=== PATIENT | male | born 1945 | race Caucasian/White ===

== ENCOUNTER 2020-12-26 07:36 | Emergency (ER) | payer OTHER, SELFPAY ==
[2020-12-26 07:37] VITALS: BP 158/104; PULSE 114; RESP 16; TEMP 36.8; O2SAT 96; BMI 20.7
--- NOTE | 2020-12-26 08:05 | EDS_ITS ---
HPI HPI - GI History of Present Illness Chief Complaint: Abd Pain Informant: patient Abdominal Pain/Flank Pain Onset: Days (2) Context: Gradual Onset Timing: Waxes and wanes Quality: Aching Location: Diffuse (More lower abdomen nonlateralizing) Current Severity: Moderate Maximum Severity: Moderate Worsened by: Nothing Relieved by: Nothing Nausea/Vomiting/Emesis GI Symptom: Positive for Nausea and Vomiting (Once when he lie down and felt acid coming up) Onset: Yesterday Quality: Positive for Nonbilious Diarrhea/Melena/Hematochezia GI Symptom: Positive for - (Constipated. Feels like needs to have a bowel movement but unable since before pain started); Negative for Diarrhea, Melena and Hematochezia Associated Symptoms Associated Symptoms: Negative for Dysuria, Frequency, Hematuria and Urgency Narrative Narrative: Patient had a bowel movement several days ago but later that night started having abdominal discomfort, usually has bowel movement every morning but not able to since the pain started, although he feels the need to. Now abdomen distended, feeling hard, with on and off pain. No fevers or chills. No bright red blood per rectum. No trouble urinating. No other recent illness. PFSH PFSH no medical history Home Medications NK 12/26/20 [History Last Taken Unknown] Allergy/AdvReac Type Severity Reaction Status Date / Time No Known Allergies Allergy Verified 12/26/20 07:40 Social History Smoking Status: Never smoker ROS ROS ED Constitutional Constitutional ED: Denies chills or fever(s) Eyes Eyes: Denies change in vision or diplopia ENT ENT ED: Denies rhinorrhea or sore throat Cardiovascular Cardiovascular: Denies chest pain or palpitations Respiratory/Chest Respiratory/Chest: Denies cough or dyspnea Gastrointestinal Gastrointestinal: Reports as per HPI, abdominal pain, constipation, nausea and vomiting; Denies diarrhea Genitourinary Genitourinary ED: Denies dysuria or hematuria Musculoskeletal Musculoskeletal: Denies back pain or neck pain Integumentary Denies abscess or rash Neurologic Neurologic: Denies headache(s), paresthesias or weakness Psychiatric Psychiatric: Denies anxiety or suicidal thoughts EXAM Physical Exam Const Vital Signs: 12/26/20 07:37 Temperature 98.2 F Temperature Source Temporal Pulse Rate 114 H Respiratory Rate 16 Blood Pressure 158/104 H Blood Pressure Mean 122 Pulse Ox 96 Oxygen Delivery Method Room Air Positive well nourished and well developed General Appearance ED: well developed and NAD HEENT Reports moist mucous membranes normocephalic and atraumatic Eyes PERRL and EOMs intact bilaterally Neck full ROM and supple Resp normal respiratory effort and clear to auscultation bilaterally Cardio regular rate, regular rhythm and no murmurs GI GI Narrative: Distended. Mildly diffusely tender. Pain is not severe at this time. No guarding or rebound tenderness. Auscultation: normoactive bowel sounds Palpation: soft Back/Spine no CVA tenderness General Back: other FROM Extremity normal to inspection General Extremety ED: Negative for edema, pulses abnormal or tenderness General Extremity: Negative for edema or pulses abnormal Neuro oriented x3, CN's II-XII intact bilaterally and no sensory deficits noted Sensorium / Orientation: awake and alert Motor Exam: strength 5/5 throughout Skin no rashes or lesions noted and no wounds MDM MDM MDM Narrative Medical decision making narrative: Tried to order a soapsuds enema for the patient but the hospital does not have anymore so he was given a fleets enema. This resulted in a decent bowel movement, he felt much better. His abdomen was softer, he agreed it did not feel firm anymore, and he states his abdomen went back to normal. No more pain. I reexamined him. No tenderness anywhere, softer. He states he feels like he can go some more, but not right now. He has magnesium citrate at home to drink, I offered him to CT anyway since he has a mild leukocytosis, he declines and states he will continue treating himself at home and return if worse which I am fine with. Lab Data Attestation: I reviewed the patient's lab results. Labs: Laboratory Results - last 24 hr 12/26/20 12/26/20 07:50 07:50 WBC 13.5 H RBC 4.73 Hgb 9.2 L Hct 33.2 L MCV 70.2 L MCH 19.5 L MCHC 27.7 L RDW Std Deviation 46.9 H RDW Coeff of Eduardo 19.1 H Plt Count 244 MPV 10.3 Immature Gran % (Auto) 0.400 Neut % (Auto) 87.2 H Lymph % (Auto) 4.5 L [place] % (Auto) 7.7 Eos % (Auto) 0.0 Baso % (Auto) 0.2 Absolute Neuts (auto) 11.8 H Absolute Lymphs (auto) 0.60 L Nucleated RBC % 0 Differential Comment SCANNED Platelet Estimate ADEQUATE Hypochromasia 2+ Sodium 138 Potassium 4.0 Chloride 105 Carbon Dioxide 25.0 Anion Gap 8 BUN 27 H Creatinine 1.81 H Estim Creat Clear Calc 32.80 Est GFR (MDRD) Af Amer 47 L Est GFR (MDRD) Non-Af 39 L BUN/Creatinine Ratio 14.9 Glucose 142 H Calcium 8.9 Total Bilirubin 0.70 AST 14 L ALT 18 Alkaline Phosphatase 73 Total Protein 7.6 Albumin 3.1 L Globulin 4.5 H Albumin/Globulin Ratio 0.7 L Lipase 67 L Discharge Plan Triage Chief Complaint: Abd Pain ED Provider: Joe Wilson Dx/Rx/DC Orders Clinical Impression: Abdominal pain, diffuse, Constipation Instructions: ED Constipation (Adult) Prescriptions: No Action NK RF: 0 [facility] Provider[facility] [facility] [Primary Care Provider] - 3-5 Days if not improving (Or may return to ER if worse) Activity Restrictions/Additional Instructions: Drink the rest of your magnesium citrate bottle, make sure you are drinking plenty of fluids after that, and may do another Fleet Enema if you feel like it is needed. Disposition Disposition: Home, Self Care
[2020-12-26] MEDS: Ondansetron 4 MG/2 ML Vial IV (08:12)
[2020-12-26 08:20] LABS: Absolute Neutrophil Count 11.8 X10^3/uL (2.0-7.7); Basophil# 0.03 X10^3/uL; Basophil% 0.2 % (0-1); Hematocrit 33.2 % (40-54); Hemoglobin 9.2 g/dL (13.0-16.5); Lymphocyte % 4.5 % (19-41); Mean Corp Hgb Conc 27.7 g/dL (32-36); Mean Corpuscular Hgb 19.5 pg (27.0-32.0); Mean Corpuscular Volume 70.2 fL (80-94); Mean Platelet Vol. 10.3 fl (6.2-12.0); Monocyte# 1.04 X10^3/uL; Monocyte% 7.7 % (0-10); NRBC Flagged by Analyzer 0 % (0-5); Neutrophil # 11.76 X10^3/uL (2.7-7.7); Neutrophil % 87.2 % (47-70); POSITIVE DIFFERENTIAL YES; POSITIVE MORPHOLOGY YES; Platelet Count 244 K/mm3 (150-450); RBC Distribution Width CV 19.1 % (11.6-14.6); RBC Distribution Width SD 46.9 fl (35.1-43.9); Red Blood Count 4.73 M/mm3 (4.6-6.2); White Blood Count 13.5 K/mm3 (4.4-11.0)
[2020-12-26 08:21] LABS: Differential Indicated SCAN CRITERIA MET
[2020-12-26 08:32] LABS: ALB/GLOB Ratio 0.7 RATIO (0.9-2.4); AST(SGOT) 14 U/L (15-37); Alanine Aminotransfer ALT/SGPT 18 U/L (16-61); Albumin, Serum 3.1 g/dL (3.2-5.0); Alkaline Phosphatase 73 U/L (45-117); Anion Gap 8 (5-15); BUN 27 mg/dL (7-18); BUN/Creat Ratio 14.9 RATIO (10-20); Calcium,Total 8.9 mg/dL (8.5-10.1); Chloride 105 mmol/L (98-107); Creatinine, Serum 1.81 mg/dL (0.70-1.30); EST Glomerular Filtration Rate 39 mL/min (>60); Est Glom Filt Rate - Afr Amer 47 mL/min (>60); Globulin 4.5 g/dL (2.2-4.2); Glucose 142 mg/dL (74-106); Lipase 67 U/L (73-393); Protein, Total 7.6 g/dL (6.4-8.2); Sodium Level 138 mmol/L (136-145)
[2020-12-26] MEDS: Fleet Enema 1 ML RC (08:34)
[2020-12-26 08:49] LABS: Differential Comment SCANNED; Hypochromasia 2+; Platelet Estimate ADEQUATE (ADEQ)
[2020-12-26 09:43] VITALS: RESP 16
== END 2020-12-26 09:43 | disposition home or self-care (01) ==
PROVIDERS: Emergency Provider Emergency Medicine
DX: R10.9 Unspecified abdominal pain (principal); K59.00 Constipation, unspecified
CPT/HCPCS: 74018; 74177; 80053; 83605; 83690; 85025; 85610; 85730; 87040; 87077; 87426; 96361; 96365; 96374; 96375; 96376; 99283; 99285; J7030; Q9967; A4216; J2405

== ENCOUNTER 2020-12-26 15:24 | Emergency (ER) | payer OTHER, SELFPAY ==
[2020-12-26 15:25] VITALS: BP 125/77; PULSE 106; RESP 16; TEMP 37.6; O2SAT 98; BMI 20.7
--- NOTE | 2020-12-26 16:40 | EDS_ITS ---
HPI History of Present Illness Chief Complaint: Abd Pain Informant: patient and spouse/S.O. Narrative Narrative: 75-year-old male states that he is having abdominal pain and constipation. He reports that on morning he had a bowel movement but then developed generalized abdominal pain. He states his abdomen was feeling firm is not passing any gas. He came to the emergency room this morning where he was noted to have a slight leukocytosis at 13. He declined a CT scan and had an enema. He states that he did have a small bowel movement. Since returning home he notes that his abdomen continues to hurt and is back to being firm. He denies any prior abdominal surgeries. No history of diverticulitis or colitis. He denies any fever. He has not been eating solid foods he had a smoothie today as well as a Sprite and lots of water. PFSH PFSH Home Medications NK 12/26/20 [History Last Taken Unknown] Allergy/AdvReac Type Severity Reaction Status Date / Time No Known Allergies Allergy Verified 12/26/20 07:40 no surgical history Social History (Updated 12/26/20 @ 16:[address] Hunter Tomlinson, DO) Smoking Status: Never smoker substance use type: does not use ROS ROS ED Constitutional Constitutional ED: Denies chills or weight loss Eyes Eyes: Denies change in vision or diplopia ENT ENT ED: Denies ear pain, rhinorrhea or sore throat Cardiovascular Cardiovascular: Denies chest pain, orthopnea, palpitations or racing heartbeat Respiratory/Chest Respiratory/Chest: Denies cough, dyspnea or orthopnea Gastrointestinal Gastrointestinal: Reports abdominal pain, constipation and nausea; Denies diarrhea or vomiting Genitourinary Genitourinary ED: Denies dysuria, hematuria or urinary frequency Musculoskeletal Musculoskeletal: Denies arthralgias or myalgias Integumentary Denies abscess or rash Neurologic Neurologic: Denies headache(s) or weakness Psychiatric Psychiatric: Denies anxiety, depression, suicidal ideation or suicidal thoughts Endocrine Endocrinology: Denies polydipsia, polyphagia or polyuria Allergic/Immunologic Allergic/Immunologic ED: Denies mouth swelling, tongue swelling or urticaria EXAM Physical Exam Const Vital Signs: 12/26/20 15:25 12/26/20 18:30 12/26/20 21:01 Temperature 99.6 F H Temperature Source Temporal Pulse Rate 106 H 99 121 H Respiratory Rate 16 18 22 H Blood Pressure 125/77 H 153/95 H 151/79 H Blood Pressure Mean 93 114 103 Pulse Ox 98 95 97 Oxygen Delivery Method Room Air Room Air Nasal Cannula Oxygen Flow Rate (L/min) 3 12/26/20 21:03 12/26/20 21:26 Temperature 100.1 F H 100.1 F H Temperature Source Temporal Pulse Rate 119 H Respiratory Rate 20 H Blood Pressure 151/74 H Blood Pressure Mean 99 Pulse Ox 96 Oxygen Delivery Method Oxygen Flow Rate (L/min) Positive well nourished and well developed General Appearance ED: well developed HEENT Reports normocephalic, head/scalp atraumatic and moist mucous membranes Eyes PERRL and EOMs intact bilaterally Neck no lymphadenopathy, supple and no JVD Resp normal respiratory effort and clear to auscultation bilaterally Cardio regular rate, regular rhythm and no murmurs GI GI Narrative: Mild diffuse tenderness to palpation. Symptomatic Inspection: abdominal distention Auscultation: hypoactive bowel sounds Palpation: Negative for guarding or rebound tenderness present Back/Spine no CVA tenderness and normal ROM Extremity normal to inspection General Extremety ED: Negative for edema General Extremity: Negative for edema Neuro oriented x3 and CN's II-XII intact bilaterally Sensorium / Orientation: alert Motor Exam: strength 5/5 throughout Psych mental status grossly normal Mood & Affect: Negative for depressed or tearful Skin no rashes or lesions noted and no wounds MDM MDM MDM Narrative Medical decision making narrative: CT abdomen pelvis was obtained. Initially no blood work is ordered as he just had blood work done this morning. CT returns with a 4 cm proximal sigmoid mass and large amount of pneumoperitoneum. Blood work was ordered and he received additional morphine Zofran IV fluids NG placement and Zosyn. Initial return of the NG was 400 cc. My interpretation of the x-ray of the abdomen following placement is curling of the NG tube proximally at the GE junction. I reviewed this as the patient was loaded onto the helicopter cot. As we are getting fluid out I am not going to hold his transfer to fix this. It can be adjusted in the few minutes while they are on the ground. White count returns at 15.1 lactic acid 3.1. Creatinine 2.26 with a BUN of 37. I spoke with our on-call surgeon who recommends transfer to tertiary care facility. I spoke with the patient and his . I have called multiple facilities in [place] in [place] and nobody has a bed availability. I spoke with [facility] and they have accepted the patient. Ground transport is greater than 1 hour to arrival here. Therefore I will fly the patient as I believe it is in the best interest for him to receive timely care. Lab Data Attestation: I reviewed the patient's lab results. Labs: Laboratory Results - last 24 hr 12/26/20 12/26/20 12/26/20 20:17 20:17 20:17 WBC 15.1 H RBC 4.55 L Hgb 8.9 L Hct 32.3 L MCV 71.0 L MCH 19.6 L MCHC 27.6 L RDW Std Deviation 48.1 H RDW Coeff of Eduardo 19.1 H Plt Count 250 MPV 10.1 Immature Gran % (Auto) [employer] Neut % (Auto) [employer] Lymph % (Auto) [employer] [place] % (Auto) [employer] Eos % (Auto) [employer] Baso % (Auto) [employer] Absolute Neuts (auto) 13.9 H Absolute Lymphs (auto) 0.15 L Total Counted 100 Neutrophils % (Manual) 57 Band Neutrophils % 35 H Lymphocytes % (Manual) 1 L Monocytes % (Manual) 7 Nucleated RBC % [employer] Differential Comment SCANNED Diff Path Review May foll Platelet Estimate ADEQUATE Hypochromasia 2+ Anisocytosis 3+ Microcytosis 1+ PT 15.5 H INR 1.3 APTT 25.2 Sodium 136 Potassium 4.6 Chloride 102 Carbon Dioxide 28.0 Anion Gap 6 BUN 37 H Creatinine 2.26 H Estim Creat Clear Calc 26.27 Est GFR (MDRD) Af Amer 37 L Est GFR (MDRD) Non-Af 30 L BUN/Creatinine Ratio 16.4 Glucose 138 H Lactic Acid Calcium 9.4 Total Bilirubin 0.40 AST 18 ALT 19 Alkaline Phosphatase 67 Total Protein 7.2 Albumin 2.7 L Globulin 4.5 H Albumin/Globulin Ratio 0.6 L Lipase 35 L 12/26/20 20:17 WBC RBC Hgb Hct MCV MCH MCHC RDW Std Deviation RDW Coeff of Eduardo Plt Count MPV Immature Gran % (Auto) Neut % (Auto) Lymph % (Auto) [place] % (Auto) Eos % (Auto) Baso % (Auto) Absolute Neuts (auto) Absolute Lymphs (auto) Total Counted Neutrophils % (Manual) Band Neutrophils % Lymphocytes % (Manual) Monocytes % (Manual) Nucleated RBC % Differential Comment Diff Path Review Platelet Estimate Hypochromasia Anisocytosis Microcytosis PT INR APTT Sodium Potassium Chloride Carbon Dioxide Anion Gap BUN Creatinine Estim Creat Clear Calc Est GFR (MDRD) Af Amer Est GFR (MDRD) Non-Af BUN/Creatinine Ratio Glucose Lactic Acid 3.1 H* Calcium Total Bilirubin AST ALT Alkaline Phosphatase Total Protein Albumin Globulin Albumin/Globulin Ratio Lipase Radiography Diagnostic Testing: Radiology Impression Abdomen/Pelvis CT 12/26/20 16:40 IMPRESSION: 1. Extensive pneumoperitoneum. Viscus perforation is a presumed cause. Emergency surgical referral advised. 2. 4 cm proximal sigmoid mass, presumed colonic cancer, possible site of perforation. Electronically Signed: Nora Arenas MD at 19:52 EDT Tel , Service support , ADDENDUM: 12/26/202019 IMPRESSION: 1. Extensive pneumoperitoneum. Viscus perforation is a presumed cause. Emergency surgical referral advised. 2. 4 cm proximal sigmoid mass, presumed colonic cancer, possible site of perforation. N.B. : The above Results were Read Back by Noar Arenas MD to Dr. Hunter Tomlinson MD, and understanding confirmed on 12/26/2020 20:14:01 (ET). Electronically Signed: Nora Arenas MD at 19:52 EDT Tel , Service support , KUB X-Ray 12/26/20 20:45 IMPRESSION: 1. Free air under the right hemidiaphragm in the upper abdomen. This was seen on a previous CT scan. 2. Nasogastric tube coiled at the gastroesophageal junction of the distal tip actually in the distal esophagus. This should be retracted and reinserted. at 2133 Reported and signed by: David Richardson MD Electronically Signed: David Richardson MD at 21:32 EDT Tel , Service support , ADDENDUM: 12/26/20 2152 IMPRESSION: 1. Free air under the right hemidiaphragm in the upper abdomen. This was seen on a previous CT scan. 2. Nasogastric tube coiled at the gastroesophageal junction of the distal tip actually in the distal esophagus. This should be retracted and reinserted. at 2133 Reported and signed by: David Richardson MD N.B. : The above Results were Read Back by David Richardson MD to Hunter Sher MD, and understanding confirmed on 12/26/2020 21:45:06 (ET). Electronically Signed: David Richardson MD at 21:32 EDT Tel , Service support , Critical Care Time Critical Care Time: Yes Critical care time (excluding procedures): 30-74 minutes (35 min), Including time spent:, Discussing w/Patient &/or Family/Public Speaking Instructor, Discussing w/Consultants, Arranging Admission or Transfer and Performing Direct Patient Care at Bedside Discharge Plan Triage Chief Complaint: Abd Pain ED Provider: Hunter Tomlinson Dx/Rx/DC Orders Clinical Impression: Pneumoperitoneum, Colonic mass, Sepsis Prescriptions: No Action NK RF: 0 [facility] [facility] [Primary [facility] Provider] - Disposition Disposition: Acute Care Hospital Discharge Location: [facility] Discharge Date/Time: 12/26/20 21:28
--- NOTE | 2020-12-26 16:40 | CT_ITS ---
We are attempting to reach an attending provider to discuss findings. An addendum with communication details will be sent when the communication is complete. STUDY: CT ABDOMEN AND PELVIS WITH CONTRAST REASON FOR EXAM: Male, 75 years old. Abdominal pain bloating nausea constipation RADIATION DOSAGE (If Supplied By Facility): CTDIvol = ( 13.72 ) mGy, DLP = ( 978.49 ) mGycm TECHNIQUE: CT images were obtained from the dome of the diaphragm to the symphysis pubis without oral contrast. Oral and amp; IV Gastrografin and amp; 100mL Isovue-300 was administered. Sagittal and coronal images were reconstructed. Individualized dose optimization techniques were used for this CT. COMPARISON: None. FINDINGS: There is minimal right pleural effusion and bilateral atelectasis. There is extensive pneumoperitoneum. There is gas bubbles around the distal esophagus which is distended with reflux fluid from the stomach. There is no intestinal obstruction. There is a 4 cm focal thickening, probable proximal sigmoid mass. There is extensive mesenteric edema inflammation and small amount of interloop fluid. Solid organs are normal. There is a 1 cm right renal hypodensity and subcentimeter smaller hypodensities, presumed renal cysts. Normal abdominal aorta. Normal inferior vena cava. Normal retroperitoneum. Normal urinary bladder. Normal abdominal wall. Normal osseous structures. CT/Abdomen/Pelvis WITH Contrast IMPRESSION: 1. Extensive pneumoperitoneum. Viscus perforation is a presumed cause. Emergency surgical referral advised. 2. 4 cm proximal sigmoid mass, presumed colonic cancer, possible site of perforation. Electronically Signed: Nora Arenas MD at 19:52 EDT Tel , Service support ,
[2020-12-26] MEDS: Ondansetron 4 MG/2 ML Vial IV ×2 (16:52→20:30)
[2020-12-26] MEDS: 0.9% Normal Saline 1,000 ML 1000 ML IV (16:52)
[2020-12-26] MEDS: Morphine 4 MG/ML Syringe IV ×2 (16:54→20:30)
[2020-12-26 18:30] VITALS: BP 153/95; PULSE 99; RESP 18; O2SAT 95
[2020-12-26] MEDS: Oxymetazoline 0.05% 1 SPRAY SPRAY.BTL 2 SPRAY NASAL (20:31)
[2020-12-26 20:32] LABS: Hematocrit 32.3 % (40-54); Hemoglobin 8.9 g/dL (13.0-16.5); Mean Corp Hgb Conc 27.6 g/dL (32-36); Mean Corpuscular Hgb 19.6 pg (27.0-32.0); Mean Platelet Vol. 10.1 fl (6.2-12.0); POSITIVE MORPHOLOGY YES; Platelet Count 250 K/mm3 (150-450); RBC Distribution Width CV 19.1 % (11.6-14.6); RBC Distribution Width SD 48.1 fl (35.1-43.9); Red Blood Count 4.55 M/mm3 (4.6-6.2); White Blood Count 15.1 K/mm3 (4.4-11.0)
[2020-12-26] MEDS: 0.9% Normal Saline 1,000 ML 150 ML IV (20:32)
[2020-12-26] MEDS: Lidocaine 4% 5 ML Ampul 2 ML INHALATION (20:32)
[2020-12-26 20:41] LABS: International Normalized Ratio 1.3; Prothrombin Time (Protime)PT. 15.5 SECONDS (11.7-14.9)
[2020-12-26 20:42] LABS: Partial Thromboplast Time 25.2 Seconds (24.1-36.2)
--- NOTE | 2020-12-26 20:45 | RAD_ITS ---
We are attempting to reach an attending provider to discuss findings. An addendum with communication details will be sent when the communication is complete. EXAM: XR ABDOMEN, 1 VIEW : 1945 CLINICAL INDICATION: ng -- KUB with both diaphragms for NG/OG Verification TECHNIQUE: Frontal supine view of the abdomen/pelvis. This report was created using [employer] report generation technology. COMPARISON: None. FINDINGS: LOWER THORAX: See below. INTRAPERITONEAL SPACE: There is free air under the right hemidiaphragm. GASTROINTESTINAL TRACT: There are mildly dilated loops of small bowel. ORGANS: Unremarkable as visualized. No organomegaly. No abnormal calcifications. BONES/JOINTS: No acute pathology. SOFT TISSUES: No acute pathology. TUBES, LINES AND DEVICES: Is a gastric tube is coiled at the gastroesophageal junction with the distal tip actually within the distal esophagus. This should be retracted and reinserted. RAD/Abdomen Single View (Portable) IMPRESSION: 1. Free air under the right hemidiaphragm in the upper abdomen. This was seen on a previous CT scan. 2. Nasogastric tube coiled at the gastroesophageal junction of the distal tip actually in the distal esophagus. This should be retracted and reinserted. at 2133 Reported and signed by: David Richardson MD Electronically Signed: David Richardson MD at 21:32 EDT Tel , Service support ,
[2020-12-26 20:49] LABS: ALB/GLOB Ratio 0.6 RATIO (0.9-2.4); AST(SGOT) 18 U/L (15-37); Alanine Aminotransfer ALT/SGPT 19 U/L (16-61); Albumin, Serum 2.7 g/dL (3.2-5.0); Alkaline Phosphatase 67 U/L (45-117); Anion Gap 6 (5-15); BUN 37 mg/dL (7-18); BUN/Creat Ratio 16.4 RATIO (10-20); Calcium,Total 9.4 mg/dL (8.5-10.1); Chloride 102 mmol/L (98-107); Creatinine, Serum 2.26 mg/dL (0.70-1.30); EST Glomerular Filtration Rate 30 mL/min (>60); Est Glom Filt Rate - Afr Amer 37 mL/min (>60); Estimated Creatinine Clearance 26.27 ml/min; Globulin 4.5 g/dL (2.2-4.2); Glucose 138 mg/dL (74-106); Lipase 35 U/L (73-393); Potassium 4.6 mmol/L (3.5-5.1); Protein, Total 7.2 g/dL (6.4-8.2); Sodium Level 136 mmol/L (136-145)
[2020-12-26 21:01] VITALS: BP 151/79; PULSE 121; RESP 22; O2SAT 97
[2020-12-26 21:03] VITALS: TEMP 37.8
[2020-12-26 21:03] LABS: Lactic Acid 3.1 mmol/L (0.4-1.9)
[2020-12-26 21:24] LABS: Differential Indicated MANUAL DIFF
[2020-12-26 21:25] LABS: Lymphocyte 1 % (19-41); Total Cells Counted 100 (MANUAL DIFF)
[2020-12-26 21:26] VITALS: BP 151/74; PULSE 119; RESP 20; TEMP 37.8; O2SAT 96
[2020-12-26 21:26] LABS: Differential Comment SCANNED; Monocyte 7 % (0-10); Neutrophil-Band 35 % (0-5); Neutrophil-Segmented 57 % (47-70); Platelet Estimate ADEQUATE (ADEQ)
[2020-12-26 21:27] LABS: Anisocytosis 3+; Hypochromasia 2+; Microcytosis 1+
[2020-12-26 21:29] LABS: Absolute Lymphocyte Count 0.15 X10^3/uL (0.83-4.51); Absolute Neutrophil Count 13.9 X10^3/uL (2.0-7.7); Lymphocyte # 0.15 X10^3/ul (0.83-4.51); Neutrophil # 13.89 X10^3/uL (2.7-7.7)
[2020-12-27 00:29] LABS: Reflex Lactate? Y
[2020-12-28 12:49] LABS: Pathologist Review Reviewed
== END 2020-12-26 21:28 | disposition short-term general hospital (02) ==
PROVIDERS: Emergency Provider Emergency Medicine
DX: K66.9 Disorder of peritoneum, unspecified (principal); K63.89 Other specified diseases of intestine; A41.9 Sepsis, unspecified organism
CPT/HCPCS: 74018; 74177; 80053; 83605; 83690; 85025; 85610; 85730; 87040; 87426; 96361; 96365; 96375; 96376; 99285; J7030; Q9967; A4216; J2405

== ENCOUNTER → 2021-01-04 05:00 | Outpatient (REF) | payer OTHER, SELFPAY ==
[2021-01-04 07:06] LABS: Anion Gap 6 (5-15); BUN 20 mg/dL (7-18); BUN/Creat Ratio 13.6 RATIO (10-20); Calcium,Total 7.8 mg/dL (8.5-10.1); Chloride 108 mmol/L (98-107); Creatinine, Serum 1.47 mg/dL (0.70-1.30); EST Glomerular Filtration Rate 50 mL/min (>60); Est Glom Filt Rate - Afr Amer 60 mL/min (>60); Glucose 100 mg/dL (74-106); Potassium 4.1 mmol/L (3.5-5.1); Sodium Level 141 mmol/L (136-145)
== END ==
LOC: OLS.WHLTCC 05:00
PROVIDERS: Visit Provider Family Medicine
DX: K63.1 Perforation of intestine (nontraumatic) (principal); I10 Essential (primary) hypertension; K21.9 Gastro-esophageal reflux disease without esophagitis; R52 Pain, unspecified
CPT/HCPCS: 36415; 80048

== ENCOUNTER 2021-01-06 12:02 | Emergency (ER) | payer OTHER, SELFPAY ==
[2021-01-06 12:03] VITALS: BP 143/81; PULSE 108; RESP 16; TEMP 37.1; O2SAT 88; BMI 22.9
--- NOTE | 2021-01-06 12:09 | EX.ED.DYSGE1 ---
HPI History of Present Illness Chief Complaint: Abn Labs Detail of Chief Complaint: Abnormal labs Informant: patient Narrative Narrative: Patient presents to the emergency department from [facility]. Patient had a sigmoidectomy on December 27 at [facility] for a abdominal mass that was resected. Patient states that he had been doing relatively well but had some blood work drawn and was told that he needed to be evaluated in the emergency department today. I have received a phone call from patient's nurse practitioner that is caring for him and was told that he had elevated platelets and fever and low pulse ox as well as an elevated white blood cell count. There was concern the patient might require abdominal imaging to rule out postop abscess. Patient denies any chest pain or shortness of breath. He denies any Covid symptoms and has not had the Covid vaccine. Patient states that he is been tested for Covid at least 3 times in the last several weeks. Patient noted some swelling in his legs over the last couple of days. No history of PE or DVT. Prior similar symptoms: No PFSH PFSH Medical History Colostomy in place Non-smoker Home Medications NK 12/26/20 [History Last Taken Unknown] Allergy/AdvReac Type Severity Reaction Status Date / Time No Known Allergies Allergy Verified 01/06/21 12:05 Surgical History (Updated 01/06/21 @ 12:14 by Heron Campo) Hx of resection of large bowel Social History (Updated 12/26/20 @ 16:[address] Hunter Tomlinson, DO) Smoking Status: Never smoker substance use type: does not use ROS ROS ED Constitutional Constitutional ED: Reports systems reviewed and no addt'l complaints, except as documented and fever(s); Denies body ache(s), change in weight or chills Eyes Eyes: Denies acute decrease in peripheral vision, change in vision, double vision or loss of vision ENT ENT ED: Reports none; Denies ear pain, lip swelling, loss taste/smell, neck pain, otalgia or sore throat Cardiovascular Cardiovascular: Reports none; Denies abdominal pain, chest pain with activity, leg edema, lightheadedness, palpitations, rapid heart rate or syncope Respiratory/Chest Respiratory/Chest: Reports none; Denies change in mental status, dry cough, dyspnea, hemoptysis, shortness of breath at rest or shortness of breath with exertion Gastrointestinal Gastrointestinal: Reports none; Denies abdominal pain, change in stool character, diarrhea, hematemesis, hematochezia, melena, rectal bleeding or vomiting Genitourinary Genitourinary ED: Reports none; Denies abdominal discomfort, anuria, dysuria, genital pain or polyuria Musculoskeletal Musculoskeletal: Reports none; Denies arthralgias, back pain, difficulty walking, extremity pain, muscle weakness or myalgias Integumentary Reports none; Denies abscess or rash Neurologic Neurologic: Reports none; Denies abnormal gait, confusion, focal weakness, frequent falls, headache(s), loss of vision, numbness, paresthesias, radicular pain, vertigo or weakness Psychiatric Psychiatric: Reports systems reviewed and no addt'l complaints, except as documented and none; Denies behavioral changes, confusion, difficulty concentrating, hallucinations, suicidal ideation, tactile hallucinations or visual hallucinations Endocrine Endocrinology: Denies none, cold intolerance, excessive sweating, fatigue or heat intolerance Hematologic/Lymphatic Hematologic/Lymphatic: Reports none; Denies anemia, easy bleeding or easy bruising Allergic/Immunologic Allergic/Immunologic ED: Denies as per HPI, none, lip swelling, mouth swelling, throat swelling, tongue swelling or hives EXAM Physical Exam Const Vital Signs: 01/06/21 12:03 01/06/21 12:11 01/06/21 14:47 Temperature 98.7 F 98.2 F Temperature Source Temporal Axillary Pulse Rate 108 H 109 H 96 Respiratory Rate 16 16 16 Respiratory Effort Normal Respiratory Pattern Normal Blood Pressure 143/81 H 139/104 H 155/79 H Blood Pressure Mean 101 115 104 Pulse Ox 88 92 93 Oxygen Delivery Method Room Air Room Air Nasal Cannula Oxygen Flow Rate (L/min) 4 Positive well nourished and well developed General Appearance ED: well developed and NAD HEENT Reports TM's clear and moist mucous membranes normocephalic and atraumatic; Negative for trauma or tenderness Tympanic Membrane ED: Yes TM's clear Eyes PERRL and EOMs intact bilaterally General Eye ED: Negative for pale conjunctiva or scleral icterus Neck no lymphadenopathy, supple and no JVD General: Negative for tenderness Chest Wall inspection of chest normal and palpation of chest normal Chest: Negative for tenderness Resp normal respiratory effort and clear to auscultation bilaterally Resp Narrative: Diminished breath sounds in the left lower lobe with few faint rales noted. No significant tachypnea. No accessory muscle use or retractions. Effort and Inspection: Negative for respiratory distress or pain with movement Auscultation: diminished lung sounds; Negative for rhonchi or wheezes Cardio regular rate, regular rhythm, S1 normal heart sound, S2 normal heart sound and no murmurs Peripheral Pulses: pulses 2+ throughout GI normal to inspection, nondistended, normoactive bowel sounds, soft to palpation, non-tender, non-distended and no masses Back/Spine no CVA tenderness and no thoracic nor lumbar tenderness Extremity normal to inspection General Extremety ED: Negative for edema General Extremity: Negative for edema Neuro oriented x3, CN's II-XII intact bilaterally, no sensory deficits noted and gait normal Sensorium / Orientation: awake, alert, oriented to person, oriented to place and oriented to time Motor Exam: strength 5/5 throughout and strength abnormal Psych mental status grossly normal Skin no rashes or lesions noted and no wounds MDM MDM MDM Narrative Medical decision making narrative: Patient has findings on CT of abdomen pelvis concerning for abscesses given his elevated white count and fever as well as elevated platelet count. Patient was started on Zosyn empirically. Patient also noted to have a large left pleural effusion it is unclear if this is malignant. Case discussed with [facility] transfer line and awaiting acceptance to their facility for transfer. Lab Data Attestation: I reviewed the patient's lab results. Labs: Laboratory Results - last 24 hr 01/06/21 01/06/21 01/06/21 12:42 12:42 12:42 D-Dimer Quant (PE/DVT) >= 20.00 H* Lactic Acid Troponin I High Sens 21 B-Natriuretic Peptide 118.9 H Urine Color Urine Clarity Urine pH Ur Specific Radisson Urine Protein Urine Glucose (UA) Urine Ketones Urine Occult Blood Urine Nitrite Urine Bilirubin Urine Urobilinogen Ur Leukocyte Esterase Urine RBC Urine WBC Ur Squamous Epith Cells Urine Bacteria Urine Mucus 01/06/21 01/06/21 13:05 14:45 D-Dimer Quant (PE/DVT) Lactic Acid 1.8 Troponin I High Sens B-Natriuretic Peptide Urine Color Yellow Urine Clarity Clear Urine pH 6.5 Ur Specific Radisson 1.010 Urine Protein 30 H Urine Glucose (UA) Normal Urine Ketones Negative Urine Occult Blood 10 H Urine Nitrite Negative Urine Bilirubin Negative Urine Urobilinogen Normal Ur Leukocyte Esterase Negative Urine RBC 0 SEEN Urine WBC 0 SEEN Ur Squamous Epith Cells 0-5 SEEN Urine Bacteria 0 SEEN Urine Mucus 0 SEEN Radiography Diagnostic Testing: Radiology Impression Abdomen/Pelvis CT 01/06/21 12:21 IMPRESSION: 1. 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 2. Bowel wall thickening involving jejunum in the left lower abdomen. May represent enteritis, including infectious and ischemic causes. 3. Focal fluid collection in the left lower quadrant measures 4.8 x 5.3 cm. Postoperative seroma versus abscess. 4. Fluid collection in the right hemipelvis measures 8.7 x 3.1 cm on image 98 of series 3. Postoperative seroma versus abscess. 5. Focal fluid collection adjacent to the spleen measures 2.3 x 4.2 cm. Postoperative seroma versus abscess. 6. High density within the gallbladder could represent vicarious excretion versus gallbladder sludge. Electronically Signed: Radames Talamantes MD (Brooks) at 14:23 EDT , Service support , Chest CTA 01/06/21 13:43 IMPRESSION: 1. Loculated left pleural effusion, moderate volume. 2. Atelectasis of the left more than right lower lobes. 3. No central or segmental pulmonary embolism. Electronically Signed: Radames Talamantes MD (Brooks) at 14:18 EDT , Service support , EKG Initial EKG: Attestation: I personally reviewed and interpreted this EKG as follows: Comments: Sinus rhythm with a ventricular rate of 99 bpm with no acute ST segment changes Discharge Plan Triage Chief Complaint: Abn Labs ED Provider: Rashad Qureshi Dx/Rx/DC Orders Clinical Impression: Pleural effusion on left, Hypoxemia, Post-operative infection, Leukocytosis, Thrombocytosis, Fever postop Prescriptions: No Action NK RF: 0 Primary Care Provider: [facility] Referrals: [facility] [Primary Care Provider] - Disposition Disposition: Transfer to Another Type [facility]
[2021-01-06 12:11] VITALS: BP 139/104; PULSE 109; RESP 16; TEMP 36.8; O2SAT 92
--- NOTE | 2021-01-06 12:21 | EKG12_ITS ---
Test Reason : ABN LABS Blood Pressure : / mmHG Vent. Rate : 099 BPM Atrial Rate : 099 BPM P-R Int : 160 ms QRS Dur : 094 ms QT Int : 344 ms P-R-T Axes : 024 -04 015 degrees QTc Int : 441 ms Normal sinus rhythm Normal ECG Confirmed by RENETTA TINEO, NEHA ([id number]), loan expeditor TRACY MALAGON ([id number]) on 01/11/2021 7:34:52 AM Referred By: RUSSELL Confirmed By:NEHA JACKSON MD
--- NOTE | 2021-01-06 12:21 | CT_ITS ---
EXAM: CT ABDOMEN AND PELVIS WITH INTRAVENOUS CONTRAST CLINICAL INDICATION: fever, post op -- IV PO Contrast TECHNIQUE: Helically acquired images were obtained of the abdomen and pelvis with intravenous contrast. This CT exam was performed using one or more of the following dose reduction techniques: automated exposure control, adjustment of the mA and/or kV according to patient size, and/or use of iterative reconstruction technique. This report was created using [employer] report generation technology. CONTRAST: 100 mL Isovue-370 COMPARISON: 12/26/2020 FINDINGS: LOWER THORAX: Described on chest CT report ABDOMEN: LIVER: Unremarkable. Homogeneous. No focal mass. GALLBLADDER AND BILE DUCTS: High density within the gallbladder could represent vicarious excretion versus gallbladder sludge. Small gallstone. No gallbladder distention or wall edema. No intra- or extrahepatic biliary ductal dilation. PANCREAS: Unremarkable. No focal cystic or solid mass. SPLEEN: Focal fluid collection adjacent to the spleen measures 2.3 x 4.2 cm. ADRENALS: Unremarkable. No nodules. KIDNEYS AND URETERS: Simple right renal cyst, stable. Normal renal size and position. No hydronephrosis. 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 Bowel wall thickening involving jejunum in the left lower abdomen. No stomach or bowel distention. PELVIS: APPENDIX: Not identified. BLADDER: Air within the urinary bladder likely related to prior Gomez catheter. REPRODUCTIVE: Unremarkable as visualized. No mass. ABDOMEN and PELVIS: INTRAPERITONEAL SPACE: Focal fluid collection in the left lower quadrant measures 4.8 x 5.3 cm. Fluid collection in the right hemipelvis measures 8.7 x 3.1 cm on image 98 of series 3. Mild scattered peritoneal fluid adjacent to the liver and in the paracolic gutters. No free air. BONES/JOINTS: Degenerative changes of the lumbar spine. No suspicious lytic or blastic abnormality. SOFT TISSUES: Mild body wall edema posteriorly. Operative changes of the anterior abdominal wall. No discrete abdominal or pelvic wall hernia. VASCULATURE: Atherosclerosis. Abdominal aorta is non-dilated. LYMPH NODES: Unremarkable. No enlarged lymph nodes. CT/Abdomen/Pelvis WITH Contrast IMPRESSION: 1. 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 2. Bowel wall thickening involving jejunum in the left lower abdomen. May represent enteritis, including infectious and ischemic causes. 3. Focal fluid collection in the left lower quadrant measures 4.8 x 5.3 cm. Postoperative seroma versus abscess. 4. Fluid collection in the right hemipelvis measures 8.7 x 3.1 cm on image 98 of series 3. Postoperative seroma versus abscess. 5. Focal fluid collection adjacent to the spleen measures 2.3 x 4.2 cm. Postoperative seroma versus abscess. 6. High density within the gallbladder could represent vicarious excretion versus gallbladder sludge. Electronically Signed: Radames Talamantes MD (Brooks) at 14:23 EDT , Service support ,
[2021-01-06 13:11] LABS: Troponin-I HS 21 pg/mL (3.0-78.0)
[2021-01-06 13:28] LABS: D-Dimer Quantitative (DVT/PE) >= 20.00 FEU/ug/m (0.27-0.49)
--- NOTE | 2021-01-06 13:43 | CT_ITS ---
EXAM: CT ANGIOGRAPHY CHEST WITHOUT AND WITH INTRAVENOUS CONTRAST CLINICAL INDICATION: dyspnea, elevated d-dimer TECHNIQUE: Helically acquired angiography images were obtained of the chest without and with intravenous contrast. This CT exam was performed using one or more of the following dose reduction techniques: automated exposure control, adjustment of the mA and/or kV according to patient size, and/or use of iterative reconstruction technique. This report was created using [employer] report generation technology. MIP reconstructed images were created and reviewed. CONTRAST: Oral and amp; IV Gastrografin and amp; 100mL Isovue-370 COMPARISON: None. FINDINGS: PULMONARY ARTERIES: Unremarkable. Normal in caliber. No evidence of pulmonary embolism. AORTA: Atherosclerosis of the thoracic aorta. Normal in caliber. No evidence of dissection. GREAT VESSELS OF AORTIC ARCH: Unremarkable. Normal in caliber. No evidence of dissection. LUNGS AND PLEURAL SPACES: Loculated left pleural effusion, moderate volume. Atelectasis of the left more than right lower lobes. Small volume right pleural effusion. No mass. No pneumothorax. HEART: Mild cardiomegaly. No pericardial effusion. No signs of right heart strain. MEDIASTINUM: Unremarkable. No mediastinal or hilar adenopathy. Esophagus is unremarkable. No hiatal hernia. THYROID: Subcentimeter hypodense lesion of the right thyroid lobe. ACR White Paper guidelines (Arnold JK, et al. JACR 2015;12(2):143-50) suggest no follow-up is necessary. BONES/JOINTS: Unremarkable. No suspicious lytic or blastic abnormality. CT/CTA Chest W/WO Contrast IMPRESSION: 1. Loculated left pleural effusion, moderate volume. 2. Atelectasis of the left more than right lower lobes. 3. No central or segmental pulmonary embolism. Electronically Signed: Radames Talamantes MD (Brooks) at 14:18 EDT , Service support ,
[2021-01-06 13:54] LABS: Lactic Acid 1.8 mmol/L (0.4-1.9)
[2021-01-06 14:13] LABS: BNP,B-Type NATRIURETIC PEPTIDE 118.9 pg/mL (0-100)
[2021-01-06 14:47] VITALS: BP 155/79; PULSE 96; RESP 16; O2SAT 93
[2021-01-06 14:50] LABS: Bacteria 0 SEEN /hpf (None Seen); Mucous, Urine 0 SEEN /hpf (<or=2+); Red Blood Cells-Urine 0 SEEN /hpf (0-5); White Blood Cells 0 SEEN /hpf (0-5)
[2021-01-06 14:52] LABS: Color, Urine Yellow (Yellow); Glucose, Dipstick Normal (Normal); Ketone-Dipstick Negative (Negative); Leukocyte Esterase-Dipstick Negative /ul (Negative); Nitrite-Dipstick Negative (Negative); Occult Blood-Urine 10 /ul (Negative); Protein-Dipstick 30 mg/dl (Negative); Urine Bilirubin Dipstick Negative (Negative); Urine Clarity Clear (Clear); Urine Urobilinogen Normal (Normal); Urine pH 6.5 (5.0 - 8.0)
[2021-01-06 14:58] LABS: Squamous Epithelial Cells - UA 0-5 SEEN /hpf (0-5)
[2021-01-06 16:33] VITALS: BP 146/87; PULSE 92; RESP 16; O2SAT 94
[2021-01-06 19:49] VITALS: BP 146/78
== END 2021-01-06 21:00 | disposition other institution (70) ==
PROVIDERS: Emergency Medicine; Emergency Provider Emergency Medicine
DX: J90 Pleural effusion, not elsewhere classified (principal); R09.02 Hypoxemia; T81.40XA Infection following a procedure, unspecified, initial encounter; R79.89 Other specified abnormal findings of blood chemistry; D47.3 Essential (hemorrhagic) thrombocythemia; Z93.3 Colostomy status
CPT/HCPCS: 71275; 74177; 81001; 83605; 83880; 84484; 85379; 87040; 87426; 93005; 96365; 99283; J7030; Q9967; A4216

== ENCOUNTER 2021-07-07 13:43 | Outpatient (CLI) | payer OTHER, SELFPAY ==
--- NOTE | 2021-07-07 14:04 | CT_ITS ---
EXAM: CT ABDOMEN AND PELVIS WITH INTRAVENOUS CONTRAST CLINICAL INDICATION: MONITOR COLON CANCER TECHNIQUE: Helically acquired images were obtained of the abdomen and pelvis with intravenous contrast. This CT exam was performed using one or more of the following dose reduction techniques: automated exposure control, adjustment of the mA and/or kV according to patient size, and/or use of iterative reconstruction technique. This report was created using [employer] report generation technology. CONTRAST: Oral and amp; IV Readi-CAT and amp; 100mL 300. Radiation CTDIvol 13.19 Radiation DLP 657.55 COMPARISON: 01/06/2021. FINDINGS: LOWER THORAX: Coronary artery calcifications. Lung bases are clear. No cardiomegaly. No significant pericardial effusion. ABDOMEN: LIVER: Unremarkable. Homogeneous. No focal mass. GALLBLADDER AND BILE DUCTS: Unremarkable. No calcified gallstones. No gallbladder distention or wall edema. No intra- or extrahepatic biliary ductal dilation. PANCREAS: Unremarkable. No focal cystic or solid mass. SPLEEN: Unremarkable. Normal size without focal cystic or solid mass. ADRENALS: Unremarkable. No nodules. KIDNEYS AND URETERS: Small cyst right kidney. No follow-up imaging required. Normal renal size and position. No hydronephrosis. STOMACH AND BOWEL: Status post partial colectomy with left-sided colostomy. No stomach or bowel distention. No mass is identified. PELVIS: APPENDIX: See above. BLADDER: Unremarkable. REPRODUCTIVE: Unremarkable as visualized. No mass. ABDOMEN and PELVIS: INTRAPERITONEAL SPACE: Previously noted left-sided intraperitoneal fluid collections have resolved. No free air. BONES/JOINTS: Unremarkable. No suspicious lytic or blastic abnormality. SOFT TISSUES: Unremarkable. No discrete abdominal or pelvic wall hernia. VASCULATURE: Unremarkable. Abdominal aorta is non-dilated. LYMPH NODES: Unremarkable. No enlarged lymph nodes. OTHER FINDINGS: No evidence of residual or recurrent neoplasm. CT/Abdomen/Pelvis WITH Contrast IMPRESSION: 1. Status post partial colectomy with left-sided colostomy. 2. Previously noted left-sided intraperitoneal fluid collections have resolved. 3. Coronary artery disease. 4. No evidence of residual or recurrent neoplasm. Electronically Signed: Mahamed Cordova MD at 23:20 EDT ,
[2021-07-07 14:27] LABS: Absolute Lymphocyte Count 1.39 X10^3/uL (0.83-4.51); Absolute Neutrophil Count 3.5 X10^3/uL (2.0-7.7); Basophil# 0.01 X10^3/uL; Basophil% 0.2 % (0-1); Eosinophil# 0.05 X10^3/uL; Eosinophils% 0.9 % (0-5); Hematocrit 43.7 % (40-54); Hemoglobin 14.2 g/dL (13.0-16.5); Lymphocyte # 1.39 X10^3/ul (0.83-4.51); Lymphocyte % 24.3 % (19-41); Mean Corp Hgb Conc 32.5 g/dL (32-36); Mean Corpuscular Volume 83.1 fL (80-94); Mean Platelet Vol. 10.2 fl (6.2-12.0); Monocyte# 0.75 X10^3/uL; Monocyte% 13.1 % (0-10); NRBC Flagged by Analyzer 0 % (0-5); Neutrophil # 3.52 X10^3/uL (2.7-7.7); Neutrophil % 61.3 % (47-70); Platelet Count 172 K/mm3 (150-450); RBC Distribution Width CV 16.6 % (11.6-14.6); RBC Distribution Width SD 50.8 fl (35.1-43.9); Red Blood Count 5.26 M/mm3 (4.6-6.2); White Blood Count 5.7 K/mm3 (4.4-11.0)
[2021-07-07 14:31] LABS: CREATININE FINGERSTICK 1.2 mg/dL (0.70-1.30); EGFR FINGERSTICK > 60.0000 mL/min (>60)
[2021-07-07 15:08] LABS: BUN 32 mg/dL (7-18); Creatinine, Serum 1.32 mg/dL (0.70-1.30); EST Glomerular Filtration Rate 56 mL/min (>60); Glucose 93 mg/dL (74-106)
[2021-07-07 15:09] LABS: AST(SGOT) 15 U/L (15-37); Alanine Aminotransfer ALT/SGPT 16 U/L (16-61); Albumin, Serum 4.2 g/dL (3.2-5.0); Alkaline Phosphatase 70 U/L (45-117); Anion Gap 5 (5-15); BUN/Creat Ratio 24.2 RATIO (10-20); Calcium,Total 9.4 mg/dL (8.5-10.1); Chloride 103 mmol/L (98-107); Est Glom Filt Rate - Afr Amer 68 mL/min (>60); Ferritin 22 ng/mL (26-388); Globulin 4.2 g/dL (2.2-4.2); Iron 123 ug/dL (65-175); Iron Binding Capacity,Total 310 ug/dL (250-450); LDH 153 U/L (87-241); PERCENT IRON SATURATION 39.7 % (15.0-55.0); Potassium 4.1 mmol/L (3.5-5.1); Protein, Total 8.4 g/dL (6.4-8.2); Sodium Level 136 mmol/L (136-145)
[2021-07-07 21:53] LABS: Xtra Tube EP Lab EXTRA TUBE
[2021-07-09 09:44] LABS: Carcinoembryonic Antigen 1.6 ng/mL (0.0-4.7)
== END 2021-07-07 23:59 | disposition home or self-care (01) ==
LOC: LAB 13:44
PROVIDERS: Visit Provider Internal Medicine Medical Oncology
DX: C18.7 Malignant neoplasm of sigmoid colon (principal); D50.0 Iron deficiency anemia secondary to blood loss (chronic)
CPT/HCPCS: 36415; 74177; 80053; 82378; 82728; 83540; 83550; 83615; 85025; Q9967

== ENCOUNTER 2024-12-31 18:18 | Inpatient (IN) | payer OTHER, SELFPAY ==
[2024-12-31] VITALS (26 sets, daily range): BP systolic 88–147; BP diastolic 58–80; PULSE 82–108; RESP 16–30; TEMP 36.4–36.8; O2SAT 82–100; BMI 24.0; BMI 21.9
--- NOTE | 2024-12-31 18:57 | CT_ITS ---
PROCEDURE: CT CHEST, ABD, PEL W/CONTRAST 12/31/2024 REASON FOR EXAM: PAIN TECHNIQUE: Procedure Code: CTCHAP Modality: CT Procedure: CT CHEST, ABD, PEL W/CONTRAST Coronal and Sagittal reconstruction series were provided. One or more dose reduction techniques were used (e.g., Automated exposure control, adjustment of the mA and/or kV according to patient size, use of iterative reconstruction technique. CONTRAST: Isovue 370 VOLUME: 100 mL RADIATION DOSE SUMMARY: CTDlvol: 36 mGy DLP: 1076 MGycm FINDINGS: No lumbar or thoracic compression deformity. No sternal disruption. Lower ribs are intact. Lumbar transverse processes normal. Normal sacrum, iliac bones, hips and pelvis. Inspection of the chest demonstrates normal axilla. Normal chest wall. Normal aorta. No mediastinal mass. No pericardial fluid. Upper abdomen demonstrates mildly distended gallbladder with dilatation of the extrahepatic biliary tree. Correlate for laboratory evidence of biliary obstruction. The pancreatic duct is mildly prominent and there is a small area of low-density adjacent to the pancreatic head which may represent a side branch cyst. Also present on the prior study dated 07/07/2021 without change. There is inflammation of the peripancreatic soft tissues with a small amount of fluid compatible with pancreatitis The colon is prominent in caliber and is diffusely fluid filled. This finding can be seen with infection or diarrhea. No positive findings for appendicitis. No free air. No free-fluid. No abscess. CT/CT Chest, Abd, Pel w/Contrast IMPRESSION: Abnormally distended gallbladder with extrahepatic biliary prominence and mild intrahepatic biliary prominence. Correlate with laboratory findings. New compared to prior study. Consider further evaluation with MRCP. Evidence of pancreatitis with fluid near the pancreatic tail. Correlate clinic ally Reading [facility]
--- NOTE | 2024-12-31 18:57 | EKG12_ITS ---
Test Reason : SYNCOPE Blood Pressure : */* mmHG Vent. Rate : 98 BPM Atrial Rate : 98 BPM P-R Int : 158 ms QRS Dur : 90 ms QT Int : 354 ms P-R-T Axes : 45 -50 18 degrees QTcB Int : 451 ms Normal sinus rhythm Left anterior fascicular block Cannot rule out Inferior infarct (masked by fascicular block?) , age undetermined Abnormal ECG Confirmed by Mahamed Locke ([id number]), dictionary editor TRACY MALAGON ([id number]) on 01/02/2025 5:57:29 AM Referred By: Confirmed By: Mahamed Locke
--- NOTE | 2024-12-31 18:58 | EDS_ITS ---
HPI History of Present Illness Chief Complaint: Syncope Narrative Narrative: 79-year-old male presents with his via EMS with nausea, vomiting, and epigastric pain. They relate history that he went out to eat and ate fish with potato crowns. Approximately 1 hour later, he experienced nausea and vomiting without hematemesis. They were sitting on the couch, and his states that he was unresponsive to her. He was actively vomiting. She thinks that he may have had a syncopal episode for a few minutes. He came to, and continues to have vomiting and complaint of epigastric pain. He states it hurts whenever he vomits in his chest as well. They relate history that he had a history of colon cancer, with previous ostomy and then reversal. He states he takes antihypertensive medications only. PFSH PFSH Medical History GERD (gastroesophageal reflux disease) Hypertension Colon cancer Colostomy in place Non-smoker Home Medications ?Medication ?Instructions ?Recorded ?Last Taken ?Type acetaminophen 325 mg capsule 325 mg PO Q6H PRN 1 Unknown History amlodipine 10 mg tablet 10 mg PO DAILY 01/14/21 Unkn own History lansoprazole 30 mg capsule,delayed 30 mg PO DAILY 10/28 Unknown History release apixaban 5 mg tablet (Eliquis) 5 mg PO BID 01/21/21 Un known History pantoprazole 40 mg tablet,delayed 40 mg PO DAILY 01/21 Unknown History release sennosides 8.6 mg capsule (senna) 8.6 mg PO DAILY 01/08 07/29 Unknown History polysaccharide iron complex 150 mg 150 mg PO BID #180 caps 02/11/21 Unknown Rx iron capsule (Ferrex) Allergy/AdvReac Type Severity Reaction Status Date / Time No Known Allergies Allergy Verified 12/31/24 18:19 Surgical History Hx of resection of large bowel Social History adopted: No housing: detention current occupational status: retired Smoking Status: Never smoker alcohol intake: never substance use type: does not use ROS ROS ED ROS Narrative Review of systems positive for nausea and vomiting. Positive syncopal episode for a few minutes. Complains of epigastric pain, and chest pain with vomiting. No other exacerbating or alleviating factors. EXAM Physical Exam Narrative Exam Narrative: Afebrile. Vital signs noted. Cardiovascular examination reveals mild tachycardia. Lungs clear to auscultation bilaterally. Abdomen is soft with tenderness in the epigastrium, negative Hylton sign. No guarding or rebound. Neurological examination shows him to be awake, alert, oriented with flat affect. Const Vital Signs: 12/31/24 18:19 12/31/24 18:23 12/31/24 18:58 Temperature 97.6 F L Temperature Source Oral Pulse Rate 108 H Respiratory Rate 18 23 H Respiratory Effort Normal Respiratory Pattern Normal Blood Pressure 88/67 L Blood Pressure Mean 74 Pulse Ox 95 93 Oxygen Delivery Method Room Air Oxygen Flow Rate (L/min) 12/31/24 19:00 12/31/24 19:10 12/31/24 19:15 Temperature Temperature Source Pulse Rate 86 90 92 Respiratory Rate 30 H 18 20 H Respiratory Effort Respiratory Pattern Blood Pressure 106/58 L 105/70 Blood Pressure Mean 72 82 Pulse Ox 94 96 98 Oxygen Delivery Method Oxygen Flow Rate (L/min) 12/31/24 19:19 12/31/24 19:20 12/31/24 19:30 Temperature Temperature Source Pulse Rate 93 Respiratory Rate 25 H Respiratory Effort Respiratory Pattern Blood Pressure 121/77 H 106/59 L 121/77 H Blood Pressure Mean 91 74 83 Pulse Ox 94 Oxygen Delivery Method Room Air Oxygen Flow Rate (L/min) 12/31/24 19:31 12/31/24 19:40 12/31/24 19:45 Temperature Temperature Source Pulse Rate 94 90 Respiratory Rate 25 H 27 H Respiratory Effort Respiratory Pattern Blood Pressure 119/59 L Blood Pressure Mean 76 Pulse Ox 96 94 82 Oxygen Delivery Method Room Air Oxygen Flow Rate (L/min) 12/31/24 19:45 12/31/24 19:50 12/31/24 19:50 Temperature Temperature Source Pulse Rate 89 82 Respiratory Rate 29 H 17 Respiratory Effort Respiratory Pattern Blood Pressure 128/67 H Blood Pressure Mean 84 Pulse Ox 95 97 100 Oxygen Delivery Method Nasal Cannula Oxygen Flow Rate (L/min) 2 12/31/24 20:00 12/31/24 20:00 12/31/24 20:10 Temperature Temperature Source Pulse Rate 84 Respiratory Rate 25 H Respiratory Effort Respiratory Pattern Blood Pressure 132/76 H 132/68 H 132/76 H Blood Pressure Mean 94 86 89 Pulse Ox 100 Oxygen Delivery Method Nasal Cannula Oxygen Flow Rate (L/min) 2 12/31/24 20:15 12/31/24 20:20 12/31/24 20:20 Temperature Temperature Source Pulse Rate 84 83 Respiratory Rate 19 H 20 H Respiratory Effort Respiratory Pattern Blood Pressure 147/74 H 147/74 H Blood Pressure Mean 96 96 Pulse Ox 100 100 Oxygen Delivery Method Oxygen Flow Rate (L/min) 12/31/24 20:30 12/31/24 20:40 12/31/24 20:40 Temperature Temperature Source Pulse Rate 88 88 Respiratory Rate 21 H 28 H Respiratory Effort Respiratory Pattern Blood Pressure 124/80 H 124/59 H 124/59 H Blood Pressure Mean 95 78 78 Pulse Ox 100 99 Oxygen Delivery Method Oxygen Flow Rate (L/min) 12/31/24 20:45 12/31/24 20:50 12/31/24 21:00 Temperature Temperature Source Pulse Rate 92 88 91 Respiratory Rate 21 H 24 H 27 H Respiratory Effort Respiratory Pattern Blood Pressure 120/67 115/59 L Blood Pressure Mean 81 75 Pulse Ox 99 97 98 Oxygen Delivery Method Oxygen Flow Rate (L/min) 12/31/24 21:10 12/31/24 21:15 12/31/24 21:20 Temperature Temperature Source Pulse Rate 87 91 Respiratory Rate 16 23 H Respiratory Effort Respiratory Pattern Blood Pressure 114/66 123/69 H Blood Pressure Mean 80 85 Pulse Ox 97 97 Oxygen Delivery Method Oxygen Flow Rate (L/min) 12/31/24 22:00 Temperature 98.2 F Temperature Source Pulse Rate 91 Respiratory Rate 22 H Respiratory Effort Respiratory Pattern Blood Pressure 128/65 H Blood Pressure Mean 86 Pulse Ox 97 Oxygen Delivery Method Oxygen Flow Rate (L/min) MDM MDM MDM Narrative Medical decision making narrative: Differential diagnosis includes but not limited to syncopal episode secondary to intravascular volume depletion versus vasovagal syncope versus dehydration. Patient is hypotensive here and tachycardic. He will be bolused normal saline and administered ondansetron. Concern is also for ACS versus aortic dissection versus pancreatitis versus acute cholecystitis versus bowel obstruction. I reviewed his laboratory work and he has normal white count of 6.3 with hemoglobin 12.9, hematocrit 40.6, platelet count 261. CMP obtained and he has normal sodium of 136 with potassium 4.1, chloride 99, BUN of 27 and creatinine slightly elevated at 1.71, glucose 178. AST is elevated to 64 with ALT 224, alk phos 362. Lipase greater than 3000 consistent with pancreatitis. Patient administered fentanyl and ondansetron as well as a liter of normal saline. He was initially hypotensive at 88 systolic but awake, alert and talking. His blood pressure is now normalized. I reviewed the radiology report of the CTA which shows dilation of the gallbladder and common bile duct with both extrahepatic and intrahepatic biliary duct dilatation. CT portion of the chest shows no acute process. There is evidence of fluid near the pancreatic tail consistent with pancreatitis. I obtained a gallbladder ultrasound to look for acute cholecystitis. He had a negative Hylton sign. The radiology report of the gallbladder ultrasound shows no acute cholecystitis. There is trace pericholecystic fluid. He has a gall bladder polyp. Upon repeat examination, he states he is feeling improved. He is no longer vomiting. At this point in time, I did page the surgeon, but radiology is suggesting that he will probably need an MRCP. I discussed patient with Dr. Frost for admission to the general medical floor. Disposition is admitted in stable condition. History & Record Review Discussion w/independent historian: Patient Lab Data Attestation: I reviewed the patient's lab results. Labs: Laboratory Results - last 24 hr 12/31/24 18:23 WBC 6.3 RBC 4.51 L Hgb 12.9 L Hct 40.6 MCV 90.0 MCH 28.6 MCHC 31.8 L RDW Std Deviation 49.5 H RDW Coeff of Eduardo 15.0 H Plt Count 261 MPV 10.5 Immature Gran % (Auto) 0.500 Neut % (Auto) 53.2 Lymph % (Auto) 35.0 Ripley % (Auto) 7.5 Eos % (Auto) 3.5 Baso % (Auto) 0.3 Absolute Neuts (auto) 3.3 Absolute Lymphs (auto) 2.20 Nucleated RBC % 0 Sodium 136 Potassium 4.1 Chloride 99 Carbon Dioxide 24.3 Anion Gap 13 BUN 27 H Creatinine 1.71 H Estim Creat Clear Calc 35.03 L Est GFR (MDRD) Non-Af 40 L BUN/Creatinine Ratio 15.5 Glucose 178 H Calcium 9.5 Total Bilirubin 0.54 AST 264 H ALT 227 H Alkaline Phosphatase 362 H Total Protein 7.8 Albumin 4.1 Globulin 3.7 Albumin/Globulin Ratio 1.1 Lipase > 3000 H Radiography Diagnostic Testing: Clinical Impression(s) from Imaging Studies Chest/Abdomen/Pelvis CT 12/31/24 18:57 IMPRESSION: Abnormally distended gallbladder with extrahepatic biliary prominence and mild intrahepatic biliary prominence. Correlate with laboratory findings. New compared to prior study. Consider further evaluation with MRCP. Evidence of pancreatitis with fluid near the pancreatic tail. Correlate clinically Reading Location: [facility] Gallbladder Ultrasound 12/31/24 20:20 IMPRESSION: Nonspecific CBD dilation, intrahepatic biliary dilation, and pancreatic dilat ion. If there is concern for choledocholithiasis, consider MRCP for further evaluation. No acute cholecystitis. Trace pericholecystic fluid, nonspecific. Gallbladder polyp is noted. No gallstones. Hepatic steatosis. Reading Location: [facility] Management Discussion w/another healthcare provider: Hospitalist and Software [employer] Discharge Plan Dx/Rx/DC Orders Clinical Impression: Pancreatitis, Nausea and vomiting, Common bile duct dilatation, Unresponsive episode Disposition Disposition: Acute Care Hospital [facility] Discharge Date/Time: 12/31/24 22:44
[2024-12-31] MEDS: 0.9% Normal Saline (1000mL) 1,000 ML 999 ML IV (19:13)
--- OUTSIDE RECORDS SUMMARY | 2024-12-31 19:13 | XMS RPT_ITS | CCD ---
Author Organization [facility] Care Team Providers Care [employer] Consultant Name Role Phone PROVIDER, UNKNOWN Attending Unavailable PROVIDER, UNKNOWN Admitting Unavailable SUSHMA NIX Admitting Unavailable CONSULT, SURGERY - GENERAL (EMERGENT) Consulting Unavailable ABRAN BECERRA Attending Unavailable BARBARA WELLS Referring Unavailable HUNTER PERAZA Attending Unavailable HUNTER FRANCE Referring Unavailable CONSULT, SURGERY - GENERAL (EMERGENT) Consulting Unavailable MARTA JAUREGUI Admitting Unavailable Indra Blanca [facility] Ind[facility] Blanca [facility] Ind[facility] Blanca [facility] Referring Unavailable [place], Osmin Attending Unavailable Dar Chew Attending [facility] Un[facility] Referring Unavailable Merna Montanez Attending [facility] Un[facility] Referring Unavailable [facility], Osmin Attending Unavailable Medications Current Medications Medication Drug Class(es) Dates Sig (Normalized) Sig (Original) acetaminophen 325 mg oral capsule (1 source) Start: 01-14-2021 take 325 mg by mouth every six hours Acetaminophen Active 325 MG PO EVERY 6 HOURS January 14, 2021 10:47am amLODIPine 10 mg oral tablet (1 source) Dihydropyridine Calcium Channel Ruthann Start: 01-14-2021 take 10 mg by mouth once daily Amlodipine Active 10 MG PO DAILY January 14, 2021 10:48am apixaban 5 mg oral tablet (1 source) Factor Xa Inhibitor Start: 01-21-2021 take 1 tablet by mouth twice daily Apixaban (Eliquis) 5 mg tablet Active 5 MG PO TWICE A DAY January 21, 2021 9:18am lansoprazole 30 mg delayed release oral capsule (1 source) Proton Pump Inhibitor Start: 01-14-2021 take 30 mg by mouth once daily Lansoprazole Active 30 MG PO DAILY January 14, 2021 10:48am pantoprazole 40 mg delayed release oral tablet (1 source) Proton Pump Inhibitor Start: 01-21-2021 take 40 mg by mouth once daily Pantoprazole Active 40 MG PO DAILY January 21, 2021 9:18am polysaccharide iron complex 150 mg oral capsule (1 source) Start: 02-11-2021 Polysaccharide Iron Complex (Ferrex 150) 150 mg iron capsule Active 150 MG PO TWICE A DAY February 11, 2021 2:17pm sennosides, group home 8.6 mg oral capsule (1 source) Start: 01-21-2021 take 1 capsule by mouth once daily Sennosides (Senna) 8.6 mg capsule Active 8.6 MG PO DAILY January 21, 2021 9:19am Problems Active Problems Problem Classification Problem Date Documented Da te Episodic/Chronic Abdominal pain (1 source) Generalized abdominal pain; Translations: [Generalized abdominal pain] Episodic Cancer of colon (4 sources) Malignant tumor of sigmoid colon; Translations: [Malignant neoplasm of sigmoid colon] Onset: 07-12-2021 Chronic Complications of surgical procedures or medical care (2 sources) Postoperative infection; Translations: [Infection following a procedure, unspecified, initial encounter] Episodic Deficiency and other anemia (1 source) Iron deficiency anemia secondary to blood loss (chronic); Translations: [D50.0 - Iron deficiency anemia secondary to blood loss (chronic)] Onset: 07-12-2021 Chronic Deficiency and other anemia (1 source) Iron deficiency anemia; Translations: [Iron deficiency anemia, unspecified] Episodic Diseases of white blood cells (1 source) Leukocytosis; Translations: [Elevated white blood cell count, unspecified] Chronic Neoplasms of unspecified nature or uncertain behavior (1 source) Thrombocytosis; Translations: [Thrombocythemia] Episodic Other gastrointestinal disorders (1 source) Mass of colon; Translations: [Other specified diseases of intestine] Episodic Other gastrointestinal disorders (1 source) Constipation; Translations: [Constipation, unspecified] Episodic Other gastrointestinal disorders (1 source) Pneumoperitoneum; Translations: [Other specified disorders of peritoneum] Episodic Other lower respiratory disease (1 source) Hypoxemia; Translations: [Hypoxemia] Episodic Pleurisy; pneumothorax; pulmonary collapse (1 source) Pleural effusion; Translations: [Pleural effusion, not elsewhere classified] Episodic Septicemia (except in labor) (1 source) Sepsis; Translations: [Sepsis, unspecified organism] Episodic Past or Other Problems Problem Classification Problem Date Documented Da te Episodic/Chronic Other screening for suspected conditions (not mental disorders or infectious disease) (1 source) Other specified abnormal findings of blood chemistry; Translations: [R79.89 - Other specified abnormal findings of blood chemistry] Onset: 01-11-2021 Episodic Results Test Name Value Interpretation Reference Range Facility Oncology Visit Reporton Oncology Visit Report [facility] [employer] [address] [facility] [place] [address] OFFICE VISIT Date of Service: 07/12/21 0952 MR#: [id number] Acct: [id number] Name: GIOVANNA PADRON Jr. Rep #: [id number] : 1945 From: Osmin Lindo MD Age/Sex: 76/M Location: [facility] Status: Signed HPI Subjective Date of Service 07/12/21 Chief Complaint F/u for colon cancer management. History of Present Illness Records reviewed. 76-year-old man presented with abdominal pain to the [facility] ER on 12/26/2020. CT abdomen and pelvis showed 4 cm sigmoid colon mass with pneumoperitoneum. He was transferred to [facility] with a perforated viscus, underwent exploratory laparotomy, sigmoidectomy and end colostomy on 12/27/2020. 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 Pathologic staging IIB(pT4a pN0 M0). He was discharged home, presented with abdominal pain to [place] ER, CT on 01/06/2021 showed multiple fluid collections and transferred to [facility] and had drainage by IR, received broad spectrum antibiotics. He was discharge home and referred to [facility] for Adjuvant chemotherapy. He declined adjuvant chemotherapy. He is on observation and comes for follow up after CT a/p. Feels better. [facility] Medical History Colon cancer Colostomy in place GERD (gastroesophageal reflux disease) Hypertension Non-smoker Surgical History Hx of resection of large bowel Social History adopted: No housing: long term current occupational status: retired Smoking Status: Never smoker alcohol intake: never substance use type: does not use ROS Constitutional Constitutional: Reports systems reviewed and no addt'l complaints, except as documented Eyes Eyes: Reports systems reviewed and no addt'l complaints, except as documented ENT HEENT: Reports systems reviewed and no addt'l complaints, except as documented Cardiovascular Cardiovascular: Reports systems reviewed and no addt'l complaints, except as documented Respiratory/Chest Respiratory/Chest: Reports systems reviewed and no addt'l complaints, except as documented Gastrointestinal Gastrointestinal: Reports other Details: Colostomy is functioning well. Genitourinary Genitourinary: Reports systems reviewed and no addt'l complaints, except as documented Musculoskeletal Musculoskeletal: Reports systems reviewed and no addt'l complaints, except as documented Integumentary Integumentary: Reports systems reviewed and no addt'l complaints, except as documented Neurologic Neurologic: Reports systems reviewed and no addt'l complaints, except as documented Psychiatric Psychiatric: Reports systems reviewed and no addt'l complaints, except as documented Endocrine Endocrinology: Reports systems reviewed and no addt'l complaints, except as documented Hematologic/Lymphatic Hematologic/Lymphatic: Reports systems reviewed and no addt'l complaints, except as documented Allergic/Immunologic Allergic/Immunologic: Reports systems reviewed and no addt'l complaints, except as documented Intake Vital Signs 07/12/21 09:52 Height 5 ft 9 in Weight: 72.603 kg BMI 23.6 BP 160/93 H Blood Pressure Location Lt femoral Position Sitting Respiration 15 Pulse 74 Pulse Source Monitor Temp 98.7 F Temperature Source Temporal Artery Pulse Oximetry (%) 95 Oxygen Delivery Method room air Intake Manager Facility Required: No Is patient in pain?: No Allergies No Known Allergies Allergy (Verified 07/12/21 09:55) Medications acetaminophen 325 mg capsule 325 mg PO Q6H PRN cap 01/14/21 [History Confirmed 07/12/21] amlodipine 10 mg tablet 10 mg PO DAILY 01/14/21 [History Confirmed 07/12/21] lansoprazole 30 mg capsule,delayed release 30 mg PO DAILY 01/14/21 [History Confirmed 07/12/21] apixaban 5 mg tablet 5 mg PO BID 01/21/21 [History Confirmed 02/11/21] pantoprazole 40 mg tablet,delayed release 40 mg PO DAILY 01/21/21 [History Confirmed 07/12/21] sennosides 8.6 mg capsule 8.6 mg PO DAILY 01/21/21 [History Confirmed 07/12/21] polysaccharide iron complex 150 mg iron capsule 150 mg PO BID #180 cap 02/11/21 [Rx Confirmed 07/12/21] Central Venous Access Central Venous Access: No Laboratory Tests 01/21/21 02/11/21 07/07/21 10:34 13:54 13:52 WBC 7.8 5.7 Hgb 8.1 L 14.2 Hct 27.4 L 43.7 Plt Count 495 H 172 Absolute Lymphs (auto) 1.39 Sodium Potassium Chloride Carbon Dioxide BUN Creatinine Glucose Calcium Iron TIBC Iron Saturation Ferritin Total Bilirubin AST ALT Alkaline Phosphatase Lactate Dehydrogenase Total Protein Albumin Globulin (more content not included)... Normal [facility] Carcinoembryonic Antigenon 0 07-09-2021 CEA 1.6 ng/mL Normal 0.0-4.7 [facility] Comment on above: Result Comment: Nons mokers <3.9 Smokers <5.6 [facility] Electrochemiluminescence Immunoassay (ECLIA) Values obtained with different assay methods or kits cannot be used interchangeably. Results cannot be interpreted as absolute evidence of the presence or absence of malignant disease. Performed at: [address] [id number] Steamship Agent: Chidi Pelayo PhD, Phone: [phone] Performed By: #### M 200.1000 #### [facility] [address] [facility] [place], [address] Abdomen/Pelvis WITH Contrast on 07-07-2021 Abdomen/Pelvis WITH Contrast [facility] [address] [place] [address] Abdomen/Pelvis WITH Contrast MR#: [id number] Acct: [id number] Name: GIOVANNA PADRON Jr. Rep #: [id number] : 1945 M 76 From: Mahamed Harrison PCP: [place] Status: REG CLI Study: Abdomen/Pelvis WITH Contrast Date of Exam: Exam# [id number] Ordering Dr: Osmin Lindo MD EXAM: CT ABDOMEN AND PELVIS WITH INTRAVENOUS CONTRAST CLINICAL INDICATION: MONITOR COLON CANCER TECHNIQUE: Helically acquired images were obtained of the abdomen and pelvis with intravenous contrast. This CT exam was performed using one or more of the following dose reduction techniques: automated exposure control, adjustment of the mA and/or kV according to patient size, and/or use of iterative reconstruction technique. This report was created using [employer] report [employer] technology. CONTRAST: Oral and amp; IV Readi-CAT and amp; 100mL 300. Radiation CTDIvol 13.19 Radiation DLP 657.55 COMPARISON: 01/06/2021. FINDINGS: LOWER THORAX: Coronary artery calcifications. Lung bases are clear. No cardiomegaly. No significant pericardial effusion. ABDOMEN: LIVER: Unremarkable. Homogeneous. No focal mass. GALLBLADDER AND BILE DUCTS: Unremarkable. No calcified gallstones. No gallbladder distention or wall edema. No intra- or extrahepatic biliary ductal dilation. PANCREAS: Unremarkable. No focal cystic or solid mass. SPLEEN: Unremarkable. Normal size without focal cystic or solid mass. ADRENALS: Unremarkable. No nodules. KIDNEYS AND URETERS: Small cyst right kidney. No follow-up imaging required. Normal renal size and position. No hydronephrosis. STOMACH AND BOWEL: Status post partial colectomy with left-sided colostomy. No stomach or bowel distention. No mass is identified. PELVIS: APPENDIX: See above. BLADDER: Unremarkable. REPRODUCTIVE: Unremarkable as visualized. No mass. ABDOMEN and PELVIS: INTRAPERITONEAL SPACE: Previously noted left-sided intraperitoneal fluid collections have resolved. No free air. BONES/JOINTS: Unremarkable. No suspicious lytic or blastic abnormality. SOFT TISSUES: Unremarkable. No discrete abdominal or pelvic wall hernia. VASCULATURE: Unremarkable. Abdominal aorta is non-dilated. LYMPH NODES: Unremarkable. No enlarged lymph nodes. OTHER FINDINGS: No evidence of residual or recurrent neoplasm. CT/Abdomen/Pelvis WITH Contrast IMPRESSION: 1. Status post partial colectomy with left-sided colostomy. 2. Previously noted left-sided intraperitoneal fluid collections have resolved. 3. Coronary artery disease. 4. No evidence of residual or recurrent neoplasm. Electronically Signed: Mahamed Cordova MD at 23:20 EDT , CC: Dr. Osmin Lindo MD; [facility] Latex Caster: Signed Normal [facility] Absolute lymphocyte counton 07-07-2021 Lymphocytes Auto (Unsp spec) [#/Vol] 1.39 10*3/uL 0.83-4.51 [facility] Work Phone: Basophil percentageon 2021 Creatinine [Mass/Vol] 1.2 mg/dL 0.70-1.30 [facility] Work Phone: Basophils/100 WBC (Bld) 0.2 % 0-1 [facility] Work Phone: Bilirubin [Mass/Vol] 0.30 mg/dL 0.20-1.00 [facility] Work Phone: Comment on above: For patients on eltr ombopag therapy, use of Dimension [place] TBIL is not recommended. Chloride [Moles/Vol] 103 mmol/L 98-107 [facility] Work Phone: Eosinophils/100 WBC (Bld) 0.9 % 0-5 [facility] Work Phone: Glucose [Mass/Vol] 93 mg/dL 74-106 [facility] Work Phone: Neutrophils (Bld) [#/Vol] 3.5 10*3/uL 2.0-7.7 [facility] Work Phone: Neutrophils/100 WBC (Bld) 61.3 % 47-70 [facility] Work Phone: Potassium [Moles/Vol] 4.1 mmol/L 3.5-5.1 [facility] Work Phone: Protein [Mass/Vol] 8.4 g/dL 6.4-8.2 [facility] Work Phone: Sodium [Moles/Vol] 136 mmol/L 136-145 [facility] Work Phone: WBC (Bld) [#/Vol] 5.7 10*3/uL 4.4-11.0 [facility] Work Phone: Blood erythrocytes count (nu mber/volume)on 07-07-2021 RBC (Bld) [#/Vol] 5.26 10*6/uL 4.6-6.2 [facility] Work Phone: Blood hemoglobin measurement (mass/volume)on 07-07-2021 Hemoglobin (Bld) [Mass/Vol] 14.2 g/dL 13.0-16.5 [facility] Work Phone: Blood lymphocytes/100 leukoc yteson 07-07-2021 Lymphocytes/100 WBC (Bld) 24.3 % 19-41 [facility] Work Phone: Blood monocytes/100 leukocyt eson 07-07-2021 Monocytes/100 WBC (Bld) 13.1 % 0-10 [facility] Work Phone: Blood platelet mean volumeon 07-07-2021 Platelet mean volume (Bld) [Entitic vol] 10.2 fL 6.2-12.0 [facility] Work Phone: [phone] CBC W/Diff, Automatedon 06-10 Absolute Lymph 1.39 X10 3/uL Normal 0.83-4.51 [facility] Comment on above: Performed By: #### L 500.4050, L503.6030, L504.2610, L503.6550, L3100.2300, L100.0100 #### [facility] [address] [place], [place], [id number] Absolute Neut 3.5 X10 3/uL Normal 2.0-7.7 [facility] Comment on above: Performed By: #### L 500.4050, L503.6030, L504.2610, L503.6550, L3100.2300, L100.0100 #### [facility] [address] [place], [address] Basophils/100 WBC (Bld) 0.2 % Normal 0-1 [facility] Comment on above: Performed By: #### L 500.4050, L503.6030, L504.2610, L503.6550, L3100.2300, L100.0100 #### [facility] [address] [place], [address] Eosinophils/100 WBC (Bld) 0.9 % Normal 0-5 [facility] Comment on above: Performed By: #### L 500.4050, L503.6030, L504.2610, L503.6550, L3100.2300, L100.0100 #### [facility] [address] [place], [address] Erythrocyte distribution width (RBC) [Ratio] 16.6 % High 11.6-14.6 [facility] Comment on above: Performed By: #### L 500.4050, L503.6030, L504.2610, L503.6550, L3100.2300, L100.0100 #### [facility] [address] [place], [address] Hematocrit (Bld) [Volume fraction] 43.7 % Normal 40-54 [facility] Comment on above: Performed By: #### L 500.4050, L503.6030, L504.2610, L503.6550, L3100.2300, L100.0100 #### [facility] [address] [place], [address] Hemoglobin (Bld) [Mass/Vol] 14.2 g/dL Normal 13.0-16.5 [facility] Comment on above: Performed By: #### L 500.4050, L503.6030, L504.2610, L503.6550, L3100.2300, L100.0100 #### [facility] [address] [place], [address] IG% 0.200 Normal 0.0-0.9 [facility] Comment on above: Result Comment: IG% - Immature Granulocytes (promyelocytes, myelocytes and metamyelocytes) > 1% indicates that a LEFT SHIFT is Present. Performed By: #### L 500.4050, L503.6030, L504.2610, L503.6550, L3100.2300, L100.0100 #### [facility] [address] [place], [address] Lymphocytes/100 WBC (Bld) 24.3 % Normal 19-41 [facility] Comment on above: Performed By: #### L 500.4050, L503.6030, L504.2610, L503.6550, L3100.2300, L100.0100 #### [facility] [address] [place], [address] MCH (RBC) [Entitic mass] 27.0 pg Normal 27.0-32.0 [facility] Comment on above: Performed By: #### L 500.4050, L503.6030, L504.2610, L503.6550, L3100.2300, L100.0100 #### [facility] [address] [place], [address] MCHC (RBC) [Mass/Vol] 32.5 g/dL Normal 32-36 [facility] Comment on above: Performed By: #### L 500.4050, L503.6030, L504.2610, L503.6550, L3100.2300, L100.0100 #### [facility] [address] [place], [address] MCV (RBC) [Entitic vol] 83.1 fL Normal 80-94 [facility] Comment on above: Performed By: #### L 500.4050, L503.6030, L504.2610, L503.6550, L3100.2300, L100.0100 #### [facility] [address] [place], [address] Monocytes/100 WBC (Bld) 13.1 % High 0-10 [facility] Comment on above: Performed By: #### L 500.4050, L503.6030, L504.2610, L503.6550, L3100.2300, L100.0100 #### [facility] [address] [place], [address] Neutrophils/100 WBC (Bld) 61.3 % Normal 47-70 [facility] Comment on above: Performed By: #### L 500.4050, L503.6030, L504.2610, L503.6550, L3100.2300, L100.0100 #### [facility] [address] [place], [address] Nucleated RBC (Bld) [#/Vol] 0 10*3/uL Normal 0-5 [facility] Comment on above: Performed By: #### L 500.4050, L503.6030, L504.2610, L503.6550, L3100.2300, L100.0100 #### [facility] [address] [place], [address] Platelet mean volume (Bld) [Entitic vol] 10.2 fL Normal 6.2-12.0 [facility] Comment on above: Performed By: #### L 500.4050, L503.6030, L504.2610, L503.6550, L3100.2300, L100.0100 #### [facility] [address] [place], [address] Platelets (Bld) [#/Vol] 172 10*3/uL Normal 150-450 [facility] Comment on above: Performed By: #### L 500.4050, L503.6030, L504.2610, L503.6550, L3100.2300, L100.0100 #### [facility] [address] [place], [address] RBC (Bld) [#/Vol] 5.26 10*6/uL Normal 4.6-6.2 [facility] Comment on above: Performed By: #### L 500.4050, L503.6030, L504.2610, L503.6550, L3100.2300, L100.0100 #### [facility] [address] [place], [address] RDW SD 50.8 fl High 35.1-43.9 [facility] Comment on above: Performed By: #### L 500.4050, L503.6030, L504.2610, L503.6550, L3100.2300, L100.0100 #### [facility] [address] [place], [address] WBC (Bld) [#/Vol] 5.7 10*3/uL Normal 4.4-11.0 [facility] Comment on above: Performed By: #### L 500.4050, L503.6030, L504.2610, L503.6550, L3100.2300, L100.0100 #### [facility] [address] [place], [address] CREATININE FINGERSTICKon Creatinine [Mass/Vol] 1.2 mg/dL Normal 0.70-1.30 [facility] Comment on above: Performed By: #### L 9100.0200 #### [facility] [address] [place], [address] EGFR WB > 60.0000 Normal >60 [facility] Comment on above: Performed By: #### L 9100.0200 #### [facility] [address] [place], [address] Comprehensive Metabolic Prof ilon 07-07-2021 Albumin [Mass/Vol] 4.2 g/dL Normal 3.2-5.0 [facility] Comment on above: Order Comment: 1 Performed By: #### L 500.4050, L503.6030, L504.2610, L503.6550, L3100.2300, L100.0100 #### [facility] [address] [place], [address] Albumin/Globulin [Mass ratio] 1.0 {ratio} Normal 0.9-2.4 [facility] Comment on above: Order Comment: 1 Performed By: #### L 500.4050, L503.6030, L504.2610, L503.6550, L3100.2300, L100.0100 #### [facility] [address] [place], [address] ALK P 70 U/L Normal 45-117 [facility] Comment on above: Order Comment: 1 Performed By: #### L 500.4050, L503.6030, L504.2610, L503.6550, L3100.2300, L100.0100 #### [facility] [address] [place], [address] ALT [Catalytic activity/Vol] 16 U/L Normal 16-61 [facility] Comment on above: Order Comment: 1 Performed By: #### L 500.4050, L503.6030, L504.2610, L503.6550, L3100.2300, L100.0100 #### [facility] [address] [place], [address] AST [Catalytic activity/Vol] 15 U/L Normal 15-37 [facility] Comment on above: Order Comment: 1 Performed By: #### L 500.4050, L503.6030, L504.2610, L503.6550, L3100.2300, L100.0100 #### [facility] [address] [place], [address] Bilirubin [Mass/Vol] 0.30 mg/dL Normal 0.20-1.00 [facility] Comment on above: Order Comment: 1 Result Comment: For patients on eltrombopag therapy, use of Dimension [place] TBIL is not recommended. Performed By: #### L 500.4050, L503.6030, L504.2610, L503.6550, L3100.2300, L100.0100 #### [facility] [address] [place], [address] BUN/CRE 24.2 RATIO High 10-20 [facility] Comment on above: Order Comment: 1 Performed By: #### L 500.4050, L503.6030, L504.2610, L503.6550, L3100.2300, L100.0100 #### [facility] [address] [place], [address] CA,Total 9.4 mg/dL Normal 8.5-10.1 [facility] Comment on above: Order Comment: 1 Performed By: #### L 500.4050, L503.6030, L504.2610, L503.6550, L3100.2300, L100.0100 #### [facility] [address] [place], [address] Chloride [Moles/Vol] 103 mmol/L Normal 98-107 [facility] Comment on above: Order Comment: 1 Performed By: #### L 500.4050, L503.6030, L504.2610, L503.6550, L3100.2300, L100.0100 #### [facility] [address] [place], [address] CO2 [Moles/Vol] 28.0 mmol/L Normal 21.0-32.0 [facility] Comment on above: Order Comment: 1 Performed By: #### L 500.4050, L503.6030, L504.2610, L503.6550, L3100.2300, L100.0100 #### [facility] [address] [place], [address] EST GFR - AA 68 mL/min Normal >60 [facility] Comment on above: Order Comment: 1 Result Comment: Afri can Togolese GFR Calc Performed By: #### L 500.4050, L503.6030, L504.2610, L503.6550, L3100.2300, L100.0100 #### [facility] [address] [place], [address] GAP 5 Normal 5-15 [facility] Comment on above: Order Comment: 1 Performed By: #### L 500.4050, L503.6030, L504.2610, L503.6550, L3100.2300, L100.0100 #### [facility] [address] [place], [address] Globulin (S) [Mass/Vol] 4.2 g/dL Normal 2.2-4.2 [facility] Comment on above: Order Comment: 1 Performed By: #### L 500.4050, L503.6030, L504.2610, L503.6550, L3100.2300, L100.0100 #### [facility] [address] [place], [address] Potassium [Moles/Vol] 4.1 mmol/L Normal 3.5-5.1 [facility] Comment on above: Order Comment: 1 Performed By: #### L 500.4050, L503.6030, L504.2610, L503.6550, L3100.2300, L100.0100 #### [facility] [address] [place], [address] Sodium [Moles/Vol] 136 mmol/L Normal 136-145 [facility] Comment on above: Order Comment: 1 Performed By: #### L 500.4050, L503.6030, L504.2610, L503.6550, L3100.2300, L100.0100 #### [facility] [address] [place], [address] T PROT 8.4 g/dL High 6.4-8.2 [facility] Comment on above: Order Comment: 1 Performed By: #### L 500.4050, L503.6030, L504.2610, L503.6550, L3100.2300, L100.0100 #### [facility] [address] [place], [address] Creatinine [Mass/Vol] 1.32 mg/dL High 0.70-1.30 [facility] Comment on above: Order Comment: 1 Result Comment: The validity of the calculated GFR GFRAA in patients over 70 years has not been determined. Clinical correlation is essential. Performed By: #### L 500.4050, L503.6030, L504.2610, L503.6550, L3100.2300, L100.0100 #### [facility] [address] [place], [address] GFR/1.73 sq M.predicted among non-blacks MDRD (S/P/Bld) [Vol rate/Area] 56 mL/min/{1.73_m2} Low >60 [facility] Comment on above: Order Comment: 1 Result Comment: Non- GFR Calc Performed By: #### L 500.4050, L503.6030, L504.2610, L503.6550, L3100.2300, L100.0100 #### [facility] [address] [place], [address] Glucose [Mass/Vol] 93 mg/dL Normal 74-106 [facility] Comment on above: Order Comment: 1 Performed By: #### L 500.4050, L503.6030, L504.2610, L503.6550, L3100.2300, L100.0100 #### [facility] [address] [place], [address] Urea nitrogen [Mass/Vol] 32 mg/dL High 7-18 [facility] Comment on above: Order Comment: 1 Performed By: #### L 500.4050, L503.6030, L504.2610, L503.6550, L3100.2300, L100.0100 #### [facility] [address] [place], [address] Determination of erythrocyte mean corpuscular volume (MCV)on 07-07-2021 MCV (RBC) [Entitic vol] 83.1 fL 80-94 [facility] Work Phone: Ferritinon 07-07-2021 Ferritin [Mass/Vol] 22 ng/mL Low 26-388 [facility] Comment on above: Order Comment: 1 Performed By: #### M 200.1000 #### [facility] [address] [place], [address] Hematocrit Auto (Bld) [Volum e fraction]on 07-07-2021 Hematocrit (Bld) [Volume fraction] 43.7 % 40-54 [facility] Work Phone: Iron measurement (mass/mass) on 07-07-2021 Iron (Unsp spec) [Mass/Mass] 123 ug/dL 65-175 [facility] Work Phone: Iron+Iron Binding Capacityon 07-07-2021 Iron [Mass/Vol] 123 ug/dL Normal 65-175 [facility] Comment on above: Order Comment: 1 Performed By: #### L 500.4050, L503.6030, L504.2610, L503.6550, L3100.2300, L100.0100 #### [facility] [address] [place], [address] IRON SATURATION 39.7 Normal 15.0-55.0 [facility] Comment on above: Order Comment: 1 Performed By: #### L 500.4050, L503.6030, L504.2610, L503.6550, L3100.2300, L100.0100 #### [facility] [address] [place], [address] TIBC 310 ug/dL Normal 250-450 [facility] Comment on above: Order Comment: 1 Performed By: #### L 500.4050, L503.6030, L504.2610, L503.6550, L3100.2300, L100.0100 #### [facility] [address] [place], [address] LDHon 07-07-2021 LDH 153 U/L Normal 87-241 [facility] Comment on above: Order Comment: 1 Performed By: #### M 200.1000 #### [facility] [address] [place], [address] Laboratory - Chemistry and C hemistry - challengeon 07-07-2021 ALP [Catalytic activity/Vol] 70 U/L 45-117 [facility] Work Phone: ALT [Catalytic activity/Vol] 16 U/L 16-61 [facility] Work Phone: CO2 [Moles/Vol] 28.0 mmol/L 21.0-32.0 [facility] Work Phone: Globulin (S) [Mass/Vol] 4.2 g/dL 2.2-4.2 [facility] Work Phone: Urea nitrogen/Creatinin e [Mass ratio] 24.2 mg/mg 10-20 [facility] Work Phone: Laboratory - Hematology and Cell countson 07-07-2021 Erythrocyte distribution width (RBC) [Entitic vol] 50.8 fL 35.1-43.9 [facility] Work Phone: [phone] Erythrocyte distribution width (RBC) [Ratio] 16.6 % 11.6-14.6 [facility] Work Phone: Immature granulocytes/100 WBC (Bld) 0.200 % 0.0-0.9 [facility] Work Phone: Comment on above: IG% - Immature Granu locytes (promyelocytes, myelocytes and metamyelocytes) > 1% indicates that a LEFT SHIFT is Present. MCH (RBC) [Entitic mass] 27.0 pg 27.0-32.0 [facility] Work Phone: Nucleated RBC/100 WBC (Bld) [Ratio] 0 % 0-5 [facility] Work Phone: MCHC Auto (RBC) [Mass/Vol]on 07-07-2021 MCHC (RBC) [Mass/Vol] 32.5 g/dL 32-36 [facility] Work Phone: No Panel Informationon 07-07 Bedside Estimated GFR (eGFR) > 60.0000 mL/min >60 [facility] Work Phone: Estimated GFR (MDRD) Amer 68 mL/min >60 [facility] Work Phone: Comment on above: GFR Calc Estimated GFR (MDRD) Non-Af Amer 56 mL/min >60 [facility] Work Phone: Comment on above: Non- GFR Calc Total Iron Binding Capacity 310 ug/dL 250-450 [facility] Work Phone: Platelets bldon 07-07-2021 Platelets (Bld) [#/Vol] 172 10*3/uL 150-450 [facility] Work Phone: Serum or plasma albumin arcadio urement (mass/volume)on 07-07-2021 Albumin [Mass/Vol] 4.2 g/dL 3.2-5.0 [facility] Work Phone: Serum or plasma albumin/glob ulin mass ratioon 07-07-2021 Albumin/Globulin [Mass ratio] 1.0 {ratio} 0.9-2.4 [facility] Work Phone: Serum or plasma calcium arcadio urement (mass/volume)on 07-07-2021 Calcium [Mass/Vol] 9.4 mg/dL 8.5-10.1 [facility] Work Phone: Serum or plasma carcinoembry onic antigen measurement (mass/volume)on 07-07-2021 Carcinoembryonic Ag [Mass/Vol] 1.6 ng/mL [facility] Work Phone: Comment on above: Nonsmokers <3.9 Smok ers <5.6[facility] Electrochemiluminescence Immunoassay(ECLIA)Values obtained with different assay methods or kitscannot be used interchangeably. Results cannot beinterpreted as absolute evidence of the presence orabsence of malignant disease.Performed at: [employer] [address] [id number] Director: Chidi Pelayo PhD, Phone: [phone] Serum or plasma creatinine m easurement (mass/volume)on 07-07-2021 Creatinine [Mass/Vol] 1.32 mg/dL 0.70-1.30 [facility] Work Phone: Comment on above: The validity of the calculated GFR & GFRAA in patients over 70 years has not been determined. Clinical correlation is essential. Serum or plasma ferritin bessie surement (mass/volume)on 07-07-2021 Ferritin [Mass/Vol] 22 ng/mL 26-388 [facility] Work Phone: Serum or plasma iron saturat ion measurement (mass fraction)on 07-07-2021 Iron saturation [Mass fraction] 39.7 % 15.0-55.0 [facility] Work Phone: Serum or plasma urea nitroge n measurement (mass/volume)on 07-07-2021 Urea nitrogen [Mass/Vol] 32 mg/dL 7-18 [facility] Work Phone: Thin prep Papanicolaou smear with manual screeningon 07-07-2021 Thin prep Papanicolaou smear with manual screening 15 U/L 15-37 [facility] Work Phone: Thin prep Papanicolaou smear with manual screening 5 5-15 [facility] Work Phone: Thin prep Papanicolaou smear with manual screening 153 U/L 87-241 [facility] Work Phone: Carcinoembryonic Antigenon 1 04-15-2020 CEA 1.9 ng/mL Normal 0.0-4.7 [facility] Comment on above: Result Comment: Nons mokers <3.9 Smokers <5.6 [facility] Electrochemiluminescence Immunoassay (ECLIA) Values obtained with different assay methods or kits cannot be used interchangeably. Results cannot be interpreted as absolute evidence of the presence or absence of malignant disease. Performed at: [facility] [address] [id number] Steamship Agent: Chidi Pelayo PhD, Phone: [phone] Performed By: #### L 501.0704 #### [facility] [address] [place], [address] CBC W/Diff, Automatedon 11-0 OVALOCYTE 1+ Normal [facility] Comment on above: Performed By: #### M 200.1000 #### [facility] [address] [place], [address] Anisocytosis Ql (Bld) 2+ Normal [facility] Comment on above: Performed By: #### M 200.1000 #### [facility] [address] [place], [address] Comprehensive Metabolic Prof ilon 02-11-2021 Albumin [Mass/Vol] 2.2 g/dL Low 3.2-5.0 [facility] Comment on above: Performed By: #### M 200.1000 #### [facility] [address] [place], [address] Albumin/Globulin [Mass ratio] 0.3 {ratio} Low 0.9-2.4 [facility] Comment on above: Performed By: #### M 200.1000 #### [facility] [address] [place], [address] ALK P 74 U/L Normal 45-117 [facility] Comment on above: Performed By: #### M 200.1000 #### [facility] [address] [place], [address] ALT [Catalytic activity/Vol] 12 U/L Low 16-61 [facility] Comment on above: Performed By: #### M 200.1000 #### [facility] [address] [place], [address] AST [Catalytic activity/Vol] 10 U/L Low 15-37 [facility] Comment on above: Performed By: #### M 200.1000 #### [facility] [address] [place], [address] Bilirubin [Mass/Vol] 0.30 mg/dL Normal 0.20-1.00 [facility] Comment on above: Result Comment: For patients on eltrombopag therapy, use of Dimension [place] TBIL is not recommended. Performed By: #### M 200.1000 #### [facility] [address] [place], [address] BUN/CRE 14.3 RATIO Normal 10-20 [facility] Comment on above: Performed By: #### M 200.1000 #### [facility] [address] [place], [address] CA,Total 8.8 mg/dL Normal 8.5-10.1 [facility] Comment on above: Performed By: #### M 200.1000 #### [facility] [address] [place], [address] Chloride [Moles/Vol] 102 mmol/L Normal 98-107 [facility] Comment on above: Performed By: #### M 200.1000 #### [facility] [address] [place], [address] CO2 [Moles/Vol] 28.0 mmol/L Normal 21.0-32.0 [facility] Comment on above: Performed By: #### M 200.1000 #### [facility] [address] [place], [address] Creatinine [Mass/Vol] 1.54 mg/dL High 0.70-1.30 [facility] Comment on above: Result Comment: The validity of the calculated GFR GFRAA in patients over 70 years has not been determined. Clinical correlation is essential. Performed By: #### M 200.1000 #### [facility] [address] [place], [address] EST GFR - AA 57 mL/min Low >60 [facility] Comment on above: Result Comment: Afri can Togolese GFR Calc Performed By: #### M 200.1000 #### [facility] [address] [place], [address] GAP 5 Normal 5-15 [facility] Comment on above: Performed By: #### M 200.1000 #### [facility] [address] [place], [address] GFR/1.73 sq M.predicted among non-blacks MDRD (S/P/Bld) [Vol rate/Area] 47 mL/min/{1.73_m2} Low >60 [facility] Comment on above: Result Comment: Non- GFR Calc Performed By: #### M 200.1000 #### [facility] [address] [place], [address] Globulin (S) [Mass/Vol] 6.8 g/dL High 2.2-4.2 [facility] Comment on above: Performed By: #### M 200.1000 #### [facility] [address] [place], [address] Glucose [Mass/Vol] 129 mg/dL High 74-106 [facility] Comment on above: Result Comment: Fast ing Glucose result greater than or equal to 126 mg/dL suggests DIABETES MELLITUS per A.D.A. criteria. Please note revised GLUCOSE reference range effective 2017. Performed By: #### M 200.1000 #### [facility] [address] [place], [address] Potassium [Moles/Vol] 4.5 mmol/L Normal 3.5-5.1 [facility] Comment on above: Performed By: #### M 200.1000 #### [facility] [address] [place], [address] Sodium [Moles/Vol] 135 mmol/L Low 136-145 [facility] Comment on above: Performed By: #### M 200.1000 #### [facility] [address] [place], [address] T PROT 9.0 g/dL High 6.4-8.2 [facility] Comment on above: Performed By: #### M 200.1000 #### [facility] [address] [place], [address] Urea nitrogen [Mass/Vol] 22 mg/dL High 7-18 [facility] Comment on above: Performed By: #### M 200.1000 #### [facility] [address] [place], [address] LDHon 02-11-2021 LDH 120 U/L Normal 87-241 [facility] Comment on above: Order Comment: 1 Performed By: #### L 501.4020 #### [facility] [address] [place], [address] Oncology Visit Reporton Oncology Visit Report [facility] [address] [place] [address] OFFICE VISIT Date of Service: 02/11/21 1358 MR#: [id number] Acct: [id number] Name: GIOVANNA PADRON Rep #: [id number] : 1945 From: Osmin Lindo MD Age/Sex: 75/M Location: [facility] [place] Status: Signed HPI Subjective Date of Service 02/11/21 Chief Complaint Referred for colon cancer management. History of Present Illness Records reviewed. 75-year-old man presented with abdominal pain to the [facility] ER on 12/26/2020. CT abdomen and pelvis showed 4 cm sigmoid colon mass with pneumoperitoneum. He was transferred to [facility] with a perforated viscus, underwent exploratory laparotomy, sigmoidectomy and end colostomy on 12/27/2020. 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 Pathologic staging IIB(pT4a pN0 M0). He was discharged home, presented with abdominal pain to [place] ER, CT on 01/06/2021 showed multiple fluid collections and transferred to [facility] and had drainage by IR, received broad spectrum antibiotics. He was discharge home and referred to [facility] [place] [facility] for Adjuvant chemotherapy. He declined adjuvant chemotherapy. He comes for follow up after blood work. Feels better. [facility] Medical History Colon cancer Colostomy in place GERD (gastroesophageal reflux disease) Hypertension Non-smoker Surgical History Hx of resection of large bowel Social History adopted: No housing: long term current occupational status: retired Smoking Status: Never smoker alcohol intake: never substance use type: does not use ROS Constitutional Constitutional: Reports systems reviewed and no addt'l complaints, except as documented Eyes Eyes: Reports systems reviewed and no addt'l complaints, except as documented ENT HEENT: Reports systems reviewed and no addt'l complaints, except as documented Cardiovascular Cardiovascular: Reports systems reviewed and no addt'l complaints, except as documented Respiratory/Chest Respiratory/Chest: Reports systems reviewed and no addt'l complaints, except as documented Gastrointestinal Gastrointestinal: Reports systems reviewed and no addt'l complaints, except as documented and other Details: Colostomy functioning well, surgical wound healing. Genitourinary Genitourinary: Reports systems reviewed and no addt'l complaints, except as documented Musculoskeletal Musculoskeletal: Reports systems reviewed and no addt'l complaints, except as documented Integumentary Integumentary: Reports systems reviewed and no addt'l complaints, except as documented Neurologic Neurologic: Reports systems reviewed and no addt'l complaints, except as documented Psychiatric Psychiatric: Reports systems reviewed and no addt'l complaints, except as documented Endocrine Endocrinology: Reports systems reviewed and no addt'l complaints, except as documented Hematologic/Lymphatic Hematologic/Lymphatic: Reports systems reviewed and no addt'l complaints, except as documented Allergic/Immunologic Allergic/Immunologic: Reports systems reviewed and no addt'l complaints, except as documented Intake Vital Signs 02/11/21 13:58 Height 5 ft 9 in Weight: 66.253 kg BMI 21.5 BP 151/80 H Blood Pressure Location Lt femoral Position Sitting Respiration 17 Pulse 107 H Pulse Source Monitor Temp 98.3 F Temperature Source Temporal Artery Pulse Oximetry (%) 94 Oxygen Delivery Method simple mask Intake Manager Facility Required: No Accompanied by: Is patient in pain?: No Allergies No Known Allergies Allergy (Verified 02/11/21 14:03) Medications acetaminophen 325 mg capsule 325 mg PO Q6H PRN cap 01/14/21 [History Confirmed 02/11/21] amlodipine 10 mg tablet 10 mg PO DAILY 01/14/21 [History Confirmed 02/11/21] lansoprazole 30 mg capsule,delayed release 30 mg PO DAILY 01/14/21 [History Confirmed 02/11/21] apixaban 5 mg tablet 5 mg PO BID 01/21/21 [History Confirmed 02/11/21] pantoprazole 40 mg tablet,delayed release 40 mg PO DAILY 01/21/21 [History Confirmed 02/11/21] sennosides 8.6 mg capsule 8.6 mg PO DAILY 01/21/21 [History Confirmed 02/11/21] polysaccharide iron complex 150 mg iron capsule 150 mg PO BID #180 cap 02/11/21 [Rx Confirmed 02/11/21] Central Venous Access Central Venous Access: No Laboratory Tests 01/21/21 02/11/21 10:34 13:54 WBC 7.8 Hgb 8.1 L Hct 27.4 L Plt Count 495 H Carcinoembryonic Ag 2.3 Exam Physical Exam Const alert, oriented x3, no apparent distress and average body habitus GI GI Narrative: +Colostomy LLQ, dressing on midline scar. Coding Level of Care Code Off vis,est, (more content not included)... Normal [facility] 02-04-2021 Normal [facility] Comment on above: Result Comment: [id number] ON RC TRANSFUSED 02/05/21 1010 Performed By: #### B , L100.0100, BTS #### [facility] [address] [place], [address] CBC W/Diff, Automatedon 01-09 Anisocytosis Ql (Bld) 2+ Normal [facility] Comment on above: Performed By: #### B , L100.0100, BTS #### [facility] [address] [place], [address] HYPOCHROMASIA 1+ Normal [facility] Comment on above: Performed By: #### B , L100.0100, BTS #### [facility] [address] [place], [address] MACROCYTOSIS 1+ Normal [facility] Comment on above: Performed By: #### B , L100.0100, BTS #### [facility] [address] [place], [address] MICROCYTIC 1+ Normal [facility] Comment on above: Performed By: #### B , L100.0100, BTS #### [facility] [address] [place], [address] Ferritinon 02-04-2021 Ferritin [Mass/Vol] 148 ng/mL Normal 26-388 [facility] Comment on above: Order Comment: PLEAS E ADD TO BLOOD IN LAB. THANK YOU!!!UNKNOWNN Performed By: #### L 501.4020 #### [facility] [address] [place], [address] Folates, (Folic Acid)on 01-09 FOLATES 8.60 ng/mL Normal 3.1-55.4 [facility] Comment on above: Order Comment: PLEAS E ADD TO BLOOD IN LAB. THANK YOU!!!UNKNOWNN Performed By: #### L 501.4020 #### [facility] [address] [place], [address] Iron+Iron Binding Capacityon 02-04-2021 Iron [Mass/Vol] 19 ug/dL Low 65-175 [facility] Comment on above: Order Comment: PLEAS E ADD TO BLOOD IN LAB. THANK YOU!!!UNKNOWNN Performed By: #### L 501.4020 #### [facility] [address] [place], [address] IRON SATURATION 9.7 Low 15.0-55.0 [facility] Comment on above: Order Comment: PLEAS E ADD TO BLOOD IN LAB. THANK YOU!!!UNKNOWNN Performed By: #### L 501.4020 #### [facility] [address] [place], [address] TIBC 195 ug/dL Low 250-450 [facility] Comment on above: Order Comment: PLEAS E ADD TO BLOOD IN LAB. THANK YOU!!!UNKNOWNN Performed By: #### L 501.4020 #### [facility] [address] [place], [address] Type AND Screenon 02-04-2021 Ab SCREEN GEL Negative Normal [facility] Comment on above: Order Comment: A Performed By: #### B LATOSHA, L100.0100, BTS #### [facility] [address] [place], [address] ABO and Rh group Nom (Bld) Blood group A Rh(D) negative Normal [facility] Comment on above: Order Comment: A Performed By: #### B LATOSHA, L100.0100, BTS #### [facility] [address] [place], [address] Vitamin B12on 02-04-2021 Cobalamin (Vitamin B12) [Mass/Vol] 728 pg/mL Normal 211-911 [facility] Comment on above: Order Comment: PLEAS E ADD TO BLOOD IN LAB. THANK YOU!!! Performed By: #### L 501.4020 #### [facility] [address] [place], [place], [address] Carcinoembryonic Antigenon 1 CEA 2.3 ng/mL Normal 0.0-4.7 [facility] Comment on above: Result Comment: Nons mokers <3.9 Smokers <5.6 [facility] Electrochemiluminescence Immunoassay (ECLIA) Values obtained with different assay methods or kits cannot be used interchangeably. Results cannot be interpreted as absolute evidence of the presence or absence of malignant disease. Performed at: [facility] [address] [id number] [employer] Agent: Chidi Pelayo PhD, Phone: [phone] Performed By: #### M 200.1000 #### [facility] [address] [place], [place], [address] NATERAon 01-21-2021 NATURA MAILED SPECIMEN Normal [facility] Comment on above: Performed By: #### M 200.1000 #### [facility] [address] [place], [place], [address] Oncology Visit Reporton 01-08 Oncology Visit Report [facility] [address] [place] [address] OFFICE VISIT Date of Service: 01/21/21 0916 MR#: [id number] Acct: [id number] Name: GIOVANNA PADRON Jr. Rep #: [id number] : 1945 From: Osmin Lindo MD Age/Sex: 75/M Location: [facility] Status: Signed HPI Subjective Date of Service 01/21/21 Chief Complaint Referred for colon cancer management. History of Present Illness Records reviewed. 75-year-old man presented with abdominal pain to the [facility] ER on 12/26/2020. CT abdomen and pelvis showed 4 cm sigmoid colon mass with pneumoperitoneum. He was transferred to [facility] with a perforated viscus, underwent exploratory laparotomy, sigmoidectomy and end colostomy on 12/27/2020. 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 Pathologic staging IIB(pT4a pN0 M0). He was discharged home, presented with abdominal pain to [place] ER, CT on 01/06/2021 showed multiple fluid collections and transferred to [facility] and had drainage by IR, received broad spectrum antibiotics. He was discharge home and referred to [facility] for Adjuvant chemotherapy. [facility] Medical History Colon cancer Colostomy in place GERD (gastroesophageal reflux disease) Hypertension Non-smoker Surgical History (Updated 01/14/21 @ 10:47 by Lila Olivia) Hx of resection of large bowel Social History (Updated 01/21/21 @ 09:21 by Lorenza Andino RN) adopted: No housing: long term current occupational status: retired Smoking Status: Never smoker alcohol intake: never substance use type: does not use ROS Constitutional Constitutional: Reports systems reviewed and no addt'l complaints, except as documented Eyes Eyes: Reports systems reviewed and no addt'l complaints, except as documented ENT HEENT: Reports systems reviewed and no addt'l complaints, except as documented Cardiovascular Cardiovascular: Reports systems reviewed and no addt'l complaints, except as documented Respiratory/Chest Respiratory/Chest: Reports systems reviewed and no addt'l complaints, except as documented Gastrointestinal Gastrointestinal: Reports systems reviewed and no addt'l complaints, except as documented and other Details: Colostomy is functioning well, abdominal wounds are healing. Genitourinary Genitourinary: Reports systems reviewed and no addt'l complaints, except as documented Musculoskeletal Musculoskeletal: Reports systems reviewed and no addt'l complaints, except as documented Integumentary Integumentary: Reports systems reviewed and no addt'l complaints, except as documented Neurologic Neurologic: Reports systems reviewed and no addt'l complaints, except as documented Psychiatric Psychiatric: Reports systems reviewed and no addt'l complaints, except as documented Endocrine Endocrinology: Reports systems reviewed and no addt'l complaints, except as documented Hematologic/Lymphatic Hematologic/Lymphatic: Reports systems reviewed and no addt'l complaints, except as documented Allergic/Immunologic Allergic/Immunologic: Reports systems reviewed and no addt'l complaints, except as documented Intake Vital Signs 01/21/21 09:16 Height 5 ft 9 in Weight: 70.023 kg BMI 22.8 Blood Pressure Location Lt brachial Position Sitting Respiration 14 Pulse 111 H Pulse Source Monitor Temp 97.6 F L Temperature Source Tympanic Pulse Oximetry (%) 95 Oxygen Delivery Method room air Intake Manager Facility Required: No Accompanied by: Is patient in pain?: No Allergies No Known Allergies Allergy (Verified 01/06/21 12:05) Medications acetaminophen 325 mg capsule 325 mg PO Q6H PRN cap 01/14/21 [History Confirmed 01/14/21] amlodipine 10 mg tablet 10 mg PO DAILY 01/14/21 [History Confirmed 01/14/21] lansoprazole 30 mg capsule,delayed release 30 mg PO DAILY 01/14/21 [History Confirmed 01/14/21] apixaban 5 mg tablet 5 mg PO BID 01/21/21 [History Confirmed 01/21/21] pantoprazole 40 mg tablet,delayed release 40 mg PO DAILY 01/21/21 [History Confirmed 01/21/21] sennosides 8.6 mg capsule 8.6 mg PO DAILY 01/21/21 [History Confirmed 01/21/21] Central Venous Access Central Venous Access: No Exam Physical Exam Const alert, oriented x3 and no apparent distress General Appearance: cooperative HEENT normocephalic, external ears normal and external nose normal Eyes PERRL and no scleral icterus Neck supple Lymph Lymphatic: no lymphadenopathy noted Chest inspection of chest normal Resp normal respiratory effort and clear to auscultation bilaterally Cardio regular rate, regular rhythm, S1 normal heart sound, S2 normal heart sound and no murmurs GI GI Narrative: + Colostomy L LLQ, + midline surgical scar. no CVA te (more content not included)... Normal [facility] THORACENTESISon 01-18-2021 Thoracentesis EXAM: IR THORACENTES IS, 01/11/2021 13:27 PM CLINICAL INDICATIONS: diagnostic and therapeutic COMPARISON: No prior studies available for comparison. OPERATORS: Mariluz Grimaldo APRN, CNP LOCAL ANESTHETIC: 7 mL of 2% Lidocaine. PROCEDURE/TECHNIQUE: Consent: Written, informed consent was obtained after explaining the procedure to the patient, including benefits and risks, and answering the patient's questions. Position: The patient was placed in the upright seated position. Real-time ultrasound guidance was used to localize the left pleural effusion and the skin rachell was placed. Preparation: Time out was performed. The patient was then prepped and draped in sterile fashion. Local anesthesia was provided using 2% Lidocaine. Procedure: Using real-time ultrasound guidance, the left pleural effusion was accessed in the posterior left chest using the 5F x 7in Yueh needle. Approximately 1200 mL blood tinged, clear pleural fluid was evacuated. At the end of the procedure, the needles were removed, and sterile dressing was placed. Post-procedure: Post procedure imaging demonstrated pleural fluid was removed. There were no immediate complications. The patient tolerated the procedure well. IMPRESSION: Successful ultrasound guided thoracentesis of 1200 mL. Mahamed Duval MD was in the room and participated during all dudley portions of this procedure. I personally viewed and interpreted these images and I have reviewed and approved this report. Meds Meds Event Details User 11:57 AM 01/11/21 Timeout: Sign-in Signed by Edison Jefferson RN at 01/11/2021 11:57 AM GG 11:58 AM 01/11/21 Timeout: TimeOut Signed by Edison Jefferson RN at 01/11/2021 11:58 AM GG 12:15 PM 01/11/21 Timeout: Sign-out Signed by Edison Jefferson RN at 01/11/2021 1:27 PM DANAE Physician Physician Event Details User 11:57 AM 01/11/21 Timeout: Sign-in Signed by Edison Jefferson RN at 01/11/2021 11:57 AM GG 11:58 AM 01/11/21 Timeout: TimeOut Signed by Edison Jefferson RN at 01/11/2021 11:58 AM GG 12:15 PM 01/11/21 Timeout: Sign-out Signed by Edison Jefferson RN at 01/11/2021 1:27 PM GG Normal [facility] CBC,PLATELETSon 01-15-2021 Hematocrit (Bld) [Volume fraction] 26.5 % Low 39.6-48.8 [facility] Comment on above: Performed By: #### U RIN #### [facility] (DEFAULT) [address] [place] [address] 32877 Hemoglobin (Bld) [Mass/Vol] 7.5 g/dL Low 13.4-16.8 [facility] Comment on above: Performed By: #### U RIN #### [facility] (DEFAULT) [address] [place] [address] 63885 MCV (RBC) [Entitic vol] 74.4 fL Low 79.0-94.5 [facility] Comment on above: Performed By: #### U RIN #### [facility] (DEFAULT) [address] [place] [address] 02312 Mean Cell Hgb 21.1 pg Low 26.1-33.3 [facility] Comment on above: Performed By: #### U RIN #### [facility] (DEFAULT) [address] [place] [address] 30915 Mean Cell Hgb Conc 28.3 g/dL Low 31.9-36.5 [facility] Comment on above: Performed By: #### U RIN #### [facility] (DEFAULT) [address] [place] [address] 30032 Platelet mean volume (Bld) [Entitic vol] 10.0 fL Normal 8.7-12.3 [facility] Comment on above: Performed By: #### U RIN #### [facility] (DEFAULT) [address] [place] [address] 39606 Platelets (Bld) [#/Vol] 589 10*3/uL High 146-337 [facility] Comment on above: Performed By: #### U RIN #### [facility] (DEFAULT) [address] [place] [address] 04891 RBC (Bld) [#/Vol] 3.56 10*6/uL Low 4.38-5.83 [facility] Comment on above: Performed By: #### U RIN #### [facility] (DEFAULT) [address] [place] [address] 81990 RBC Distribution 23.4 % High 10.9-14.3 [facility] Comment on above: Performed By: #### U RIN #### [facility] (DEFAULT) [address] [place] [address] 28539 WBC (Bld) [#/Vol] 8.19 10*3/uL Normal 3.73-10.10 [facility] Comment on above: Performed By: #### U RIN #### [facility] (DEFAULT) [address] [place] [address] 63106 CHEM 7 (LYTES,BUN,CREA,GLUC) on 01-15-2021 Anion gap [Moles/Vol] 13 mmol/L Normal 7-17 [facility] Comment on above: Performed By: #### B FLD #### [facility] (DEFAULT) [address] [place] [address] 87069 Chloride [Moles/Vol] 104 mmol/L Normal 98-108 [facility] Comment on above: Performed By: #### B FLD #### [facility] (DEFAULT) [address] [address] CO2 [Moles/Vol] 25 mmol/L Normal 22-30 [facility] Comment on above: Performed By: #### B FLD #### [facility] (DEFAULT) [address] [place] [address] 01033 Creatinine [Mass/Vol] 1.11 mg/dL Normal 0.70-1.30 [facility] Comment on above: Performed By: #### B FLD #### [facility] (DEFAULT) [address] [place] [address] 50320 EST GFR, >=60 Normal >=60 [facility] Comment on above: Performed By: #### B FLD #### [facility] (DEFAULT) [address] [place] [address] 49715 EST GFR,Non >=60 Normal >=60 [facility] Comment on above: Performed By: #### B FLD #### [facility] (DEFAULT) [address] [place] [address] 72134 Glucose [Mass/Vol] 120 mg/dL High 70-99 [facility] Comment on above: Performed By: #### B FLD #### [facility] (DEFAULT) [address] [place] [address] 98019 Osmolality [Osmolality] 292 mosm/kg Normal 278-305 [facility] Comment on above: Performed By: #### B FLD #### [facility] (DEFAULT) [address] [place] [address] 14776 Potassium [Moles/Vol] 4.5 mmol/L Normal 3.5-5.0 [facility] Comment on above: Performed By: #### B FLD #### [facility] (DEFAULT) [address] [place] [address] 47518 Sodium [Moles/Vol] 137 mmol/L Normal 133-143 [facility] Comment on above: Performed By: #### Mercedes FLD #### [facility] (DEFAULT) [address] [place] [address] 57190 Urea nitrogen [Mass/Vol] 20 mg/dL Normal 7-22 [facility] Comment on above: Performed By: #### Mercedes FLD #### [facility] (DEFAULT) [address] [place] [address] 77780 Urea nitrogen/Creatinin e [Mass ratio] 18 mg/mg Normal [facility] Comment on above: Performed By: #### B FLD #### [facility] (DEFAULT) [address] [place] [address] 02272 MAGNESIUMon 01-15-2021 Magnesium [Mass/Vol] 1.9 mg/dL Normal 1.6-2.6 [facility] Comment on above: Performed By: #### B FLD #### [facility] (DEFAULT) [address] [place] [address] 90120 PHOSPHATE, INORGANICon 01-15 Phosphorous 3.0 mg/dL Normal 2.2-4.6 [facility] Comment on above: Performed By: #### B FLD #### [facility] (DEFAULT) [address] [place] [address] 42990 ANTI XA LMWH (ENOXAPARIN),*E XACT TIME REQUIRED* 4 HR Luz 01-14-2021 Anti Xa LMWH (Enoxaparin) 4 Hr Post 0.70 Anti-Xa IU/mL Normal 0.60-1.00 [facility] Comment on above: Order Comment: Draw 4 hours after enoxaparin dose Result Comment: Ther apeutic range applies to 4 hour post dose collections. Performed By: #### C HM7, IPB, MGO #### [facility] (DEFAULT) [address] [place] [address] 20386 CBC,PLATELETSon 01-14-2021 Hematocrit (Bld) [Volume fraction] 24.4 % Low 39.6-48.8 [facility] Comment on above: Performed By: #### P TT #### [facility] (DEFAULT) [address] [place] [address] 24275 Hemoglobin (Bld) [Mass/Vol] 7.1 g/dL Low 13.4-16.8 [facility] Comment on above: Performed By: #### P TT #### [facility] (DEFAULT) [address] [address] MCV (RBC) [Entitic vol] 72.6 fL Low 79.0-94.5 [facility] Comment on above: Performed By: #### P TT #### [facility] (DEFAULT) [address] [place] [address] 70500 Mean Cell Hgb 21.1 pg Low 26.1-33.3 [facility] Comment on above: Performed By: #### P TT #### [facility] (DEFAULT) [address] [place] [address] 20969 Mean Cell Hgb Conc 29.1 g/dL Low 31.9-36.5 [facility] Comment on above: Performed By: #### P TT #### [facility] (DEFAULT) [address] [place] [address] 44069 Platelet mean volume (Bld) [Entitic vol] 9.4 fL Normal 8.7-12.3 [facility] Comment on above: Performed By: #### P TT #### [facility] (DEFAULT) [address] [place] [address] 06689 Platelets (Bld) [#/Vol] 597 10*3/uL High 146-337 [facility] Comment on above: Performed By: #### P TT #### [facility] (DEFAULT) [address] [place] [address] 44763 RBC (Bld) [#/Vol] 3.36 10*6/uL Low 4.38-5.83 [facility] Comment on above: Performed By: #### P TT #### [facility] (DEFAULT) [address] [place] [address] 24700 RBC Distribution 23.6 % High 10.9-14.3 [facility] Comment on above: Performed By: #### P TT #### [facility] (DEFAULT) [address] [place] [address] 26131 WBC (Bld) [#/Vol] 7.41 10*3/uL Normal 3.73-10.10 [facility] Comment on above: Performed By: #### P TT #### [facility] (DEFAULT) [address] [place] [address] 69090 CHEM 7 (LYTES,BUN,CREA,GLUC) on 01-14-2021 Anion gap [Moles/Vol] 12 mmol/L Normal 7-17 [facility] Comment on above: Performed By: #### U RIN #### [facility] (DEFAULT) [address] [place] [address] 04066 Chloride [Moles/Vol] 105 mmol/L Normal 98-108 [facility] Comment on above: Performed By: #### U RIN #### [facility] (DEFAULT) [address] [place] [address] 54072 CO2 [Moles/Vol] 25 mmol/L Normal 22-30 [facility] Comment on above: Performed By: #### U RIN #### [facility] (DEFAULT) [address] [place] [address] 43475 Creatinine [Mass/Vol] 1.15 mg/dL Normal 0.70-1.30 [facility] Comment on above: Performed By: #### U RIN #### [facility] (DEFAULT) [address] [place] [address] 63603 EST GFR, >=60 Normal >=60 [facility] Comment on above: Performed By: #### U RIN #### [facility] (DEFAULT) [address] [place] [address] 00213 EST GFR,Non >=60 Normal >=60 [facility] Comment on above: Performed By: #### U RIN #### [facility] (DEFAULT) [address] [place] [address] 09737 Glucose [Mass/Vol] 125 mg/dL High 70-99 [facility] Comment on above: Performed By: #### U RIN #### [facility] (DEFAULT) [address] [place] [address] 09892 Osmolality [Osmolality] 293 mosm/kg Normal 278-305 [facility] Comment on above: Performed By: #### U RIN #### [facility] (DEFAULT) [address] [place] [address] 48919 Potassium [Moles/Vol] 4.6 mmol/L Normal 3.5-5.0 [facility] Comment on above: Performed By: #### U RIN #### [facility] (DEFAULT) [address] [place] [address] 94991 Sodium [Moles/Vol] 137 mmol/L Normal 133-143 [facility] Comment on above: Performed By: #### U RIN #### [facility] (DEFAULT) [address] [place] [address] 64647 Urea nitrogen [Mass/Vol] 21 mg/dL Normal 7-22 [facility] Comment on above: Performed By: #### U RIN #### [facility] (DEFAULT) [address] [address] Urea nitrogen/Creatinin e [Mass ratio] 18 mg/mg Normal [facility] Comment on above: Performed By: #### U RIN #### [facility] (DEFAULT) [address] [address] MAGNESIUMon 01-14-2021 Magnesium [Mass/Vol] 1.8 mg/dL Normal 1.6-2.6 [facility] Comment on above: Performed By: #### U RIN #### [facility] (DEFAULT) [address] [place] [address] 17791 PHOSPHATE, INORGANICon 01-14 Phosphorous 2.9 mg/dL Normal 2.2-4.6 [facility] Comment on above: Performed By: #### U RIN #### [facility] (DEFAULT) [address] [address] VANCOMYCIN LEVEL, TROUGH (IN E DRUG LEVEL)on 01-14-2021 Vancomycin, Trough 9.8 mcg/mL Low Therapeut ic Range: 10.0-20.0 mcg/mL [facility] Comment on above: Order Comment: Pleas e draw level at specified interval PRIOR to next dose. Performed By: #### X M #### [facility] (DEFAULT) [address] [address] ANTI XA LMWH (ENOXAPARIN),*E XACT TIME REQUIRED* 4 HR Luz 01-13-2021 Anti Xa LMWH (Enoxaparin) 4 Hr Post 0.41 Anti-Xa IU/mL Low 0.60-1.00 [facility] Comment on above: Order Comment: Draw 4 hours after enoxaparin dose Result Comment: Ther apeutic range applies to 4 hour post dose collections. Performed By: #### H EMOGC #### [facility] (DEFAULT) [address] [address] CBC,PLATELETSon 01-13-2021 Hematocrit (Bld) [Volume fraction] 25.9 % Low 39.6-48.8 [facility] Comment on above: Performed By: #### U RIN #### [facility] (DEFAULT) [address] [place] [address] 48340 Hemoglobin (Bld) [Mass/Vol] 7.6 g/dL Low 13.4-16.8 [facility] Comment on above: Performed By: #### U RIN #### [facility] (DEFAULT) [address] [place] [address] 21353 MCV (RBC) [Entitic vol] 72.8 fL Low 79.0-94.5 [facility] Comment on above: Performed By: #### U RIN #### [facility] (DEFAULT) [address] [place] [address] 57463 Mean Cell Hgb 21.3 pg Low 26.1-33.3 [facility] Comment on above: Performed By: #### U RIN #### [facility] (DEFAULT) [address] [place] [address] 68674 Mean Cell Hgb Conc 29.3 g/dL Low 31.9-36.5 [facility] Comment on above: Performed By: #### U RIN #### [facility] (DEFAULT) [address] [place] [address] 45457 Platelet mean volume (Bld) [Entitic vol] 9.6 fL Normal 8.7-12.3 [facility] Comment on above: Performed By: #### U RIN #### [facility] (DEFAULT) [address] [place] [address] 06895 Platelets (Bld) [#/Vol] 643 10*3/uL High 146-337 [facility] Comment on above: Performed By: #### U RIN #### [facility] (DEFAULT) [address] [place] [address] 99358 RBC (Bld) [#/Vol] 3.56 10*6/uL Low 4.38-5.83 [facility] Comment on above: Performed By: #### U RIN #### [facility] (DEFAULT) [address] [place] [address] 79598 RBC Distribution 23.5 % High 10.9-14.3 [facility] Comment on above: Performed By: #### U RIN #### [facility] (DEFAULT) [address] [place] [address] 56826 WBC (Bld) [#/Vol] 9.07 10*3/uL Normal 3.73-10.10 [facility] Comment on above: Performed By: #### U RIN #### [facility] (DEFAULT) [address] [place] [address] 82685 CHEM 7 (LYTES,BUN,CREA,GLUC) on 01-13-2021 Anion gap [Moles/Vol] 11 mmol/L Normal 7-17 [facility] Comment on above: Performed By: #### C HM7, IPB, MGO #### [facility] (DEFAULT) [address] [place] [address] 74699 Chloride [Moles/Vol] 106 mmol/L Normal 98-108 [facility] Comment on above: Performed By: #### C HM7, IPB, MGO #### [facility] (DEFAULT) [address] [place] [address] 03987 CO2 [Moles/Vol] 26 mmol/L Normal 22-30 [facility] Comment on above: Performed By: #### C HM7, IPB, MGO #### [facility] (DEFAULT) [address] [place] [address] 85908 Creatinine [Mass/Vol] 1.18 mg/dL Normal 0.70-1.30 [facility] Comment on above: Performed By: #### C HM7, IPB, MGO #### [facility] (DEFAULT) [address] [place] [address] 72986 EST GFR, >=60 Normal >=60 [facility] Comment on above: Performed By: #### C HM7, IPB, MGO #### [facility] (DEFAULT) [address] [place] [address] 03765 EST GFR,Non >=60 Normal >=60 [facility] Comment on above: Performed By: #### C HM7, IPB, MGO #### [facility] (DEFAULT) [address] [place] [address] 66312 Glucose [Mass/Vol] 131 mg/dL High 70-99 [facility] Comment on above: Performed By: #### C HM7, IPB, MGO #### [facility] (DEFAULT) [address] [place] [address] 79807 Osmolality [Osmolality] 295 mosm/kg Normal 278-305 [facility] Comment on above: Performed By: #### C HM7, IPB, MGO #### [facility] (DEFAULT) [address] [place] [address] 08218 Potassium [Moles/Vol] 4.7 mmol/L Normal 3.5-5.0 [facility] Comment on above: Performed By: #### C HM7, IPB, MGO #### [facility] (DEFAULT) [address] [place] [address] 29616 Sodium [Moles/Vol] 138 mmol/L Normal 133-143 [facility] Comment on above: Performed By: #### C HM7, IPB, MGO #### [facility] (DEFAULT) [address] [place] [address] 15284 Urea nitrogen [Mass/Vol] 21 mg/dL Normal 7-22 [facility] Comment on above: Performed By: #### C HM7, IPB, MGO #### [facility] (DEFAULT) [address] [place] [address] 99428 Urea nitrogen/Creatinin e [Mass ratio] 18 mg/mg Normal [facility] Comment on above: Performed By: #### C HM7, IPB, MGO #### [facility] (DEFAULT) [address] [place] [address] 52987 MAGNESIUMon 01-13-2021 Magnesium [Mass/Vol] 1.9 mg/dL Normal 1.6-2.6 [facility] Comment on above: Performed By: #### T YPEC #### [facility] (DEFAULT) [address] [place] [address] 69812 NOVEL CORONAVIRUS PCRon SARS-CoV-2 (COVID-19) RNA MONAE+probe Ql (Unsp spec) Not detected Normal NOT DETECTED [facility] Comment on above: Order Comment: Viral transport media or BAL specimen - Collection must be done while wearing N-95 mask, eye protection, gown and gloves. Please label ALL specimens as 2019-nCoV rule out and deliver by hand.This test was performed using real time PCR for the qualitative detection of SARS-CoV-2 nucleic acid. The test has been reviewed by the FDA and given emergency use authorization. This test was developed and its performance characteristics determined by [facility] at [facility]. This test is used for clinical purposes. It should not be regarded as investigational or for research. Result Comment: [facility] Negative results do not preclude SARS-CoV-2 infection and should not be used as the sole basis for treatment or other patient management decisions. Optimum specimen types and timing for peak viral levels during infections caused by SARS-CoV-2 has not been determined. The possibility of a false negative result should especially be considered if the patient's recent exposures or clinical presentation suggest that SARS-CoV-2 infection is probable, and diagnostic tests for other causes of illness (e.g., other respiratory illness) are negative. Collection of a new specimen and re-testing may be necessary if the patient is critically ill or clinically deteriorating. Performed By: #### T YPEC #### [facility] (DEFAULT) [address] [place] [address] 00442 PHOSPHATE, INORGANICon 01-13 Phosphorous 3.1 mg/dL Normal 2.2-4.6 [facility] Comment on above: Performed By: #### T YPEC #### [facility] (DEFAULT) [address] [place] [address] 34262 PLATELET COUNTon 01-13-2021 Platelet mean volume (Bld) [Entitic vol] 9.6 fL Normal 8.7-12.3 [facility] Comment on above: Performed By: #### B FLD #### [facility] (DEFAULT) [address] [place] [address] 27179 Platelets (Bld) [#/Vol] 658 10*3/uL High 146-337 [facility] Comment on above: Performed By: #### B FLD #### [facility] (DEFAULT) [address] [place] [address] 13275 CBC,PLATELETSon 01-12-2021 Hematocrit (Bld) [Volume fraction] 25.0 % Low 39.6-48.8 [facility] Comment on above: Performed By: #### P TT #### [facility] (DEFAULT) [address] [place] [address] 02305 Hemoglobin (Bld) [Mass/Vol] 7.4 g/dL Low 13.4-16.8 [facility] Comment on above: Performed By: #### P TT #### [facility] (DEFAULT) [address] [place] [address] 35029 MCV (RBC) [Entitic vol] 72.3 fL Low 79.0-94.5 [facility] Comment on above: Performed By: #### P TT #### [facility] (DEFAULT) [address] [place] [address] 23153 Mean Cell Hgb 21.4 pg Low 26.1-33.3 [facility] Comment on above: Performed By: #### P TT #### [facility] (DEFAULT) [address] [place] [address] 28688 Mean Cell Hgb Conc 29.6 g/dL Low 31.9-36.5 [facility] Comment on above: Performed By: #### P TT #### [facility] (DEFAULT) [address] [place] [address] 02724 Platelet mean volume (Bld) [Entitic vol] 9.7 fL Normal 8.7-12.3 [facility] Comment on above: Performed By: #### P TT #### [facility] (DEFAULT) [address] [place] [address] 41673 Platelets (Bld) [#/Vol] 663 10*3/uL High 146-337 [facility] Comment on above: Performed By: #### P TT #### [facility] (DEFAULT) [address] [place] [address] 42736 RBC (Bld) [#/Vol] 3.46 10*6/uL Low 4.38-5.83 [facility] Comment on above: Performed By: #### P TT #### [facility] (DEFAULT) [address] [place] [address] 42053 RBC Distribution 23.3 % High 10.9-14.3 [facility] Comment on above: Performed By: #### P TT #### [facility] (DEFAULT) [address] [place] [address] 99352 WBC (Bld) [#/Vol] 8.98 10*3/uL Normal 3.73-10.10 [facility] Comment on above: Performed By: #### P TT #### [facility] (DEFAULT) [address] [place] [address] 18133 CHEM 7 (LYTES,BUN,CREA,GLUC) on 01-12-2021 Anion gap [Moles/Vol] 10 mmol/L Normal 7-17 [facility] Comment on above: Performed By: #### T YPEC #### [facility] (DEFAULT) [address] [place] [address] 34742 Chloride [Moles/Vol] 107 mmol/L Normal 98-108 [facility] Comment on above: Performed By: #### T YPEC #### [facility] (DEFAULT) [address] [place] [address] 65505 CO2 [Moles/Vol] 25 mmol/L Normal 22-30 [facility] Comment on above: Performed By: #### T YPEC #### [facility] (DEFAULT) [address] [place] [address] 90267 Creatinine [Mass/Vol] 1.23 mg/dL Normal 0.70-1.30 [facility] Comment on above: Performed By: #### T YPEC #### [facility] (DEFAULT) [address] [place] [address] 83780 EST GFR, >=60 Normal >=60 [facility] Comment on above: Performed By: #### T YPEC #### [facility] (DEFAULT) [address] [place] [address] 38307 EST GFR,Non 57 mL/min/1.73sqM Low >=60 [facility] Comment on above: Performed By: #### T YPEC #### [facility] (DEFAULT) [address] [address] Glucose [Mass/Vol] 117 mg/dL High 70-99 [facility] Comment on above: Performed By: #### T YPEC #### [facility] (DEFAULT) [address] [address] Osmolality [Osmolality] 293 mosm/kg Normal 278-305 [facility] Comment on above: Performed By: #### T YPEC #### [facility] (DEFAULT) [address] [address] Potassium [Moles/Vol] 4.9 mmol/L Normal 3.5-5.0 [facility] Comment on above: Performed By: #### T YPEC #### [facility] (DEFAULT) [address] [address] Sodium [Moles/Vol] 137 mmol/L Normal 133-143 [facility] Comment on above: Performed By: #### T YPEC #### [facility] (DEFAULT) [address] [place] [address] Urea nitrogen [Mass/Vol] 20 mg/dL Normal 7-22 [facility] Comment on above: Performed By: #### T YPEC #### [facility] (DEFAULT) [address] [place] [address] Urea nitrogen/Creatinin e [Mass ratio] 16 mg/mg Normal [facility] Comment on above: Performed By: #### T YPEC #### [facility] (DEFAULT) [address] [place] [address] DRAINAGE SOFT TISSUE PERCUTA NEOUS W/ IMAGE GUIDANCEon 01-12-2021 DRAINAGE SOFT TISSUE PERCUTANEOUS W/ IMAGE GUIDANCE EXAM: IR DRAINAGE SOFT TISSUE PERCUTANEOUS W/ IMAGE GUIDANCE , 01/08/2021 11:17 AM CLINICAL INDICATIONS: lower abdominal fluid collection Operators: Dr. Rony Hernandez, Consent: Following discussion of the risks, benefits and alternatives of the procedure, written informed consent was obtained. Moderate Sedation: I performed Moderate Sedation which included the presence of a nurse that assisted in monitoring the patients level of consciousness and physiological status. After administration of sedative medication(s), I spent 20 minutes of continuous [id number] time with the patient. COMPARISON: Compared to prior study dated January 06, 2021. TIME OUT: Prior to the procedure a time out was performed in the presence of the patient and all personnel involved in this case. The patient identity, procedure type, procedure side/site, and allergies were verified. ............................ ............................ ...... TECHNIQUE: Prep: The patient was positioned supine on the procedural table. The patient was prepped and draped utilizing maximum sterile barrier technique. This consisted of cap, mask, hand hygiene, sterile gown and gloves, 2% Chlorhexidine solution for cutaneous antisepsis and occlusive sterile draping of the field. Procedure: Preprocedure CT demonstrated the appropriate location to access the previously described collection. Lidocaine was used for local anesthetic. A Yueh needle was advanced into the collection under direct ultrasound . A sample was obtained for culture. A 0.035 inch wire was advanced through the dilator and the dilator was exchanged for a loop all purpose drainage catheter. Catheter position confirmed by imaging. The catheter was fixed in place and attached to a gravity drainage bag.. A sterile, occlusive dressing was applied. FINDINGS: An ultrasound image demonstrates the targeted collection for drainage. Final drain positioning within the fluid collection is documented. IMPRESSION: Successful placement of an abscess drain via ultrasound guidance. I was in the room and participated during all dudley portions of this procedure. I personally viewed and interpreted these images and I have reviewed and approved this report. [employer] Event Details User 10:44 AM 01/08/21 Timeout: Sign-in Signed by Clif Bynum RN at 01/08/2021 10:44 AM JR 10:45 AM 01/08/21 fentaNYL (SUBLIMAZE) injection 0-300 mcg 50 mcg Given Rate: 0 Route: Intravenous JR 10:45 AM 01/08/21 midazolam (VERSED) injection 0-10 mg 1 mg Given Rate: 0 Route: Intravenous JR 10:54 AM 01/08/21 Timeout: TimeOut Signed by Clif Bynum RN at 01/08/2021 10:54 AM JR 10:59 AM 01/08/21 fentaNYL (SUBLIMAZE) injection 0-300 mcg 25 mcg Given Rate: 0 Route: Intravenous JR 10:59 AM 01/08/21 midazolam (VERSED) injection 0-10 mg 0.5 mg Given Rate: 0 Route: Intravenous JR 11:06 AM 01/08/21 lidocaine 2 % injection 0-400 mg 5 mL Given Rate: 0 Route: Infiltration MK 11:12 AM 01/08/21 Timeout: Sign-out Signed by Clif Bynum RN at 01/08/2021 11:12 AM Physician Physician Event Details User 10:44 AM 01/08/21 Timeout: Sign-in Signed by Clif Bynum RN at 01/08/2021 10:44 AM JR 10:54 AM 01/08/21 Timeout: TimeOut Signed by Clif Bynum RN at 01/08/2021 10:54 AM JR 11:12 AM 01/08/21 Timeout: Sign-out Signed by Clif Bynum RN at 01/08/2021 11:12 AM JR Normal [facility] MAGNESIUMon 01-12-2021 Magnesium [Mass/Vol] 1.8 mg/dL Normal 1.6-2.6 [facility] Comment on above: Performed By: #### T YPEC #### [facility] (DEFAULT) [address] [address] PHOSPHATE, INORGANICon 01-12 Phosphorous 3.0 mg/dL Normal 2.2-4.6 [facility] Comment on above: Performed By: #### T YPEC #### [facility] (DEFAULT) [address] [address] BLOOD CULTUREon 01-11-2021 Bacteria identified Cx Nom (Unsp spec) NO GROWTH DAY 5 OF 5 Normal [facility] Comment on above: Order Comment: 2 Bot tles (1 Set - consists of 1 Aerobic (blue) bottle and 1 Anaerobic (purple) bottle) -1st Peripheral DrawFor syringe method draw:If able to obtain adequate sample (20 ml) inoculate anaerobic bottle firstIf inadequate sample obtained (less than 20 ml) inoculate aerobic bottle firstFor vacutainer method draw: Fill aerobic bottle first, then anaerobic Performed By: #### T YPEC #### [facility] (DEFAULT) [address] [place] [address] 79303 BODY FLUID CULTURE AND DIREC T SMEARon 01-11-2021 Bacteria identified Cx Nom (Unsp spec) NO GROWTH DAY 2 OF 2 Normal [facility] Comment on above: Order Comment: For b edside thoracentesis Performed By: #### B FLD #### [facility] (DEFAULT) [address] [address] Microscopic observation Gram stain Nom (Unsp spec) Normal [facility] Comment on above: Order Comment: For b edside thoracentesis Result Comment: Cyto centrifuge preparation Neutrophils, Moderate Mononuclear cells present Red Blood Cells Present No organisms seen Final report, verified by Microbiology. Performed By: #### B FLD #### [facility] (DEFAULT) [address] [place] [address] 73274 CBC,PLATELETSon 01-11-2021 Hematocrit (Bld) [Volume fraction] 24.4 % Low 39.6-48.8 [facility] Comment on above: Performed By: #### X M #### [facility] (DEFAULT) [address] [place] [address] 76460 Hemoglobin (Bld) [Mass/Vol] 7.1 g/dL Low 13.4-16.8 [facility] Comment on above: Performed By: #### X M #### [facility] (DEFAULT) [address] [address] MCV (RBC) [Entitic vol] 72.8 fL Low 79.0-94.5 [facility] Comment on above: Performed By: #### X M #### [facility] (DEFAULT) [address] [address] Mean Cell Hgb 21.2 pg Low 26.1-33.3 [facility] Comment on above: Performed By: #### X M #### [facility] (DEFAULT) [address] [place] [address] 30531 Mean Cell Hgb Conc 29.1 g/dL Low 31.9-36.5 [facility] Comment on above: Performed By: #### X M #### [facility] (DEFAULT) [address] [address] Platelet mean volume (Bld) [Entitic vol] 9.6 fL Normal 8.7-12.3 [facility] Comment on above: Performed By: #### X M #### [facility] (DEFAULT) [address] [place] [address] 88211 Platelets (Bld) [#/Vol] 728 10*3/uL High 146-337 [facility] Comment on above: Performed By: #### X M #### [facility] (DEFAULT) [address] [place] [address] 18797 RBC (Bld) [#/Vol] 3.35 10*6/uL Low 4.38-5.83 [facility] Comment on above: Performed By: #### X M #### [facility] (DEFAULT) [address] [place] [address] 14793 RBC Distribution 23.0 % High 10.9-14.3 [facility] Comment on above: Performed By: #### X M #### [facility] (DEFAULT) [address] [place] [address] 17818 WBC (Bld) [#/Vol] 10.95 10*3/uL High 3.73-10.10 [facility] Comment on above: Performed By: #### X M #### [facility] (DEFAULT) [address] [place] [address] 49267 CHEM 7 (LYTES,BUN,CREA,GLUC) on 01-11-2021 Anion gap [Moles/Vol] 13 mmol/L Normal 7-17 [facility] Comment on above: Performed By: #### [facility] #### [facility] (DEFAULT) [address] [place] [address] 97272 Chloride [Moles/Vol] 106 mmol/L Normal 98-108 [facility] Comment on above: Performed By: #### H EMOGC #### [facility] (DEFAULT) [address] [place] [address] 97603 CO2 [Moles/Vol] 25 mmol/L Normal 22-30 [facility] Comment on above: Performed By: #### H EMOGC #### [facility] (DEFAULT) [address] [place] [address] 74033 Creatinine [Mass/Vol] 1.37 mg/dL High 0.70-1.30 [facility] Comment on above: Performed By: #### H EMOGC #### [facility] (DEFAULT) [address] [place] [address] 84418 EST GFR, >=60 Normal >=60 [facility] Comment on above: Performed By: #### H EMOGC #### [facility] (DEFAULT) [address] [place] [address] 99260 EST GFR,Non 51 mL/min/1.73sqM Low >=60 [facility] Comment on above: Performed By: #### H EMOGC #### [facility] (DEFAULT) [address] [place] [address] 46330 Glucose [Mass/Vol] 110 mg/dL High 70-99 [facility] Comment on above: Performed By: #### H EMOGC #### [facility] (DEFAULT) [address] [place] [address] 92014 Osmolality [Osmolality] 295 mosm/kg Normal 278-305 [facility] Comment on above: Performed By: #### H EMOGC #### [facility] (DEFAULT) [address] [place] [address] 91832 Potassium [Moles/Vol] 4.5 mmol/L Normal 3.5-5.0 [facility] Comment on above: Performed By: #### H EMOGC #### [facility] (DEFAULT) [address] [place] [address] 03265 Sodium [Moles/Vol] 139 mmol/L Normal 133-143 [facility] Comment on above: Performed By: #### H EMOGC #### [facility] (DEFAULT) [address] [place] [address] 93706 Urea nitrogen [Mass/Vol] 19 mg/dL Normal 7-22 [facility] Comment on above: Performed By: #### H EMOGC #### [facility] (DEFAULT) [address] [place] [address] 83265 Urea nitrogen/Creatinin e [Mass ratio] 14 mg/mg Normal [facility] Comment on above: Performed By: #### H EMOGC #### [facility] (DEFAULT) [address] [place] [address] 62926 Culture, Blood (WB)on 2020 CUB No growth in 5 days. Normal [facility] Comment on above: Performed By: #### M 200.1000 #### [facility] [address] [place], [place], [address] CUB No growth in 5 days. Normal [facility] Comment on above: Performed By: #### M 200.1000 #### [facility] [address] [place], [place], [id number] HEMOGLOBIN & HEMATOCRITon Hematocrit (Bld) [Volume fraction] 25.5 % Low 39.6-48.8 [facility] Comment on above: Performed By: #### C FEDERICA LI MGO #### [facility] (DEFAULT) [address] [place] [address] 53261 Hemoglobin (Bld) [Mass/Vol] 7.5 g/dL Low 13.4-16.8 [facility] Comment on above: Performed By: #### FEDERICA GARCIA, MGO #### [facility] (DEFAULT) [address] [place] [address] 38069 MAGNESIUMon 01-11-2021 Magnesium [Mass/Vol] 1.8 mg/dL Normal 1.6-2.6 [facility] Comment on above: Performed By: #### H EMOGC #### [facility] (DEFAULT) [address] [place] [address] 07294 PHOSPHATE, INORGANICon 01-11 Phosphorous 2.9 mg/dL Normal 2.2-4.6 [facility] Comment on above: Performed By: #### H EMOGC #### [facility] (DEFAULT) [address] [place] [address] 72941 PLATELET COUNTon 01-11-2021 Platelet mean volume (Bld) [Entitic vol] 9.9 fL Normal 8.7-12.3 [facility] Comment on above: Performed By: #### C GUILLERMO, FEDERICA, MGO #### [facility] (DEFAULT) [address] [place] [address] 10283 Platelets (Bld) [#/Vol] 771 10*3/uL High 146-337 [facility] Comment on above: Performed By: #### C HM7, FEDERICA, MGO #### [facility] (DEFAULT) [address] [place] [address] 17865 VANCOMYCIN LEVEL, TROUGH (IN E DRUG LEVEL)on 01-11-2021 Vancomycin, Trough 8.0 mcg/mL Low Therapeut ic Range: 10.0-20.0 mcg/mL [facility] Comment on above: Order Comment: Pleas e draw level at specified interval PRIOR to next dose. Performed By: #### U RIN #### [facility] (DEFAULT) [address] [place] [address] 62024 XR CHEST PORTABLEon 01-12-20 XR CHEST PORTABLE EXAM: XR CHEST ELISA BLE, 01/11/2021 15:37 PM COMPARISON: Compared to earlier exam on the same day. CLINICAL INDICATIONS: s/p left thoracentesis RELEVANT CLINICAL HISTORY: FINDINGS: (Adequate technique) Tubes, Lines, and life support hardware: None. Lungs: Interval decrease in the left pleural effusion, which is now moderate sized. Associated compressive atelectatic foci. The right lung is clear. There is no pneumothorax. Cardiac, mediastinum, and hilum: The cardiomediastinal silhouette is within normal limits. ... Pulmonary Vessels: Normal, without PVH Impression: 1. Moderate-sized left pleural effusion with associated compressive atelectatic foci. Normal [facility] XR CHEST PORTABLE EXAM: XR CHEST ELISA BLE, 01/11/2021 06:33 AM COMPARISON: January 06, 2021. CLINICAL INDICATIONS: Eval progression of Pleural effusion RELEVANT CLINICAL HISTORY: Please attain 01/11 at 5AM; FINDINGS: (Adequate technique) Tubes, Lines, and life support hardware: None. Lungs: Relatively large sized left pleural effusion, slightly increased when compared to the prior examination. Associated compressive atelectasis in the left lung, with sparing of the left lung apex. The right lung is clear. There is no pneumothorax. Cardiac, mediastinum, and hilum: Obscuration of the left heart border. Slight rightward deviation of the trachea. Pulmonary Vessels: Normal, without PVH Impression: 1. Slight interval increase in the large left pleural effusion. 2. Associated compressive atelectatic foci in the left lung. Associated mass effect on the cardiac mediastinal structures. 3. The right lung is clear. Normal [facility] CBC,PLATELETSon 01-10-2021 Hematocrit (Bld) [Volume fraction] 23.9 % Low 39.6-48.8 [facility] Comment on above: Performed By: #### [facility] [place] ####[facility] (DEFAULT)[address] [place] [address] 65243 Hemoglobin (Bld) [Mass/Vol] 6.9 g/dL Critically low 13.4-16.8 [facility] Comment on above: Result Comment: This result has been called to YOLI WATKINS by Sarahy Mckenna on 01 10 2021 at 0325, and has been read back. Performed By: #### [facility] ####[facility] (DEFAULT)[address] [place] [address] 82825 MCV (RBC) [Entitic vol] 70.9 fL Low 79.0-94.5 [facility] Comment on above: Performed By: #### H EMO ####[facility] (DEFAULT)[address] [place] [address] Mean Cell Hgb 20.5 pg Low 26.1-33.3 [facility] Comment on above: Performed By: #### H EMO ####[facility] (DEFAULT)[address] [place] [address] Mean Cell Hgb Conc 28.9 g/dL Low 31.9-36.5 [facility] Comment on above: Performed By: #### H EMOGC ####[facility] (DEFAULT)[address] [place] [address] Platelet mean volume (Bld) [Entitic vol] 9.6 fL Normal 8.7-12.3 [facility] Comment on above: Performed By: #### H EMOGC ####[facility] (DEFAULT)[address] [place] [address] 81856 Platelets (Bld) [#/Vol] 810 10*3/uL High 146-337 [facility] Comment on above: Performed By: #### H EMOGC ####[facility] (DEFAULT)[address] [place] [address] RBC (Bld) [#/Vol] 3.37 10*6/uL Low 4.38-5.83 [facility] Comment on above: Performed By: #### H EMOGC ####[facility] (DEFAULT)[address] [place] [address] 89180 RBC Distribution 22.0 % High 10.9-14.3 [facility] Comment on above: Performed By: #### H EMOGC ####[facility] (DEFAULT)[address] [place] [address] 95501 WBC (Bld) [#/Vol] 11.32 10*3/uL High 3.73-10.10 [facility] Comment on above: Performed By: #### H EMOGC ####[facility] (DEFAULT)[address] [place] [address] 67265 CHEM 7 (LYTES,BUN,CREA,GLUC) on 01-10-2021 Anion gap [Moles/Vol] 14 mmol/L Normal 7-17 [facility] Comment on above: Performed By: #### T YPEC #### [facility] (DEFAULT) [address] [place] [address] 24046 Chloride [Moles/Vol] 107 mmol/L Normal 98-108 [facility] Comment on above: Performed By: #### T YPEC #### [facility] (DEFAULT) [address] [address] CO2 [Moles/Vol] 22 mmol/L Normal 22-30 [facility] Comment on above: Performed By: #### T YPEC #### [facility] (DEFAULT) [address] [address] Creatinine [Mass/Vol] 1.38 mg/dL High 0.70-1.30 [facility] Comment on above: Performed By: #### T YPEC #### [facility] (DEFAULT) [address] [address] EST GFR, >=60 Normal >=60 [facility] Comment on above: Performed By: #### T YPEC #### [facility] (DEFAULT) [address] [address] EST GFR,Non 50 mL/min/1.73sqM Low >=60 [facility] Comment on above: Performed By: #### T YPEC #### [facility] (DEFAULT) [address] [address] Glucose [Mass/Vol] 111 mg/dL High 70-99 [facility] Comment on above: Performed By: #### T YPEC #### [facility] (DEFAULT) [address] [address] Osmolality [Osmolality] 293 mosm/kg Normal 278-305 [facility] Comment on above: Performed By: #### T YPEC #### [facility] (DEFAULT) [address] [address] Potassium [Moles/Vol] 4.6 mmol/L Normal 3.5-5.0 [facility] Comment on above: Performed By: #### T YPEC #### [facility] (DEFAULT) [address] [place] [address] 11122 Sodium [Moles/Vol] 138 mmol/L Normal 133-143 [facility] Comment on above: Performed By: #### T YPEC #### [facility] (DEFAULT) [address] [place] [address] 59556 Urea nitrogen [Mass/Vol] 20 mg/dL Normal 7-22 [facility] Comment on above: Performed By: #### T YPEC #### [facility] (DEFAULT) [address] [place] [address] 16118 Urea nitrogen/Creatinin e [Mass ratio] 14 mg/mg Normal [facility] Comment on above: Performed By: #### T YPEC #### [facility] (DEFAULT) [address] [place] [address] 9[address] MAGNESIUMon 01-10-2021 Magnesium [Mass/Vol] 1.8 mg/dL Normal 1.6-2.6 [facility] Comment on above: Performed By: #### T YPEC #### [facility] (DEFAULT) [address] [place] [address]254 PHOSPHATE, INORGANICon 01-10 Phosphorous 3.2 mg/dL Normal 2.2-4.6 [facility] Comment on above: Performed By: #### T YPEC #### [facility] (DEFAULT) [address] [place] [address] 49553 PTTon 01-10-2021 aPTT Coag (Bld) [Time] 77.0 s High 24.0-34.3 [facility] Comment on above: Order Comment: After initiation a PTT should be checked every 6 hours from time of last dose change or, if dose has not changed, 6 hours after last PTT result posted.? The frequent monitoring should occur until PTT in goal range for two consecutive lab draws without dose changes at which time PTTs may be checked no less frequently than every 12 hours.? If dose requires a change, PTT should be monitored at least every 6 hours until titration is no longer indicated, then as directed above.? If PTT above goal range refer to medication administration instructions. Performed By: #### T YPEC #### [facility] (DEFAULT) [address] [address] aPTT Coag (Bld) [Time] 46.1 s High 24.0-34.3 [facility] Comment on above: Order Comment: After initiation a PTT should be checked every 6 hours from time of last dose change or, if dose has not changed, 6 hours after last PTT result posted.? The frequent monitoring should occur until PTT in goal range for two consecutive lab draws without dose changes at which time PTTs may be checked no less frequently than every 12 hours.? If dose requires a change, PTT should be monitored at least every 6 hours until titration is no longer indicated, then as directed above.? If PTT above goal range refer to medication administration instructions. Performed By: #### U RIN #### [facility] (DEFAULT) [address] [place] [address] TYPE AND SCREENon 01-10-2021 ABO/RH(D) TYPE Negative Normal [facility] Comment on above: Performed By: #### X M #### [facility] (DEFAULT) [address] [address] CBC,PLATELETSon 01-09-2021 Hematocrit (Bld) [Volume fraction] 24.5 % Low 39.6-48.8 [facility] Comment on above: Performed By: #### H EMOGC #### [facility] (DEFAULT) [address] [place] [address] Hemoglobin (Bld) [Mass/Vol] 7.0 g/dL Low 13.4-16.8 [facility] Comment on above: Performed By: #### H EMOGC #### [facility] (DEFAULT) [address] [address] MCV (RBC) [Entitic vol] 72.1 fL Low 79.0-94.5 [facility] Comment on above: Performed By: #### H EMOGC #### [facility] (DEFAULT) [address] [place] [address] 43767 Mean Cell Hgb 20.6 pg Low 26.1-33.3 [facility] Comment on above: Performed By: #### H EMOGC #### [facility] (DEFAULT) [address] [address] Mean Cell Hgb Conc 28.6 g/dL Low 31.9-36.5 [facility] Comment on above: Performed By: #### H EMOGC #### [facility] (DEFAULT) [address] [address] Platelet mean volume (Bld) [Entitic vol] 9.9 fL Normal 8.7-12.3 [facility] Comment on above: Performed By: #### H EMOGC #### [facility] (DEFAULT) [address] [address] Platelets (Bld) [#/Vol] 814 10*3/uL High 146-337 [facility] Comment on above: Performed By: #### H EMOGC #### [facility] (DEFAULT) [address] [address] RBC (Bld) [#/Vol] 3.40 10*6/uL Low 4.38-5.83 [facility] Comment on above: Performed By: #### H EMOGC #### [facility] (DEFAULT) [address] [address] RBC Distribution 22.1 % High 10.9-14.3 [facility] Comment on above: Performed By: #### H EMOGC #### [facility] (DEFAULT) [address] [address] WBC (Bld) [#/Vol] 11.61 10*3/uL High 3.73-10.10 [facility] Comment on above: Performed By: #### H EMOGC #### [facility] (DEFAULT) [address] [address] CHEM 7 (LYTES,BUN,CREA,GLUC) on 01-09-2021 Anion gap [Moles/Vol] 13 mmol/L Normal 7-17 [facility] Comment on above: Performed By: #### U RIN #### [facility] (DEFAULT) [address] [address] Chloride [Moles/Vol] 107 mmol/L Normal 98-108 [facility] Comment on above: Performed By: #### U RIN #### [facility] (DEFAULT) [address] [place] [address] CO2 [Moles/Vol] 22 mmol/L Normal 22-30 [facility] Comment on above: Performed By: #### U RIN #### [facility] (DEFAULT) [address] [address] Creatinine [Mass/Vol] 1.27 mg/dL Normal 0.70-1.30 [facility] Comment on above: Performed By: #### U RIN #### [facility] (DEFAULT) [address] [place] [address] EST GFR, >=60 Normal >=60 [facility] Comment on above: Performed By: #### U RIN #### [facility] (DEFAULT) [address] [address] EST GFR,Non 55 mL/min/1.73sqM Low >=60 [facility] Comment on above: Performed By: #### U RIN #### [facility] (DEFAULT) [address] [place] [address] Glucose [Mass/Vol] 138 mg/dL High 70-99 [facility] Comment on above: Performed By: #### U RIN #### [facility] (DEFAULT) [address] [address] Osmolality [Osmolality] 294 mosm/kg Normal 278-305 [facility] Comment on above: Performed By: #### U RIN #### [facility] (DEFAULT) [address] [place] [address] Potassium [Moles/Vol] 4.8 mmol/L Normal 3.5-5.0 [facility] Comment on above: Performed By: #### U RIN #### [facility] (DEFAULT) [address] [place] [address]179 Sodium [Moles/Vol] 137 mmol/L Normal 133-143 [facility] Comment on above: Performed By: #### U RIN #### [facility] (DEFAULT) [address] [place] [address]22 Urea nitrogen [Mass/Vol] 20 mg/dL Normal 7-22 [facility] Comment on above: Performed By: #### U RIN #### [facility] (DEFAULT) [address] [place] [address] 34319 Urea nitrogen/Creatinin e [Mass ratio] 16 mg/mg Normal [facility] Comment on above: Performed By: #### U RIN #### [facility] (DEFAULT) [address] [place] [address] MAGNESIUMon 01-09-2021 Magnesium [Mass/Vol] 1.7 mg/dL Normal 1.6-2.6 [facility] Comment on above: Performed By: #### M FEDERICA FAJARDO, CHM7 ####[facility] (DEFAULT)[address] [place] [address] PHOSPHATE, INORGANICon 01-09 Phosphorous 2.8 mg/dL Normal 2.2-4.6 [facility] Comment on above: Performed By: #### M FEDERICA FAJARDO, CHM7 ####[facility] (DEFAULT)[address] [place] [address] PLATELET COUNTon 01-09-2021 Platelet mean volume (Bld) [Entitic vol] 9.7 fL Normal 8.7-12.3 [facility] Comment on above: Performed By: #### X M #### [facility] (DEFAULT) [address] [place] [address] Platelets (Bld) [#/Vol] 882 10*3/uL High 146-337 [facility] Comment on above: Performed By: #### X M #### [facility] (DEFAULT) [address] [address] PTTon 01-09-2021 aPTT Coag (Bld) [Time] 63.7 s High 24.0-34.3 [facility] Comment on above: Order Comment: After initiation a PTT should be checked every 6 hours from time of last dose change or, if dose has not changed, 6 hours after last PTT result posted.? The frequent monitoring should occur until PTT in goal range for two consecutive lab draws without dose changes at which time PTTs may be checked no less frequently than every 12 hours.? If dose requires a change, PTT should be monitored at least every 6 hours until titration is no longer indicated, then as directed above.? If PTT above goal range refer to medication administration instructions. Performed By: #### H EMO #### [facility] (DEFAULT) [address] [address] aPTT Coag (Bld) [Time] 43.6 s High 24.0-34.3 [facility] Comment on above: Order Comment: After initiation a PTT should be checked every 6 hours from time of last dose change or, if dose has not changed, 6 hours after last PTT result posted.? The frequent monitoring should occur until PTT in goal range for two consecutive lab draws without dose changes at which time PTTs may be checked no less frequently than every 12 hours.? If dose requires a change, PTT should be monitored at least every 6 hours until titration is no longer indicated, then as directed above.? If PTT above goal range refer to medication administration instructions. Performed By: #### C HM7, IPB, MGO #### [facility] (DEFAULT) [address] [address] aPTT Coag (Bld) [Time] 33.7 s Normal 24.0-34.3 [facility] Comment on above: Order Comment: After initiation a PTT should be checked every 6 hours from time of last dose change or, if dose has not changed, 6 hours after last PTT result posted.? The frequent monitoring should occur until PTT in goal range for two consecutive lab draws without dose changes at which time PTTs may be checked no less frequently than every 12 hours.? If dose requires a change, PTT should be monitored at least every 6 hours until titration is no longer indicated, then as directed above.? If PTT above goal range refer to medication administration instructions. Performed By: #### P TT ####[facility] (DEFAULT)[address] [place] [address] BACTERIAL CULTURE AND DIRECT SMEAR, LESION, TISSUE, DEVICEon 01-08-2021 Bacteria identified Cx Nom (Unsp spec) NO GROWTH DAY 2 OF 2 Normal [facility] Comment on above: Performed By: #### T YPEC #### [facility] (DEFAULT) [address] [place] [address] Microscopic observation Gram stain Nom (Unsp spec) Normal [facility] Comment on above: Result Comment: Neut rophils, Heavy Red Blood Cells Present No organisms seen Performed By: #### T YPEC #### [facility] (DEFAULT) [address] [place] [address] CBC,PLATELETSon 01-08-2021 Hematocrit (Bld) [Volume fraction] 24.9 % Low 39.6-48.8 [facility] Comment on above: Performed By: #### X M #### [facility] (DEFAULT) [address] [place] [address] Hemoglobin (Bld) [Mass/Vol] 7.2 g/dL Low 13.4-16.8 [facility] Comment on above: Performed By: #### X M #### [facility] (DEFAULT) [address] [place] [address] MCV (RBC) [Entitic vol] 71.8 fL Low 79.0-94.5 [facility] Comment on above: Performed By: #### X M #### [facility] (DEFAULT) [address] [place] [address] Mean Cell Hgb 20.7 pg Low 26.1-33.3 [facility] Comment on above: Performed By: #### X M #### [facility] (DEFAULT) [address] [address] Mean Cell Hgb Conc 28.9 g/dL Low 31.9-36.5 [facility] Comment on above: Performed By: #### X M #### [facility] (DEFAULT) [address] [address] Platelet mean volume (Bld) [Entitic vol] 10.9 fL Normal 8.7-12.3 [facility] Comment on above: Performed By: #### X M #### [facility] (DEFAULT) [address] [address] Platelets (Bld) [#/Vol] 861 10*3/uL High 146-337 [facility] Comment on above: Performed By: #### X M #### [facility] (DEFAULT) [address] [address] RBC (Bld) [#/Vol] 3.47 10*6/uL Low 4.38-5.83 [facility] Comment on above: Performed By: #### X M #### [facility] (DEFAULT) [address] [address] RBC Distribution 22.7 % High 10.9-14.3 [facility] Comment on above: Performed By: #### X M #### [facility] (DEFAULT) [address] [address] WBC (Bld) [#/Vol] 13.51 10*3/uL High 3.73-10.10 [facility] Comment on above: Performed By: #### X M #### [facility] (DEFAULT) [address] [address] CHEM 7 (LYTES,BUN,CREA,GLUC) on 01-08-2021 Anion gap [Moles/Vol] 12 mmol/L Normal 7-17 [facility] Comment on above: Performed By: #### I PB, CHM7, MGO ####[facility] (DEFAULT)[address] [place] [address] Chloride [Moles/Vol] 108 mmol/L Normal 98-108 [facility] Comment on above: Performed By: #### I PB, CHM7, MGO ####[facility] (DEFAULT)[address] [place] [address] CO2 [Moles/Vol] 24 mmol/L Normal 22-30 [facility] Comment on above: Performed By: #### I PB, CHM7, MGO ####[facility] (DEFAULT)[address] [place] [address] Creatinine [Mass/Vol] 1.41 mg/dL High 0.70-1.30 [facility] Comment on above: Performed By: #### I PB, CHM7, MGO ####[facility] (DEFAULT)[address] [place] [address] EST GFR, 59 mL/min/1.73sqM Low >=60 [facility] Comment on above: Performed By: #### I PB, CHM7, MGO ####[facility] (DEFAULT)[address] [place] [address] EST GFR,Non 49 mL/min/1.73sqM Low >=60 [facility] Comment on above: Performed By: #### I PB, CHM7, MGO ####[facility] (DEFAULT)[address] [place] [address] Glucose [Mass/Vol] 118 mg/dL High 70-99 [facility] Comment on above: Performed By: #### I PB, CHM7, MGO ####[facility] (DEFAULT)[address] [place] [address] Osmolality [Osmolality] 295 mosm/kg Normal 278-305 [facility] Comment on above: Performed By: #### I PB, CHM7, MGO ####[facility] (DEFAULT)[address] [place] [address], [place] [address] Potassium [Moles/Vol] 4.6 mmol/L Normal 3.5-5.0 [facility] Comment on above: Performed By: #### I PB, CHM7, MGO ####[facility] (DEFAULT)[address] [place] [address], [place] [address] Sodium [Moles/Vol] 139 mmol/L Normal 133-143 [facility] Comment on above: Performed By: #### I PB, CHM7, MGO ####[facility] (DEFAULT)[address] [place] [address] Urea nitrogen [Mass/Vol] 19 mg/dL Normal 7-22 [facility] Comment on above: Performed By: #### I PB, CHM7, MGO ####[facility] (DEFAULT)[address] [place] [address] Urea nitrogen/Creatinin e [Mass ratio] 13 mg/mg Normal [facility] Comment on above: Performed By: #### I PB, CHM7, MGO ####[facility] (DEFAULT)[address] [place] [address] MAGNESIUMon 01-08-2021 Magnesium [Mass/Vol] 1.8 mg/dL Normal 1.6-2.6 [facility] Comment on above: Performed By: #### P TT #### [facility] (DEFAULT) [address] [place] [address] PHOSPHATE, INORGANICon 01-08 Phosphorous 3.0 mg/dL Normal 2.2-4.6 [facility] Comment on above: Performed By: #### P TT #### [facility] (DEFAULT) [address] [place] [address] PROTIME-INRon 01-08-2021 INR Coag (PPP) [Relative time] 1.2 {INR} High 0.9-1.1 [facility] Comment on above: Performed By: #### [facility] #### [facility] (DEFAULT) [address] [address] PT Coag (PPP) [Time] 15.4 s High 11.9-14.2 [facility] Comment on above: Performed By: #### H [facility] #### [facility] (DEFAULT) [address] [place] [address] PTTon 01-08-2021 aPTT Coag (Bld) [Time] 37.6 s High 24.0-34.3 [facility] Comment on above: Order Comment: After initiation a PTT should be checked every 6 hours from time of last dose change or, if dose has not changed, 6 hours after last PTT result posted.? The frequent monitoring should occur until PTT in goal range for two consecutive lab draws without dose changes at which time PTTs may be checked no less frequently than every 12 hours.? If dose requires a change, PTT should be monitored at least every 6 hours until titration is no longer indicated, then as directed above.? If PTT above goal range refer to medication administration instructions. Performed By: #### H [facility] #### [facility] (DEFAULT) [address] [address] B-TYPE NATRIURETIC PEPTIDE ( BRAIN)on 01-07-2021 Natriuretic peptide B (Bld) [Mass/Vol] 120 pg/mL High 0-100 [facility] Comment on above: Performed By: #### X M #### [facility] (DEFAULT) [address] [place] [address] BKR GRAM POSITIVE VERIGENESo n 01-07-2021 Gram Positive Verigenes Detected Abnormal Invalid [facility] Comment on above: Order Comment: 2 Bot tles (1 Set - consists of 1 Aerobic (blue) bottle and 1 Anaerobic (purple) bottle) -1st Peripheral DrawFor syringe method draw:If able to obtain adequate sample (20 ml) inoculate anaerobic bottle firstIf inadequate sample obtained (less than 20 ml) inoculate aerobic bottle firstFor vacutainer method draw: Fill aerobic bottle first, then anaerobicThis test was performed using a multiplex gram- positive blood culture nucleic acid method for the following bacterial targets: Staphylococcus aureus, S. epidermidis,S. lugdunensis, other Staphylococcus species, Enterococcus faecalis, Enterococcus faecium, Streptococcus agalactiae, Streptococcus anginosus group, S. pneumoniae,S. pyogenes, other Streptococcus species, mecA (methicillin resistance), Jerri/B (vancomycin resistance). Negative results do not preclude an infection caused by low concentration of these organisms below the limit of detection, or other bacteria or yeast not screened by this test. For mixed cultures containing gram-positive bacteria and other organisms, the test may not identify all the detectable organisms in the specimen depending upon the concentration of each target present. Results should be used in conjunction with other clinical and laboratory findings. Performed By: #### T YPEC #### [facility] (DEFAULT) [address] [place] [address] mecA Detected Abnormal Not Detected [facility] Comment on above: Order Comment: 2 Bot tles (1 Set - consists of 1 Aerobic (blue) bottle and 1 Anaerobic (purple) bottle) -1st Peripheral DrawFor syringe method draw:If able to obtain adequate sample (20 ml) inoculate anaerobic bottle firstIf inadequate sample obtained (less than 20 ml) inoculate aerobic bottle firstFor vacutainer method draw: Fill aerobic bottle first, then anaerobicThis test was performed using a multiplex gram- positive blood culture nucleic acid method for the following bacterial targets: Staphylococcus aureus, S. epidermidis,S. lugdunensis, other Staphylococcus species, Enterococcus faecalis, Enterococcus faecium, Streptococcus agalactiae, Streptococcus anginosus group, S. pneumoniae,S. pyogenes, other Streptococcus species, mecA (methicillin resistance), Jerri/B (vancomycin resistance). Negative results do not preclude an infection caused by low concentration of these organisms below the limit of detection, or other bacteria or yeast not screened by this test. For mixed cultures containing gram-positive bacteria and other organisms, the test may not identify all the detectable organisms in the specimen depending upon the concentration of each target present. Results should be used in conjunction with other clinical and laboratory findings. Performed By: #### T YPEC #### [facility] (DEFAULT) [address] [address] BLOOD CULTUREon 01-07-2021 Bacteria identified Cx Nom (Unsp spec) Normal [facility] Comment on above: Order Comment: 2 Bot tles (1 Set - consists of 1 Aerobic (blue) bottle and 1 Anaerobic (purple) bottle) -1st Peripheral DrawFor syringe method draw:If able to obtain adequate sample (20 ml) inoculate anaerobic bottle firstIf inadequate sample obtained (less than 20 ml) inoculate aerobic bottle firstFor vacutainer method draw: Fill aerobic bottle first, then anaerobic Result Comment: Grow th 4650METHICILLIN RESISTANT STAPHYLOCOCCUS EPIDERMIDISMETHICILLIN RESISTANT STAPHYLOCOCCUS EPIDERMIDIS Methicillin Resistant Staphylococcus epidermidis The recovery of this organism(s) from a single blood culture most likely represents contamination during collection. Susceptibility testing will not be performed. Please evaluate carefully prior to initiation or continuation of microbial therapy. If further workup is needed, please contact the blood culture area at [phone] within 2 days. Performed By: #### T YPEC #### [facility] (DEFAULT) [address] [address] CALCIUMon 01-07-2021 Calcium [Mass/Vol] 7.7 mg/dL Low 8.6-10.5 [facility] Comment on above: Performed By: #### B FLD #### [facility] (DEFAULT) [address] [address] CBC AND ELECTRONIC DIFFon Abs Baso Auto Normal [facility] Comment on above: Performed By: #### X M #### [facility] (DEFAULT) [address] [address] Abs Eos Auto Normal [facility] Comment on above: Performed By: #### X M #### [facility] (DEFAULT) [address] [address] Abs Lymph Auto Normal [facility] Comment on above: Performed By: #### X M #### [facility] (DEFAULT) [address] [address] Abs [place] Auto Normal [facility] Comment on above: Performed By: #### X M #### [facility] (DEFAULT) [address] [place] [address] Basophil % Auto Normal [facility] Comment on above: Performed By: #### X M #### [facility] (DEFAULT) [address] [place] [address] Eosinophil % Auto Normal [facility] Comment on above: Performed By: #### X M #### [facility] (DEFAULT) [address] [place] [address] Hematocrit (Bld) [Volume fraction] 26.8 % Low 39.6-48.8 [facility] Comment on above: Performed By: #### X M #### [facility] (DEFAULT) [address] [place] [address] Hemoglobin (Bld) [Mass/Vol] 7.8 g/dL Low 13.4-16.8 [facility] Comment on above: Performed By: #### X M #### [facility] (DEFAULT) [address] [place] [address] Immature Grans % Normal [facility] Comment on above: Performed By: #### X M #### [facility] (DEFAULT) [address] [place] [address] Immature Grans Absolute Normal [facility] Comment on above: Performed By: #### X M #### [facility] (DEFAULT) [address] [place] [address]47 Lymphocyte % Auto Normal [facility] Comment on above: Performed By: #### X M #### [facility] (DEFAULT) [address] [place] [address] MCV (RBC) [Entitic vol] 71.7 fL Low 79.0-94.5 [facility] Comment on above: Performed By: #### X M #### [facility] (DEFAULT) [address] [place] [address] 01876 Mean Cell Hgb 20.9 pg Low 26.1-33.3 [facility] Comment on above: Performed By: #### X M #### [facility] (DEFAULT) [address] [place] [address]55 Mean Cell Hgb Conc 29.1 g/dL Low 31.9-36.5 [facility] Comment on above: Performed By: #### X M #### [facility] (DEFAULT) [address] [place] [address] 6[address] Monocyte % Auto Normal [facility] Comment on above: Performed By: #### X M #### [facility] (DEFAULT) [address] [place] [address] 8[address]48 Platelet mean volume (Bld) [Entitic vol] 10.0 fL Normal 8.7-12.3 [facility] Comment on above: Performed By: #### X M #### [facility] (DEFAULT) [address] [place] [address] Platelets (Bld) [#/Vol] 807 10*3/uL High 146-337 [facility] Comment on above: Performed By: #### X M #### [facility] (DEFAULT) [address] [place] [address] RBC (Bld) [#/Vol] 3.74 10*6/uL Low 4.38-5.83 [facility] Comment on above: Performed By: #### X M #### [facility] (DEFAULT) [address] [place] [address] 0[address]99 RBC Distribution 22.5 % High 10.9-14.3 [facility] Comment on above: Performed By: #### X M #### [facility] (DEFAULT) [address] [place] [address] Segs + Bands Auto Normal [facility] Comment on above: Performed By: #### X M #### [facility] (DEFAULT) [address] [place] [address] Segs + Bands,Absolute Auto Normal [facility] Comment on above: Performed By: #### X M #### [facility] (DEFAULT) [address] [place] [address] WBC (Bld) [#/Vol] 16.74 10*3/uL High 3.73-10.10 [facility] Comment on above: Performed By: #### X M #### [facility] (DEFAULT) [address] [place] [address] CHM 7 - EDon 01-07-2021 Anion gap [Moles/Vol] 11 mmol/L Normal 7-17 [facility] Comment on above: Performed By: #### X M #### [facility] [facility] (DEFAULT[facility] [address] [place] [address] 91142 Chloride [Moles/Vol] 107 mmol/L Normal 98-108 [facility] Comment on above: Performed By: #### X M #### [facility] (DEFAULT) [address] [place] [address] 94753 CO2 [Moles/Vol] 23 mmol/L Normal 22-30 [facility] Comment on above: Performed By: #### X M #### [facility] (DEFAULT) [address] [place] [address] 36949 Creatinine [Mass/Vol] 1.43 mg/dL High 0.70-1.30 [facility] Comment on above: Performed By: #### X M #### [facility] (DEFAULT) [address] [place] [address] 83009 EST GFR, 58 mL/min/1.73sqM Low >=60 [facility] Comment on above: Performed By: #### X M #### [facility] (DEFAULT) [address] [place] [address] 83472 EST GFR,Non 48 mL/min/1.73sqM Low >=60 [facility] Comment on above: Performed By: #### X M #### [facility] (DEFAULT) [address] [place] [address] 02887 Glucose [Mass/Vol] 96 mg/dL Normal 70-99 [facility] Comment on above: Performed By: #### X M #### [facility] (DEFAULT) [address] [place] [address] Osmolality [Osmolality] 290 mosm/kg Normal 278-305 [facility] Comment on above: Performed By: #### X M #### [facility] (DEFAULT) [address] [place] [address] Potassium [Moles/Vol] 4.3 mmol/L Normal 3.5-5.0 [facility] Comment on above: Performed By: #### X M #### [facility] (DEFAULT) [address] [place] [address] 61280 Sodium [Moles/Vol] 137 mmol/L Normal 133-143 [facility] Comment on above: Performed By: #### X M #### [facility] (DEFAULT) [address] [place] [address] 67573 Urea nitrogen [Mass/Vol] 19 mg/dL Normal 7-22 [facility] Comment on above: Performed By: #### X M #### [facility] (DEFAULT) [address] [place] [address] 35517 Urea nitrogen/Creatinin e [Mass ratio] 13 mg/mg Normal [facility] Comment on above: Performed By: #### X M #### [facility] (DEFAULT) [address] [place] [address] 89666 ECHOCARDIOGRAMon 01-07-2021 Echocardiography ? Overall image qual ity is fair. ? The left ventricle is normal in size and systolic function; EF 60%. Diastolic function could not be determined. ? The right ventricle is normal in size and systolic function. ? Mild aortic stenosis. ? No prior echo image are available for comparison. Facility [facility] Patient Information Patient Name Giovanna Padron Legal Sex Male Indication for Exam Priority: STAT Dx: New onset of congestive heart failure [I50.9 (ICD-10-CM)] Order Question Reason for Exam new onset heart failure Interpretation Summary ? Overall image quality is fair. ? The left ventricle is normal in size and systolic function; EF 60%. Diastolic function could not be determined. ? The right ventricle is normal in size and systolic function. ? Mild aortic stenosis. ? No prior echo image are available for comparison. Findings Left Ventricle Chamber size is normal. Mild concentric hypertrophy. Normal global wall motion. Regional wall motion is normal. Ejection fraction is normal (60 - 65%). Diastolic function could not be determined. Right Ventricle Chamber size is normal. Systolic function is normal. Left Atrium Chamber size is normal. Right Atrium Chamber size is normal. Septum The atrial septum is normal. Mitral Valve Normal appearing leaflets. Leaflet mobility is normal. Mild posterior annular calcification. No regurgitation. No valve stenosis. Aortic Valve Trileaflet valve. Leaflet calcification. No regurgitation. Mild stenosis. Mean gradient: 12 mmHg. Dimensionless Index by VTI: 0.51. Tricuspid Valve Normal leaflets. Leaflet mobility is normal. No regurgitation. No stenosis. Pulmonic Valve Normal structure. No regurgitation. No stenosis. Aorta No dilation to extent seen. Pericardium Appears normal. No pericardial effusion. IVC/SVC The inferior vena cava structure has a diameter <21 mm and decreases >50% during inspiration. Reading Providers Reading Role Read Date Grace Vuong MD Echo [place] 01/07/2021 Left Heart Measurements LV - Systole LVIDD 4.79 cm IVS 1.17 cm LVIDS 3.48 cm PW 1.05 cm LV RWT 0.44 LV Mass Index 105.2 g/m2 LV EDV BP 116 mL LV ESV BP 35 mL BP EF 70 % LV stroke volume BP (ml) 81 mL LV stroke volume index BP 43.55 mL/m2 LV - Diastole MV pk E baljit 0.71 m/s MV pk A baljit 0.89 m/s E/A ratio 0.8 e' septal pk baljit 0.07 m/s e' lateral pk baljit 0.1 m/s Avg e' pk baljit 0.09 m/s E/e' septal ratio 10.2 E/e' lateral ratio 6.96 Avg E/e' ratio 8.58 LV - HCM AV LVOT peak gradient 5 mmHg Left Atrium LA ESV SP 4CH (MOD) 51 mL LA ESV SP 2CH (MOD) 68 mL LA ESV BP (MOD) index 33 mL/m2 Right Heart Measurements RV - 2D RV basal diam 3.44 cm RV mid diam 2.56 cm RV long diam 8.17 cm RV - Doppler TAPSE 2.19 RV S' 16.9 cm/s Right Atrium RA vol index 4CH (MOD) 23.12 mL/m2 Great Vessels Aortic Root - End Diastolic Sinus 3.58 cm STJ 3.13 cm Ascending aorta 3.6 cm Aortic arch 2.8 cm Inferior Vena Cava IVC ostium 1.98 cm Doppler Measurements - Aortic Valve Stenosis LVOT diameter 2.2 cm LVOT area 3.8 cm2 LVOT peak baljit 1.1 m/s LVOT peak VTI 19.3 cm Stroke Volume 73 cm/mL Stroke volume index 39 Ao peak baljit 2.37 m/s Ao VTI 38.1 cm AV peak gradient 22 mmHG AV mean gradient 12 mmHg DI (VTI) 0.51 m/2 DI (Vmax) 0.46 LAURA (continuity Vmax) 1.76 cm2 LAURA index (continuity Vmax) 0.95 m/s LAURA (continuity VTI) 1.92 cm2 LAURA index (continuity VTI) 1.03 cm2/m2 LVOT stroke volume 73 cm3 LVOT stroke volume index 39.42 ml/m2 Doppler Measurements - Mitral Valve Stenosis MV pk E baljit 0.71 m/s MV pk A baljit 0.89 m/s E/A ratio 0.8 MV stenosis pressure 1/2 time 81 ms MV valve area p 1/2 method 2.72 cm2 PISA-MS MV pk E baljit 0.71 m/s Doppler Measurements - Tricuspid Valve Stenosis IVC ostium 1.98 cm Doppler Measurements - Pulmonic Valve Stenosis PV PK BALJIT 1.13 m/s PV peak gradient 5 mmHg RVOT peak baljit 0.75 m/s RVOT peak gradient 2 mmHg Performing Staff Hugo Swenson RDCS Study Details Study(s) performed: complete. Study limitations include patient body habitus and patient's inability to turn. Imaging system used: Startapp. Exam Details Performed Procedure Technologist Supporting Staff Performing Physician IN ECHOCARDIOGRAM W/O 3D Hugo Swenson RDCS Appointment Date/Status Modality Department 01/07/2021 Arrived ECHO TESTING, [facility] ECHOCARDIOGRAPHY ROSS Begin Exam End Exam 01/07/2021 7:43 AM 01/07/2021 9:04 AM Vitals Height Weight BSA (Calculated - sq m) BP Pulse 1.753 m (5' 9) 70.8 kg (156 lb 1.4 oz) 1.86 m2 144/76 91 Signed at 0925 EDT External Results Report There is an external r (more content not included)... Normal [facility] HEPATIC FUNCTION PANELon Albumin [Mass/Vol] 2.6 g/dL Low 3.5-5.0 [facility] Comment on above: Performed By: #### B FLD #### [facility] (DEFAULT) [address] [place] [address] 43005 ALP [Catalytic activity/Vol] 74 U/L Normal 32-126 [facility] Comment on above: Performed By: #### B FLD #### [facility] (DEFAULT) [address] [place] [address] 34720 ALT [Catalytic activity/Vol] 22 U/L Normal 10-52 [facility] Comment on above: Performed By: #### B FLD #### [facility] (DEFAULT) [address] [place] [address] 95209 AST [Catalytic activity/Vol] 23 U/L Normal 14-40 [facility] Comment on above: Performed By: #### B FLD #### [facility] (DEFAULT) [address] [place] [address] 34500 Bilirubin [Mass/Vol] 0.4 mg/dL Normal <1.5 [facility] Comment on above: Performed By: #### B FLD #### [facility] (DEFAULT) [address] [place] [address] 54306 Bilirubin.indirect [Mass/Vol] 0.1 mg/dL Normal <0.3 [facility] Comment on above: Performed By: #### B FLD #### [facility] (DEFAULT) [address] [place] [address] Protein [Mass/Vol] 6.6 g/dL Normal 6.4-8.3 [facility] Comment on above: Performed By: #### B FLD #### [facility] (DEFAULT) [address] [place] [address] 42854 HIGH SENSITIVITY TROPONIN I - SINGLE ORDERon 01-07-2021 hs-Troponin I 15 ng/L Normal <53 [facility] Comment on above: Order Comment: For b edside thoracentesis Performed By: #### B FLD #### [facility] (DEFAULT) [address] [place] [address] 36307 LIPASEon 01-07-2021 Lipase [Catalytic activity/Vol] 107 U/L High 11-82 [facility] Comment on above: Performed By: #### B FLD #### [facility] (DEFAULT) [address] [place] [address] 89186 MAGNESIUMon 01-07-2021 Magnesium [Mass/Vol] 1.8 mg/dL Normal 1.6-2.6 [facility] Comment on above: Performed By: #### B FLD #### [facility] (DEFAULT) [address] [place] [address] 98430 NOVEL CORONAVIRUS PCRon 12-11 SARS-CoV-2 (COVID-19) RNA MONAE+probe Ql (Unsp spec) Not detected Normal NOT DETECTED [facility] Comment on above: Order Comment: Viral transport media or BAL specimen - Collection must be done while wearing N-95 mask, eye protection, gown and gloves. Please label ALL specimens as 2019-nCoV rule out and deliver by hand.This test was performed using performed using real time PCR for the qualitative detection of SARS-CoV-2 nucleic acid and has been approved as Emergency Use Authorization (EUA) for the qualitative detection of SARS-CoV-2 nucleic acid. Result Comment: [facility] Negative results do not preclude SARS-CoV-2 infection and should not be used as the sole basis for treatment or other patient management decisions. Optimum specimen types and timing for peak viral levels during infections caused by SARS-CoV-2 has not been determined. The possibility of a false negative result should especially be considered if the patient's recent exposures or clinical presentation suggest that SARS-CoV-2 infection is probable, and diagnostic tests for other causes of illness (e.g., other respiratory illness) are negative. Collection of a new specimen and re-testing may be necessary if the patient is critically ill or clinically deteriorating. Performed By: #### T YPEC #### [facility] (DEFAULT) [address] [address] PHOSPHATE, INORGANICon 01-07 Phosphorous 3.5 mg/dL Normal 2.2-4.6 [facility] Comment on above: Performed By: #### B FLD #### [facility] (DEFAULT) [address] [address] PLATELET COUNTon 01-07-2021 Platelet mean volume (Bld) [Entitic vol] 9.8 fL Normal 8.7-12.3 [facility] Comment on above: Performed By: #### H EMOGC #### [facility] (DEFAULT) [address] [address] Platelets (Bld) [#/Vol] 868 10*3/uL High 146-337 [facility] Comment on above: Performed By: #### H EMOGC #### [facility] (DEFAULT) [address] [address] PTTon 01-07-2021 aPTT Coag (Bld) [Time] 44.4 s High 24.0-34.3 [facility] Comment on above: Result Comment: Spec imen integrity checked. Results inconsistent with previous results Performed By: #### X M #### [facility] (DEFAULT) [address] [address] aPTT Coag (Bld) [Time] 28.8 s Normal 24.0-34.3 [facility] Comment on above: Order Comment: Draw prior to initiation of intravenous Heparin. Performed By: #### P TT #### [facility] (DEFAULT) [address] [address] URINALYSIS REFLEX TO CULTURE PERFORMABLEon 01-07-2021 Appearance (U) Clear Normal Clear [facility] Comment on above: Order Comment: For i ndwelling catheters, specimen collection is acceptable on catheter day 1 and 2 only. ? Performed By: #### T YPEC #### [facility] (DEFAULT) [address] [place] [address] 03172 Bacteria TRACE Abnormal ABSENT [facility] Comment on above: Order Comment: For i ndwelling catheters, specimen collection is acceptable on catheter day 1 and 2 only. ? Performed By: #### T YPEC #### [facility] (DEFAULT) [address] [place] [address] 59034 Blood Urine Trace Abnormal Negative [facility] Comment on above: Order Comment: For i ndwelling catheters, specimen collection is acceptable on catheter day 1 and 2 only. ? Performed By: #### T YPEC #### [facility] (DEFAULT) [address] [place] [address] 39546 Color (U) Yellow Normal Yellow [facility] Comment on above: Order Comment: For i ndwelling catheters, specimen collection is acceptable on catheter day 1 and 2 only. ? Performed By: #### T YPEC #### [facility] (DEFAULT) [address] [place] [address] 17480 Glucose Ql (U) Negative Normal Negative [facility] Comment on above: Order Comment: For i ndwelling catheters, specimen collection is acceptable on catheter day 1 and 2 only. ? Performed By: #### T YPEC #### [facility] (DEFAULT) [address] [place] [address] 66861 Ketones Ql (U) Negative Normal Negative [facility] Comment on above: Order Comment: For i ndwelling catheters, specimen collection is acceptable on catheter day 1 and 2 only. ? Performed By: #### T YPEC #### [facility] (DEFAULT) [address] [place] [address] 30159 Leukocyte esterase Test strip Ql (U) Negative Normal Negative [facility] Comment on above: Order Comment: For i ndwelling catheters, specimen collection is acceptable on catheter day 1 and 2 only. ? Performed By: #### T YPEC #### [facility] (DEFAULT) [address] [address] Nitrites Urine Negative Normal Negative [facility] Comment on above: Order Comment: For i ndwelling catheters, specimen collection is acceptable on catheter day 1 and 2 only. ? Performed By: #### T YPEC #### [facility] (DEFAULT) [address] [address] pH (U) 6.0 [pH] Normal 5.0-7.0 [facility] Comment on above: Order Comment: For i ndwelling catheters, specimen collection is acceptable on catheter day 1 and 2 only. ? Performed By: #### T YPEC #### [facility] (DEFAULT) [address] [address] Protein Urine 30 mg/dL Abnormal Negative [facility] Comment on above: Order Comment: For i ndwelling catheters, specimen collection is acceptable on catheter day 1 and 2 only. ? Performed By: #### T YPEC #### [facility] (DEFAULT) [address] [address] RBC Urine 0-2 Normal 0-2 [facility] Comment on above: Order Comment: For i ndwelling catheters, specimen collection is acceptable on catheter day 1 and 2 only. ? Performed By: #### T YPEC #### [facility] (DEFAULT) [address] [address] Specific [place] Urine 1.015 Normal >1.001-<1.03 5 [facility] Comment on above: Order Comment: For i ndwelling catheters, specimen collection is acceptable on catheter day 1 and 2 only. ? Performed By: #### T YPEC #### [facility] (DEFAULT) [address] [address] Squamous/Epithelia l Cells 0/hpf = 0+ Normal 1/hpf = 1+, 2-5/hpf = 2+, 0/hpf = 0+, ABSENT [facility] Comment on above: Order Comment: For i ndwelling catheters, specimen collection is acceptable on catheter day 1 and 2 only. ? Performed By: #### T YPEC #### [facility] (DEFAULT) [address] [place] [address] 37893 Urobilinogen Urine 0.2 E.U./dL Normal 0.2-1.0 [facility] Comment on above: Order Comment: For i ndwelling catheters, specimen collection is acceptable on catheter day 1 and 2 only. ? Performed By: #### T YPEC #### [facility] (DEFAULT) [address] [place] [address] 17432 WBC Urine 0-5 Normal 0-5 [facility] Comment on above: Order Comment: For i ndwelling catheters, specimen collection is acceptable on catheter day 1 and 2 only. ? Performed By: #### T YPEC #### [facility] (DEFAULT) [address] [place] [address] 21437 XR CHEST AP PORTABLE EDon XR CHEST AP PORTABLE ED EXAM: XR CHEST AP PORTABLE ED, 01/06/2021 23:50 PM COMPARISON: No prior studies available for comparison. CLINICAL INDICATIONS: hypoxia FINDINGS: (Adequate technique) Implanted Devices: None Thorax: Moderate-sized left pleural effusion with associated atelectasis versus airspace disease. Additionally, there is enlargement of the aortic knob The right lung is clear. IMPRESSION: 1. Moderate-sized left pleural effusion with associated atelectasis. An element of airspace disease cannot be excluded. 2. Enlargement of the aortic knob concerning for aneurysm. Recommend nonemergent chest CTA for further evaluation. I personally viewed and interpreted these images and I have reviewed and approved this report. Normal [facility] 12 Lead EKGon 01-06-2021 12 Lead EKG [facility] Cardiovascular Services [address] [place] [address] 12 Lead EKG 01/06/21 1244 MR#: [id number] Acct: [id number] Name: GIOVANNA PADRON Jr. Rep #: [id number] : 1945 75 From: Simon De La Cruz MD Attending Dr: Status: DEP ER Ordering Dr: Barbara Wells DO Date: 01/06/21 Location: ED Sex: M C Admitted: Test Reason : ABN LABS Blood Pressure : / mmHG Vent. Rate : 099 BPM Atrial Rate : 099 BPM P-R Int : 160 ms QRS Dur : 094 ms QT Int : 344 ms P-R-T Axes : 024 -04 015 degrees QTc Int : 441 ms Normal sinus rhythm Normal ECG Confirmed by SIMON DE LA CRUZ MD ([id number]), business editor TRACY MALAGON ([id number]) on 01/11/2021 7:34:52 AM Referred By: RUSSELL Confirmed By:SIMON DE LA CRUZ MD 01/11/21 0734 Date Simon De La Cruz MD CC: Dr. Dar Chew DO; Dr. Barbara Wells DO; [facility] Signed Normal [facility] Abdomen/Pelvis WITH Contrast on 01-06-2021 Abdomen/Pelvis WITH Contrast [facility] Imaging Services [address] [place] [address] Abdomen/Pelvis WITH Contrast MR#: [id number] Acct: [id number] Name: GIOVANNA PADRON Jr. Rep #: [id number] : 1945 M 75 From: Radames Talamantes MD PCP: [place] Status: REG ER Study: Abdomen/Pelvis WITH Contrast Date of Exam: Exam# [id number] Ordering Dr: Barbara Wells DO EXAM: CT ABDOMEN AND PELVIS WITH INTRAVENOUS CONTRAST CLINICAL INDICATION: fever, post op -- IV PO Contrast TECHNIQUE: Helically acquired images were obtained of the abdomen and pelvis with intravenous contrast. This CT exam was performed using one or more of the following dose reduction techniques: automated exposure control, adjustment of the mA and/or kV according to patient size, and/or use of iterative reconstruction technique. This report was created using [employer] report Learndot technology. CONTRAST: 100 mL Isovue-370 COMPARISON: 12/26/2020 FINDINGS: LOWER THORAX: Described on chest CT report ABDOMEN: LIVER: Unremarkable. Homogeneous. No focal mass. GALLBLADDER AND BILE DUCTS: High density within the gallbladder could represent vicarious excretion versus gallbladder sludge. Small gallstone. No gallbladder distention or wall edema. No intra- or extrahepatic biliary ductal dilation. PANCREAS: Unremarkable. No focal cystic or solid mass. SPLEEN: Focal fluid collection adjacent to the spleen measures 2.3 x 4.2 cm. ADRENALS: Unremarkable. No nodules. KIDNEYS AND URETERS: Simple right renal cyst, stable. Normal renal size and position. No hydronephrosis. 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 Bowel wall thickening involving jejunum in the left lower abdomen. No stomach or bowel distention. PELVIS: APPENDIX: Not identified. BLADDER: Air within the urinary bladder likely related to prior Gomez catheter. REPRODUCTIVE: Unremarkable as visualized. No mass. ABDOMEN and PELVIS: INTRAPERITONEAL SPACE: Focal fluid collection in the left lower quadrant measures 4.8 x 5.3 cm. Fluid collection in the right hemipelvis measures 8.7 x 3.1 cm on image 98 of series 3. Mild scattered peritoneal fluid adjacent to the liver and in the paracolic gutters. No free air. BONES/JOINTS: Degenerative changes of the lumbar spine. No suspicious lytic or blastic abnormality. SOFT TISSUES: Mild body wall edema posteriorly. Operative changes of the anterior abdominal wall. No discrete abdominal or pelvic wall hernia. VASCULATURE: Atherosclerosis. Abdominal aorta is non-dilated. LYMPH NODES: Unremarkable. No enlarged lymph nodes. CT/Abdomen/Pelvis WITH Contrast IMPRESSION: 1. 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 2. Bowel wall thickening involving jejunum in the left lower abdomen. May represent enteritis, including infectious and ischemic causes. 3. Focal fluid collection in the left lower quadrant measures 4.8 x 5.3 cm. Postoperative seroma versus abscess. 4. Fluid collection in the right hemipelvis measures 8.7 x 3.1 cm on image 98 of series 3. Postoperative seroma versus abscess. 5. Focal fluid collection adjacent to the spleen measures 2.3 x 4.2 cm. Postoperative seroma versus abscess. 6. High density within the gallbladder could represent vicarious excretion versus gallbladder sludge. Electronically Signed: Radames Talamantes MD ([place]) at 14:23 EDT , Service support , CC: Dr. Barbara Wells, DO; [facility] Latex Caster: Signed Normal [facility] BNP,B-Type NATRIURETIC PEPTI Yusef 01-06-2021 Natriuretic peptide B (Bld) [Mass/Vol] 118.9 pg/mL High 0-100 [facility] Comment on above: Performed By: #### M 200.1000 #### [facility] [address] [place], [address] COVID 19 AG RAPID (RN COLLEC T)on 01-06-2021 SARS-CoV-2 (COVID-19) RNA MONAE+probe Ql (Unsp spec) Comments: Order Always:Unless pt has Inhouse Cov19 Criteria+ *Negative results from patients with symptom onset beyond five days should be treated as presumptive and confirmed by a molecular assay if clinically necessary. Negative results should not be used as the sole basis for treatment or for patient management. COVID 19 AG RAPID (RN COLLECT) *Positive results do not differentiate between SARS-CoV and SARS-CoV-2. If differentation of the specific SARS virus is desired an additional sample and an additional order is required. COVID 19 AG RAPID (RN COLLECT) * This test has not been FDA cleared or approved; the test has been authorized by FDA under an Emergency Use Authorization (EAU) for use by laboratories certified under CLIA that meet the requirements to perform moderate, high, or waived complexity tests. COVID 19 AG RAPID (RN COLLECT) Normal Reference Range: Negative SARS-CoV-2 (COVID 19) Negative RAPID METHOD BinaxNow COVID19 Ag Card, lateral flow Normal [facility] Comment on above: Performed By: #### L [id number] #### [facility] [address] [facility] [place], [address] CTA Chest W/WO Contraston CTA Chest W/WO Contrast [facility] Imaging Services [address] [place] [address] CTA Chest W/WO Contrast MR#: [id number] Acct: [id number] Name: GIOVANNA PADRON Jr. Rep #: [id number] : 1945 M 75 From: Radames Talamantes MD PCP: [place] Status: REG Study: CTA Chest W/WO Contrast Date of Exam: 01/06/21 Exam# [id number] Ordering Dr: Barbara Wells DO EXAM: CT ANGIOGRAPHY CHEST WITHOUT AND WITH INTRAVENOUS CONTRAST CLINICAL INDICATION: dyspnea, elevated d-dimer TECHNIQUE: Helically acquired angiography images were obtained of the chest without and with intravenous contrast. This CT exam was performed using one or more of the following dose reduction techniques: automated exposure control, adjustment of the mA and/or kV according to patient size, and/or use of iterative reconstruction technique. This report was created using [employer] report generation technology. MIP reconstructed images were created and reviewed. CONTRAST: Oral and amp; IV Gastrografin and amp; 100mL Isovue-370 COMPARISON: None. FINDINGS: PULMONARY ARTERIES: Unremarkable. Normal in caliber. No evidence of pulmonary embolism. AORTA: Atherosclerosis of the thoracic aorta. Normal in caliber. No evidence of dissection. GREAT VESSELS OF AORTIC ARCH: Unremarkable. Normal in caliber. No evidence of dissection. LUNGS AND PLEURAL SPACES: Loculated left pleural effusion, moderate volume. Atelectasis of the left more than right lower lobes. Small volume right pleural effusion. No mass. No pneumothorax. HEART: Mild cardiomegaly. No pericardial effusion. No signs of right heart strain. MEDIASTINUM: Unremarkable. No mediastinal or hilar adenopathy. Esophagus is unremarkable. No hiatal hernia. THYROID: Subcentimeter hypodense lesion of the right thyroid lobe. ACR White Paper guidelines (Arnold JK, et al. JACR 2015;12(2):143-50) suggest no follow-up is necessary. BONES/JOINTS: Unremarkable. No suspicious lytic or blastic abnormality. CT/CTA Chest W/WO Contrast IMPRESSION: 1. Loculated left pleural effusion, moderate volume. 2. Atelectasis of the left more than right lower lobes. 3. No central or segmental pulmonary embolism. Electronically Signed: Radames Talamantes MD (Brooks) at 14:18 EDT , Service support , CC: Dr. Barbara Wells DO; [facility] Latex Caster: Signed Normal [facility] D-Dimer Quantitative (DVT/PE )on 01-06-2021 D-DIMER QUANT >= 20.00 Invalid Interpretation Code 0.27-0.49 [facility] Comment on above: Order Comment: CRITI FELI VALUE VERIFIED. CALLED TO NIGHAT URBINA01/06/21 1328 Emma Flores.RESULTS READ BACK BY SAME . Result Comment: D-Di vicky ELEVATED (>0.49): Additional studies and clinical assessments are indicated to conclude diagnosis of: Deep Vein Thrombosis (DVT) or Pulmonary Embolism (PE) Performed By: #### M 200.1000 #### [facility] [address] [place], [address] Emergency Department Summary on 01-06-2021 Emergency Department Summary [facility] Medical Records Department [address] [place] [address] Emergency Department Summary 01/06/21 MR#: [id number] Acct: [id number] Name: GIOVANNA PADRON JrClementina Rep #: [id number] : 1945 75 From: Barbara Wells DO PCP: [place] Status:REG ER Location: ED ADDENDUM by Dr. Dar Chew DO on 01/06/21 at 1949 Care of the patient was turned over to [facility] pending transfer. [facility] did call back and will accept the patient to be transferred there. Patient has currently waiting transfer to [facility]. 01/06/211948 Cosigner Signature (if applicable): cc: [facility] * Signed HPI History of Present Illness Chief Complaint: Abn Labs Detail of Chief Complaint: Abnormal labs Informant: patient Narrative Narrative: Patient presents to the emergency department from [facility]. Patient had a sigmoidectomy on December 27 at [facility] for a abdominal mass that was resected. Patient states that he had been doing relatively well but had some blood work drawn and was told that he needed to be evaluated in the emergency department today. I have received a phone call from patient's nurse practitioner that is caring for him and was told that he had elevated platelets and fever and low pulse ox as well as an elevated white blood cell count. There was concern the patient might require abdominal imaging to rule out postop abscess. Patient denies any chest pain or shortness of breath. He denies any Covid symptoms and has not had the Covid vaccine. Patient states that he is been tested for Covid at least 3 times in the last several weeks. Patient noted some swelling in his legs over the last couple of days. No history of PE or DVT. Prior similar symptoms: No PFSH PFSH Medical History Colostomy in place Non-smoker Home Medications NK 12/26/20 [History Last Taken Unknown] Allergy/AdvReac Type Severity Reaction Status Date / Time No Known Allergies Allergy Verified 01/06/21 12:05 Surgical History (Updated 01/06/21 @ 12:14 by Sushma Campo) Hx of resection of large bowel Social History (Updated 12/26/20 @ 16:[address] Hunter France, DO) Smoking Status: Never smoker substance use type: does not use ROS ROS ED Constitutional Constitutional ED: Reports systems reviewed and no addt'l complaints, except as documented and fever(s); Denies body ache(s), change in weight or chills Eyes Eyes: Denies acute decrease in peripheral vision, change in vision, double vision or loss of vision ENT ENT ED: Reports none; Denies ear pain, lip swelling, loss taste/smell, neck pain, otalgia or sore throat Cardiovascular Cardiovascular: Reports none; Denies abdominal pain, chest pain with activity, leg edema, lightheadedness, palpitations, rapid heart rate or syncope Respiratory/Chest Respiratory/Chest: Reports none; Denies change in mental status, dry cough, dyspnea, hemoptysis, shortness of breath at rest or shortness of breath with exertion Gastrointestinal Gastrointestinal: Reports none; Denies abdominal pain, change in stool character, diarrhea, hematemesis, hematochezia, melena, rectal bleeding or vomiting Genitourinary Genitourinary ED: Reports none; Denies abdominal discomfort, anuria, dysuria, genital pain or polyuria Musculoskeletal Musculoskeletal: Reports none; Denies arthralgias, back pain, difficulty walking, extremity pain, muscle weakness or myalgias Integumentary Reports none; Denies abscess or rash Neurologic Neurologic: Reports none; Denies abnormal gait, confusion, focal weakness, frequent falls, headache(s), loss of vision, numbness, paresthesias, radicular pain, vertigo or weakness Psychiatric Psychiatric: Reports systems reviewed and no addt'l complaints, except as documented and none; Denies behavioral changes, confusion, difficulty concentrating, hallucinations, suicidal ideation, tactile hallucinations or visual hallucinations Endocrine Endocrinology: Denies none, cold intolerance, excessive sweating, fatigue or heat intolerance Hematologic/Lymphatic Hematologic/Lymphatic: Reports none; Denies anemia, easy bleeding or easy bruising Allergic/Immunologic Allergic/Immunologic ED: Denies as per HPI, none, lip swelling, mouth swelling, throat swelling, tongue swelling or hives EXAM Physical Exam Const Vital Signs: 01/06/21 12:03 01/06/21 12:11 01/06/21 14:47 Temperature 98.7 F 98.2 F Temperature Source Temporal Axillary Pulse Rate 108 H 109 H 96 Respiratory Rate 16 16 16 Respiratory Effort Normal Respiratory Pattern Normal Blood Pressure 143/81 H 139/104 H 155/79 H Blood Pressure Mean 101 115 104 Pulse Ox 88 92 93 Oxygen Delivery Method Room Air Room Air Nasal Cannula Oxygen Flow Rate (L/min) 4 (more content not included)... Normal [facility] L501.4020on 01-06-2021 TROPONIN-I HS 21 pg/mL Normal 3.0-78.0 [facility] Comment on above: Result Comment: Plefaby rubin Note: New Test Units and Gender Specific Reference Ranges. For more information see Policy Stat Procedure [place] High Sensitivity Troponin (TNIH) and attachments. Performed By: #### L 501.4020 #### [facility] [address] [place], [address] Lactic Acidon 01-06-2021 Lactate [Moles/Vol] 1.8 mmol/L Normal 0.4-1.9 [facility] Comment on above: Order Comment: Y Performed By: #### M 200.1000 #### [facility] [address] [place], [address] Urinalysis, Completeon 01-06 EPI,SQUAMOUS 0-5 SEEN Normal 0-5 [facility] Comment on above: Order Comment: CLEAN CATCH Performed By: #### L 501.4020 #### [facility] [address] [place], [address] BACTERIA 0 SEEN Normal None Seen [facility] Comment on above: Order Comment: CLEAN CATCH Performed By: #### L 501.4020 #### [facility] [address] [place], [address] Mucus Ql (Urine sed) 0 SEEN Normal [facility] Comment on above: Order Comment: CLEAN CATCH Performed By: #### L 501.4020 #### [facility] [address] [place], [address] RBC 0 SEEN Normal 0-5 [facility] Comment on above: Order Comment: CLEAN CATCH Performed By: #### L 501.4020 #### [facility] [address] [place], [address] WBC 0 SEEN Normal 0-5 [facility] Comment on above: Order Comment: CLEAN CATCH Performed By: #### L 501.4020 #### [facility] [address] [place], [address] CBC,PLATELETSon 01-01-2021 Hematocrit (Bld) [Volume fraction] 27.2 % Low 39.6-48.8 [facility] Comment on above: Performed By: #### U RIN #### [facility] (DEFAULT) [address] [address] Hemoglobin (Bld) [Mass/Vol] 8.0 g/dL Low 13.4-16.8 [facility] Comment on above: Performed By: #### U RIN #### [facility] (DEFAULT) [address] [address] MCV (RBC) [Entitic vol] 69.9 fL Low 79.0-94.5 [facility] Comment on above: Performed By: #### U RIN #### [facility] (DEFAULT) [address] [place] [address] Mean Cell Hgb 20.6 pg Low 26.1-33.3 [facility] Comment on above: Performed By: #### U RIN #### [facility] (DEFAULT) [address] [place] [address]10 Mean Cell Hgb Conc 29.4 g/dL Low 31.9-36.5 [facility] Comment on above: Performed By: #### U RIN #### [facility] (DEFAULT) [address] [place] [address] 11099 Platelet mean volume (Bld) [Entitic vol] 10.4 fL Normal 8.7-12.3 [facility] Comment on above: Performed By: #### U RIN #### [facility] (DEFAULT) [address] [place] [address]49 Platelets (Bld) [#/Vol] 289 10*3/uL Normal 146-337 [facility] Comment on above: Performed By: #### U RIN #### [facility] (DEFAULT) [address] [place] [address]45 RBC (Bld) [#/Vol] 3.89 10*6/uL Low 4.38-5.83 [facility] Comment on above: Performed By: #### U RIN #### [facility] (DEFAULT) [address] [place] [address] RBC Distribution 20.9 % High 10.9-14.3 [facility] Comment on above: Performed By: #### U RIN #### [facility] (DEFAULT) [address] [place] [address]84 WBC (Bld) [#/Vol] 7.47 10*3/uL Normal 3.73-10.10 [facility] Comment on above: Performed By: #### U RIN #### [facility] (DEFAULT) [address] [place] [address] CHEM 7 (LYTES,BUN,CREA,GLUC) on 01-01-2021 Anion gap [Moles/Vol] 14 mmol/L Normal 7-17 [facility] Comment on above: Performed By: #### C HM7, IPB, MGO #### [facility] (DEFAULT) [address] [place] [address] 16590 Chloride [Moles/Vol] 110 mmol/L High 98-108 [facility] Comment on above: Performed By: #### C HM7, IPB, MGO #### [facility] (DEFAULT) [address] [place] [address] 49674 CO2 [Moles/Vol] 22 mmol/L Normal 22-30 [facility] Comment on above: Performed By: #### C HM7, IPB, MGO #### [facility] (DEFAULT) [address] [place] [address]276 Creatinine [Mass/Vol] 3.22 mg/dL High 0.70-1.30 [facility] Comment on above: Performed By: #### C HM7, IPB, MGO #### [facility] (DEFAULT) [address] [place] [address] EST GFR, 23 mL/min/1.73sqM Low >=60 [facility] Comment on above: Performed By: #### C HM7, IPB, MGO #### [facility] (DEFAULT) [address] [place] [address] 74496 EST GFR,Non 19 mL/min/1.73sqM Low >=60 [facility] Comment on above: Performed By: #### C HM7, IPB, MGO #### [facility] (DEFAULT) [address] [place] [address] 76286 Glucose [Mass/Vol] 165 mg/dL High 70-99 [facility] Comment on above: Performed By: #### C HM7, IPB, MGO #### [facility] (DEFAULT) [address] [place] [address]28 Osmolality [Osmolality] 315 mosm/kg High 278-305 [facility] Comment on above: Performed By: #### FEDERICA GARCIA, MGO #### [facility] (DEFAULT) [address] [place] [address] 64757 Potassium [Moles/Vol] 4.0 mmol/L Normal 3.5-5.0 [facility] Comment on above: Performed By: #### FEDERICA GARCIA, MGO #### [facility] (DEFAULT) [address] [place] [address] 73159 Sodium [Moles/Vol] 142 mmol/L Normal 133-143 [facility] Comment on above: Performed By: #### FEDERICA GARCIA, MGO #### [facility] (DEFAULT) [address] [place] [address] 18690 Urea nitrogen [Mass/Vol] 52 mg/dL High 7-22 [facility] Comment on above: Performed By: #### FEDERICA GARCIA, MGO #### [facility] (DEFAULT) [address] [place] [address] 13213 Urea nitrogen/Creatinin e [Mass ratio] 16 mg/mg Normal [facility] Comment on above: Performed By: #### FEDERICA GARCIA, MGO #### [facility] (DEFAULT) [address] [place] [address]36 MAGNESIUMon 01-01-2021 Magnesium [Mass/Vol] 2.5 mg/dL Normal 1.6-2.6 [facility] Comment on above: Performed By: #### FEDERICA GARCIA, MGO #### [facility] (DEFAULT) [address] [place] [address] NOVEL CORONAVIRUS PCRon 12-10 SARS-CoV-2 (COVID-19) RNA MONAE+probe Ql (Unsp spec) Not detected Normal NOT DETECTED [facility] Comment on above: Order Comment: Viral transport media or BAL specimen - Collection must be done while wearing N-95 mask, eye protection, gown and gloves. Please label ALL specimens as 2019-nCoV rule out and deliver by hand.This test was performed using real time PCR and has been approved for the qualitative detection of SARS-CoV-2 nucleic acid. The test has been authorized by the FDA under an emergency use authorization for use by authorized laboratories. Result Comment: [facility] Negative results do not preclude SARS-CoV-2 infection and should not be used as the sole basis for treatment or other patient management decisions. Optimum specimen types and timing for peak viral levels during infections caused by SARS-CoV-2 has not been determined. The possibility of a false negative result should especially be considered if the patient's recent exposures or clinical presentation suggest that SARS-CoV-2 infection is probable, and diagnostic tests for other causes of illness (e.g., other respiratory illness) are negative. Collection of a new specimen and re-testing may be necessary if the patient is critically ill or clinically deteriorating. Performed By: #### T YPEC #### [facility] (DEFAULT) [address] [address] PHOSPHATE, INORGANICon 01-01 Phosphorous 3.1 mg/dL Normal 2.2-4.6 [facility] Comment on above: Performed By: #### T YPEC #### [facility] (DEFAULT) [address] [address] CBC,PLATELETSon 12-31-2020 Hematocrit (Bld) [Volume fraction] 23.4 % Low 39.6-48.8 [facility] Comment on above: Performed By: #### X M #### [facility] (DEFAULT) [address] [address] Hemoglobin (Bld) [Mass/Vol] 6.9 g/dL Critically low 13.4-16.8 [facility] Comment on above: Result Comment: This result has been called to ALFRED MAST RN by Kam Bejarano on 12 31 2020 at 0635, and has been read back. Performed By: #### X M #### [facility] (DEFAULT) [address] [address] MCV (RBC) [Entitic vol] 68.0 fL Low 79.0-94.5 [facility] Comment on above: Performed By: #### X M #### [facility] (DEFAULT) [address] [address] Mean Cell Hgb 20.1 pg Low 26.1-33.3 [facility] Comment on above: Performed By: #### X M #### [facility] (DEFAULT) [address] [address] Mean Cell Hgb Conc 29.5 g/dL Low 31.9-36.5 [facility] Comment on above: Performed By: #### X M #### [facility] (DEFAULT) [address] [address] RBC (Bld) [#/Vol] 3.44 10*6/uL Low 4.38-5.83 [facility] Comment on above: Performed By: #### X M #### [facility] (DEFAULT) [address] [address] RBC Distribution 19.2 % High 10.9-14.3 [facility] Comment on above: Performed By: #### X M #### [facility] (DEFAULT) [address] [address] WBC (Bld) [#/Vol] 7.52 10*3/uL Normal 3.73-10.10 [facility] Comment on above: Performed By: #### X M #### [facility] (DEFAULT) [address] [address] CHEM 7 (LYTES,BUN,CREA,GLUC) on 12-31-2020 Anion gap [Moles/Vol] 13 mmol/L Normal 7-17 [facility] Comment on above: Performed By: #### C HM7, IPB, MGO #### [facility] (DEFAULT) [address] [address] Chloride [Moles/Vol] 110 mmol/L High 98-108 [facility] Comment on above: Performed By: #### C HM7, IPB, MGO #### [facility] (DEFAULT) [address] [place] [address] CO2 [Moles/Vol] 24 mmol/L Normal 22-30 [facility] Comment on above: Performed By: #### C HM7, IPB, MGO #### [facility] (DEFAULT) [address] [place] [address] Creatinine [Mass/Vol] 4.13 mg/dL High 0.70-1.30 [facility] Comment on above: Performed By: #### C HM7, IPB, MGO #### [facility] (DEFAULT) [address] [place] [address] EST GFR, 17 mL/min/1.73sqM Low >=60 [facility] Comment on above: Performed By: #### C HM7, IPB, MGO #### [facility] (DEFAULT) [address] [place] [address]856 EST GFR,Non 14 mL/min/1.73sqM Low >=60 [facility] Comment on above: Performed By: #### C HM7, IPB, MGO #### [facility] (DEFAULT) [address] [place] [address]15 Glucose [Mass/Vol] 168 mg/dL High 70-99 [facility] Comment on above: Performed By: #### C HM7, IPB, MGO #### [facility] (DEFAULT) [address] [place] [address] Osmolality [Osmolality] 321 mosm/kg High 278-305 [facility] Comment on above: Performed By: #### C HM7, IPB, MGO #### [facility] (DEFAULT) [address] [place] [address]68 Potassium [Moles/Vol] 4.2 mmol/L Normal 3.5-5.0 [facility] Comment on above: Performed By: #### C HM7, IPB, MGO #### [facility] (DEFAULT) [address] [place] [address] 05770 Sodium [Moles/Vol] 143 mmol/L Normal 133-143 [facility] Comment on above: Performed By: #### C HM7, IPB, MGO #### [facility] (DEFAULT) [address] [place] [address] 37037 Urea nitrogen [Mass/Vol] 63 mg/dL High 7-22 [facility] Comment on above: Performed By: #### C HM7, IPB, MGO #### [facility] (DEFAULT) [address] [place] [address] 55971 Urea nitrogen/Creatinin e [Mass ratio] 15 mg/mg Normal [facility] Comment on above: Performed By: #### C HM7, IPB, MGO #### [facility] (DEFAULT) [address] [place] [address] HEMOGLOBIN & HEMATOCRITon Hematocrit (Bld) [Volume fraction] 30.6 % Low 39.6-48.8 [facility] Comment on above: Order Comment: Pleas e obtain one hour post transfusion Performed By: #### T YPEC #### [facility] (DEFAULT) [address] [place] [address] Hemoglobin (Bld) [Mass/Vol] 8.9 g/dL Low 13.4-16.8 [facility] Comment on above: Order Comment: Pleas e obtain one hour post transfusion Performed By: #### T YPEC #### [facility] (DEFAULT) [address] [place] [address] MAGNESIUMon 12-31-2020 Magnesium [Mass/Vol] 2.7 mg/dL High 1.6-2.6 [facility] Comment on above: Performed By: #### C HM7, IPB, MGO #### [facility] (DEFAULT) [address] [place] [address]54 PHOSPHATE, INORGANICon 12-31 Phosphorous 3.9 mg/dL Normal 2.2-4.6 [facility] Comment on above: Performed By: #### C HM7, IPB, MGO #### [facility] (DEFAULT) [address] [place] [address] PLATELET COUNTon 12-31-2020 Platelet mean volume (Bld) [Entitic vol] 10.2 fL Normal 8.7-12.3 [facility] Comment on above: Performed By: #### X M #### [facility] (DEFAULT) [address] [place] [address] Platelets (Bld) [#/Vol] 244 10*3/uL Normal 146-337 [facility] Comment on above: Performed By: #### X M #### [facility] (DEFAULT) [address] [place] [address] 56488 TYPE AND SCREENon 12-31-2020 ABO/RH(D) TYPE Negative Normal [facility] Comment on above: Performed By: #### X M #### [facility] (DEFAULT) [address] [place] [address] CALCIUMon 12-30-2020 Calcium [Mass/Vol] 7.7 mg/dL Low 8.6-10.5 [facility] Comment on above: Performed By: #### P TT #### [facility] (DEFAULT) [address] [place] [address] CBC,PLATELETSon 12-30-2020 Hematocrit (Bld) [Volume fraction] 25.1 % Low 39.6-48.8 [facility] Comment on above: Performed By: #### H [facility] #### [facility] (DEFAULT) [address] [place] [address]28 Hemoglobin (Bld) [Mass/Vol] 7.2 g/dL Low 13.4-16.8 [facility] Comment on above: Performed By: #### H EMO #### [facility] (DEFAULT) [address] [address] MCV (RBC) [Entitic vol] 67.1 fL Low 79.0-94.5 [facility] Comment on above: Performed By: #### H EMOGC #### [facility] (DEFAULT) [address] [place] [address] 43089 Mean Cell Hgb 19.3 pg Low 26.1-33.3 [facility] Comment on above: Performed By: #### H EMOGC #### [facility] (DEFAULT) [address] [place] [address] 64829 Mean Cell Hgb Conc 28.7 g/dL Low 31.9-36.5 [facility] Comment on above: Performed By: #### H EMOGC #### [facility] (DEFAULT) [address] [address] Platelet mean volume (Bld) [Entitic vol] 10.1 fL Normal 8.7-12.3 [facility] Comment on above: Performed By: #### H EMOGC #### [facility] (DEFAULT) [address] [address] Platelets (Bld) [#/Vol] 228 10*3/uL Normal 146-337 [facility] Comment on above: Performed By: #### H EMOGC #### [facility] (DEFAULT) [address] [place] [address]72 RBC (Bld) [#/Vol] 3.74 10*6/uL Low 4.38-5.83 [facility] Comment on above: Performed By: #### H EMOGC #### [facility] (DEFAULT) [address] [address] RBC Distribution 18.8 % High 10.9-14.3 [facility] Comment on above: Performed By: #### H EMOGC #### [facility] (DEFAULT) [address] [place] [address] WBC (Bld) [#/Vol] 10.43 10*3/uL High 3.73-10.10 [facility] Comment on above: Performed By: #### H EMO #### [facility] (DEFAULT) [address] [place] [address]30 CHEM 7 (LYTES,BUN,CREA,GLUC) on 12-30-2020 Anion gap [Moles/Vol] 17 mmol/L Normal 7-17 [facility] Comment on above: Performed By: #### P TT #### [facility] (DEFAULT) [address] [place] [address] 55621 Chloride [Moles/Vol] 107 mmol/L Normal 98-108 [facility] Comment on above: Performed By: #### P TT #### [facility] (DEFAULT) [address] [place] [address] 69283 CO2 [Moles/Vol] 22 mmol/L Normal 22-30 [facility] Comment on above: Performed By: #### P TT #### [facility] (DEFAULT) [address] [place] [address]7667 Creatinine [Mass/Vol] 5.74 mg/dL High 0.70-1.30 [facility] Comment on above: Performed By: #### P TT #### [facility] (DEFAULT) [address] [place] [address] 73877 EST GFR, 12 mL/min/1.73sqM Low >=60 [facility] Comment on above: Performed By: #### P TT #### [facility] (DEFAULT) [address] [place] [address] 38325 EST GFR,Non 10 mL/min/1.73sqM Low >=60 [facility] Comment on above: Performed By: #### P TT #### [facility] (DEFAULT) [address] [place] [address]73 Glucose [Mass/Vol] 81 mg/dL Normal 70-99 [facility] Comment on above: Performed By: #### P TT #### [facility] (DEFAULT) [address] [place] [address] Osmolality [Osmolality] 318 mosm/kg High 278-305 [facility] Comment on above: Performed By: #### P TT #### [facility] (DEFAULT) [address] [place] [address] Potassium [Moles/Vol] 4.9 mmol/L Normal 3.5-5.0 [facility] Comment on above: Performed By: #### P TT #### [facility] (DEFAULT) [address] [place] [address] 58014 Sodium [Moles/Vol] 141 mmol/L Normal 133-143 [facility] Comment on above: Performed By: #### P TT #### [facility] (DEFAULT) [address] [place] [address] 23374 Urea nitrogen [Mass/Vol] 78 mg/dL High 7-22 [facility] Comment on above: Performed By: #### P TT #### [facility] (DEFAULT) [address] [place] [address] 08198 Urea nitrogen/Creatinin e [Mass ratio] 14 mg/mg Normal [facility] Comment on above: Performed By: #### P TT #### [facility] (DEFAULT) [address] [place] [address] 93355 MAGNESIUMon 12-30-2020 Magnesium [Mass/Vol] 3.2 mg/dL High 1.6-2.6 [facility] Comment on above: Performed By: #### P TT #### [facility] (DEFAULT) [address] [place] [address] 69846 PHOSPHATE, INORGANICon 12-30 Phosphorous 6.4 mg/dL High 2.2-4.6 [facility] Comment on above: Performed By: #### P TT #### [facility] (DEFAULT) [address] [place] [address] 56311 CALCIUMon 12-29-2020 Calcium [Mass/Vol] 7.9 mg/dL Low 8.6-10.5 [facility] Comment on above: Performed By: #### X M #### [facility] (DEFAULT) [address] [place] [address] 01313 CBC,PLATELETSon 12-29-2020 Hematocrit (Bld) [Volume fraction] 25.0 % Low 39.6-48.8 [facility] Comment on above: Performed By: #### Dm HM7, IPB, MGO #### [facility] (DEFAULT) [address] [place] [address] 05832 Hemoglobin (Bld) [Mass/Vol] 7.3 g/dL Low 13.4-16.8 [facility] Comment on above: Performed By: #### Dm HM7, IPB, MGO #### [facility] (DEFAULT) [address] [place] [address] 57971 MCV (RBC) [Entitic vol] 67.9 fL Low 79.0-94.5 [facility] Comment on above: Performed By: #### Dm HM7, IPB, MGO #### [facility] (DEFAULT) [address] [place] [address] 05012 Mean Cell Hgb 19.8 pg Low 26.1-33.3 [facility] Comment on above: Performed By: #### Dm HM7, IPB, MGO #### [facility] (DEFAULT) [address] [place] [address] 48331 Mean Cell Hgb Conc 29.2 g/dL Low 31.9-36.5 [facility] Comment on above: Performed By: #### Dm HM7, IPB, MGO #### [facility] (DEFAULT) [address] [place] [address] 49601 Platelet mean volume (Bld) [Entitic vol] 10.5 fL Normal 8.7-12.3 [facility] Comment on above: Performed By: #### Dm HM7, IPB, MGO #### [facility] (DEFAULT) [address] [place] [address] 60176 Platelets (Bld) [#/Vol] 228 10*3/uL Normal 146-337 [facility] Comment on above: Performed By: #### C HM7, IPB, MGO #### [facility] (DEFAULT) [address] [place] [address] 96913 RBC (Bld) [#/Vol] 3.68 10*6/uL Low 4.38-5.83 [facility] Comment on above: Performed By: #### C HM7, IPB, MGO #### [facility] (DEFAULT) [address] [place] [address] 95693 RBC Distribution 18.7 % High 10.9-14.3 [facility] Comment on above: Performed By: #### Dm HM7, IPB, MGO #### [facility] (DEFAULT) [address] [place] [address] 05387 WBC (Bld) [#/Vol] 11.35 10*3/uL High 3.73-10.10 [facility] Comment on above: Performed By: #### C HM7, IPB, MGO #### [facility] (DEFAULT) [address] [place] [address] 53112 CHEM 7 (LYTES,BUN,CREA,GLUC) on 12-29-2020 Anion gap [Moles/Vol] 17 mmol/L Normal 7-17 [facility] Comment on above: Performed By: #### X M #### [facility] (DEFAULT) [address] [place] [address] 03022 Chloride [Moles/Vol] 103 mmol/L Normal 98-108 [facility] Comment on above: Performed By: #### X M #### [facility] (DEFAULT) [address] [place] [address] 78642 CO2 [Moles/Vol] 23 mmol/L Normal 22-30 [facility] Comment on above: Performed By: #### X M #### [facility] (DEFAULT) [address] [place] [address] 21393 Creatinine [Mass/Vol] 6.14 mg/dL High 0.70-1.30 [facility] Comment on above: Performed By: #### X M #### [facility] (DEFAULT) [address] [place] [address] 92212 EST GFR, 11 mL/min/1.73sqM Low >=60 [facility] Comment on above: Performed By: #### X M #### [facility] (DEFAULT) [address] [place] [address] 34476 EST GFR,Non 9 mL/min/1.73sqM Low >=60 [facility] Comment on above: Performed By: #### X M #### [facility] (DEFAULT) [address] [place] [address] 43432 Glucose [Mass/Vol] 78 mg/dL Normal 70-99 [facility] Comment on above: Performed By: #### X M #### [facility] (DEFAULT) [address] [place] [address] 79628 Osmolality [Osmolality] 311 mosm/kg High 278-305 [facility] Comment on above: Performed By: #### X M #### [facility] (DEFAULT) [address] [place] [address] 21087 Potassium [Moles/Vol] 5.5 mmol/L High 3.5-5.0 [facility] Comment on above: Performed By: #### X M #### [facility] (DEFAULT) [address] [place] [address] 86470 Sodium [Moles/Vol] 137 mmol/L Normal 133-143 [facility] Comment on above: Performed By: #### X M #### [facility] (DEFAULT) [address] [place] [address] 22972 Urea nitrogen [Mass/Vol] 75 mg/dL High 7-22 [facility] Comment on above: Performed By: #### X M #### [facility] (DEFAULT) [address] [place] [address] 49346 Urea nitrogen/Creatinin e [Mass ratio] 12 mg/mg Normal [facility] Comment on above: Performed By: #### X M #### [facility] (DEFAULT) [address] [place] [address] 06914 MAGNESIUMon 12-29-2020 Magnesium [Mass/Vol] 3.0 mg/dL High 1.6-2.6 [facility] Comment on above: Performed By: #### X M #### [facility] (DEFAULT) [address] [place] [address] 39594 PHOSPHATE, INORGANICon 12-29 Phosphorous 6.1 mg/dL High 2.2-4.6 [facility] Comment on above: Performed By: #### X M #### [facility] (DEFAULT) [address] [place] [address] 34826 CALCIUMon 12-28-2020 Calcium [Mass/Vol] 7.9 mg/dL Low 8.6-10.5 [facility] Comment on above: Performed By: #### T YPEC #### [facility] (DEFAULT) [address] [place] [address] 64247 CBC,PLATELETSon 12-28-2020 Hematocrit (Bld) [Volume fraction] 24.2 % Low 39.6-48.8 [facility] Comment on above: Performed By: #### U RIN #### [facility] (DEFAULT) [address] [place] [address] 42645 Hemoglobin (Bld) [Mass/Vol] 7.1 g/dL Low 13.4-16.8 [facility] Comment on above: Performed By: #### U RIN #### [facility] (DEFAULT) [address] [place] [address] 92274 MCV (RBC) [Entitic vol] 68.0 fL Low 79.0-94.5 [facility] Comment on above: Performed By: #### U RIN #### [facility] (DEFAULT) [address] [place] [address] 49608 Mean Cell Hgb 19.9 pg Low 26.1-33.3 [facility] Comment on above: Performed By: #### U RIN #### [facility] (DEFAULT) [address] [place] [address] 31538 Mean Cell Hgb Conc 29.3 g/dL Low 31.9-36.5 [facility] Comment on above: Performed By: #### U RIN #### [facility] (DEFAULT) [address] [place] [address] 86643 Platelet mean volume (Bld) [Entitic vol] 10.7 fL Normal 8.7-12.3 [facility] Comment on above: Performed By: #### U RIN #### [facility] (DEFAULT) [address] [place] [address] 64794 Platelets (Bld) [#/Vol] 228 10*3/uL Normal 146-337 [facility] Comment on above: Performed By: #### U RIN #### [facility] (DEFAULT) [address] [place] [address] 14658 RBC (Bld) [#/Vol] 3.56 10*6/uL Low 4.38-5.83 [facility] Comment on above: Performed By: #### U RIN #### [facility] (DEFAULT) [address] [address] RBC Distribution 18.9 % High 10.9-14.3 [facility] Comment on above: Performed By: #### U RIN #### [facility] (DEFAULT) [address] [address] WBC (Bld) [#/Vol] 11.27 10*3/uL High 3.73-10.10 [facility] Comment on above: Performed By: #### U RIN #### [facility] (DEFAULT) [address] [place] [address] 38419 CHEM 7 (LYTES,BUN,CREA,GLUC) on 12-28-2020 Anion gap [Moles/Vol] 13 mmol/L Normal 7-17 [facility] Comment on above: Performed By: #### H EMOGC #### [facility] (DEFAULT) [address] [place] [address] 52545 Chloride [Moles/Vol] 104 mmol/L Normal 98-108 [facility] Comment on above: Performed By: #### H EMOGC #### [facility] (DEFAULT) [address] [place] [address] 52987 CO2 [Moles/Vol] 25 mmol/L Normal 22-30 [facility] Comment on above: Performed By: #### H EMOGC #### [facility] (DEFAULT) [address] [place] [address] 75872 Creatinine [Mass/Vol] 5.81 mg/dL High 0.70-1.30 [facility] Comment on above: Performed By: #### H EMOGC #### [facility] (DEFAULT) [address] [place] [address] 83999 EST GFR, 12 mL/min/1.73sqM Low >=60 [facility] Comment on above: Performed By: #### H EMOGC #### [facility] (DEFAULT) [address] [place] [address] 44904 EST GFR,Non 10 mL/min/1.73sqM Low >=60 [facility] Comment on above: Performed By: #### H EMOGC #### [facility] (DEFAULT) [address] [place] [address] 41708 Glucose [Mass/Vol] 80 mg/dL Normal 70-99 [facility] Comment on above: Performed By: #### H EMOGC #### [facility] (DEFAULT) [address] [place] [address] 44984 Osmolality [Osmolality] 308 mosm/kg High 278-305 [facility] Comment on above: Performed By: #### H EMOGC #### [facility] (DEFAULT) [address] [place] [address] Potassium [Moles/Vol] 5.6 mmol/L High 3.5-5.0 [facility] Comment on above: Performed By: #### H EMOGC #### [facility] (DEFAULT) [address] [place] [address] Sodium [Moles/Vol] 136 mmol/L Normal 133-143 [facility] Comment on above: Performed By: #### H EMOGC #### [facility] (DEFAULT) [address] [place] [address] 75511 Urea nitrogen [Mass/Vol] 71 mg/dL High 7-22 [facility] Comment on above: Performed By: #### H EMOGC #### [facility] (DEFAULT) [address] [place] [address] 06361 Urea nitrogen/Creatinin e [Mass ratio] 12 mg/mg Normal [facility] Comment on above: Performed By: #### H EMOGC #### [facility] (DEFAULT) [address] [place] [address] 93747 Anion gap [Moles/Vol] 15 mmol/L Normal 7-17 [facility] Comment on above: Performed By: #### T YPEC #### [facility] (DEFAULT) [address] [place] [address] 20309 Chloride [Moles/Vol] 103 mmol/L Normal 98-108 [facility] Comment on above: Performed By: #### T YPEC #### [facility] (DEFAULT) [address] [place] [address] 75806 CO2 [Moles/Vol] 24 mmol/L Normal 22-30 [facility] Comment on above: Performed By: #### T YPEC #### [facility] (DEFAULT) [address] [place] [address] 90391 Creatinine [Mass/Vol] 5.57 mg/dL High 0.70-1.30 [facility] Comment on above: Performed By: #### T YPEC #### [facility] (DEFAULT) [address] [place] [address] 73685 EST GFR, 12 mL/min/1.73sqM Low >=60 [facility] Comment on above: Performed By: #### T YPEC #### [facility] (DEFAULT) [address] [place] [address] 53059 EST GFR,Non 10 mL/min/1.73sqM Low >=60 [facility] Comment on above: Performed By: #### T YPEC #### [facility] (DEFAULT) [address] [address] Glucose [Mass/Vol] 98 mg/dL Normal 70-99 [facility] Comment on above: Performed By: #### T YPEC #### [facility] (DEFAULT) [address] [address]21 Osmolality [Osmolality] 308 mosm/kg High 278-305 [facility] Comment on above: Performed By: #### T YPEC #### [facility] (DEFAULT) [address] 0[address]76 Potassium [Moles/Vol] 5.8 mmol/L High 3.5-5.0 [facility] Comment on above: Performed By: #### T YPEC #### [facility] (DEFAULT) [address] [address] Sodium [Moles/Vol] 136 mmol/L Normal 133-143 [facility] Comment on above: Performed By: #### T YPEC #### [facility] (DEFAULT) [address] 98396 Urea nitrogen [Mass/Vol] 66 mg/dL High 7-22 [facility] Comment on above: Performed By: #### T YPEC #### [facility] (DEFAULT) [address] [place] [address] 14102 Urea nitrogen/Creatinin e [Mass ratio] 12 mg/mg Normal [facility] Comment on above: Performed By: #### T YPEC #### [facility] (DEFAULT) [address] [address] CREATININE,RANDOM URINEon Creatinine (U) [Mass/Vol] 80.35 mg/dL Normal [facility] Comment on above: Order Comment: The r eference range has not been established for random urine specimens. The test result should be integrated into the clinical context for interpretation. Performed By: #### T YPEC #### [facility] (DEFAULT) [address] [address] LYTES (NA, K, CL) - URINE - RANDOMon 12-28-2020 Sodium (U) [Moles/Vol] 19 mmol/L Normal [facility] Comment on above: Order Comment: The r eference range has not been established for random urine specimens. The test result should be integrated into the clinical context for interpretation. Performed By: #### T YPEC #### [facility] (DEFAULT) [address] [place] [address] 67609 Urine Chloride 24 mmol/L Normal [facility] Comment on above: Order Comment: The r eference range has not been established for random urine specimens. The test result should be integrated into the clinical context for interpretation. Performed By: #### T YPEC #### [facility] (DEFAULT) [address] 19609 Urine Potassium 58.8 mmol/L Normal [facility] Comment on above: Order Comment: The r eference range has not been established for random urine specimens. The test result should be integrated into the clinical context for interpretation. Performed By: #### T YPEC #### [facility] (DEFAULT) [address] [place] [address] 81834 MAGNESIUMon 12-28-2020 Magnesium [Mass/Vol] 2.7 mg/dL High 1.6-2.6 [facility] Comment on above: Performed By: #### T YPEC #### [facility] (DEFAULT[facility] [address] [place] [address] 50758 PHOSPHATE, INORGANICon 12-28 Phosphorous 5.8 mg/dL High 2.2-4.6 [facility] Comment on above: Performed By: #### T YPEC #### [facility] (DEFAULT) [address] [place] [address] 79376 ABORH TYPE RECONFIRMATIONon 12-27-2020 ABO/RH(D) TYPE Negative Normal [facility] Comment on above: Performed By: #### T YPEC #### [facility] (DEFAULT) [address] [address] ANAEROBE CULTUREon Bacteria identified Cx Nom (Unsp spec) Normal [facility] Comment on above: Order Comment: Colle ct fluids or tissues in a sterile container. If collecting swabs, must be collected in a Port-A-Cul tube.If antibiotic therapy is warranted, include coverage for penicillinase producing multiresistant anaerobic organisms Result Comment: Grow th 527BACTEROIDES FRAGILISBACTEROIDES FRAGILIS Heavy Growth Bacteroides fragilis Penicillinase positive 4509BACTEROIDES OVATUS GROUPBACTEROIDES OVATUS GROUP Heavy Growth Bacteroides ovatus group Penicillinase positive 2645PEPTOSTREPTOCOCCUS STOMATISPEPTOSTREPTOCOCCUS STOMATIS Moderate Growth Peptostreptococcus stomatis Identification was performed on the MALDI-TOF mass spectrometer Biot[employer]per using the FDA, lab-developed, or RUO libraries. The performance characteristics of the lab-developed and RUO libraries were determined by [facility] at [facility]. They have not been cleared or approved by the FDA. The laboratory is regulated under CLIA as qualified to perform high-complexity testing. This test is used for clinical purposes. It should not be regarded as investigational or for research. 4510BACTEROIDES THETAIOTAOMICRON GROUPBACTEROIDES THETAIOTAOMICRON GROUP Moderate Growth Bacteroides thetaiotaomicron group Penicillinase positive Performed By: #### T YPEC #### [facility] (DEFAULT) [address] [address] BACTERIAL CULTURE AND DIRECT SMEAR, LESION, TISSUE, DEVICEon 12-27-2020 Ampicillin [Susceptibility] <=2 Invalid Interpretation Code [facility] Comment on above: Performed By: #### T YPEC #### [facility] (DEFAULT) [address] [place] [address] 50265 Penicillin [Susceptibility] 4 ug/mL Invalid Interpretation Code [facility] Comment on above: Performed By: #### T YPEC #### [facility] (DEFAULT) [address] [place] [address] 65110 Vancomycin [Susceptibility] 2 ug/mL Invalid Interpretation Code [facility] Comment on above: Performed By: #### T YPEC #### [facility] (DEFAULT) [address] [place] [address] 90699 CALCIUMon 12-27-2020 Calcium [Mass/Vol] 8.7 mg/dL Normal 8.6-10.5 [facility] Comment on above: Performed By: #### P TT #### [facility] (DEFAULT) [address] [place] [address] 54003 CBC AND ELECTRONIC DIFFon Abs Baso Auto Normal [facility] Comment on above: Performed By: #### X M #### [facility] (DEFAULT) [address] [place] [address] 44743 Abs Eos Auto Normal [facility] Comment on above: Performed By: #### X M #### [facility] (DEFAULT) [address] [place] [address] 17872 Abs Lymph Auto Normal [facility] Comment on above: Performed By: #### X M #### [facility] (DEFAULT) [address] [place] [address] 28762 Abs [place] Auto Normal [facility] Comment on above: Performed By: #### X M #### [facility] (DEFAULT) [address] [place] [address] 65397 Basophil % Auto Normal [facility] Comment on above: Performed By: #### X M #### [facility] (DEFAULT) [address] [place] [address] 67545 Eosinophil % Auto Normal [facility] Comment on above: Performed By: #### X M #### [facility] (DEFAULT) [address] [place] [address] 44847 Hematocrit (Bld) [Volume fraction] 29.2 % Low 39.6-48.8 [facility] Comment on above: Performed By: #### X M #### [facility] (DEFAULT) [address] [place] [address] 54515 Hemoglobin (Bld) [Mass/Vol] 8.4 g/dL Low 13.4-16.8 [facility] Comment on above: Performed By: #### X M #### [facility] (DEFAULT) [address] [place] [address] 31778 Immature Grans % Normal [facility] Comment on above: Performed By: #### X M #### [facility] (DEFAULT) [address] [place] [address] 29189 Immature Grans Absolute Normal [facility] Comment on above: Performed By: #### X M #### [facility] (DEFAULT) [address] [place] [address] 45981 Lymphocyte % Auto Normal [facility] Comment on above: Performed By: #### X M #### [facility] (DEFAULT) [address] [place] [address] 18958 MCV (RBC) [Entitic vol] 68.4 fL Low 79.0-94.5 [facility] Comment on above: Performed By: #### X M #### [facility] (DEFAULT) [address] [address] Mean Cell Hgb 19.7 pg Low 26.1-33.3 [facility] Comment on above: Performed By: #### X M #### [facility] (DEFAULT) [address] [place] [address] 38497 Mean Cell Hgb Conc 28.8 g/dL Low 31.9-36.5 [facility] Comment on above: Performed By: #### X M #### [facility] (DEFAULT) [address] [address] Monocyte % Auto Normal [facility] Comment on above: Performed By: #### X M #### [facility] (DEFAULT) [address] [address] Platelet mean volume (Bld) [Entitic vol] 10.6 fL Normal 8.7-12.3 [facility] Comment on above: Result Comment: This is an appended report. These results have been appended to a previously preliminary verified report. Performed By: #### X M #### [facility] (DEFAULT) [address] [address] Platelets (Bld) [#/Vol] 235 10*3/uL Normal 146-337 [facility] Comment on above: Result Comment: This is an appended report. These results have been appended to a previously preliminary verified report. Performed By: #### X M #### [facility] (DEFAULT) [address] [address] RBC (Bld) [#/Vol] 4.27 10*6/uL Low 4.38-5.83 [facility] Comment on above: Performed By: #### X M #### [facility] (DEFAULT) [address] [address] RBC Distribution 18.9 % High 10.9-14.3 [facility] Comment on above: Performed By: #### X M #### [facility] (DEFAULT) [address] [address] Segs + Bands Auto Normal [facility] Comment on above: Performed By: #### X M #### [facility] (DEFAULT) [address] [address] Segs + Bands,Absolute Auto Normal [facility] Comment on above: Performed By: #### X M #### [facility] (DEFAULT) [address] [place] [address] 37473 WBC (Bld) [#/Vol] 12.02 10*3/uL High 3.73-10.10 [facility] Comment on above: Result Comment: This is an appended report. These results have been appended to a previously preliminary verified report. Performed By: #### X M #### [facility] (DEFAULT) [address] [place] [address] 42763 CHM 7 - EDon 12-27-2020 Anion gap [Moles/Vol] 13 mmol/L Normal 7-17 [facility] Comment on above: Performed By: #### P TT #### [facility] (DEFAULT) [address] [place] [address] 77692 Chloride [Moles/Vol] 103 mmol/L Normal 98-108 [facility] Comment on above: Performed By: #### P TT #### [facility] (DEFAULT) [address] [place] [address] 61736 CO2 [Moles/Vol] 25 mmol/L Normal 22-30 [facility] Comment on above: Performed By: #### P TT #### [facility] (DEFAULT) [address] [place] [address] 87224 Creatinine [Mass/Vol] 2.40 mg/dL High 0.70-1.30 [facility] Comment on above: Performed By: #### P TT #### [facility] (DEFAULT) [address] [place] [address] 09398 EST GFR, 32 mL/min/1.73sqM Low >=60 [facility] Comment on above: Performed By: #### P TT #### [facility] (DEFAULT) [address] [place] [address] 79602 EST GFR,Non 27 mL/min/1.73sqM Low >=60 [facility] Comment on above: Performed By: #### P TT #### [facility] (DEFAULT) [address] [place] [address] 14396 Glucose [Mass/Vol] 144 mg/dL High 70-99 [facility] Comment on above: Performed By: #### P TT #### [facility] (DEFAULT) [address] [place] [address] 95333 Osmolality [Osmolality] 299 mosm/kg Normal 278-305 [facility] Comment on above: Performed By: #### P TT #### [facility] [facility] (DEFAULT) [address] [place] [address]92 Potassium [Moles/Vol] 4.7 mmol/L Normal 3.5-5.0 [facility] Comment on above: Performed By: #### P TT #### [facility] (DEFAULT) [address] [place] [address] 01270 Sodium [Moles/Vol] 136 mmol/L Normal 133-143 [facility] Comment on above: Performed By: #### P TT #### [facility] (DEFAULT) [address] [place] [address] 12139 Urea nitrogen [Mass/Vol] 39 mg/dL High 7-22 [facility] Comment on above: Performed By: #### P TT #### [facility] (DEFAULT) [address] [place] [address] 70697 Urea nitrogen/Creatinin e [Mass ratio] 16 mg/mg Normal [facility] Comment on above: Performed By: #### P TT #### U [facility] (DEFAULT) [address] [place] [address] 82840 HEPATIC FUNCTION PANELon Albumin [Mass/Vol] 3.3 g/dL Low 3.5-5.0 [facility] Comment on above: Performed By: #### X M #### U [facility] (DEFAULT) [address] [place] [address] 71730 ALP [Catalytic activity/Vol] 54 U/L Normal 32-126 [facility] Comment on above: Performed By: #### X M #### [facility] (DEFAULT) [address] [place] [address] 08029 ALT [Catalytic activity/Vol] 10 U/L Normal 10-52 [facility] Comment on above: Performed By: #### X M #### [facility] (DEFAULT) [address] [place] [address] 71641 AST [Catalytic activity/Vol] 16 U/L Normal 14-40 [facility] Comment on above: Performed By: #### X M #### [facility] (DEFAULT) [address] [place] [address] 74656 Bilirubin [Mass/Vol] 0.5 mg/dL Normal <1.5 [facility] Comment on above: Performed By: #### X M #### [facility] (DEFAULT) [address] [place] [address] 55446 Bilirubin.indirect [Mass/Vol] 0.1 mg/dL Normal <0.3 [facility] Comment on above: Performed By: #### X M #### [facility] (DEFAULT) [address] [place] [address] 87003 Protein [Mass/Vol] 6.6 g/dL Normal 6.4-8.3 [facility] Comment on above: Performed By: #### X M #### [facility] (DEFAULT) [address] [place] [address] 84369 LACTATE, BLOODon 12-27-2020 Lactate, Blood 1.9 mmol/L High 0.5-1.6 [facility] Comment on above: Performed By: #### X M #### [facility] (DEFAULT) [address] [place] [address] 21815 LIPASEon 12-27-2020 Lipase [Catalytic activity/Vol] U/L Low 11-82 [facility] Comment on above: Performed By: #### X M #### [facility] (DEFAULT) [address] [place] [address] 73537 MAGNESIUMon 12-27-2020 Magnesium [Mass/Vol] 2.5 mg/dL Normal 1.6-2.6 [facility] Comment on above: Performed By: #### X M #### [facility] (DEFAULT) [address] [address] NOVEL CORONAVIRUS PCRon 12-09 SARS-CoV-2 (COVID-19) RNA MONAE+probe Ql (Unsp spec) Not detected Normal NOT DETECTED [facility] Comment on above: Order Comment: Viral transport media or BAL specimen - Collection must be done while wearing N-95 mask, eye protection, gown and gloves. Please label ALL specimens as 2019-nCoV rule out and deliver by hand.This test was performed using real time PCR and has been approved for the qualitative detection of SARS-CoV-2 nucleic acid. The test has been authorized by the FDA under an emergency use authorization for use by authorized laboratories. Result Comment: [facility] Negative results do not preclude SARS-CoV-2 infection and should not be used as the sole basis for treatment or other patient management decisions. Optimum specimen types and timing for peak viral levels during infections caused by SARS-CoV-2 has not been determined. The possibility of a false negative result should especially be considered if the patient's recent exposures or clinical presentation suggest that SARS-CoV-2 infection is probable, and diagnostic tests for other causes of illness (e.g., other respiratory illness) are negative. Collection of a new specimen and re-testing may be necessary if the patient is critically ill or clinically deteriorating. Performed By: #### T YPEC #### [facility] (DEFAULT) [address] [address] PHOSPHATE, INORGANICon 12-27 Phosphorous 3.7 mg/dL Normal 2.2-4.6 [facility] Comment on above: Performed By: #### X M #### [facility] (DEFAULT) [address] [address] PROTIME-INRon 12-27-2020 INR Coag (PPP) [Relative time] 1.2 {INR} High 0.9-1.1 [facility] Comment on above: Performed By: #### T YPEC #### [facility] (DEFAULT) [address] [place] [address] 77525 PT Coag (PPP) [Time] 15.0 s High 11.9-14.2 [facility] Comment on above: Performed By: #### T YPEC #### [facility] (DEFAULT) [address] [place] [address] 40471 TYPE AND SCREENon 12-27-2020 ABO/RH(D) TYPE Negative Normal [facility] Comment on above: Performed By: #### X M #### [facility] (DEFAULT) [address] [place] [address] 25957 URINALYSISon 12-27-2020 Appearance (U) Clear Normal Clear [facility] Comment on above: Performed By: #### U RIN #### [facility] (DEFAULT) [address] [place] [address] 60411 Bacteria PRESENT Abnormal ABSENT [facility] Comment on above: Performed By: #### U RIN #### [facility] (DEFAULT) [address] [place] [address] 77132 Blood Urine Trace Abnormal Negative [facility] Comment on above: Performed By: #### U RIN #### [facility] (DEFAULT) [address] [place] [address] 59044 Color (U) Yellow Normal Yellow [facility] Comment on above: Performed By: #### U RIN #### [facility] (DEFAULT) [address] [place] [address] 67083 Glucose Ql (U) Negative Normal Negative [facility] Comment on above: Performed By: #### U RIN #### [facility] (DEFAULT) [address] [place] [address] 97780 Ketones Ql (U) Negative Normal Negative [facility] Comment on above: Performed By: #### U RIN #### [facility] (DEFAULT) [address] [place] [address] 11968 Leukocyte esterase Test strip Ql (U) Negative Normal Negative [facility] Comment on above: Performed By: #### U RIN #### [facility] (DEFAULT) [address] [place] [address] 99626 Nitrites Urine Negative Normal Negative [facility] Comment on above: Performed By: #### U RIN #### U [facility] (DEFAULT) [address] [place] [address] 23762 pH (U) 5.5 [pH] Normal 5.0-7.0 [facility] Comment on above: Performed By: #### U RIN #### [facility] (DEFAULT) [address] [place] [address] 99068 Protein Urine 30 mg/dL Abnormal Negative [facility] Comment on above: Performed By: #### U RIN #### [facility] (DEFAULT) [address] [place] [address] 68028 RBC Urine 0-2 Normal 0-2 [facility] Comment on above: Performed By: #### U RIN #### [facility] (DEFAULT) [address] [place] [address] 64700 Specific [place] Urine 1.010 Normal >1.001-<1.03 5 [facility] Comment on above: Performed By: #### U RIN #### [facility] (DEFAULT) [address] [place] [address] 14822 Squamous/Epithelia l Cells 1/hpf = 1+ Normal 1/hpf = 1+, 2-5/hpf = 2+, 0/hpf = 0+, ABSENT [facility] Comment on above: Performed By: #### U RIN #### [facility] (DEFAULT) [address] [place] [address] 26141 Urobilinogen Urine 0.2 E.U./dL Normal 0.2-1.0 [facility] Comment on above: Performed By: #### U RIN #### [facility] (DEFAULT) [address] [place] [address] 66723 WBC Urine 0-5 Normal 0-5 [facility] Comment on above: Performed By: #### U RIN #### [facility] (DEFAULT) [address] [place] [address] Encounters Encounter Date Encounter Type Care Provider Facility Start: 07-12-2021 End: 07-12-2021 ambulatory [facility] Facility:[facility] Start: 07-07-2021 End: 07-08-2021 ambulatory [facility] Facility:[facility] Start: 07-07-2021 End: 07-07-2021 Patient encounter procedure [facility] Start: 02-11-2021 End: 02-11-2021 ambulatory [facility] Facility:[facility] Start: 01-28-2021 ambulatory [facility] Facility: [facility] Start: 01-27-2021 ambulatory [facility] Facility: [facility] Start: 01-21-2021 End: 01-21-2021 ambulatory [facility] Facility:[facility] Start: 01-20-2021 ambulatory [facility] Facility:[facility] Start: 01-07-2021 End: 01-15-2021 Evaluation and management of inpatient SUSHMA NIX Facility:[facility] Start: 01-06-2021 End: 01-06-2021 Emergency department patient visit Darluis a Chew Facility:[facility] Start: 01-06-2021 End: 01-06-2021 ambulatory Mernakailyn Aguilargalina Facility:[facility] Start: 12-28-2020 End: 12-28-2020 ambulatory [facility] Facility:[facility] Start: 12-27-2020 End: 01-01-2021 Evaluation and management of inpatient HUNTER PERAZA Facility:[facility] Procedures Date Procedure Procedure Detail Performing Clinician Start: 07-07-2021 Computed tomography of abdomen and pelvis with contrast Start: 01-10-2021 Antibody screen SUSHMA NIX Comment on above: Performed By: #### X M #### [facility] (DEFAULT) [address] [place] [address] Start: 12-31-2020 Antibody screen SUSHMA NIX Comment on above: Performed By: #### X M #### [facility] (DEFAULT) [address] [address] Start: 12-27-2020 Antibody screen SUSHMA NIX Comment on above: Performed By: #### X M #### [facility] ([facility]) [address] [place] [address] Payers Date Payer Category Payer Self-pay [id number] 2010 Medicare [id number] 2009 Unknown [id number] 1945 Unknown [id number] .732 1945 Unknown [id number] 2..[id number] .594 1945 Unknown [id number] [id number] .594 [place]IR ED SEE NOTE [id number] [place] Health [place] REQUIRED SEE NOTE [id number] Unknown [id number] [id number] .462 Unknown [id number] [id number] .462 Unknown [id number] 2.16840.1.289550.3.579.2 .462 Unknown [id number] 2.16840.1.756703.3.579.2 .462 Unknown [id number] 2.16840.1.613045.3.579.2 .462 Unknown [id number] 2.16.840.1.506231.3.579.2 .462 Unknown [id number] 2.16840.1.705385.3.579.2 .462 Unknown [id number] 2.16840.1.460615.3.579.2 .462 Unknown [id number] 2.16840.1.905791.3.579.2 .462 Unknown [id number] 2..840.1.144936.3.579.2 .462 Unknown [id number] 2..840.1.650523.3.579.2 .462 Social History Date Type Detail Facility Start: 01-21-2021 Tobacco smoking stat [facility] Unknown if ever smoked [facility] Work Phone: Start: 1945 Sex Assigned At Male [facility] Work Phone: Evaluation note Note Date & Type Note Facility Evaluation note No assessment information availa ble [facility] Work Phone: Summary Purpose Family History No Family History Records FoundNo Family History Records FoundNo Family History Records Found Advance Directives No Advanced Directives Records Found Advance Directive Response Recorded Date/ Time Living Will Yes January 06, 2021 12:11pm Power of Officer Captain Yes December 12:11pm Chief Complaint and Reason for Visit Chief Complaint COLON CANCER Additional Source Comments (unrecognized sect ion and content) No Status Records FoundNo Status Records FoundNo Status Records Found INFORMATION SOURCE (unrecogn ized section and content) DATE CREATED AUTHOR 01/02/2021 [facility] DATE CREATED AUTHOR AUTHOR'S ORGANIZ ATION 01/28/2021 [facility] DATE CREATED AUTHOR AUTHOR'S ORGANIZ ATION 01/05/2022 [facility] Goals (unrecognized section and content) Goals may be documented in a n alternate section FOR RECORDS PERTAINING TO PATIENTS WHO ARE OR HAVE BEEN ENROLLED IN A CHEMICAL DEPENDENCY/SUBSTANCEABUSE PROGRAM, SOME INFORMATION MAY BE OMITTED. This clinical summary was aggregated from multiple sources. Caution should be exercised in using it in the provision of clinical care. This summary normalizes information from multiple sources, and as a consequence, information in this document may materially change the coding, format and clinical context of patient data. In addition, data may be omitted in some cases. CLINICAL DECISIONS SHOULD BE BASED ON THE PRIMARY CLINICAL RECORDS. [employer] [facility]. provides no warranty or guarantee of the accuracy or completeness of information in this document.
[2024-12-31 19:23] LABS: Hematocrit 40.6 % (40-54); Hemoglobin 12.9 g/dL (13.0-16.5); Immature Granulocytes Count 0.030 X10^3/uL (0.0-0.0); Mean Corp Hgb Conc 31.8 g/dL (32-36); Mean Corpuscular Volume 90.0 fL (80-94); Mean Platelet Vol. 10.5 fl (6.2-12.0); NRBC Flagged by Analyzer 0 % (0-5); Platelet Count 261 K/mm3 (150-450); RBC Distribution Width CV 15.0 % (11.6-14.6); RBC Distribution Width SD 49.5 fl (35.1-43.9); Red Blood Count 4.51 M/mm3 (4.6-6.2); White Blood Count 6.3 K/mm3 (4.4-11.0)
[2024-12-31] MEDS: fentaNYL 100 MCG/2 ML Ampul 50 MCG IV (19:37)
[2024-12-31 19:39] LABS: AST(SGOT) 264 U/L (<=37); Alanine Aminotransfer ALT/SGPT 227 U/L (<=46); Albumin, Serum 4.1 g/dL (3.4-4.8); Alkaline Phosphatase 362 U/L (40-129); Anion Gap 13 (5-15); BUN 27 mg/dL (4-19); BUN/Creat Ratio 15.5 RATIO (10-20); Calcium,Total 9.5 mg/dL (7.6-11.0); Carbon Dioxide 24.3 mmol/L (21.0-32.0); Chloride 99 mmol/L (98-108); Estimated Creatinine Clearance 35.03 ml/min (50-250); Globulin 3.7 g/dL (2.2-4.2); Glucose 178 mg/dL (70-99); Potassium 4.1 mmol/L (3.3-5.1)
[2024-12-31 19:59] LABS: Lipase > 3000 U/L (13-75)
--- NOTE | 2024-12-31 20:20 | US_ITS ---
PROCEDURE: GALLBLADDER 12/31/2024 REASON FOR EXAM: PAIN TECHNIQUE: Procedure Code: USGB Modality: US Procedure: GALLBLADDER COMPARISON: None FINDINGS: GALLBLADDER: No gallstones. no gallbladder wall thickening. Negative Hylton sign. Gallbladder polyp is noted. Trace pericholecystic fluid is noted. COMMON BILE DUCT: Measures 9 mm, dilated. There is intrahepatic dilatation. LIVER: Normal size. Increased echotexture. No definite hepatic mass. RIGHT KIDNEY: Normal in size and echogenicity. No mass. No urinary stones. No hydronephrosis. Cyst measuring 1.5 x 1.6 x 1.5 cm. Pancreas: Nonspecific dilatation of the pancreatic duct to 5 mm. US/Gallbladder IMPRESSION: Nonspecific CBD dilation, intrahepatic biliary dilation, and pancreatic dilatio n. If there is concern for choledocholithiasis, consider MRCP for further evaluation. No acute cholecystitis. Trace pericholecystic fluid, nonspecific. Gallbladder polyp is noted. No gallstones. Hepatic steatosis. Reading Location: [id number]
--- NOTE | 2024-12-31 21:51 | PCM.HP.STD ---
[facility] - General General Date of Admission: 12/31/24 Date of Service: 12/31/24 Chief Complaint: Nausea, Vomiting, Abdominal Pain and Syncope. HPI Narrative GIOVANNA MICHAELS, is a 79 M with a past medical history of essential hypertension; on amlodipine, history of colon cancer with invasive adenocarcinoma; s/p emergent sigmoid colectomy for perforation with subsequent postoperative abscess (2020) and eventual reversal of colostomy followed by Dr. Lindo of oncology, CKD; stage IIIa, PETER; on polysaccharide iron complex, constipation; on sennosides daily, GERD; on pantoprazole and OA who presents to [facility] ER complaining of nausea, vomiting, abdominal pain and syncope. Mr. Michaels reports his symptoms began a few hours prior to arrival after he went out to eat fish with potato crowns with the subsequent abrupt-onset of abdominal pain with nausea and bilious emesis about one hour later. His also informed the ER physician that he then had a syncopal episode while sitting on the cough when he suddenly became unresponsive for a few minutes after vomiting. He states his abdominal pain was made worse after vomiting with radiation of pain into his chest. In the ER he was noted to have a highly elevated lipase of >3K U/L with additional laboratory evidence of Transaminitis; AST 264 U/L, ALT 22 U/L and Alkaline Phosphatase 362 U/L with a corresponding CT scan of the chest/abdomen/pelvis that revealed abnormally distended gallbladder with extrahepatic biliary prominence and mild intrahepatic biliary prominence with evidence of Pancreatitis with fluid near the pancreatic tail with recommendation to obtain MRCP followed by gallbladder ultrasound that showed nonspecific CBD dilatation, intrahepatic biliary dilatation and pancreatic dilatation with gallbladder polyp and hepatic steatosis noted but no acute cholecystitis or gallstones with additional recommendation for MRCP if choledocholithiasis is a consideration complicated by clinical evidence of Intractable Nausea and Vomiting with Syncopal event. The general surgeon on-call recommended MRCP and admission to the hospitalist service with formal consultation pending in the AM. He was then admitted to the general medical floor for ongoing care for a stay that is expected to extend beyond 2 midnights. PFSH Medical History GERD (gastroesophageal reflux disease) Hypertension Colon cancer Colostomy in place Non-smoker Home Medications ?Medication ?Instructions ?Recorded ?Last Taken ?Type acetaminophen 325 mg capsule 325 mg PO Q6H PRN 01/14/21 Unknown History amlodipine 10 mg tablet 10 mg PO DAILY 01/14/21 Unknown History lansoprazole 30 mg capsule,delayed 30 mg PO DAILY 01/14/21 Unknown History release apixaban 5 mg tablet (Eliquis) 5 mg PO BID 01/21/21 Unknown History pantoprazole 40 mg tablet,delayed 40 mg PO DAILY 01/21/21 Unknown History release sennosides 8.6 mg capsule (senna) 8.6 mg PO DAILY 01/21/21 Unknown History polysaccharide iron complex 150 mg 150 mg PO BID #180 caps 02/11/21 Unknown Rx iron capsule (Ferrex) Allergy/AdvReac Type Severity Reaction Status Date / Time No Known Allergies Allergy Verified 12/31/24 18:19 Surgical History Hx of resection of large bowel Social History adopted: No housing: [facility] current occupational status: retired Smoking Status: Never smoker alcohol intake: never substance use type: does not use ROS ROS Narrative Review of Systems: Constitutional: Patient denies fever or chills. Eyes: Patient denies changes in vision or discharge from eyes. ENT: Patient denies runny nose, sore throat or ear pain. Resp: Patient denies SOB or cough. CV: Patient admits to syncope after vomiting with chest pain that radiated from his abdomen and was made worse with vomiting as per HPI. GI: Patient admits to abdominal pain with intractable nausea and vomiting with bilious emesis as per HPI. : Patient denies dysuria or hematuria. MSK: Patient denies arthralgias or myalgias. Skin: Patient denies rash, abscess, wounds or jaundice. Psych: Patient denies symptoms of uncontrolled depression or anxiety. Neuro: Patient denies headache, paresthesias or focal neurologic weakness. Allergy: Patient denies lip swelling, tongue swelling or urticaria. Hematology: Patient denies easy bleeding or easy bruisability. Endocrinology: Patient denies polyuria, polydipsia, polyphagia or heat/cold intolerance. 14 point ROS otherwise negative except for positives noted above in HPI. Vital Signs Vital Signs Vital Signs: 12/31/24 18:19 12/31/24 18:23 12/31/24 18:58 Temperature 97.6 F L Temperature Source Oral Pulse Rate 108 H Respiratory Rate 18 23 H Respiratory Effort Normal Respiratory Pattern Normal Blood Pressure 88/67 L Blood Pressure Mean 74 Pulse Ox 95 93 Oxygen Delivery Method Room Air Oxygen Flow Rate (L/min) 12/31/24 19:00 12/31/24 19:10 12/31/24 19:15 Temperature Temperature Source Pulse Rate 86 90 92 Respiratory Rate 30 H 18 20 H Respiratory Effort Respiratory Pattern Blood Pressure 106/58 L 105/70 Blood Pressure Mean 72 82 Pulse Ox 94 96 98 Oxygen Delivery Method Oxygen Flow Rate (L/min) 12/31/24 19:19 12/31/24 19:20 12/31/24 19:30 Temperature Temperature Source Pulse Rate 93 Respiratory Rate 25 H Respiratory Effort Respiratory Pattern Blood Pressure 121/77 H 106/59 L 121/77 H Blood Pressure Mean 91 74 83 Pulse Ox 94 Oxygen Delivery Method Room Air Oxygen Flow Rate (L/min) 12/31/24 19:31 12/31/24 19:40 12/31/24 19:45 Temperature Temperature Source Pulse Rate 94 90 Respiratory Rate 25 H 27 H Respiratory Effort Respiratory Pattern Blood Pressure 119/59 L Blood Pressure Mean 76 Pulse Ox 96 94 82 Oxygen Delivery Method Room Air Oxygen Flow Rate (L/min) 12/31/24 19:45 12/31/24 19:50 12/31/24 19:50 Temperature Temperature Source Pulse Rate 89 82 Respiratory Rate 29 H 17 Respiratory Effort Respiratory Pattern Blood Pressure 128/67 H Blood Pressure Mean 84 Pulse Ox 95 97 100 Oxygen Delivery Method Nasal Cannula Oxygen Flow Rate (L/min) 2 12/31/24 20:00 12/31/24 20:00 12/31/24 20:10 Temperature Temperature Source Pulse Rate 84 Respiratory Rate 25 H Respiratory Effort Respiratory Pattern Blood Pressure 132/76 H 132/68 H 132/76 H Blood Pressure Mean 94 86 89 Pulse Ox 100 Oxygen Delivery Method Nasal Cannula Oxygen Flow Rate (L/min) 2 12/31/24 20:15 12/31/24 20:20 12/31/24 20:20 Temperature Temperature Source Pulse Rate 84 83 Respiratory Rate 19 H 20 H Respiratory Effort Respiratory Pattern Blood Pressure 147/74 H 147/74 H Blood Pressure Mean 96 96 Pulse Ox 100 100 Oxygen Delivery Method Oxygen Flow Rate (L/min) 12/31/24 20:30 12/31/24 20:40 12/31/24 20:40 Temperature Temperature Source Pulse Rate 88 88 Respiratory Rate 21 H 28 H Respiratory Effort Respiratory Pattern Blood Pressure 124/80 H 124/59 H 124/59 H Blood Pressure Mean 95 78 78 Pulse Ox 100 99 Oxygen Delivery Method Oxygen Flow Rate (L/min) 12/31/24 20:45 12/31/24 20:50 12/31/24 21:00 Temperature Temperature Source Pulse Rate 92 88 91 Respiratory Rate 21 H 24 H 27 H Respiratory Effort Respiratory Pattern Blood Pressure 120/67 115/59 L Blood Pressure Mean 81 75 Pulse Ox 99 97 98 Oxygen Delivery Method Oxygen Flow Rate (L/min) 12/31/24 21:10 12/31/24 21:15 12/31/24 21:20 Temperature Temperature Source Pulse Rate 87 91 Respiratory Rate 16 23 H Respiratory Effort Respiratory Pattern Blood Pressure 114/66 123/69 H Blood Pressure Mean 80 85 Pulse Ox 97 97 Oxygen Delivery Method Oxygen Flow Rate (L/min) Weight Weight: 162 lb 7.691 oz Body Mass Index (BMI) 24.0 Physical Exam Const alert, oriented x3, no apparent distress and average body habitus General Appearance: cooperative HEENT normocephalic, head/scalp atraumatic and hearing grossly normal bilaterally HEENT Narrative: Mucous membranes dry. Eyes PERRL, EOMs intact bilaterally and conjunctivae normal Neck no lymphadenopathy, supple and no JVD Resp normal respiratory effort, no retractions, no use of accessory muscles and clear to auscultation bilaterally Cardio regular rate and regular rhythm GI GI Narrative: Positive TTP over the epigastrium with negative Hylton's sign, rebound or guarding. Extremity normal to inspection, full ROM and no clubbing, cyanosis or edema Skin Skin Narrative: Patient has no evidence of rash, abscess, wounds or jaundice. Neuro oriented x3, CN's II-XII intact bilaterally, moves all extremities and no focal motor deficits Sensorium / Orientation: awake, alert, oriented to person, oriented to place and oriented to time Speech: speech normal Psych affect normal Results Medical Records Data Attestation: I reviewed the patient's medical records Lab / Micro Data Attestation: I reviewed the patient's lab results. 12/31/24 18:23 12/31/24 18:23 Labs: Laboratory Results - last 24 hr 12/31/24 18:23: WBC 6.3, RBC 4.51 L, Hgb 12.9 L, Hct 40.6, MCV 90.0, MCH 28.6, MCHC 31.8 L, RDW Std Deviation 49.5 H, RDW Coeff of Eduardo 15.0 H, Plt Count 261, MPV 10.5, Immature Gran % (Auto) 0.500, Neut % (Auto) 53.2, Lymph % (Auto) 35.0, Butts % (Auto) 7.5, Eos % (Auto) 3.5, Baso % (Auto) 0.3, Absolute Neuts (auto) 3.3, Absolute Lymphs (auto) 2.20, Nucleated RBC % 0, Sodium 136, Potassium 4.1, Chloride 99, Carbon Dioxide 24.3, Anion Gap 13, BUN 27 H, Creatinine 1.71 H, Estim Creat Clear Calc 35.03 L, Est GFR (MDRD) Non-Af 40 L, BUN/Creatinine Ratio 15.5, Glucose 178 H, Calcium 9.5, Total Bilirubin 0.54, AST 264 H, ALT 227 H, Alkaline Phosphatase 362 H, Total Protein 7.8, Albumin 4.1, Globulin 3.7, Albumin/Globulin Ratio 1.1, Lipase > 3000 H Imaging Radiology Impression Chest/Abdomen/Pelvis CT 12/31/24 18:57 IMPRESSION: Abnormally distended gallbladder with extrahepatic biliary prominence and mild intrahepatic biliary prominence. Correlate with laboratory findings. New compared to prior study. Consider further evaluation with MRCP. Evidence of pancreatitis with fluid near the pancreatic tail. Correlate clinically Reading Location: [facility] Gallbladder Ultrasound 12/31/24 20:20 IMPRESSION: Nonspecific CBD dilation, intrahepatic biliary dilation, and pancreatic dilation. If there is concern for choledocholithiasis, consider MRCP for further evaluation. No acute cholecystitis. Trace pericholecystic fluid, nonspecific. Gallbladder polyp is noted. No gallstones. Hepatic steatosis. Reading Location: [facility] Assessment & Plan Assessment/Plan (1) Acute pancreatitis: QUALIFIERS: Acute pancreatitis complication: no infection or necrosis Pancreatitis type: biliary Qualified Code(s): K85.10 - Biliary acute pancreatitis without necrosis or infection (2) Transaminitis: (3) Intractable nausea and vomiting: (4) Syncope: QUALIFIERS: Syncope type: vasovagal syncope Qualified Code(s): R55 - Syncope and collapse (5) Cancer of sigmoid colon: PLAN: Plan 1. Highly elevated lipase of >3K U/L with additional laboratory evidence of Transaminitis; AST 264 U/L, ALT 22 U/L and Alkaline Phosphatase 362 U/L with a corresponding CT scan of the chest/abdomen/pelvis that revealed abnormally distended gallbladder with extrahepatic biliary prominence and mild intrahepatic biliary prominence with evidence of Pancreatitis with fluid near the pancreatic tail with recommendation to obtain MRCP followed by gallbladder ultrasound that showed nonspecific CBD dilatation, intrahepatic biliary dilatation and pancreatic dilatation with gallbladder polyp and hepatic steatosis noted but no acute cholecystitis or gallstones with additional recommendation for MRCP if choledocholithiasis is a consideration - Admit to general medical floor. Keep strict NPO. Give vigorous volume resuscitation. Start pantoprazole 40 mg IV daily plus ondansetron IV prn for nausea and vomiting. Give prochlorperazine IV prn for breakthrough nausea. Give low-dose ketorolac IV prn for [id number] (level 1-5/10) pain or fever. Give morphine IV prn for severe (level 6-10/10) pain. Check MRCP to evaluate for evidence of choledocholithiasis. [facility] and [facility] are necessary. Finally, we will consult Dr. Garcia of general surgery to see this patient on-rounds in the AM for further recommendations with help appreciated in advance. 2. Intractable Nausea and Vomiting due to #1 - We will follow antiemetic regimen outlined in #1. 3. Syncopal event attributable to #2; likely vasovagal in origin - Check echocardiogram to evaluate LVEF. Otherwise, treat supportively and monitor for improvement. 4. History of colon cancer with invasive adenocarcinoma; s/p emergent sigmoid colectomy for perforation with subsequent postoperative abscess (2020) and eventual reversal of colostomy followed by Dr. Lindo of oncology adding to the medical complexity of #1 - #3 - Noted. Check CEA level to evaluate for possible recurrence. 5. Essential hypertension; on amlodipine - Hold scheduled oral antihypertensives while NPO for #1. Give hydralazine IV prn for systolic blood pressure > 160 mmHg. 6. CKD; stage IIIa - Stable with serum creatinine of 1.71 mg/dL and eGFR of 40 mL/min. 7. PETER; on polysaccharide iron complex - Hold oral iron for now. Check iron studies and Hemoccult stools with hemoglobin of 12.9 g/dL and MCV of 90 fL present on admission. 8. Constipation; on sennosides daily - Hold sennosides until further notice. 9. GERD; on pantoprazole - Patient started on IV pantoprazole as outlined in #1. 10. OA - Stable. 11. DVT/GI prophylaxis - Hold blood thinning agents in case ERCP is needed. Place SCD's. Pantoprazole 40 mg IV daily. Total time: Approximately (but not less than) 75 minutes. Charges/Coding Visit Charges Inpatient E&M: 88125 Init Hosp L3
--- OUTSIDE RECORDS SUMMARY | 2024-12-31 22:34 | XMS RPT_ITS | CCD ---
Author Organization [facility] Inform ion Partnership [facility] Care Team Providers Care Radio Reporter Name Role Phone PROVIDER, UNKNOWN Attending Unavailable PROVIDER, UNKNOWN Admitting Unavailable SUSHMA NIX Admitting Unavailable CONSULT, SURGERY - GENERAL (EMERGENT) Consulting Unavailable ABRAN BECERRA Attending Unavailable BARBARA WELLS Referring Unavailable HARSHAD PERAZA Attending Unavailable HARSHAD FRANCE Referring Unavailable CONSULT, SURGERY - GENERAL (EMERGENT) Consulting Unavailable MARTA JAUREGUI Admitting Unavailable Indra Blanca [facility] Ind[facility] Blanca [facility] Indra Blanca [facility] Unavailable Osmin Lindo Referring Unavailable [place], Osmin Attending Unavailable Dar Chew [facility] Un[facility]o [facility] Referring [facility]available Merna Montanez Attending [facility] Unavailable swelling, mouth swelling, throat swelling, tongue swelling [...] (L/min) 4 (more content not included)... Normal [facility] [id number] 01-06-2021 TROPONIN-I HS 21 pg/mL Normal 3.0-78.0 [facility] Comment on above: Result Comment: Javier rubin Note: New Test Units and Gender Specific Reference Ranges. For more information see Policy Stat Procedure [place] High Sensitivity Troponin (TNIH) and attachments. Performed By: #### L 501.4020 #### [facility] [address] [place], [address] Lactic Acidon 01-06-2021 Lactate [Moles/Vol] 1.8 mmol/L Normal 0.4-1.9 [facility] Comment on above: Order Comment: Y Performed By: #### M 200.1000 #### [facility] [address] [place], [address] Urinalysis, Completeon 01-06 EPI,SQUAMOUS 0-5 SEEN Normal 0-5 [facility] Comment on above: Order Comment: CLEAN CATCH Performed By: #### L [id number] #### [facility] [address] [place], [address] BACTERIA 0 SEEN Normal None Seen [facility] Comment on above: Order Comment: CLEAN CATCH Performed By: #### L [id number] #### [facility] [address] [place], [address] Mucus Ql (Urine sed) 0 SEEN Normal [facility] Comment on above: Order Comment: CLEAN CATCH Performed By: #### L [id number] #### [facility] [address] [place], [address] RBC 0 SEEN Normal 0-5 [facility] Comment on above: Order Comment: CLEAN CATCH Performed By: #### L [id number] #### [facility] [address] [place], [address] WBC 0 SEEN Normal 0-5 [facility] Comment on above: Order Comment: CLEAN CATCH Performed By: #### L [id number] #### [facility] [address] [place], [address] CBC,PLATELETSon 01-01-2021 Hematocrit (Bld) [Volume fraction] 27.2 % Low 39.6-48.8 [facility] Comment on above: Performed By: #### U RIN #### [facility] (DEFAULT) [address] [address] Hemoglobin (Bld) [Mass/Vol] 8.0 g/dL Low 13.4-16.8 [facility] Comment on above: Performed By: #### U RIN #### [facility] (DEFAULT) [address] [address] MCV (RBC) [Entitic vol] 69.9 fL Low 79.0-94.5 [facility] Comment on above: Performed By: #### U RIN #### [facility] (DEFAULT) [address] [address] Mean Cell Hgb 20.6 pg Low 26.1-33.3 [facility] Comment on above: Performed By: #### U RIN #### [facility] (DEFAULT) [address] [address] Mean Cell Hgb Conc 29.4 g/dL Low 31.9-36.5 [facility] Comment on above: Performed By: #### U RIN #### [facility] (DEFAULT) [address] [address] Platelet mean volume (Bld) [Entitic vol] 10.4 fL Normal 8.7-12.3 [facility] Comment on above: Performed By: #### U RIN #### [facility] (DEFAULT) [address] [address] Platelets (Bld) [#/Vol] 289 10*3/uL Normal 146-337 [facility] Comment on above: Performed By: #### U RIN #### [facility] (DEFAULT) [address] [place] [address] RBC (Bld) [#/Vol] 3.89 10*6/uL Low 4.38-5.83 [facility] Comment on above: Performed By: #### U RIN #### [facility] (DEFAULT) [address] [place] [address] RBC Distribution 20.9 % High 10.9-14.3 [facility] Comment on above: Performed By: #### U RIN #### [facility] (DEFAULT) [address] [place] [address] WBC (Bld) [#/Vol] 7.47 10*3/uL Normal 3.73-10.10 [facility] Comment on above: Performed By: #### U RIN #### [facility] (DEFAULT) [address] [place] [address] CHEM 7 (LYTES,BUN,CREA,GLUC) on 01-01-2021 Anion gap [Moles/Vol] 14 mmol/L Normal 7-17 [facility] Comment on above: Performed By: #### C HM7, IPB, MGO #### [facility] (DEFAULT) [address] [place] [address] Chloride [Moles/Vol] 110 mmol/L High 98-108 [facility] Comment on above: Performed By: #### C HM7, IPB, MGO #### [facility] (DEFAULT) [address] [place] [address] CO2 [Moles/Vol] 22 mmol/L Normal 22-30 [facility] Comment on above: Performed By: #### C HM7, IPB, MGO #### [facility] (DEFAULT) [address] [place] [address] Creatinine [Mass/Vol] 3.22 mg/dL High 0.70-1.30 [facility] Comment on above: Performed By: #### C HM7, IPB, MGO #### [facility] (DEFAULT) [address] [place] [address] EST GFR, 23 mL/min/1.73sqM Low >=60 [facility] Comment on above: Performed By: #### Dm HM7, IPB, MGO #### [facility] (DEFAULT) [address] [place] [address] 66092 EST GFR,Non 19 mL/min/1.73sqM Low >=60 [facility] Comment on above: Performed By: #### C HM7, IPB, MGO #### [facility] (DEFAULT) [address] [place] [address] Glucose [Mass/Vol] 165 mg/dL High 70-99 [facility] Comment on above: Performed By: #### Dm HM7, IPB, MGO #### [facility] (DEFAULT) [address] [place] [address] Osmolality [Osmolality] 315 mosm/kg High 278-305 [facility] Comment on above: Performed By: #### Dm HMJustine, IPB, MGO #### [facility] (DEFAULT) [address] [place] [address] Potassium [Moles/Vol] 4.0 mmol/L Normal 3.5-5.0 [facility] Comment on above: Performed By: #### Dm HM7, IPB, MGO #### [facility] (DEFAULT) [address] [place] [address] Sodium [Moles/Vol] 142 mmol/L Normal 133-143 [facility] Comment on above: Performed By: #### Dm HM7, IPB, MGO #### [facility] (DEFAULT) [address] [place] [address] Urea nitrogen [Mass/Vol] 52 mg/dL High 7-22 [facility] Comment on above: Performed By: #### Dm HM7, IPB, MGO #### [facility] (DEFAULT) [address] [place] [address] Urea nitrogen/Creatinin e [Mass ratio] 16 mg/mg Normal [facility] Comment on above: Performed By: #### C HM7, IPB, MGO #### [facility] (DEFAULT) [address] [place] [address] MAGNESIUMon 01-01-2021 Magnesium [Mass/Vol] 2.5 mg/dL Normal 1.6-2.6 [facility] Comment on above: Performed By: #### C HM7, IPB, MGO #### [facility] (DEFAULT) [address] [place] [address] NOVEL CORONAVIRUS PCRon 12-10 SARS-CoV-2 (COVID-19) RNA MONAE+probe Ql (Unsp spec) Not detected Normal NOT DETECTED [facility] Comment on above: Order Comment: Viral transport [...] for use by authorized laboratories. Result Comment: [facility] Negative results do not [...] deteriorating. Performed By: #### T YPEC #### [facility] (DEFAULT) [address] [place] [address] PHOSPHATE, INORGANICon 01-01 Phosphorous 3.1 mg/dL Normal 2.2-4.6 [facility] Comment on above: Performed By: #### T YPEC #### [facility] (DEFAULT) [address] [address] CBC,PLATELETSon 12-31-2020 Hematocrit (Bld) [Volume fraction] 23.4 % Low 39.6-48.8 [facility] Comment on above: Performed By: #### X M #### [facility] (DEFAULT) [address] [address] Hemoglobin (Bld) [Mass/Vol] 6.9 g/dL Critically low 13.4-16.8 [facility] Comment on above: Result Comment: This result has been called to ALFRED MAST RN by Kam Bejarano on 12 31 2020 at 0635, and has been read back. Performed By: #### X M #### [facility] (DEFAULT) [address] [address] MCV (RBC) [Entitic vol] 68.0 fL Low 79.0-94.5 [facility] Comment on above: Performed By: #### X M #### [facility] (DEFAULT) [address] [address] Mean Cell Hgb 20.1 pg Low 26.1-33.3 [facility] Comment on above: Performed By: #### X M #### [facility] (DEFAULT) [address] [address] Mean Cell Hgb Conc 29.5 g/dL Low 31.9-36.5 [facility] Comment on above: Performed By: #### X M #### [facility] (DEFAULT) [address] [address] RBC (Bld) [#/Vol] 3.44 10*6/uL Low 4.38-5.83 [facility] Comment on above: Performed By: #### X M #### [facility] (DEFAULT) [address] [address] RBC Distribution 19.2 % High 10.9-14.3 [facility] Comment on above: Performed By: #### X M #### [facility] (DEFAULT) [address] [place] [address] WBC (Bld) [#/Vol] 7.52 10*3/uL Normal 3.73-10.10 [facility] Comment on above: Performed By: #### X M #### [facility] (DEFAULT) [address] [place] [address] CHEM 7 (LYTES,BUN,CREA,GLUC) on 12-31-2020 Anion gap [Moles/Vol] 13 mmol/L Normal 7-17 [facility] Comment on above: Performed By: #### C HM7, IPB, MGO #### [facility] (DEFAULT) [address] [place] [address] Chloride [Moles/Vol] 110 mmol/L High 98-108 [facility] Comment on above: Performed By: #### Dm HM7, IPB, MGO #### [facility] (DEFAULT) [address] [place] [address] CO2 [Moles/Vol] 24 mmol/L Normal 22-30 [facility] Comment on above: Performed By: #### Dm HM7, IPB, MGO #### [facility] (DEFAULT) [address] [place] [address] Creatinine [Mass/Vol] 4.13 mg/dL High 0.70-1.30 [facility] Comment on above: Performed By: #### C HM7, IPB, MGO #### [facility] (DEFAULT) [address] [place] [address] EST GFR, 17 mL/min/1.73sqM Low >=60 [facility] Comment on above: Performed By: #### C HM7, IPB, MGO #### [facility] (DEFAULT) [address] [place] [address] EST GFR,Non 14 mL/min/1.73sqM Low >=60 [facility] Comment on above: Performed By: #### C HM7, IPB, MGO #### [facility] (DEFAULT) [address] [place] [address] Glucose [Mass/Vol] 168 mg/dL High 70-99 [facility] Comment on above: Performed By: #### C HM7, IPB, MGO #### [facility] (DEFAULT) [address] [place] [address] Osmolality [Osmolality] 321 mosm/kg High 278-305 [facility] Comment on above: Performed By: #### C HM7, IPB, MGO #### [facility] (DEFAULT) [address] [place] [address] Potassium [Moles/Vol] 4.2 mmol/L Normal 3.5-5.0 [facility] Comment on above: Performed By: #### C HM7, IPB, MGO #### [facility] (DEFAULT) [address] [place] [address] Sodium [Moles/Vol] 143 mmol/L Normal 133-143 [facility] Comment on above: Performed By: #### C HM7, IPB, MGO #### [facility] (DEFAULT) [address] [place] [address] Urea nitrogen [Mass/Vol] 63 mg/dL High 7-22 [facility] Comment on above: Performed By: #### C HM7, IPB, MGO #### [facility] (DEFAULT) [address] [place] [address] Urea nitrogen/Creatinin e [Mass ratio] 15 mg/mg Normal [facility] Comment on above: Performed By: #### C HM7, IPB, MGO #### [facility] (DEFAULT) [address] [place] [address] HEMOGLOBIN & HEMATOCRITon Hematocrit (Bld) [Volume fraction] 30.6 % Low 39.6-48.8 [facility] Comment on above: Order Comment: Pleas e obtain one hour post transfusion Performed By: #### T YPEC #### [facility] (DEFAULT) [address] [place] [address] Hemoglobin (Bld) [Mass/Vol] 8.9 g/dL Low 13.4-16.8 [facility] Comment on above: Order Comment: Pleas e obtain one hour post transfusion Performed By: #### T YPEC #### [facility] (DEFAULT) [address] [place] [address] MAGNESIUMon 12-31-2020 Magnesium [Mass/Vol] 2.7 mg/dL High 1.6-2.6 [facility] Comment on above: Performed By: #### C HM7, IPB, MGO #### [facility] (DEFAULT) [address] [place] [address] PHOSPHATE, INORGANICon 12-31 Phosphorous 3.9 mg/dL Normal 2.2-4.6 [facility] Comment on above: Performed By: #### C HM7, IPB, MGO #### [facility] (DEFAULT) [address] [place] [address] PLATELET COUNTon 12-31-2020 Platelet mean volume (Bld) [Entitic vol] 10.2 fL Normal 8.7-12.3 [facility] Comment on above: Performed By: #### X M #### [facility] (DEFAULT) [address] [place] [address] Platelets (Bld) [#/Vol] 244 10*3/uL Normal 146-337 [facility] Comment on above: Performed By: #### X M #### [facility] (DEFAULT) [address] [place] [address] TYPE AND SCREENon 12-31-2020 ABO/RH(D) TYPE Negative Normal [facility] Comment on above: Performed By: #### X M #### [facility] (DEFAULT) [address] [place] [address] CALCIUMon 12-30-2020 Calcium [Mass/Vol] 7.7 mg/dL Low 8.6-10.5 [facility] Comment on above: Performed By: #### P TT #### [facility] (DEFAULT) [address] [address] CBC,PLATELETSon 12-30-2020 Hematocrit (Bld) [Volume fraction] 25.1 % Low 39.6-48.8 [facility] Comment on above: Performed By: #### H EMOGC #### [facility] (DEFAULT) [address] [place] [address] Hemoglobin (Bld) [Mass/Vol] 7.2 g/dL Low 13.4-16.8 [facility] Comment on above: Performed By: #### H EMOGC #### [facility] (DEFAULT) [address] [address] MCV (RBC) [Entitic vol] 67.1 fL Low 79.0-94.5 [facility] Comment on above: Performed By: #### H EMOGC #### [facility] (DEFAULT) [address] [address] Mean Cell Hgb 19.3 pg Low 26.1-33.3 [facility] Comment on above: Performed By: #### H EMOGC #### [facility] (DEFAULT) [address] [place] [address] Mean Cell Hgb Conc 28.7 g/dL Low 31.9-36.5 [facility] Comment on above: Performed By: #### H EMOGC #### [facility] (DEFAULT) [address] [address] Platelet mean volume (Bld) [Entitic vol] 10.1 fL Normal 8.7-12.3 [facility] Comment on above: Performed By: #### H EMOGC #### [facility] (DEFAULT) [address] [place] [address] Platelets (Bld) [#/Vol] 228 10*3/uL Normal 146-337 [facility] Comment on above: Performed By: #### H EMO #### [facility] (DEFAULT) [address] [place] [address] RBC (Bld) [#/Vol] 3.74 10*6/uL Low 4.38-5.83 [facility] Comment on above: Performed By: #### H EMO #### [facility] (DEFAULT) [address] [place] [address] RBC Distribution 18.8 % High 10.9-14.3 [facility] Comment on above: Performed By: #### H EMO #### [facility] (DEFAULT) [address] [place] [address] WBC (Bld) [#/Vol] 10.43 10*3/uL High 3.73-10.10 [facility] Comment on above: Performed By: #### H EMO #### [facility] (DEFAULT) [address] [place] [address] CHEM 7 (LYTES,BUN,CREA,GLUC) on 12-30-2020 Anion gap [Moles/Vol] 17 mmol/L Normal 7-17 [facility] Comment on above: Performed By: #### P TT #### [facility] (DEFAULT) [address] [place] [address] Chloride [Moles/Vol] 107 mmol/L Normal 98-108 [facility] Comment on above: Performed By: #### P TT #### [facility] (DEFAULT) [address] [place] [address]398 CO2 [Moles/Vol] 22 mmol/L Normal 22-30 [facility] Comment on above: Performed By: #### P TT #### [facility] (DEFAULT) [address] [place] [address] Creatinine [Mass/Vol] 5.74 mg/dL High 0.70-1.30 [facility] Comment on above: Performed By: #### P TT #### [facility] (DEFAULT) [address] [place] [address] EST GFR, 12 mL/min/1.73sqM Low >=60 [facility] Comment on above: Performed By: #### P TT #### [facility] (DEFAULT) [address] [place] [address]896 EST GFR,Non 10 mL/min/1.73sqM Low >=60 [facility] Comment on above: Performed By: #### P TT #### [facility] (DEFAULT) [address] [place] [address] Glucose [Mass/Vol] 81 mg/dL Normal 70-99 [facility] Comment on above: Performed By: #### P TT #### [facility] (DEFAULT) [address] [place] [address] Osmolality [Osmolality] 318 mosm/kg High 278-305 [facility] Comment on above: Performed By: #### P TT #### [facility] (DEFAULT) [address] [place] [address] Potassium [Moles/Vol] 4.9 mmol/L Normal 3.5-5.0 [facility] Comment on above: Performed By: #### P TT #### [facility] (DEFAULT) [address] [place] [address] Sodium [Moles/Vol] 141 mmol/L Normal 133-143 [facility] Comment on above: Performed By: #### P TT #### [facility] (DEFAULT) [address] [place] [address] 01192 Urea nitrogen [Mass/Vol] 78 mg/dL High 7-22 [facility] Comment on above: Performed By: #### P TT #### [facility] (DEFAULT) [address] [place] [address] Urea nitrogen/Creatinin e [Mass ratio] 14 mg/mg Normal [facility] Comment on above: Performed By: #### P TT #### [facility] (DEFAULT) [address] [place] [address] MAGNESIUMon 12-30-2020 Magnesium [Mass/Vol] 3.2 mg/dL High 1.6-2.6 [facility] Comment on above: Performed By: #### P TT #### [facility] (DEFAULT) [address] [place] [address] PHOSPHATE, INORGANICon 12-30 Phosphorous 6.4 mg/dL High 2.2-4.6 [facility] Comment on above: Performed By: #### P TT #### [facility] (DEFAULT) [address] [place] [address] CALCIUMon 12-29-2020 Calcium [Mass/Vol] 7.9 mg/dL Low 8.6-10.5 [facility] Comment on above: Performed By: #### X M #### [facility] (DEFAULT) [address] [place] [address] CBC,PLATELETSon 12-29-2020 Hematocrit (Bld) [Volume fraction] 25.0 % Low 39.6-48.8 [facility] Comment on above: Performed By: #### C HM7, IPB, MGO #### [facility] (DEFAULT) [address] [place] [address] Hemoglobin (Bld) [Mass/Vol] 7.3 g/dL Low 13.4-16.8 [facility] Comment on above: Performed By: #### C HM7, IPB, MGO #### [facility] (DEFAULT) [address] [place] [address] MCV (RBC) [Entitic vol] 67.9 fL Low 79.0-94.5 [facility] Comment on above: Performed By: #### C HM7, IPB, MGO #### [facility] (DEFAULT) [address] [place] [address] Mean Cell Hgb 19.8 pg Low 26.1-33.3 [facility] Comment on above: Performed By: #### Dm HM7, IPB, MGO #### [facility] (DEFAULT) [address] [place] [address] 11945 Mean Cell Hgb Conc 29.2 g/dL Low 31.9-36.5 [facility] Comment on above: Performed By: #### Dm HM7, IPB, MGO #### [facility] (DEFAULT) [address] [place] [address]673 Platelet mean volume (Bld) [Entitic vol] 10.5 fL Normal 8.7-12.3 [facility] Comment on above: Performed By: #### Dm HM7, IPB, MGO #### [facility] (DEFAULT) [address] [place] [address] Platelets (Bld) [#/Vol] 228 10*3/uL Normal 146-337 [facility] Comment on above: Performed By: #### Dm HM7, IPB, MGO #### [facility] (DEFAULT) [address] [place] [address]674 RBC (Bld) [#/Vol] 3.68 10*6/uL Low 4.38-5.83 [facility] Comment on above: Performed By: #### Dm HM7, IPB, MGO #### [facility] (DEFAULT) [address] [place] [address]34 RBC Distribution 18.7 % High 10.9-14.3 [facility] Comment on above: Performed By: #### Dm HM7, IPB, MGO #### [facility] (DEFAULT) [address] [place] [address] 09984 WBC (Bld) [#/Vol] 11.35 10*3/uL High 3.73-10.10 [facility] Comment on above: Performed By: #### Dm HM7, IPB, MGO #### [facility] (DEFAULT) [address] [place] [address] CHEM 7 (LYTES,BUN,CREA,GLUC) on 12-29-2020 Anion gap [Moles/Vol] 17 mmol/L Normal 7-17 [facility] Comment on above: Performed By: #### X M #### [facility] (DEFAULT) [address] [place] [address] 80258 Chloride [Moles/Vol] 103 mmol/L Normal 98-108 [facility] Comment on above: Performed By: #### X M #### [facility] (DEFAULT) [address] [place] [address] 6[address]18 CO2 [Moles/Vol] 23 mmol/L Normal 22-30 [facility] Comment on above: Performed By: #### X M #### [facility] (DEFAULT) [address] [place] [address] 25291 Creatinine [Mass/Vol] 6.14 mg/dL High 0.70-1.30 [facility] Comment on above: Performed By: #### X M #### [facility] (DEFAULT) [address] [place] [address] 99632 EST GFR, 11 mL/min/1.73sqM Low >=60 [facility] Comment on above: Performed By: #### X M #### [facility] (DEFAULT) [address] [place] [address] 18679 EST GFR,Non 9 mL/min/1.73sqM Low >=60 [facility] Comment on above: Performed By: #### X M #### [facility] (DEFAULT) [address] [place] [address] 17579 Glucose [Mass/Vol] 78 mg/dL Normal 70-99 [facility] Comment on above: Performed By: #### X M #### [facility] (DEFAULT) [address] [place] [address] 79077 Osmolality [Osmolality] 311 mosm/kg High 278-305 [facility] Comment on above: Performed By: #### X M #### [facility] (DEFAULT) [address] [place] [address] 67225 Potassium [Moles/Vol] 5.5 mmol/L High 3.5-5.0 [facility] Comment on above: Performed By: #### X M #### [facility] (DEFAULT) [address] [place] [address] 30606 Sodium [Moles/Vol] 137 mmol/L Normal 133-143 [facility] Comment on above: Performed By: #### X M #### [facility] (DEFAULT) [address] [place] [address] 07964 Urea nitrogen [Mass/Vol] 75 mg/dL High 7-22 [facility] Comment on above: Performed By: #### X M #### [facility] (DEFAULT) [address] [place] [address] 93838 Urea nitrogen/Creatinin e [Mass ratio] 12 mg/mg Normal [facility] Comment on above: Performed By: #### X M #### [facility] (DEFAULT) [address] [place] [address] 48974 MAGNESIUMon 12-29-2020 Magnesium [Mass/Vol] 3.0 mg/dL High 1.6-2.6 [facility] Comment on above: Performed By: #### X M #### [facility] (DEFAULT) [address] [place] [address] 78561 PHOSPHATE, INORGANICon 12-29 Phosphorous 6.1 mg/dL High 2.2-4.6 [facility] Comment on above: Performed By: #### X M #### [facility] (DEFAULT) [address] [place] [address] 73117 CALCIUMon 12-28-2020 Calcium [Mass/Vol] 7.9 mg/dL Low 8.6-10.5 [facility] Comment on above: Performed By: #### T YPEC #### [facility] (DEFAULT) [address] [place] [address] 62772 CBC,PLATELETSon 12-28-2020 Hematocrit (Bld) [Volume fraction] 24.2 % Low 39.6-48.8 [facility] Comment on above: Performed By: #### U RIN #### [facility] (DEFAULT) [address] [place] [address] 07064 Hemoglobin (Bld) [Mass/Vol] 7.1 g/dL Low 13.4-16.8 [facility] Comment on above: Performed By: #### U RIN #### [facility] (DEFAULT) [address] [place] [address] 46531 MCV (RBC) [Entitic vol] 68.0 fL Low 79.0-94.5 [facility] Comment on above: Performed By: #### U RIN #### [facility] (DEFAULT) [address] [place] [address] 36809 Mean Cell Hgb 19.9 pg Low 26.1-33.3 [facility] Comment on above: Performed By: #### U RIN #### [facility] (DEFAULT) [address] [place] [address] 50166 Mean Cell Hgb Conc 29.3 g/dL Low 31.9-36.5 [facility] Comment on above: Performed By: #### U RIN #### [facility] (DEFAULT) [address] [place] [address] 88157 Platelet mean volume (Bld) [Entitic vol] 10.7 fL Normal 8.7-12.3 [facility] Comment on above: Performed By: #### U RIN #### [facility] (DEFAULT) [address] [address] Platelets (Bld) [#/Vol] 228 10*3/uL Normal 146-337 [facility] Comment on above: Performed By: #### U RIN #### [facility] (DEFAULT) [address] [place] [address] 70051 RBC (Bld) [#/Vol] 3.56 10*6/uL Low 4.38-5.83 [facility] Comment on above: Performed By: #### U RIN #### [facility] (DEFAULT) [address] [place] [address] 18673 RBC Distribution 18.9 % High 10.9-14.3 [facility] Comment on above: Performed By: #### U RIN #### [facility] (DEFAULT) [address] [place] [address] 23973 WBC (Bld) [#/Vol] 11.27 10*3/uL High 3.73-10.10 [facility] Comment on above: Performed By: #### U RIN #### [facility] (DEFAULT) [address] [place] [address] 39621 CHEM 7 (LYTES,BUN,CREA,GLUC) on 12-28-2020 Anion gap [Moles/Vol] 13 mmol/L Normal 7-17 [facility] Comment on above: Performed By: #### H EMOGC #### [facility] (DEFAULT) [address] [place] [address] 86649 Chloride [Moles/Vol] 104 mmol/L Normal 98-108 [facility] Comment on above: Performed By: #### H EMOGC #### [facility] (DEFAULT) [address] [place] [address] 85609 CO2 [Moles/Vol] 25 mmol/L Normal 22-30 [facility] Comment on above: Performed By: #### H EMOGC #### [facility] (DEFAULT) [address] [place] [address] 51187 Creatinine [Mass/Vol] 5.81 mg/dL High 0.70-1.30 [facility] Comment on above: Performed By: #### H EMOGC #### [facility] (DEFAULT) [address] [place] [address] 68534 EST GFR, 12 mL/min/1.73sqM Low >=60 [facility] Comment on above: Performed By: #### H EMOGC #### [facility] (DEFAULT) [address] [place] [address] 51559 EST GFR,Non 10 mL/min/1.73sqM Low >=60 [facility] Comment on above: Performed By: #### H EMOGC #### [facility] (DEFAULT) [address] [place] [address] 37918 Glucose [Mass/Vol] 80 mg/dL Normal 70-99 [facility] Comment on above: Performed By: #### H EMOGC #### [facility] (DEFAULT) [address] [place] [address] 70708 Osmolality [Osmolality] 308 mosm/kg High 278-305 [facility] Comment on above: Performed By: #### H EMOGC #### [facility] (DEFAULT) [address] [place] [address] 04129 Potassium [Moles/Vol] 5.6 mmol/L High 3.5-5.0 [facility] Comment on above: Performed By: #### H EMOGC #### [facility] (DEFAULT) [address] [place] [address] 64259 Sodium [Moles/Vol] 136 mmol/L Normal 133-143 [facility] Comment on above: Performed By: #### H EMOGC #### [facility] (DEFAULT) [address] [place] [address] 13719 Urea nitrogen [Mass/Vol] 71 mg/dL High 7-22 [facility] Comment on above: Performed By: #### H EMOGC #### [facility] (DEFAULT) [address] [place] [address] 06550 Urea nitrogen/Creatinin e [Mass ratio] 12 mg/mg Normal [facility] Comment on above: Performed By: #### H EMOGC #### [facility] (DEFAULT) [address] [place] [address] 12583 Anion gap [Moles/Vol] 15 mmol/L Normal 7-17 [facility] Comment on above: Performed By: #### T YPEC #### [facility] (DEFAULT) [address] [address] Chloride [Moles/Vol] 103 mmol/L Normal 98-108 [facility] Comment on above: Performed By: #### T YPEC #### [facility] (DEFAULT) [address] [address] CO2 [Moles/Vol] 24 mmol/L Normal 22-30 [facility] Comment on above: Performed By: #### T YPEC #### [facility] (DEFAULT) [address] [address]54 Creatinine [Mass/Vol] 5.57 mg/dL High 0.70-1.30 [facility] Comment on above: Performed By: #### T YPEC #### [facility] (DEFAULT) [address] [address] EST GFR, 12 mL/min/1.73sqM Low >=60 [facility] Comment on above: Performed By: #### T YPEC #### [facility] (DEFAULT) [address] 91928 EST GFR,Non 10 mL/min/1.73sqM Low >=60 [facility] Comment on above: Performed By: #### T YPEC #### [facility] (DEFAULT) [address] [place] [address] 61696 Glucose [Mass/Vol] 98 mg/dL Normal 70-99 [facility] Comment on above: Performed By: #### T YPEC #### [facility] (DEFAULT) [address] [address] Osmolality [Osmolality] 308 mosm/kg High 278-305 [facility] Comment on above: Performed By: #### T YPEC #### [facility] (DEFAULT) [address] [place] [address] 83092 Potassium [Moles/Vol] 5.8 mmol/L High 3.5-5.0 [facility] Comment on above: Performed By: #### T YPEC #### [facility] (DEFAULT) [address] 8[address]72 Sodium [Moles/Vol] 136 mmol/L Normal 133-143 [facility] Comment on above: Performed By: #### T YPEC #### [facility] (DEFAULT) [address] 61408 Urea nitrogen [Mass/Vol] 66 mg/dL High 7-22 [facility] Comment on above: Performed By: #### T YPEC #### [facility] (DEFAULT) [address] [address] Urea nitrogen/Creatinin e [Mass ratio] 12 mg/mg Normal [facility] Comment on above: Performed By: #### T YPEC #### [facility] (DEFAULT) [address] [address] CREATININE,RANDOM URINEon Creatinine (U) [Mass/Vol] 80.35 mg/dL Normal [facility] Comment on above: Order Comment: The r eference range has not been established for random urine specimens. The test result should be integrated into the clinical context for interpretation. Performed By: #### T YPEC #### [facility] (DEFAULT) [address] [address] LYTES (NA, K, CL) - URINE - RANDOMon 12-28-2020 Sodium (U) [Moles/Vol] 19 mmol/L Normal [facility] Comment on above: Order Comment: The r eference range has not been established for random urine specimens. The test result should be integrated into the clinical context for interpretation. Performed By: #### T YPEC #### [facility] (DEFAULT) [address] [address] Urine Chloride 24 mmol/L Normal [facility] Comment on above: Order Comment: The r eference range has not been established for random urine specimens. The test result should be integrated into the clinical context for interpretation. Performed By: #### T YPEC #### [facility] (DEFAULT) [address] [address] Urine Potassium 58.8 mmol/L Normal [facility] Comment on above: Order Comment: The r eference range has not been established for random urine specimens. The test result should be integrated into the clinical context for interpretation. Performed By: #### T YPEC #### [facility] (DEFAULT) [address] [address] MAGNESIUMon 12-28-2020 Magnesium [Mass/Vol] 2.7 mg/dL High 1.6-2.6 [facility] Comment on above: Performed By: #### T YPEC #### [facility] (DEFAULT) [address] [address] PHOSPHATE, INORGANICon 12-28 Phosphorous 5.8 mg/dL High 2.2-4.6 [facility] Comment on above: Performed By: #### T YPEC #### [facility] (DEFAULT) [address] [address] ABORH TYPE RECONFIRMATIONon 12-27-2020 ABO/RH(D) TYPE Negative Normal [facility] Comment on above: Performed By: #### T YPEC #### [facility] (DEFAULT) [address] [address] ANAEROBE CULTUREon 1 Bacteria identified Cx Nom (Unsp spec) Normal [facility] Comment on above: Order Comment: Colle ct [...] was performed on the MALDI-TOF mass spectrometer [employer] using the FDA, lab-developed, or RUO libraries. The performance characteristics of the lab-developed and RUO libraries were determined by [facility]. They have not been cleared or approved by the FDA. The laboratory is regulated under CLIA as qualified to perform high-complexity testing. This test is used for clinical purposes. It should not be regarded as investigational or for research. [id number] THETAIOTAOMICRON GROUPBACTEROIDES THETAIOTAOMICRON GROUP Moderate Growth Bacteroides thetaiotaomicron group Penicillinase positive Performed By: #### T YPEC #### [facility] (DEFAULT) [address] [address] BACTERIAL CULTURE AND DIRECT SMEAR, LESION, TISSUE, DEVICEon 12-27-2020 Ampicillin [Susceptibility] <=2 Invalid Interpretation Code [facility] Comment on above: Performed By: #### T YPEC #### [facility] (DEFAULT) [address] [address] Penicillin [Susceptibility] 4 ug/mL Invalid Interpretation Code [facility] Comment on above: Performed By: #### T YPEC #### [facility] (DEFAULT) [address] [address] Vancomycin [Susceptibility] 2 ug/mL Invalid Interpretation Code [facility] Comment on above: Performed By: #### T YPEC #### [facility] (DEFAULT) [address] [address] CALCIUMon 12-27-2020 Calcium [Mass/Vol] 8.7 mg/dL Normal 8.6-10.5 [facility] Comment on above: Performed By: #### P TT #### [facility] (DEFAULT) [address] [address] CBC AND ELECTRONIC DIFFon Abs Baso Auto Normal [facility] Comment on above: Performed By: #### X M #### [facility] (DEFAULT) [address] [place] [address] 95940 Abs Eos Auto Normal [facility] Comment on above: Performed By: #### X M #### [facility] (DEFAULT) [address] [place] [address] 43793 Abs Lymph Auto Normal [facility] Comment on above: Performed By: #### X M #### [facility] (DEFAULT) [address] [place] [address] 04117 Abs [place] Auto Normal [facility] Comment on above: Performed By: #### X M #### [facility] (DEFAULT) [address] [place] [address] 93756 Basophil % Auto Normal [facility] Comment on above: Performed By: #### X M #### [facility] (DEFAULT) [address] [place] [address] 71189 Eosinophil % Auto Normal [facility] Comment on above: Performed By: #### X M #### [facility] (DEFAULT) [address] [place] [address] 12162 Hematocrit (Bld) [Volume fraction] 29.2 % Low 39.6-48.8 [facility] Comment on above: Performed By: #### X M #### [facility] (DEFAULT) [address] [place] [address] 38319 Hemoglobin (Bld) [Mass/Vol] 8.4 g/dL Low 13.4-16.8 [facility] Comment on above: Performed By: #### X M #### [facility] (DEFAULT) [address] [place] [address] 65150 Immature Grans % Normal [facility] Comment on above: Performed By: #### X M #### [facility] (DEFAULT) [address] [place] [address] 19428 Immature Grans Absolute Normal [facility] Comment on above: Performed By: #### X M #### [facility] (DEFAULT) [address] [place] [address] 88768 Lymphocyte % Auto Normal [facility] Comment on above: Performed By: #### X M #### [facility] (DEFAULT) [address] [place] [address] 76209 MCV (RBC) [Entitic vol] 68.4 fL Low 79.0-94.5 [facility] Comment on above: Performed By: #### X M #### [facility] (DEFAULT) [address] [place] [address] 65745 Mean Cell Hgb 19.7 pg Low 26.1-33.3 [facility] Comment on above: Performed By: #### X M #### [facility] (DEFAULT) [address] [address] Mean Cell Hgb Conc 28.8 g/dL Low 31.9-36.5 [facility] Comment on above: Performed By: #### X M #### [facility] (DEFAULT) [address] [place] [address] 17075 Monocyte % Auto Normal [facility] Comment on above: Performed By: #### X M #### [facility] (DEFAULT) [address] [address] Platelet mean volume (Bld) [Entitic vol] 10.6 fL Normal 8.7-12.3 [facility] Comment on above: Result Comment: This is an appended report. These results have been appended to a previously preliminary verified report. Performed By: #### X M #### [facility] (DEFAULT) [address] [address] Platelets (Bld) [#/Vol] 235 10*3/uL Normal 146-337 [facility] Comment on above: Result Comment: This is an appended report. These results have been appended to a previously preliminary verified report. Performed By: #### X M #### [facility] (DEFAULT) [address] [address] RBC (Bld) [#/Vol] 4.27 10*6/uL Low 4.38-5.83 [facility] Comment on above: Performed By: #### X M #### [facility] (DEFAULT) [address] [place] [address] 46646 RBC Distribution 18.9 % High 10.9-14.3 [facility] Comment on above: Performed By: #### X M #### [facility] (DEFAULT) [address] [place] [address] 42399 Segs + Bands Auto Normal [facility] Comment on above: Performed By: #### X M #### [facility] (DEFAULT) [address] [place] [address] 72841 Segs + Bands,Absolute Auto Normal [facility] Comment on above: Performed By: #### X M #### [facility] (DEFAULT) [address] [place] [address] 09117 WBC (Bld) [#/Vol] 12.02 10*3/uL High 3.73-10.10 [facility] Comment on above: Result Comment: This is an appended report. These results have been appended to a previously preliminary verified report. Performed By: #### X M #### [facility] (DEFAULT) [address] [place] [address] 35194 CH 7 - EDon 12-27-2020 Anion gap [Moles/Vol] 13 mmol/L Normal 7-17 [facility] Comment on above: Performed By: #### P TT #### [facility] (DEFAULT) [address] [place] [address] 16840 Chloride [Moles/Vol] 103 mmol/L Normal 98-108 [facility] Comment on above: Performed By: #### P TT #### [facility] (DEFAULT) [address] [place] [address] 00664 CO2 [Moles/Vol] 25 mmol/L Normal 22-30 [facility] Comment on above: Performed By: #### P TT #### [facility] (DEFAULT) [address] [place] [address] 34584 Creatinine [Mass/Vol] 2.40 mg/dL High 0.70-1.30 [facility] Comment on above: Performed By: #### P TT #### [facility] (DEFAULT) [address] [place] [address] 89293 EST GFR, 32 mL/min/1.73sqM Low >=60 [facility] Comment on above: Performed By: #### P TT #### [facility] (DEFAULT) [address] [place] [address] 72605 EST GFR,Non 27 mL/min/1.73sqM Low >=60 [facility] Comment on above: Performed By: #### P TT #### [facility] (DEFAULT) [address] [place] [address] 47267 Glucose [Mass/Vol] 144 mg/dL High 70-99 [facility] Comment on above: Performed By: #### P TT #### [facility] (DEFAULT) [address] [place] [address] 80160 Osmolality [Osmolality] 299 mosm/kg Normal 278-305 [facility] Comment on above: Performed By: #### P TT #### [facility] (DEFAULT) [address] [place] [address] 86624 Potassium [Moles/Vol] 4.7 mmol/L Normal 3.5-5.0 [facility] Comment on above: Performed By: #### P TT #### [facility] (DEFAULT) [address] [place] [address] 03980 Sodium [Moles/Vol] 136 mmol/L Normal 133-143 [facility] Comment on above: Performed By: #### P TT #### [facility] (DEFAULT) [address] [place] [address] 37596 Urea nitrogen [Mass/Vol] 39 mg/dL High 7-22 [facility] Comment on above: Performed By: #### P TT #### [facility] (DEFAULT) [address] [place] [address] 41256 Urea nitrogen/Creatinin e [Mass ratio] 16 mg/mg Normal [facility] Comment on above: Performed By: #### P TT #### [facility] (DEFAULT) [address] [place] [address] 29296 HEPATIC FUNCTION PANELon Albumin [Mass/Vol] 3.3 g/dL Low 3.5-5.0 [facility] Comment on above: Performed By: #### X M #### [facility] (DEFAULT) [address] [place] [address] 74509 ALP [Catalytic activity/Vol] 54 U/L Normal 32-126 [facility] Comment on above: Performed By: #### X M #### [facility] (DEFAULT) [address] [place] [address] 20071 ALT [Catalytic activity/Vol] 10 U/L Normal 10-52 [facility] Comment on above: Performed By: #### X M #### [facility] (DEFAULT) [address] [place] [address] 99786 AST [Catalytic activity/Vol] 16 U/L Normal 14-40 [facility] Comment on above: Performed By: #### X M #### [facility] (DEFAULT) [address] [place] [address] 05228 Bilirubin [Mass/Vol] 0.5 mg/dL Normal <1.5 [facility] Comment on above: Performed By: #### X M #### [facility] (DEFAULT) [address] [place] [address] 34374 Bilirubin.indirect [Mass/Vol] 0.1 mg/dL Normal <0.3 [facility] Comment on above: Performed By: #### X M #### [facility] (DEFAULT) [address] [place] [address] 76059 Protein [Mass/Vol] 6.6 g/dL Normal 6.4-8.3 [facility] Comment on above: Performed By: #### X M #### [facility] (DEFAULT) [address] [place] [address] 48559 LACTATE, BLOODon 12-27-2020 Lactate, Blood 1.9 mmol/L High 0.5-1.6 [facility] Comment on above: Performed By: #### X M #### [facility] (DEFAULT) [address] [place] [address] 90685 LIPASEon 12-27-2020 Lipase [Catalytic activity/Vol] U/L Low 11-82 [facility] Comment on above: Performed By: #### X M #### [facility] (DEFAULT) [address] [place] [address] 23637 MAGNESIUMon 12-27-2020 Magnesium [Mass/Vol] 2.5 mg/dL Normal 1.6-2.6 [facility] Comment on above: Performed By: #### X M #### [facility] (DEFAULT) [address] [place] [address] 16388 NOVEL CORONAVIRUS PCRon 12-09 SARS-CoV-2 (COVID-19) RNA MONAE+probe Ql (Unsp spec) Not detected Normal NOT DETECTED [facility] [facility] Comment on above: Order Comment: Viral transport [...] for use by authorized laboratories. Result Comment: [facility] Negative results do not [...] deteriorating. Performed By: #### T YPEC #### [facility] (DEFAULT) [address] [address] PHOSPHATE, INORGANICon 12-27 Phosphorous 3.7 mg/dL Normal 2.2-4.6 [facility] Comment on above: Performed By: #### X M #### [facility] (DEFAULT) [address] [address] PROTIME-INRon 12-27-2020 INR Coag (PPP) [Relative time] 1.2 {INR} High 0.9-1.1 [facility] Comment on above: Performed By: #### T YPEC #### [facility] (DEFAULT) [address] [address] PT Coag (PPP) [Time] 15.0 s High 11.9-14.2 [facility] Comment on above: Performed By: #### T YPEC #### [facility] (DEFAULT) [address] [address] TYPE AND SCREENon 12-27-2020 ABO/RH(D) TYPE Negative Normal [facility] Comment on above: Performed By: #### X M #### [facility] (DEFAULT) [address] [address] URINALYSISon 12-27-2020 Appearance (U) Clear Normal Clear [facility] Comment on above: Performed By: #### U RIN #### [facility] (DEFAULT) [address] [address] Bacteria PRESENT Abnormal ABSENT [facility] Comment on above: Performed By: #### U RIN #### [facility] (DEFAULT) [address] [address] Blood Urine Trace Abnormal Negative [facility] Comment on above: Performed By: #### U RIN #### [facility] (DEFAULT) [address] [place] [address] Color (U) Yellow Normal Yellow [facility] Comment on above: Performed By: #### U RIN #### [facility] (DEFAULT) [address] [place] [address] Glucose Ql (U) Negative Normal Negative [facility] Comment on above: Performed By: #### U RIN #### [facility] (DEFAULT) [address] [place] [address] Ketones Ql (U) Negative Normal Negative [facility] Comment on above: Performed By: #### U RIN #### [facility] (DEFAULT) [address] [place] [address] Leukocyte esterase Test strip Ql (U) Negative Normal Negative [facility] Comment on above: Performed By: #### U RIN #### [facility] (DEFAULT) [address] [place] [address] Nitrites Urine Negative Normal Negative [facility] Comment on above: Performed By: #### U RIN #### [facility] (DEFAULT) [address] [place] [address] pH (U) 5.5 [pH] Normal 5.0-7.0 [facility] Comment on above: Performed By: #### U RIN #### [facility] (DEFAULT) [address] [place] [address] Protein Urine 30 mg/dL Abnormal Negative [facility] Comment on above: Performed By: #### U RIN #### [facility] (DEFAULT) [address] [place] [address] RBC Urine 0-2 Normal 0-2 [facility] Comment on above: Performed By: #### U RIN #### [facility] (DEFAULT) [address] [place] [address] [address] Urine 1.010 Normal >1.001-<1.03 5 [facility] Comment on above: Performed By: #### U RIN #### [facility] (DEFAULT) [address] [address] Squamous/Epithelia l Cells 1/hpf = 1+ Normal 1/hpf = 1+, 2-5/hpf = 2+, 0/hpf = 0+, ABSENT [facility] Comment on above: Performed By: #### U RIN #### [facility] (DEFAULT) [address] [address] Urobilinogen Urine 0.2 E.U./dL Normal 0.2-1.0 [facility] Comment on above: Performed By: #### U RIN #### [facility] (DEFAULT) [address] [address] WBC Urine 0-5 Normal 0-5 [facility] Comment on above: Performed By: #### U RIN #### [facility] (DEFAULT) [address] [address] Encounters Encounter Date Encounter Type Care Provider Facility Start: 07-12-2021 End: 07-12-2021 ambulatory [facility] Facility:[facility] Start: 07-07-2021 End: 07-08-2021 [facility] Facility:[facility] Start: 07-07-2021 End: 07-07-2021 Patient encounter procedure [facility] Start: 02-11-2021 End: 02-11-2021 ambulatory [facility] Facility:[facility] Start: 01-28-2021 ambulatory Indra Jacobsen [place] Facility: [facility] Start: 01-27-2021 ambulatory Indra Jacobsen [place] Facility: [facility] Start: 01-21-2021 End: 01-21-2021 ambulatory [facility] Facility:[facility] Start: 01-20-2021 [facility]ulatory [facility] Start: 01-07-2021 End: 01-15-2021 Evaluation and management of inpatient SUSHMA Yesenia NIX Facility:[facility] Start: 01-06-2021 End: 01-06-2021 Emergency department patient visit Dar Chew Facility:[facility] Start: 01-06-2021 End: 01-06-2021 ambulatory Merna Montanze Facility:[facility] Start: 12-28-2020 End: 12-28-2020 ambulatory UNKNOWN PROVIDER Facility:[facility] Start: 12-27-2020 End: 01-01-2021 Evaluation and management of inpatient HARSHAD PERAZA Facility:[facility] Procedures Date Procedure Procedure Detail Performing Clinician Start: 07-07-2021 Computed tomography of abdomen and pelvis with contrast Start: 01-10-2021 Antibody screen SUSHMA NIX Comment on above: Performed By: #### X M #### [facility] (DEFAULT) [address] [place] [address] Start: 12-31-2020 Antibody screen SUSHMA NIX Comment on above: Performed By: #### X M #### [facility] (DEFAULT) [address] [place] [address] Start: 12-27-2020 Antibody screen SUSHMA NIX Comment on above: Performed By: #### X M #### [facility] (DEFAULT) [address] [place] [address] Payers Date Payer Category Payer Self-pay [id number] 2010 Medicare [id number] 2009 Unknown [id number] 1945 Unknown [id number] [id number] .732 1945 Unknown [id number] 2.840.1.905784.3.579.2 .594 1945 Unknown [id number] 2.840.1.366428.3.579.2 .594 Medicare [place] AUTH REQUIR ED SEE NOTE [id number] Private Health Insurance [place] AU TH REQUIRED SEE NOTE [id number] Unknown [id number] 2.16.840.1.724072.3.579.2 .462 Unknown [id number] 2.16.840.1.543726.3.579.2 .462 Unknown [id number] 2.16.840.1.939233.3.579.2 .462 Unknown [id number] 2.16.840.1.953227.3.579.2 .462 Unknown [id number] 2.16.840.1.058106.3.579.2 .462 Unknown [id number] 2.16.840.1.636774.3.579.2 .462 Unknown [id number] 2.16.840.1.988948.3.579.2 .462 Unknown [id number] 2.16.840.1.860366.3.579.2 .462 Unknown [id number] 2.16.840.1.185265.3.579.2 .462 Unknown [id number] 2.16.840.1.513854.3.579.2 .462 Unknown [id number] 2.16.840.1.872673.3.579.2 .462 Social History Date Type Detail Facility Start: 01-21-2021 Tobacco smoking stat [facility] Unknown if ever smoked [facility] Work Phone: Start: 1945 Sex Assigned At Male [facility] Work Phone: Evaluation note Note Date & Type Note Facility Evaluation note No assessment information availa ble [facility] Work Phone: Summary Purpose Family History No Family History Records FoundNo Family History Records FoundNo Family History Records Found Advance Directives No Advanced Directives Records Found Advance Directive Response Recorded Date/ Time Living Will Yes January 06, 2021 12:11pm Power of [employer] Yes December 12:11pm Chief Complaint and Reason for Visit Chief Complaint COLON CANCER Additional Source Comments (unrecognized sect ion and content) No Status Records FoundNo Status Records FoundNo Status Records Found INFORMATION SOURCE (unrecogn ized section and content) DATE CREATED AUTHOR 01/02/2021 [facility] DATE CREATED AUTHOR AUTHOR'S JAYCEE ATION 01/28/2021 [facility] DATE CREATED AUTHOR AUTHOR'S ORGANGREGOR ATION 01/05/2022 [facility] Goals (unrecognized section and content) Goals may [...] BE BASED ON THE PRIMARY CLINICAL RECORDS. [employer] [facility]. provides no warranty or guarantee of the accuracy or completeness of information in this document.
--- OUTSIDE RECORDS SUMMARY | 2024-12-31 22:51 | XMS RPT_ITS | CCD ---
Author Organization [facility] Inform ion Partnership [facility] Care Team Providers Care Paver Name Role Phone PROVIDER, UNKNOWN Attending Unavailable [...] [facility] Referring Unavailable [place], Osmin Attending Unavailable Dar Chew [facility]ending [facility] Un[facility] Referring Unavailable Merna Montanez Attending [facility] Un[facility] Referring Unavailable [facility], Osmin Attending Unavailable Medications Current [...] A DAY February 11, 2021 2:17pm sennosides, nursing home 8.6 mg oral capsule (1 source) [...] Facility Oncology Visit Reporton Oncology Visit Report [facility] [address] [facility] [address] OFFICE VISIT Date of Service: 07/12/21 0952 MR#: [id number] Acct: [id number] Name: GIOVANNA PADRON Jr. Rep #: [id number] : 1945 From: Osmin Lindo MD Age/Sex: 76/M Location: [facility] Status: Signed HPI Subjective Date of Service 07/12/21 Chief Complaint F/u for colon cancer management. History of Present Illness Records reviewed. 76-year-old man presented with abdominal pain to the [facility] ER on 12/26/2020. CT abdomen and [...] discharged home, presented with abdominal pain to [place] [facility], CT on 01/06/2021 showed multiple fluid collections and transferred to [facility] and had drainage by IR, received broad spectrum antibiotics. He was discharge home and referred to [facility] for Adjuvant chemotherapy. He declined adjuvant chemotherapy. He is on observation and comes for follow up after CT a/p. Feels better. [facility] Medical History Colon cancer Colostomy in place GERD (gastroesophageal reflux disease) Hypertension Non-smoker Surgical History Hx of resection of large bowel Social History adopted: No housing: shelter current occupational status: retired Smoking Status: Never [...] 95 Oxygen Delivery Method room air Intake Skate Maker Required: No Is patient in pain?: No [...] Albumin Globulin (more content not included)... Normal [facility] Carcinoembryonic Antigenon 0 07-09-2021 CEA 1.6 ng/mL Normal 0.0-4.7 [facility] Comment on above: Result Comment: Nons mokers <3.9 Smokers <5.6 [facility] Electrochemiluminescence Immunoassay (ECLIA) Values obtained with different assay methods or kits cannot be used interchangeably. Results cannot be interpreted as absolute evidence of the presence or absence of malignant disease. Performed at: [address] [id number] Primary Operator: Chidi Pelayo PhD, Phone: [phone] Performed By: #### M 200.1000 #### [facility] [address] [facility] [place], [address] Abdomen/Pelvis WITH Contrast on 07-07-2021 Abdomen/Pelvis WITH Contrast [facility] Services [address] [place] [address] Abdomen/Pelvis WITH Contrast MR#: [id number] Acct: [id number] Name: GIOVANNA PADRON Jr. Rep #: [id number] : 1945 M 76 From: Mahamed Harrison PCP: [place] [place] Status: REG CLI Study: Abdomen/Pelvis WITH Contrast Date of Exam: Exam# [id number] Ordering Dr: Osmin Lindo MD EXAM: CT [...] reconstruction technique. This report was created using Reframe It report IDEA SPHERE technology. CONTRAST: Oral and amp; IV Readi-CAT [...] EDT , CC: Dr. Osmin Lindo MD; [facility] Field Merchandiser: Signed Normal [facility] Absolute lymphocyte counton 07-07-2021 Lymphocytes Auto (Unsp spec) [#/Vol] 1.39 10*3/uL 0.83-4.51 [facility] Work Phone: Basophil percentageon 2021 Creatinine [Mass/Vol] 1.2 mg/dL 0.70-1.30 [facility] Work Phone: Basophils/100 WBC (Bld) 0.2 % 0-1 [facility] Work Phone: Bilirubin [Mass/Vol] 0.30 mg/dL 0.20-1.00 [facility] Work Phone: Comment on above: For patients on eltr ombopag therapy, use of Dimension [place] TBIL is not recommended. Chloride [Moles/Vol] 103 mmol/L 98-107 [facility] Work Phone: Eosinophils/100 WBC (Bld) 0.9 % 0-5 [facility] Work Phone: Glucose [Mass/Vol] 93 mg/dL 74-106 [facility] Work Phone: Neutrophils (Bld) [#/Vol] 3.5 10*3/uL 2.0-7.7 [facility] Work Phone: Neutrophils/100 WBC (Bld) 61.3 % 47-70 [facility] Work Phone: Potassium [Moles/Vol] 4.1 mmol/L 3.5-5.1 [facility] Work Phone: Protein [Mass/Vol] 8.4 g/dL 6.4-8.2 [facility] Work Phone: Sodium [Moles/Vol] 136 mmol/L 136-145 [facility] Work Phone: WBC (Bld) [#/Vol] 5.7 10*3/uL 4.4-11.0 [facility] Work Phone: Blood erythrocytes count (nu mber/volume)on 07-07-2021 RBC (Bld) [#/Vol] 5.26 10*6/uL 4.6-6.2 [facility] Work Phone: Blood hemoglobin measurement (mass/volume)on 07-07-2021 Hemoglobin (Bld) [Mass/Vol] 14.2 g/dL 13.0-16.5 [facility] Work Phone: Blood lymphocytes/100 leukoc yteson 07-07-2021 Lymphocytes/100 WBC (Bld) 24.3 % 19-41 [facility] Work Phone: Blood monocytes/100 leukocyt eson 07-07-2021 Monocytes/100 WBC (Bld) 13.1 % 0-10 [facility] Work Phone: Blood platelet mean volumeon 07-07-2021 Platelet mean volume (Bld) [Entitic vol] 10.2 fL 6.2-12.0 [facility] Work Phone: [phone] CBC W/Diff, Automatedon 06-10 Absolute Lymph 1.39 X10 3/uL Normal 0.83-4.51 [facility] Comment on above: Performed By: #### L 500.4050, L503.6030, L504.2610, L503.6550, L3100.2300, L100.0100 #### [facility] [address] [place], [place], [id number] Absolute Neut 3.5 X10 3/uL Normal 2.0-7.7 [facility] Comment on above: Performed By: #### L 500.4050, L503.6030, L504.2610, L503.6550, L3100.2300, L100.0100 #### [facility] [address] [place], [address] Basophils/100 WBC (Bld) 0.2 % Normal 0-1 [facility] Comment on above: Performed By: #### L 500.4050, L503.6030, L504.2610, L503.6550, L3100.2300, L100.0100 #### [facility] [address] [place], [address] Eosinophils/100 WBC (Bld) 0.9 % Normal 0-5 [facility] Comment on above: Performed By: #### L 500.4050, L503.6030, L504.2610, L503.6550, L3100.2300, L100.0100 #### [facility] [address] [place], [address] Erythrocyte distribution width (RBC) [Ratio] 16.6 % High 11.6-14.6 [facility] Comment on above: Performed By: #### L 500.4050, L503.6030, L504.2610, L503.6550, L3100.2300, L100.0100 #### [facility] [address] [place], [address] Hematocrit (Bld) [Volume fraction] 43.7 % Normal 40-54 [facility] Comment on above: Performed By: #### L 500.4050, L503.6030, L504.2610, L503.6550, L3100.2300, L100.0100 #### [facility] [address] [place], [address] Hemoglobin (Bld) [Mass/Vol] 14.2 g/dL Normal 13.0-16.5 [facility] Comment on above: Performed By: #### L 500.4050, L503.6030, L504.2610, L503.6550, L3100.2300, L100.0100 #### [facility] [address] [place], [address] IG% 0.200 Normal 0.0-0.9 [facility] Comment on above: Result Comment: IG% - Immature Granulocytes (promyelocytes, myelocytes and metamyelocytes) > 1% indicates that a LEFT SHIFT is Present. Performed By: #### L 500.4050, L503.6030, L504.2610, L503.6550, L3100.2300, L100.0100 #### [facility] [address] [place], [address] Lymphocytes/100 WBC (Bld) 24.3 % Normal 19-41 [facility] Comment on above: Performed By: #### L 500.4050, L503.6030, L504.2610, L503.6550, L3100.2300, L100.0100 #### [facility] [address] [place], [address] MCH (RBC) [Entitic mass] 27.0 pg Normal 27.0-32.0 [facility] Comment on above: Performed By: #### L 500.4050, L503.6030, L504.2610, L503.6550, L3100.2300, L100.0100 #### [facility] [address] [place], [address] MCHC (RBC) [Mass/Vol] 32.5 g/dL Normal 32-36 [facility] Comment on above: Performed By: #### L 500.4050, L503.6030, L504.2610, L503.6550, L3100.2300, L100.0100 #### [facility] [address] [place], [address] MCV (RBC) [Entitic vol] 83.1 fL Normal 80-94 [facility] Comment on above: Performed By: #### L 500.4050, L503.6030, L504.2610, L503.6550, L3100.2300, L100.0100 #### [facility] [address] [place], [address] Monocytes/100 WBC (Bld) 13.1 % High 0-10 [facility] Comment on above: Performed By: #### L 500.4050, L503.6030, L504.2610, L503.6550, L3100.2300, L100.0100 #### [facility] [address] [place], [address] Neutrophils/100 WBC (Bld) 61.3 % Normal 47-70 [facility] Comment on above: Performed By: #### L 500.4050, L503.6030, L504.2610, L503.6550, L3100.2300, L100.0100 #### [facility] [address] [place], [address] Nucleated RBC (Bld) [#/Vol] 0 10*3/uL Normal 0-5 [facility] Comment on above: Performed By: #### L 500.4050, L503.6030, L504.2610, L503.6550, L3100.2300, L100.0100 #### [facility] [address] [place], [address] Platelet mean volume (Bld) [Entitic vol] 10.2 fL Normal 6.2-12.0 [facility] Comment on above: Performed By: #### L 500.4050, L503.6030, L504.2610, L503.6550, L3100.2300, L100.0100 #### [facility] [address] [place], [address] Platelets (Bld) [#/Vol] 172 10*3/uL Normal 150-450 [facility] Comment on above: Performed By: #### L 500.4050, L503.6030, L504.2610, L503.6550, L3100.2300, L100.0100 #### [facility] [address] [place], [address] RBC (Bld) [#/Vol] 5.26 10*6/uL Normal 4.6-6.2 [facility] Comment on above: Performed By: #### L 500.4050, L503.6030, L504.2610, L503.6550, L3100.2300, L100.0100 #### [facility] [address] [place], [address] RDW SD 50.8 fl High 35.1-43.9 [facility] Comment on above: Performed By: #### L 500.4050, L503.6030, L504.2610, L503.6550, L3100.2300, L100.0100 #### [facility] [address] [place], [address] WBC (Bld) [#/Vol] 5.7 10*3/uL Normal 4.4-11.0 [facility] Comment on above: Performed By: #### L 500.4050, L503.6030, L504.2610, L503.6550, L3100.2300, L100.0100 #### [facility] [address] [place], [address] CREATININE FINGERSTICKon Creatinine [Mass/Vol] 1.2 mg/dL Normal 0.70-1.30 [facility] Comment on above: Performed By: #### L 9100.0200 #### [facility] [address] [place], [address] EGFR WB > 60.0000 Normal >60 [facility] Comment on above: Performed By: #### L 9100.0200 #### [facility] [address] [place], [address] Comprehensive Metabolic Prof ilon 07-07-2021 Albumin [Mass/Vol] 4.2 g/dL Normal 3.2-5.0 [facility] Comment on above: Order Comment: 1 Performed By: #### L 500.4050, L503.6030, L504.2610, L503.6550, L3100.2300, L100.0100 #### [facility] [address] [place], [address] Albumin/Globulin [Mass ratio] 1.0 {ratio} Normal 0.9-2.4 [facility] Comment on above: Order Comment: 1 Performed By: #### L 500.4050, L503.6030, L504.2610, L503.6550, L3100.2300, L100.0100 #### [facility] [address] [place], [address] ALK P 70 U/L Normal 45-117 [facility] Comment on above: Order Comment: 1 Performed By: #### L 500.4050, L503.6030, L504.2610, L503.6550, L3100.2300, L100.0100 #### [facility] [address] [place], [address] ALT [Catalytic activity/Vol] 16 U/L Normal 16-61 [facility] Comment on above: Order Comment: 1 Performed By: #### L 500.4050, L503.6030, L504.2610, L503.6550, L3100.2300, L100.0100 #### [facility] [address] [place], [address] AST [Catalytic activity/Vol] 15 U/L Normal 15-37 [facility] Comment on above: Order Comment: 1 Performed By: #### L 500.4050, L503.6030, L504.2610, L503.6550, L3100.2300, L100.0100 #### [facility] [address] [place], [address] Bilirubin [Mass/Vol] 0.30 mg/dL Normal 0.20-1.00 [facility] Comment on above: Order Comment: 1 Result Comment: For patients on eltrombopag therapy, use of Dimension [place] TBIL is not recommended. Performed By: #### L 500.4050, L503.6030, L504.2610, L503.6550, L3100.2300, L100.0100 #### [facility] [address] [place], [address] BUN/CRE 24.2 RATIO High 10-20 [facility] Comment on above: Order Comment: 1 Performed By: #### L 500.4050, L503.6030, L504.2610, L503.6550, L3100.2300, L100.0100 #### [facility] [address] [place], [address] CA,Total 9.4 mg/dL Normal 8.5-10.1 [facility] Comment on above: Order Comment: 1 Performed By: #### L 500.4050, L503.6030, L504.2610, L503.6550, L3100.2300, L100.0100 #### [facility] [address] [place], [address] Chloride [Moles/Vol] 103 mmol/L Normal 98-107 [facility] Comment on above: Order Comment: 1 Performed By: #### L 500.4050, L503.6030, L504.2610, L503.6550, L3100.2300, L100.0100 #### [facility] [address] [place], [address] CO2 [Moles/Vol] 28.0 mmol/L Normal 21.0-32.0 [facility] Comment on above: Order Comment: 1 Performed By: #### L 500.4050, L503.6030, L504.2610, L503.6550, L3100.2300, L100.0100 #### [facility] [address] [place], [address] EST GFR - AA 68 mL/min Normal >60 [facility] Comment on above: Order Comment: 1 Result Comment: Afri can [place] GFR Calc Performed By: #### L 500.4050, L503.6030, L504.2610, L503.6550, L3100.2300, L100.0100 #### [facility] [address] [place], [address] GAP 5 Normal 5-15 [facility] Comment on above: Order Comment: 1 Performed By: #### L 500.4050, L503.6030, L504.2610, L503.6550, L3100.2300, L100.0100 #### [facility] [address] [place], [address] Globulin (S) [Mass/Vol] 4.2 g/dL Normal 2.2-4.2 [facility] Comment on above: Order Comment: 1 Performed By: #### L 500.4050, L503.6030, L504.2610, L503.6550, L3100.2300, L100.0100 #### [facility] [address] [place], [address] Potassium [Moles/Vol] 4.1 mmol/L Normal 3.5-5.1 [facility] Comment on above: Order Comment: 1 Performed By: #### L 500.4050, L503.6030, L504.2610, L503.6550, L3100.2300, L100.0100 #### [facility] [address] [place], [address] Sodium [Moles/Vol] 136 mmol/L Normal 136-145 [facility] Comment on above: Order Comment: 1 Performed By: #### L 500.4050, L503.6030, L504.2610, L503.6550, L3100.2300, L100.0100 #### [facility] [address] [place], [address] T PROT 8.4 g/dL High 6.4-8.2 [facility] Comment on above: Order Comment: 1 Performed By: #### L 500.4050, L503.6030, L504.2610, L503.6550, L3100.2300, L100.0100 #### [facility] [address] [place], [address] Creatinine [Mass/Vol] 1.32 mg/dL High 0.70-1.30 [facility] Comment on above: Order Comment: 1 Result Comment: The validity of the calculated GFR GFRAA in patients over 70 years has not been determined. Clinical correlation is essential. Performed By: #### L 500.4050, L503.6030, L504.2610, L503.6550, L3100.2300, L100.0100 #### [facility] [address] [place], [address] GFR/1.73 sq M.predicted among non-blacks MDRD (S/P/Bld) [Vol rate/Area] 56 mL/min/{1.73_m2} Low >60 [facility] Comment on above: Order Comment: 1 Result Comment: Non- GFR Calc Performed By: #### L 500.4050, L503.6030, L504.2610, L503.6550, L3100.2300, L100.0100 #### [facility] [address] [place], [address] Glucose [Mass/Vol] 93 mg/dL Normal 74-106 [facility] Comment on above: Order Comment: 1 Performed By: #### L 500.4050, L503.6030, L504.2610, L503.6550, L3100.2300, L100.0100 #### [facility] [address] [place], [address] Urea nitrogen [Mass/Vol] 32 mg/dL High 7-18 [facility] Comment on above: Order Comment: 1 Performed By: #### L 500.4050, L503.6030, L504.2610, L503.6550, L3100.2300, L100.0100 #### [facility] [address] [place], [address] Determination of erythrocyte mean corpuscular volume (MCV)on 07-07-2021 MCV (RBC) [Entitic vol] 83.1 fL 80-94 [facility] Work Phone: Ferritinon 07-07-2021 Ferritin [Mass/Vol] 22 ng/mL Low 26-388 [facility] Comment on above: Order Comment: 1 Performed By: #### M 200.1000 #### [facility] [address] [place], [address] Hematocrit Auto (Bld) [Volum e fraction]on 07-07-2021 Hematocrit (Bld) [Volume fraction] 43.7 % 40-54 [facility] Work Phone: Iron measurement (mass/mass) on 07-07-2021 Iron (Unsp spec) [Mass/Mass] 123 ug/dL 65-175 [facility] Work Phone: Iron+Iron Binding Capacityon 07-07-2021 Iron [Mass/Vol] 123 ug/dL Normal 65-175 [facility] Comment on above: Order Comment: 1 Performed By: #### L 500.4050, L503.6030, L504.2610, L503.6550, L3100.2300, L100.0100 #### [facility] [address] [place], [address] IRON SATURATION 39.7 Normal 15.0-55.0 [facility] Comment on above: Order Comment: 1 Performed By: #### L 500.4050, L503.6030, L504.2610, L503.6550, L3100.2300, L100.0100 #### [facility] [address] [place], [address] TIBC 310 ug/dL Normal 250-450 [facility] Comment on above: Order Comment: 1 Performed By: #### L 500.4050, L503.6030, L504.2610, L503.6550, L3100.2300, L100.0100 #### [facility] [address] [place], [address] LDHon 07-07-2021 LDH 153 U/L Normal 87-241 [facility] Comment on above: Order Comment: 1 Performed By: #### M 200.1000 #### [facility] [address] [place], [address] Laboratory - Chemistry and C hemistry - challengeon 07-07-2021 ALP [Catalytic activity/Vol] 70 U/L 45-117 [facility] Work Phone: ALT [Catalytic activity/Vol] 16 U/L 16-61 [facility] Work Phone: CO2 [Moles/Vol] 28.0 mmol/L 21.0-32.0 [facility] Work Phone: [phone] Globulin (S) [Mass/Vol] 4.2 g/dL 2.2-4.2 [facility] Work Phone: Urea nitrogen/Creatinin e [Mass ratio] 24.2 mg/mg 10-20 [facility] Work Phone: Laboratory - Hematology and Cell countson 07-07-2021 Erythrocyte distribution width (RBC) [Entitic vol] 50.8 fL 35.1-43.9 [facility] Work Phone: Erythrocyte distribution width (RBC) [Ratio] 16.6 % 11.6-14.6 [facility] Work Phone: Immature granulocytes/100 WBC (Bld) 0.200 % 0.0-0.9 [facility] Work Phone: Comment on above: IG% - Immature Granu locytes (promyelocytes, myelocytes and metamyelocytes) > 1% indicates that a LEFT SHIFT is Present. MCH (RBC) [Entitic mass] 27.0 pg 27.0-32.0 [facility] Work Phone: Nucleated RBC/100 WBC (Bld) [Ratio] 0 % 0-5 [facility] Work Phone: MCHC Auto (RBC) [Mass/Vol]on 07-07-2021 MCHC (RBC) [Mass/Vol] 32.5 g/dL 32-36 [facility] Work Phone: No Panel Informationon 07-07 Bedside Estimated GFR (eGFR) > 60.0000 mL/min >60 [facility] Work Phone: Estimated GFR (MDRD) Amer 68 mL/min >60 [facility] Work Phone: Comment on above: GFR Calc Estimated GFR (MDRD) Non-Af Amer 56 mL/min >60 [facility] Work Phone: Comment on above: Non- GFR Calc Total Iron Binding Capacity 310 ug/dL 250-450 [facility] Work Phone: Platelets bldon 07-07-2021 Platelets (Bld) [#/Vol] 172 10*3/uL 150-450 [facility] Work Phone: Serum or plasma albumin arcadio urement (mass/volume)on 07-07-2021 Albumin [Mass/Vol] 4.2 g/dL 3.2-5.0 [facility] Work Phone: Serum or plasma albumin/glob ulin mass ratioon 07-07-2021 Albumin/Globulin [Mass ratio] 1.0 {ratio} 0.9-2.4 [facility] Work Phone: Serum or plasma calcium arcadio urement (mass/volume)on 07-07-2021 Calcium [Mass/Vol] 9.4 mg/dL 8.5-10.1 [facility] Work Phone: Serum or plasma carcinoembry onic antigen measurement (mass/volume)on 07-07-2021 Carcinoembryonic Ag [Mass/Vol] 1.6 ng/mL [facility] Work Phone: Comment on above: Nonsmokers <3.9 Smok ers <5.6[facility] Electrochemiluminescence Immunoassay(ECLIA)Values obtained with different assay methods or kitscannot be used interchangeably. Results cannot beinterpreted as absolute evidence of the presence orabsence of malignant disease.Performed at: [facility] [employer] [address] [id number] Director: Chidi Pelayo PhD, Phone: [phone] Serum or plasma creatinine m easurement (mass/volume)on 07-07-2021 Creatinine [Mass/Vol] 1.32 mg/dL 0.70-1.30 [facility] Work Phone: Comment on above: The validity of the calculated GFR & GFRAA in patients over 70 years has not been determined. Clinical correlation is essential. Serum or plasma ferritin bessie surement (mass/volume)on 07-07-2021 Ferritin [Mass/Vol] 22 ng/mL 26-388 [facility] Work Phone: Serum or plasma iron saturat ion measurement (mass fraction)on 07-07-2021 Iron saturation [Mass fraction] 39.7 % 15.0-55.0 [facility] Work Phone: Serum or plasma urea nitroge n measurement (mass/volume)on 07-07-2021 Urea nitrogen [Mass/Vol] 32 mg/dL 7-18 [facility] Work Phone: Thin prep Papanicolaou smear with manual screeningon 07-07-2021 Thin prep Papanicolaou smear with manual screening 15 U/L 15-37 [facility] Work Phone: Thin prep Papanicolaou smear with manual screening 5 5-15 [facility] Work Phone: Thin prep Papanicolaou smear with manual screening 153 U/L 87-241 [facility] Work Phone: Carcinoembryonic Antigenon 1 04-15-2020 CEA 1.9 ng/mL Normal 0.0-4.7 [facility] Comment on above: Result Comment: Nons mokers <3.9 Smokers <5.6 [facility] Electrochemiluminescence Immunoassay (ECLIA) Values obtained with different assay methods or kits cannot be used interchangeably. Results cannot be interpreted as absolute evidence of the presence or absence of malignant disease. Performed at: [facility] [employer] [id number] Primary Operator: Chidi Pelayo PhD, Phone: [phone] Performed By: #### L 501.9104 #### [facility] [address] [place], [address] CBC W/Diff, Automatedon 11-0 OVALOCYTE 1+ Normal [facility] Comment on above: Performed By: #### M 200.1000 #### [facility] [address] [place], [address] Anisocytosis Ql (Bld) 2+ Normal [facility] Comment on above: Performed By: #### M 200.1000 #### [facility] [address] [place], [address] Comprehensive Metabolic Prof ilon 02-11-2021 Albumin [Mass/Vol] 2.2 g/dL Low 3.2-5.0 [facility] Comment on above: Performed By: #### M 200.1000 #### [facility] [address] [place], [address] Albumin/Globulin [Mass ratio] 0.3 {ratio} Low 0.9-2.4 [facility] Comment on above: Performed By: #### M 200.1000 #### [facility] [address] [place], [address] ALK P 74 U/L Normal 45-117 [facility] Comment on above: Performed By: #### M 200.1000 #### [facility] [address] [place], [address] ALT [Catalytic activity/Vol] 12 U/L Low 16-61 [facility] Comment on above: Performed By: #### M 200.1000 #### [facility] [address] [place], [address] AST [Catalytic activity/Vol] 10 U/L Low 15-37 [facility] Comment on above: Performed By: #### M 200.1000 #### [facility] [address] [place], [address] Bilirubin [Mass/Vol] 0.30 mg/dL Normal 0.20-1.00 [facility] Comment on above: Result Comment: For patients on eltrombopag therapy, use of Dimension [place] TBIL is not recommended. Performed By: #### M 200.1000 #### [facility] [address] [place], [address] BUN/CRE 14.3 RATIO Normal 10-20 [facility] Comment on above: Performed By: #### M 200.1000 #### [facility] [address] [place], [address] CA,Total 8.8 mg/dL Normal 8.5-10.1 [facility] Comment on above: Performed By: #### M 200.1000 #### [facility] [address] [place], [address] Chloride [Moles/Vol] 102 mmol/L Normal 98-107 [facility] Comment on above: Performed By: #### M 200.1000 #### [facility] [address] [place], [address] CO2 [Moles/Vol] 28.0 mmol/L Normal 21.0-32.0 [facility] Comment on above: Performed By: #### M 200.1000 #### [facility] [address] [place], [address] Creatinine [Mass/Vol] 1.54 mg/dL High 0.70-1.30 [facility] Comment on above: Result Comment: The validity of the calculated GFR GFRAA in patients over 70 years has not been determined. Clinical correlation is essential. Performed By: #### M 200.1000 #### [facility] [address] [place], [address] EST GFR - AA 57 mL/min Low >60 [facility] Comment on above: Result Comment: Afri can [place] GFR Calc Performed By: #### M 200.1000 #### [facility] [address] [place], [address] GAP 5 Normal 5-15 [facility] Comment on above: Performed By: #### M 200.1000 #### [facility] [address] [place], [address] GFR/1.73 sq M.predicted among non-blacks MDRD (S/P/Bld) [Vol rate/Area] 47 mL/min/{1.73_m2} Low >60 [facility] Comment on above: Result Comment: Non- GFR Calc Performed By: #### M 200.1000 #### [facility] [address] [place], [address] Globulin (S) [Mass/Vol] 6.8 g/dL High 2.2-4.2 [facility] Comment on above: Performed By: #### M 200.1000 #### [facility] [address] [place], [address] Glucose [Mass/Vol] 129 mg/dL High 74-106 [facility] Comment on above: Result Comment: Fast ing Glucose result greater than or equal to 126 mg/dL suggests DIABETES MELLITUS per A.D.A. criteria. Please note revised GLUCOSE reference range effective 2017. Performed By: #### M 200.1000 #### [facility] [address] [place], [address] Potassium [Moles/Vol] 4.5 mmol/L Normal 3.5-5.1 [facility] Comment on above: Performed By: #### M 200.1000 #### [facility] [address] [place], [address] Sodium [Moles/Vol] 135 mmol/L Low 136-145 [facility] Comment on above: Performed By: #### M 200.1000 #### [facility] [address] [place], [address] T PROT 9.0 g/dL High 6.4-8.2 [facility] Comment on above: Performed By: #### M 200.1000 #### [facility] [address] [place], [address] Urea nitrogen [Mass/Vol] 22 mg/dL High 7-18 [facility] Comment on above: Performed By: #### M 200.1000 #### [facility] [address] [place], [address] LDHon 02-11-2021 LDH 120 U/L Normal 87-241 [facility] Comment on above: Order Comment: 1 Performed By: #### L 501.4020 #### [facility] [address] [place], [address] Oncology Visit Reporton Oncology Visit Report [facility] [address] [place] [address] OFFICE VISIT Date of Service: 02/11/21 1358 MR#: [id number] Acct: [id number] Name: GIOVANNA PADRON Rep #: [id number] : 1945 From: Osmin Lindo MD Age/Sex: 75/M Location: [facility] Status: Signed HPI Subjective Date of Service 02/11/21 Chief Complaint Referred for colon cancer management. History of Present Illness Records reviewed. 75-year-old man presented with abdominal pain to the [facility] ER on 12/26/2020. CT abdomen and [...] discharged home, presented with abdominal pain to [place] ER, CT on 01/06/2021 showed multiple fluid collections and transferred to [facility] and had drainage by IR, received broad spectrum antibiotics. He was discharge home and referred to [facility] for Adjuvant chemotherapy. He declined adjuvant chemotherapy. He comes for follow up after blood work. Feels better. [facility] Medical History Colon cancer Colostomy in place GERD (gastroesophageal reflux disease) Hypertension Non-smoker Surgical History Hx of resection of large bowel Social History adopted: No housing: shelter current occupational status: retired Smoking Status: Never [...] 94 Oxygen Delivery Method simple mask Intake Skate Maker Required: No Accompanied by: Is patient in [...] Off vis,est, (more content not included)... Normal [facility] 02-04-2021 Normal [facility] Comment on above: Result Comment: [id number] ON RC TRANSFUSED 02/05/21 1010 Performed By: #### B , L100.0100, BTS #### [facility] [address] [place], [address] CBC W/Diff, Automatedon 01-09 Anisocytosis Ql (Bld) 2+ Normal [facility] Comment on above: Performed By: #### B , L100.0100, BTS #### [facility] [address] [place], [address] HYPOCHROMASIA 1+ Normal [facility] Comment on above: Performed By: #### B , L100.0100, BTS #### [facility] [address] [place], [address] MACROCYTOSIS 1+ Normal [facility] Comment on above: Performed By: #### B , L100.0100, BTS #### [facility] [address] [place], [address] MICROCYTIC 1+ Normal [facility] Comment on above: Performed By: #### B , L100.0100, BTS #### [facility] [address] [place], [address] Ferritinon 02-04-2021 Ferritin [Mass/Vol] 148 ng/mL Normal 26-388 [facility] Comment on above: Order Comment: PLEAS E ADD TO BLOOD IN LAB. THANK YOU!!!UNKNOWNN Performed By: #### L 501.4020 #### [facility] [address] [place], [address] Folates, (Folic Acid)on 01-09 FOLATES 8.60 ng/mL Normal 3.1-55.4 [facility] Comment on above: Order Comment: PLEAS E ADD TO BLOOD IN LAB. THANK YOU!!!UNKNOWNN Performed By: #### L 501.4020 #### [facility] [address] [place], [address] Iron+Iron Binding Capacityon 02-04-2021 Iron [Mass/Vol] 19 ug/dL Low 65-175 [facility] Comment on above: Order Comment: PLEAS E ADD TO BLOOD IN LAB. THANK YOU!!!UNKNOWNN Performed By: #### L 501.4020 #### [facility] [address] [place], [address] IRON SATURATION 9.7 Low 15.0-55.0 [facility] Comment on above: Order Comment: PLEAS E ADD TO BLOOD IN LAB. THANK YOU!!!UNKNOWNN Performed By: #### L 501.4020 #### [facility] [address] [place], [address] TIBC 195 ug/dL Low 250-450 [facility] Comment on above: Order Comment: PLEAS E ADD TO BLOOD IN LAB. THANK YOU!!!UNKNOWNN Performed By: #### L 501.4020 #### [facility] [address] [place], [address] Type AND Screenon 02-04-2021 Ab SCREEN GEL Negative Normal [facility] Comment on above: Order Comment: A Performed By: #### B LATOSHA, L100.0100, BTS #### [facility] [address] [place], [address] ABO and Rh group Nom (Bld) Blood group A Rh(D) negative Normal [facility] Comment on above: Order Comment: A Performed By: #### B LATOSHA, L100.0100, BTS #### [facility] [address] [place], [address] Vitamin B12on 02-04-2021 Cobalamin (Vitamin B12) [Mass/Vol] 728 pg/mL Normal 211-911 [facility] Comment on above: Order Comment: PLEAS E ADD TO BLOOD IN LAB. THANK YOU!!! Performed By: #### L 501.4020 #### [facility] [address] [place], [place], [address] Carcinoembryonic Antigenon 1 CEA 2.3 ng/mL Normal 0.0-4.7 [facility] Comment on above: Result Comment: Nons mokers <3.9 Smokers <5.6 [facility] Electrochemiluminescence Immunoassay (ECLIA) Values obtained with different assay methods or kits cannot be used interchangeably. Results cannot be interpreted as absolute evidence of the presence or absence of malignant disease. Performed at: [facility] [employer] [id number] Primary Operator: Chidi Pelayo PhD, Phone: [phone] Performed By: #### M 200.1000 #### [facility] [address] [place], [place], [address] NATERAon 01-21-2021 NATURA MAILED SPECIMEN Normal [facility] Comment on above: Performed By: #### M 200.1000 #### [facility] [address] [place], [place], [address] Oncology Visit Reporton 01-08 Oncology Visit Report [facility] [address] [place] [address] OFFICE VISIT Date of Service: 01/21/21 0916 MR#: [id number] Acct: [id number] Name: GIOVANNA PADRON Jr. Rep #: [id number] : 1945 From: Osmin Lindo MD Age/Sex: 75/M Location: [facility] Status: Signed HPI Subjective Date of Service 01/21/21 Chief Complaint Referred for colon cancer management. History of Present Illness Records reviewed. 75-year-old man presented with abdominal pain to the [facility] ER on 12/26/2020. CT abdomen and [...] discharged home, presented with abdominal pain to [place] ER, CT on 01/06/2021 showed multiple fluid collections and transferred to [facility] and had drainage by IR, received broad spectrum antibiotics. He was discharge home and referred to [facility] [place] [facility] for Adjuvant chemotherapy. [facility] Medical History Colon cancer Colostomy in place GERD (gastroesophageal reflux disease) Hypertension Non-smoker Surgical History (Updated 01/14/21 @ 10:47 by Lila Olivia) Hx of resection of large bowel Social History (Updated 01/21/21 @ 09:21 by Lorenza Andino RN) adopted: No housing: shelter current occupational status: retired Smoking Status: Never [...] 95 Oxygen Delivery Method room air Intake Skate Maker Required: No Accompanied by: Is patient in [...] CVA te (more content not included)... Normal [facility] THORACENTESISon 01-18-2021 Thoracentesis EXAM: IR THORACENTES IS, [...] RN at 01/11/2021 1:27 PM GG Normal [facility] CBC,PLATELETSon 01-15-2021 Hematocrit (Bld) [Volume fraction] 26.5 % Low 39.6-48.8 [facility] Comment on above: Performed By: #### U RIN #### [facility] (DEFAULT) [address] [place] [address] Hemoglobin (Bld) [Mass/Vol] 7.5 g/dL Low 13.4-16.8 [facility] Comment on above: Performed By: #### U RIN #### U [facility] (DEFAULT) [address] [place] [address] MCV (RBC) [Entitic vol] 74.4 fL Low 79.0-94.5 [facility] Comment on above: Performed By: #### U RIN #### [facility] (DEFAULT) [address] [place] [address] 58167 Mean Cell Hgb 21.1 pg Low 26.1-33.3 [facility] Comment on above: Performed By: #### U RIN #### U [facility] (DEFAULT) [address] [place] [address] 01174 Mean Cell Hgb Conc 28.3 g/dL Low 31.9-36.5 [facility] Comment on above: Performed By: #### U RIN #### [facility] (DEFAULT) [address] [place] [address] Platelet mean volume (Bld) [Entitic vol] 10.0 fL Normal 8.7-12.3 [facility] Comment on above: Performed By: #### U RIN #### [facility] (DEFAULT) [address] [place] [address] Platelets (Bld) [#/Vol] 589 10*3/uL High 146-337 [facility] Comment on above: Performed By: #### U RIN #### U [facility] (DEFAULT) [address] [place] [address] 89353 RBC (Bld) [#/Vol] 3.56 10*6/uL Low 4.38-5.83 [facility] Comment on above: Performed By: #### U RIN #### [facility] (DEFAULT) [address] [place] [address] 31438 RBC Distribution 23.4 % High 10.9-14.3 [facility] Comment on above: Performed By: #### U RIN #### [facility] (DEFAULT) [address] [place] [address] WBC (Bld) [#/Vol] 8.19 10*3/uL Normal 3.73-10.10 [facility] Comment on above: Performed By: #### U RIN #### [facility] (DEFAULT) [address] [place] [address]798 CHEM 7 (LYTES,BUN,CREA,GLUC) on 01-15-2021 Anion gap [Moles/Vol] 13 mmol/L Normal 7-17 [facility] Comment on above: Performed By: #### B FLD #### U [facility] (DEFAULT) [address] [place] [address]65 Chloride [Moles/Vol] 104 mmol/L Normal 98-108 [facility] Comment on above: Performed By: #### B FLD #### [facility] (DEFAULT) [address] [address] CO2 [Moles/Vol] 25 mmol/L Normal 22-30 [facility] Comment on above: Performed By: #### B FLD #### U [facility] (DEFAULT) [address] [place] [address] 10777 Creatinine [Mass/Vol] 1.11 mg/dL Normal 0.70-1.30 [facility] Comment on above: Performed By: #### B FLD #### U [facility] (DEFAULT) [address] [place] [address] EST GFR, >=60 Normal >=60 [facility] Comment on above: Performed By: #### B FLD #### [facility] (DEFAULT) [address] [place] [address] EST GFR,Non >=60 Normal >=60 [facility] Comment on above: Performed By: #### B FLD #### [facility] (DEFAULT) [address] [place] [address] 26348 Glucose [Mass/Vol] 120 mg/dL High 70-99 [facility] Comment on above: Performed By: #### B FLD #### Demi [facility] (DEFAULT) [address] [place] [address] Osmolality [Osmolality] 292 mosm/kg Normal 278-305 [facility] Comment on above: Performed By: #### B FLD #### Demi [facility] (DEFAULT) [address] [place] [address] 70787 Potassium [Moles/Vol] 4.5 mmol/L Normal 3.5-5.0 [facility] Comment on above: Performed By: #### B FLD #### Demi [facility] (DEFAULT) [address] [place] [address]5949 Sodium [Moles/Vol] 137 mmol/L Normal 133-143 [facility] Comment on above: Performed By: #### Mercedes FLD #### Demi [facility] (DEFAULT) [address] [place] [address] 17366 Urea nitrogen [Mass/Vol] 20 mg/dL Normal 7-22 [facility] Comment on above: Performed By: #### Mercedes FLD #### Demi [facility] (DEFAULT) [address] [place] [address]508 Urea nitrogen/Creatinin e [Mass ratio] 18 mg/mg Normal [facility] Comment on above: Performed By: #### B FLD #### Demi [facility] (DEFAULT) [address] [place] [address] MAGNESIUMon 01-15-2021 Magnesium [Mass/Vol] 1.9 mg/dL Normal 1.6-2.6 [facility] Comment on above: Performed By: #### B FLD #### Demi [facility] (DEFAULT) [address] [place] [address] 12577 PHOSPHATE, INORGANICon 01-15 Phosphorous 3.0 mg/dL Normal 2.2-4.6 [facility] Comment on above: Performed By: #### B FLD #### U [facility] (DEFAULT) [address] [place] [address] ANTI XA LMWH (ENOXAPARIN),*E XACT TIME REQUIRED* 4 HR Luz 01-14-2021 Anti Xa LMWH (Enoxaparin) 4 Hr Post 0.70 Anti-Xa IU/mL Normal 0.60-1.00 [facility] Comment on above: Order Comment: Draw 4 hours after enoxaparin dose Result Comment: Ther apeutic range applies to 4 hour post dose collections. Performed By: #### C HM7, IPB, MGO #### U [facility] (DEFAULT) [address] [place] [address]420 CBC,PLATELETSon 01-14-2021 Hematocrit (Bld) [Volume fraction] 24.4 % Low 39.6-48.8 [facility] Comment on above: Performed By: #### P TT #### [facility] (DEFAULT) [address] [place] [address] Hemoglobin (Bld) [Mass/Vol] 7.1 g/dL Low 13.4-16.8 [facility] Comment on above: Performed By: #### P TT #### [facility] (DEFAULT) [address] [address] MCV (RBC) [Entitic vol] 72.6 fL Low 79.0-94.5 [facility] Comment on above: Performed By: #### P TT #### [facility] (DEFAULT) [address] [place] [address] 16471 Mean Cell Hgb 21.1 pg Low 26.1-33.3 [facility] Comment on above: Performed By: #### P TT #### [facility] (DEFAULT) [address] [place] [address] 63943 Mean Cell Hgb Conc 29.1 g/dL Low 31.9-36.5 [facility] Comment on above: Performed By: #### P TT #### [facility] (DEFAULT) [address] [place] [address] 21479 Platelet mean volume (Bld) [Entitic vol] 9.4 fL Normal 8.7-12.3 [facility] Comment on above: Performed By: #### P TT #### U [facility] (DEFAULT) [address] [place] [address] 86850 Platelets (Bld) [#/Vol] 597 10*3/uL High 146-337 [facility] Comment on above: Performed By: #### P TT #### [facility] (DEFAULT) [address] [place] [address] 41669 RBC (Bld) [#/Vol] 3.36 10*6/uL Low 4.38-5.83 [facility] Comment on above: Performed By: #### P TT #### [facility] (DEFAULT) [address] [place] [address] 23452 RBC Distribution 23.6 % High 10.9-14.3 [facility] Comment on above: Performed By: #### P TT #### [facility] (DEFAULT) [address] [place] [address] 66283 WBC (Bld) [#/Vol] 7.41 10*3/uL Normal 3.73-10.10 [facility] Comment on above: Performed By: #### P TT #### [facility] (DEFAULT) [address] [place] [address] 54037 CHEM 7 (LYTES,BUN,CREA,GLUC) on 01-14-2021 Anion gap [Moles/Vol] 12 mmol/L Normal 7-17 [facility] Comment on above: Performed By: #### U RIN #### [facility] (DEFAULT) [address] [place] [address] 39646 Chloride [Moles/Vol] 105 mmol/L Normal 98-108 [facility] Comment on above: Performed By: #### U RIN #### [facility] (DEFAULT) [address] [place] [address] 82057 CO2 [Moles/Vol] 25 mmol/L Normal 22-30 [facility] Comment on above: Performed By: #### U RIN #### [facility] (DEFAULT) [address] [place] [address] 79659 Creatinine [Mass/Vol] 1.15 mg/dL Normal 0.70-1.30 [facility] Comment on above: Performed By: #### U RIN #### [facility] (DEFAULT) [address] [place] [address] 47260 EST GFR, >=60 Normal >=60 [facility] Comment on above: Performed By: #### U RIN #### [facility] (DEFAULT) [address] [place] [address] 17989 EST GFR,Non >=60 Normal >=60 [facility] Comment on above: Performed By: #### U RIN #### [facility] (DEFAULT) [address] [place] [address] 67735 Glucose [Mass/Vol] 125 mg/dL High 70-99 [facility] Comment on above: Performed By: #### U RIN #### [facility] (DEFAULT) [address] [place] [address] 78140 Osmolality [Osmolality] 293 mosm/kg Normal 278-305 [facility] Comment on above: Performed By: #### U RIN #### [facility] (DEFAULT) [address] [place] [address] 38383 Potassium [Moles/Vol] 4.6 mmol/L Normal 3.5-5.0 [facility] Comment on above: Performed By: #### U RIN #### [facility] (DEFAULT) [address] [place] [address] 33159 Sodium [Moles/Vol] 137 mmol/L Normal 133-143 [facility] Comment on above: Performed By: #### U RIN #### [facility] (DEFAULT) [address] [place] [address] 96872 Urea nitrogen [Mass/Vol] 21 mg/dL Normal 7-22 [facility] Comment on above: Performed By: #### U RIN #### U [facility] (DEFAULT) [address] [address] Urea nitrogen/Creatinin e [Mass ratio] 18 mg/mg Normal [facility] Comment on above: Performed By: #### U RIN #### [facility] (DEFAULT) [address] [address] MAGNESIUMon 01-14-2021 Magnesium [Mass/Vol] 1.8 mg/dL Normal 1.6-2.6 [facility] Comment on above: Performed By: #### U RIN #### U [facility] (DEFAULT) [address] [place] [address] 24486 PHOSPHATE, INORGANICon 01-14 Phosphorous 2.9 mg/dL Normal 2.2-4.6 [facility] Comment on above: Performed By: #### U RIN #### [facility] (DEFAULT) [address] [address] VANCOMYCIN LEVEL, TROUGH (LA E DRUG LEVEL)on 01-14-2021 Vancomycin, Trough 9.8 mcg/mL Low Therapeut ic Range: 10.0-20.0 mcg/mL [facility] Comment on above: Order Comment: Pleas e draw level at specified interval PRIOR to next dose. Performed By: #### X M #### [facility] (DEFAULT) [address] [address] ANTI XA LMWH (ENOXAPARIN),*E XACT TIME REQUIRED* 4 HR Luz 01-13-2021 Anti Xa LMWH (Enoxaparin) 4 Hr Post 0.41 Anti-Xa IU/mL Low 0.60-1.00 [facility] Comment on above: Order Comment: Draw 4 hours after enoxaparin dose Result Comment: Ther apeutic range applies to 4 hour post dose collections. Performed By: #### H EMOGC #### U [facility] (DEFAULT) [address] [address] CBC,PLATELETSon 01-13-2021 Hematocrit (Bld) [Volume fraction] 25.9 % Low 39.6-48.8 [facility] Comment on above: Performed By: #### U RIN #### [facility] (DEFAULT) [address] [place] [address] 02436 Hemoglobin (Bld) [Mass/Vol] 7.6 g/dL Low 13.4-16.8 [facility] Comment on above: Performed By: #### U RIN #### [facility] (DEFAULT) [address] [place] [address] 64155 MCV (RBC) [Entitic vol] 72.8 fL Low 79.0-94.5 [facility] Comment on above: Performed By: #### U RIN #### [facility] (DEFAULT) [address] [place] [address] 43730 Mean Cell Hgb 21.3 pg Low 26.1-33.3 [facility] Comment on above: Performed By: #### U RIN #### [facility] (DEFAULT) [address] [place] [address] 24660 Mean Cell Hgb Conc 29.3 g/dL Low 31.9-36.5 [facility] Comment on above: Performed By: #### U RIN #### [facility] (DEFAULT) [address] [place] [address] 78631 Platelet mean volume (Bld) [Entitic vol] 9.6 fL Normal 8.7-12.3 [facility] Comment on above: Performed By: #### U RIN #### [facility] (DEFAULT) [address] [place] [address] 94639 Platelets (Bld) [#/Vol] 643 10*3/uL High 146-337 [facility] Comment on above: Performed By: #### U RIN #### [facility] (DEFAULT) [address] [place] [address] 25563 RBC (Bld) [#/Vol] 3.56 10*6/uL Low 4.38-5.83 [facility] Comment on above: Performed By: #### U RIN #### [facility] (DEFAULT) [address] [place] [address] 38695 RBC Distribution 23.5 % High 10.9-14.3 [facility] Comment on above: Performed By: #### U RIN #### [facility] (DEFAULT) [address] [place] [address] 85817 WBC (Bld) [#/Vol] 9.07 10*3/uL Normal 3.73-10.10 [facility] Comment on above: Performed By: #### U RIN #### [facility] (DEFAULT) [address] [place] [address] 19867 CHEM 7 (LYTES,BUN,CREA,GLUC) on 01-13-2021 Anion gap [Moles/Vol] 11 mmol/L Normal 7-17 [facility] Comment on above: Performed By: #### C HM7, IPB, MGO #### [facility] (DEFAULT) [address] [place] [address] 94195 Chloride [Moles/Vol] 106 mmol/L Normal 98-108 [facility] Comment on above: Performed By: #### C HM7, IPB, MGO #### [facility] (DEFAULT) [address] [place] [address] 48185 CO2 [Moles/Vol] 26 mmol/L Normal 22-30 [facility] Comment on above: Performed By: #### C HM7, IPB, MGO #### [facility] (DEFAULT) [address] [place] [address] 07469 Creatinine [Mass/Vol] 1.18 mg/dL Normal 0.70-1.30 [facility] Comment on above: Performed By: #### C HM7, IPB, MGO #### [facility] (DEFAULT) [address] [place] [address] 17715 EST GFR, >=60 Normal >=60 [facility] Comment on above: Performed By: #### C HM7, IPB, MGO #### [facility] (DEFAULT) [address] [place] [address] 15954 EST GFR,Non >=60 Normal >=60 [facility] Comment on above: Performed By: #### C HM7, IPB, MGO #### [facility] (DEFAULT) [address] [place] [address] 05218 Glucose [Mass/Vol] 131 mg/dL High 70-99 [facility] Comment on above: Performed By: #### C HM7, IPB, MGO #### [facility] (DEFAULT) [address] [place] [address] 94325 Osmolality [Osmolality] 295 mosm/kg Normal 278-305 [facility] Comment on above: Performed By: #### C HM7, IPB, MGO #### [facility] (DEFAULT) [address] [place] [address] 09728 Potassium [Moles/Vol] 4.7 mmol/L Normal 3.5-5.0 [facility] Comment on above: Performed By: #### C HM7, IPB, MGO #### [facility] (DEFAULT) [address] [place] [address] 20704 Sodium [Moles/Vol] 138 mmol/L Normal 133-143 [facility] Comment on above: Performed By: #### C HM7, IPB, MGO #### [facility] (DEFAULT) [address] [place] [address] 81008 Urea nitrogen [Mass/Vol] 21 mg/dL Normal 7-22 [facility] Comment on above: Performed By: #### C HM7, IPB, MGO #### [facility] (DEFAULT) [address] [place] [address] 29839 Urea nitrogen/Creatinin e [Mass ratio] 18 mg/mg Normal [facility] Comment on above: Performed By: #### C HM7, IPB, MGO #### [facility] (DEFAULT) [address] [place] [address] 17300 MAGNESIUMon 01-13-2021 Magnesium [Mass/Vol] 1.9 mg/dL Normal 1.6-2.6 [facility] Comment on above: Performed By: #### T YPEC #### [facility] (DEFAULT) [address] [place] [address] 00837 NOVEL CORONAVIRUS PCRon SARS-CoV-2 (COVID-19) RNA MONAE+probe Ql (Unsp spec) Not detected Normal NOT DETECTED [facility] Comment on above: Order Comment: Viral [...] by The [facility] at [facility]. This test is used for clinical purposes. It should not be regarded as investigational or for research. Result Comment: [facility] Negative results do not preclude [...] deteriorating. Performed By: #### T YPEC #### [facility] (DEFAULT) [address] [place] [address] 48274 PHOSPHATE, INORGANICon 01-13 Phosphorous 3.1 mg/dL Normal 2.2-4.6 [facility] Comment on above: Performed By: #### T YPEC #### [facility] (DEFAULT) [address] [place] [address] 56709 PLATELET COUNTon 01-13-2021 Platelet mean volume (Bld) [Entitic vol] 9.6 fL Normal 8.7-12.3 [facility] Comment on above: Performed By: #### B FLD #### [facility] (DEFAULT) [address] [place] [address] 02895 Platelets (Bld) [#/Vol] 658 10*3/uL High 146-337 [facility] Comment on above: Performed By: #### B FLD #### [facility] (DEFAULT) [address] [place] [address] 36356 CBC,PLATELETSon 01-12-2021 Hematocrit (Bld) [Volume fraction] 25.0 % Low 39.6-48.8 [facility] Comment on above: Performed By: #### P TT #### [facility] (DEFAULT) [address] [place] [address] 65812 Hemoglobin (Bld) [Mass/Vol] 7.4 g/dL Low 13.4-16.8 [facility] Comment on above: Performed By: #### P TT #### [facility] (DEFAULT) [address] [place] [address] 05579 MCV (RBC) [Entitic vol] 72.3 fL Low 79.0-94.5 [facility] Comment on above: Performed By: #### P TT #### [facility] (DEFAULT) [address] [place] [address] 00390 Mean Cell Hgb 21.4 pg Low 26.1-33.3 [facility] Comment on above: Performed By: #### P TT #### [facility] (DEFAULT) [address] [place] [address] 35295 Mean Cell Hgb Conc 29.6 g/dL Low 31.9-36.5 [facility] Comment on above: Performed By: #### P TT #### [facility] (DEFAULT) [address] [place] [address] 51329 Platelet mean volume (Bld) [Entitic vol] 9.7 fL Normal 8.7-12.3 [facility] Comment on above: Performed By: #### P TT #### [facility] (DEFAULT) [address] [place] [address] 11663 Platelets (Bld) [#/Vol] 663 10*3/uL High 146-337 [facility] Comment on above: Performed By: #### P TT #### [facility] (DEFAULT) [address] [place] [address] 62076 RBC (Bld) [#/Vol] 3.46 10*6/uL Low 4.38-5.83 [facility] Comment on above: Performed By: #### P TT #### [facility] (DEFAULT) [address] [place] [address] 38218 RBC Distribution 23.3 % High 10.9-14.3 [facility] Comment on above: Performed By: #### P TT #### [facility] (DEFAULT) [address] [place] [address] 82456 WBC (Bld) [#/Vol] 8.98 10*3/uL Normal 3.73-10.10 [facility] Comment on above: Performed By: #### P TT #### [facility] (DEFAULT) [address] [place] [address] 11524 CHEM 7 (LYTES,BUN,CREA,GLUC) on 01-12-2021 Anion gap [Moles/Vol] 10 mmol/L Normal 7-17 [facility] Comment on above: Performed By: #### T YPEC #### [facility] (DEFAULT) [address] [place] [address] 96632 Chloride [Moles/Vol] 107 mmol/L Normal 98-108 [facility] Comment on above: Performed By: #### T YPEC #### [facility] (DEFAULT) [address] [place] [address] 99408 CO2 [Moles/Vol] 25 mmol/L Normal 22-30 [facility] Comment on above: Performed By: #### T YPEC #### [facility] (DEFAULT) [address] [place] [address] 45109 Creatinine [Mass/Vol] 1.23 mg/dL Normal 0.70-1.30 [facility] Comment on above: Performed By: #### T YPEC #### [facility] (DEFAULT) [address] [place] [address] 58546 EST GFR, >=60 Normal >=60 [facility] Comment on above: Performed By: #### T YPEC #### [facility] (DEFAULT) [address] [place] [address] 38540 EST GFR,Non 57 mL/min/1.73sqM Low >=60 [facility] Comment on above: Performed By: #### T YPEC #### [facility] (DEFAULT) [address] [address] Glucose [Mass/Vol] 117 mg/dL High 70-99 [facility] Comment on above: Performed By: #### T YPEC #### [facility] (DEFAULT) [address] [address] Osmolality [Osmolality] 293 mosm/kg Normal 278-305 [facility] Comment on above: Performed By: #### T YPEC #### [facility] (DEFAULT) [address] [address]85 Potassium [Moles/Vol] 4.9 mmol/L Normal 3.5-5.0 [facility] Comment on above: Performed By: #### T YPEC #### [facility] (DEFAULT) [address] [address]85 Sodium [Moles/Vol] 137 mmol/L Normal 133-143 [facility] Comment on above: Performed By: #### T YPEC #### [facility] (DEFAULT) [address] [place] [address] Urea nitrogen [Mass/Vol] 20 mg/dL Normal 7-22 [facility] Comment on above: Performed By: #### T YPEC #### [facility] (DEFAULT) [address] [place] [address] Urea nitrogen/Creatinin e [Mass ratio] 16 mg/mg Normal [facility] Comment on above: Performed By: #### T YPEC #### [facility] (DEFAULT) [address] [place] [address] DRAINAGE SOFT TISSUE PERCUTA NEOUS W/ IMAGE [...] medication(s), I spent 20 minutes of continuous nher-ey-gzlu time with the patient. COMPARISON: Compared to [...] I have reviewed and approved this report. [employer] Event Details User 10:44 AM 01/08/21 Timeout: [...] RN at 01/08/2021 11:12 AM JR Normal [facility] MAGNESIUMon 01-12-2021 Magnesium [Mass/Vol] 1.8 mg/dL Normal 1.6-2.6 [facility] Comment on above: Performed By: #### T YPEC #### [facility] (DEFAULT) [address] [address]41 PHOSPHATE, INORGANICon 01-12 Phosphorous 3.0 mg/dL Normal 2.2-4.6 [facility] Comment on above: Performed By: #### T YPEC #### [facility] (DEFAULT) [address] [address] BLOOD CULTUREon 01-11-2021 Bacteria identified Cx Nom (Unsp spec) NO GROWTH DAY 5 OF 5 Normal [facility] Comment on above: Order Comment: 2 Bot [...] Performed By: #### T YPEC #### [facility] (DEFAULT) [address] [place] [address] 80735 BODY FLUID CULTURE AND DIREC T SMEARon 01-11-2021 Bacteria identified Cx Nom (Unsp spec) NO GROWTH DAY 2 OF 2 Normal [facility] Comment on above: Order Comment: For b edside thoracentesis Performed By: #### B FLD #### [facility] (DEFAULT) [address] [address] Microscopic observation Gram stain Nom (Unsp spec) Normal [facility] Comment on above: Order Comment: For b edside thoracentesis Result Comment: Cyto centrifuge preparation Neutrophils, Moderate Mononuclear cells present Red Blood Cells Present No organisms seen Final report, verified by Microbiology. Performed By: #### B FLD #### [facility] (DEFAULT) [address] [place] [address] 46501 CBC,PLATELETSon 01-11-2021 Hematocrit (Bld) [Volume fraction] 24.4 % Low 39.6-48.8 [facility] Comment on above: Performed By: #### X M #### [facility] (DEFAULT) [address] [place] [address] 40072 Hemoglobin (Bld) [Mass/Vol] 7.1 g/dL Low 13.4-16.8 [facility] Comment on above: Performed By: #### X M #### [facility] (DEFAULT) [address] [address]309 MCV (RBC) [Entitic vol] 72.8 fL Low 79.0-94.5 [facility] Comment on above: Performed By: #### X M #### [facility] (DEFAULT) [address] [address] Mean Cell Hgb 21.2 pg Low 26.1-33.3 [facility] Comment on above: Performed By: #### X M #### [facility] (DEFAULT) [address] [place] [address] 97394 Mean Cell Hgb Conc 29.1 g/dL Low 31.9-36.5 [facility] Comment on above: Performed By: #### X M #### [facility] (DEFAULT) [address] [address] Platelet mean volume (Bld) [Entitic vol] 9.6 fL Normal 8.7-12.3 [facility] Comment on above: Performed By: #### X M #### [facility] (DEFAULT) [address] [place] [address] 71000 Platelets (Bld) [#/Vol] 728 10*3/uL High 146-337 [facility] Comment on above: Performed By: #### X M #### [facility] (DEFAULT) [address] [place] [address] 75516 RBC (Bld) [#/Vol] 3.35 10*6/uL Low 4.38-5.83 [facility] Comment on above: Performed By: #### X M #### [facility] (DEFAULT) [address] [place] [address] 37728 RBC Distribution 23.0 % High 10.9-14.3 [facility] Comment on above: Performed By: #### X M #### [facility] (DEFAULT) [address] [place] [address] 30981 WBC (Bld) [#/Vol] 10.95 10*3/uL High 3.73-10.10 [facility] Comment on above: Performed By: #### X M #### [facility] (DEFAULT) [address] [place] [address] 55108 CHEM 7 (LYTES,BUN,CREA,GLUC) on 01-11-2021 Anion gap [Moles/Vol] 13 mmol/L Normal 7-17 [facility] Comment on above: Performed By: #### [facility] [place] #### [facility] (DEFAULT) [address] [place] [address] 03920 Chloride [Moles/Vol] 106 mmol/L Normal 98-108 [facility] Comment on above: Performed By: #### H EMOGC #### [facility] (DEFAULT) [address] [place] [address] 02136 CO2 [Moles/Vol] 25 mmol/L Normal 22-30 [facility] Comment on above: Performed By: #### H EMOGC #### [facility] (DEFAULT) [address] [place] [address] 14463 Creatinine [Mass/Vol] 1.37 mg/dL High 0.70-1.30 [facility] Comment on above: Performed By: #### H EMOGC #### [facility] (DEFAULT) [address] [place] [address] 12858 EST GFR, >=60 Normal >=60 [facility] Comment on above: Performed By: #### H EMOGC #### [facility] (DEFAULT) [address] [place] [address] 58841 EST GFR,Non 51 mL/min/1.73sqM Low >=60 [facility] Comment on above: Performed By: #### H EMOGC #### [facility] (DEFAULT) [address] [place] [address] 76124 Glucose [Mass/Vol] 110 mg/dL High 70-99 [facility] Comment on above: Performed By: #### H EMOGC #### [facility] (DEFAULT) [address] [place] [address] 25803 Osmolality [Osmolality] 295 mosm/kg Normal 278-305 [facility] Comment on above: Performed By: #### H EMOGC #### [facility] (DEFAULT) [address] [place] [address] 70870 Potassium [Moles/Vol] 4.5 mmol/L Normal 3.5-5.0 [facility] Comment on above: Performed By: #### H EMOGC #### [facility] (DEFAULT) [address] [place] [address] 39350 Sodium [Moles/Vol] 139 mmol/L Normal 133-143 [facility] Comment on above: Performed By: #### H EMOGC #### [facility] (DEFAULT) [address] [place] [address] 29022 Urea nitrogen [Mass/Vol] 19 mg/dL Normal 7-22 [facility] Comment on above: Performed By: #### H EMOGC #### [facility] (DEFAULT) [address] [place] [address] 08577 Urea nitrogen/Creatinin e [Mass ratio] 14 mg/mg Normal [facility] Comment on above: Performed By: #### H EMOGC #### [facility] (DEFAULT) [address] [place] [address] 46294 Culture, Blood (WB)on 2020 CUB No growth in 5 days. Normal [facility] Comment on above: Performed By: #### M 200.1000 #### [facility] [address] [place], [place], [address] CUB No growth in 5 days. Normal [facility] Comment on above: Performed By: #### M 200.1000 #### [facility] [address] [place], [place], [id number] HEMOGLOBIN & HEMATOCRITon Hematocrit (Bld) [Volume fraction] 25.5 % Low 39.6-48.8 [facility] Comment on above: Performed By: #### C FEDERICA LI MGO #### [facility] (DEFAULT) [address] [place] [address] 94178 Hemoglobin (Bld) [Mass/Vol] 7.5 g/dL Low 13.4-16.8 [facility] Comment on above: Performed By: #### FEDERICA GARCIA, MGO #### [facility] (DEFAULT) [address] [place] [address] 90882 MAGNESIUMon 01-11-2021 Magnesium [Mass/Vol] 1.8 mg/dL Normal 1.6-2.6 [facility] Comment on above: Performed By: #### H EMOGC #### [facility] (DEFAULT) [address] [place] [address] 58642 PHOSPHATE, INORGANICon 01-11 Phosphorous 2.9 mg/dL Normal 2.2-4.6 [facility] Comment on above: Performed By: #### H EMOGC #### [facility] (DEFAULT) [address] [place] [address] 62110 PLATELET COUNTon 01-11-2021 Platelet mean volume (Bld) [Entitic vol] 9.9 fL Normal 8.7-12.3 [facility] Comment on above: Performed By: #### C GUILLERMO, FEDERICA, MGO #### [facility] (DEFAULT) [address] [place] [address] 64730 Platelets (Bld) [#/Vol] 771 10*3/uL High 146-337 [facility] Comment on above: Performed By: #### C HM7, FEDERICA, MGO #### [facility] (DEFAULT) [address] [place] [address] 91513 VANCOMYCIN LEVEL, TROUGH (LA E DRUG LEVEL)on 01-11-2021 Vancomycin, Trough 8.0 mcg/mL Low Therapeut ic Range: 10.0-20.0 mcg/mL [facility] Comment on above: Order Comment: Pleas e draw level at specified interval PRIOR to next dose. Performed By: #### U RIN #### [facility] (DEFAULT) [address] [place] [address] 91817 XR CHEST PORTABLEon 01-12-20 XR CHEST PORTABLE [...] effusion with associated compressive atelectatic foci. Normal [facility] XR CHEST PORTABLE EXAM: XR CHEST ELISA [...] 3. The right lung is clear. Normal [facility] CBC,PLATELETSon 01-10-2021 Hematocrit (Bld) [Volume fraction] 23.9 % Low 39.6-48.8 [facility] Comment on above: Performed By: #### [facility] [place] ####[facility] (DEFAULT)[address] [place] [address] 04612 Hemoglobin (Bld) [Mass/Vol] 6.9 g/dL Critically low 13.4-16.8 [facility] Comment on above: Result Comment: This result has been called to YOLI WATKINS by Sarahy Mckenna on 01 10 2021 at 0325, and has been read back. Performed By: #### [facility] [place] ####[facility] (DEFAULT)[address] [place] [address] 14121 MCV (RBC) [Entitic vol] 70.9 fL Low 79.0-94.5 [facility] Comment on above: Performed By: #### H EMO ####[facility] (DEFAULT)[address] [place] [address] Mean Cell Hgb 20.5 pg Low 26.1-33.3 [facility] Comment on above: Performed By: #### H EMO ####[facility] (DEFAULT)[address] [place] [address] Mean Cell Hgb Conc 28.9 g/dL Low 31.9-36.5 [facility] Comment on above: Performed By: #### H EMOGC ####[facility] (DEFAULT)[address] [place] [address] Platelet mean volume (Bld) [Entitic vol] 9.6 fL Normal 8.7-12.3 [facility] Comment on above: Performed By: #### H EMOGC ####[facility] (DEFAULT)[address] [place] [address] 73617 Platelets (Bld) [#/Vol] 810 10*3/uL High 146-337 [facility] Comment on above: Performed By: #### H EMOGC ####[facility] (DEFAULT)[address] [place] [address] RBC (Bld) [#/Vol] 3.37 10*6/uL Low 4.38-5.83 [facility] Comment on above: Performed By: #### H EMOGC ####[facility] (DEFAULT)[address] [place] [address] 18588 RBC Distribution 22.0 % High 10.9-14.3 [facility] Comment on above: Performed By: #### H EMOGC ####[facility] (DEFAULT)[address] [place] [address] 03028 WBC (Bld) [#/Vol] 11.32 10*3/uL High 3.73-10.10 [facility] Comment on above: Performed By: #### H EMOGC ####[facility] (DEFAULT)[address] [place] [address] 31777 CHEM 7 (LYTES,BUN,CREA,GLUC) on 01-10-2021 Anion gap [Moles/Vol] 14 mmol/L Normal 7-17 [facility] Comment on above: Performed By: #### T YPEC #### [facility] (DEFAULT) [address] [place] [address] 83959 Chloride [Moles/Vol] 107 mmol/L Normal 98-108 [facility] Comment on above: Performed By: #### T YPEC #### [facility] (DEFAULT) [address] [address] CO2 [Moles/Vol] 22 mmol/L Normal 22-30 [facility] Comment on above: Performed By: #### T YPEC #### [facility] (DEFAULT) [address] [address] Creatinine [Mass/Vol] 1.38 mg/dL High 0.70-1.30 [facility] Comment on above: Performed By: #### T YPEC #### [facility] (DEFAULT) [address] [address] EST GFR, >=60 Normal >=60 [facility] Comment on above: Performed By: #### T YPEC #### [facility] (DEFAULT) [address] [address] EST GFR,Non 50 mL/min/1.73sqM Low >=60 [facility] Comment on above: Performed By: #### T YPEC #### [facility] (DEFAULT) [address] [address] Glucose [Mass/Vol] 111 mg/dL High 70-99 [facility] Comment on above: Performed By: #### T YPEC #### [facility] (DEFAULT) [address] [address] Osmolality [Osmolality] 293 mosm/kg Normal 278-305 [facility] Comment on above: Performed By: #### T YPEC #### [facility] (DEFAULT) [address] [address] Potassium [Moles/Vol] 4.6 mmol/L Normal 3.5-5.0 [facility] Comment on above: Performed By: #### T YPEC #### [facility] (DEFAULT) [address] [place] [address] 68170 Sodium [Moles/Vol] 138 mmol/L Normal 133-143 [facility] Comment on above: Performed By: #### T YPEC #### [facility] (DEFAULT) [address] [place] [address] 82676 Urea nitrogen [Mass/Vol] 20 mg/dL Normal 7-22 [facility] Comment on above: Performed By: #### T YPEC #### [facility] (DEFAULT) [address] [place] [address] 08349 Urea nitrogen/Creatinin e [Mass ratio] 14 mg/mg Normal [facility] Comment on above: Performed By: #### T YPEC #### [facility] (DEFAULT) [address] [place] [address] 50262 MAGNESIUMon 01-10-2021 Magnesium [Mass/Vol] 1.8 mg/dL Normal 1.6-2.6 [facility] Comment on above: Performed By: #### T YPEC #### [facility] (DEFAULT) [address] [place] [address] 89851 PHOSPHATE, INORGANICon 01-10 Phosphorous 3.2 mg/dL Normal 2.2-4.6 [facility] Comment on above: Performed By: #### T YPEC #### [facility] (DEFAULT) [address] [place] [address] 90275 PTTon 01-10-2021 aPTT Coag (Bld) [Time] 77.0 s High 24.0-34.3 [facility] Comment on above: Order Comment: After initiation [...] Performed By: #### T YPEC #### [facility] (DEFAULT) [address] [address] aPTT Coag (Bld) [Time] 46.1 s High 24.0-34.3 [facility] Comment on above: Order Comment: After initiation [...] Performed By: #### U RIN #### [facility] (DEFAULT) [address] [place] [address] 16411 TYPE AND SCREENon 01-10-2021 ABO/RH(D) TYPE Negative Normal [facility] Comment on above: Performed By: #### X M #### [facility] (DEFAULT) [address] [address] CBC,PLATELETSon 01-09-2021 Hematocrit (Bld) [Volume fraction] 24.5 % Low 39.6-48.8 [facility] Comment on above: Performed By: #### H EMOGC #### [facility] (DEFAULT) [address] [place] [address] 41863 Hemoglobin (Bld) [Mass/Vol] 7.0 g/dL Low 13.4-16.8 [facility] Comment on above: Performed By: #### H EMOGC #### [facility] (DEFAULT) [address] [address] MCV (RBC) [Entitic vol] 72.1 fL Low 79.0-94.5 [facility] Comment on above: Performed By: #### H EMOGC #### [facility] (DEFAULT) [address] [place] [address] Mean Cell Hgb 20.6 pg Low 26.1-33.3 [facility] Comment on above: Performed By: #### H EMOGC #### [facility] (DEFAULT) [address] [address] Mean Cell Hgb Conc 28.6 g/dL Low 31.9-36.5 [facility] Comment on above: Performed By: #### H EMOGC #### [facility] (DEFAULT) [address] [address] Platelet mean volume (Bld) [Entitic vol] 9.9 fL Normal 8.7-12.3 [facility] Comment on above: Performed By: #### H EMOGC #### [facility] (DEFAULT) [address] [address] Platelets (Bld) [#/Vol] 814 10*3/uL High 146-337 [facility] Comment on above: Performed By: #### H EMOGC #### [facility] (DEFAULT) [address] [address] RBC (Bld) [#/Vol] 3.40 10*6/uL Low 4.38-5.83 [facility] Comment on above: Performed By: #### H EMOGC #### [facility] (DEFAULT) [address] [address] RBC Distribution 22.1 % High 10.9-14.3 [facility] Comment on above: Performed By: #### H EMOGC #### [facility] (DEFAULT) [address] [address] WBC (Bld) [#/Vol] 11.61 10*3/uL High 3.73-10.10 [facility] Comment on above: Performed By: #### H EMOGC #### [facility] (DEFAULT) [address] [address] CHEM 7 (LYTES,BUN,CREA,GLUC) on 01-09-2021 Anion gap [Moles/Vol] 13 mmol/L Normal 7-17 [facility] Comment on above: Performed By: #### U RIN #### [facility] (DEFAULT) [address] [address] Chloride [Moles/Vol] 107 mmol/L Normal 98-108 [facility] Comment on above: Performed By: #### U RIN #### [facility] (DEFAULT) [address] [place] [address] CO2 [Moles/Vol] 22 mmol/L Normal 22-30 [facility] Comment on above: Performed By: #### U RIN #### [facility] (DEFAULT) [address] [address] Creatinine [Mass/Vol] 1.27 mg/dL Normal 0.70-1.30 [facility] Comment on above: Performed By: #### U RIN #### [facility] (DEFAULT) [address] [place] [address] EST GFR, >=60 Normal >=60 [facility] Comment on above: Performed By: #### U RIN #### [facility] (DEFAULT) [address] [address] EST GFR,Non 55 mL/min/1.73sqM Low >=60 [facility] Comment on above: Performed By: #### U RIN #### [facility] (DEFAULT) [address] [place] [address]147 Glucose [Mass/Vol] 138 mg/dL High 70-99 [facility] Comment on above: Performed By: #### U RIN #### [facility] (DEFAULT) [address] [address] Osmolality [Osmolality] 294 mosm/kg Normal 278-305 [facility] Comment on above: Performed By: #### U RIN #### [facility] (DEFAULT) [address] [place] [address]69 Potassium [Moles/Vol] 4.8 mmol/L Normal 3.5-5.0 [facility] Comment on above: Performed By: #### U RIN #### [facility] (DEFAULT) [address] [place] [address]14 Sodium [Moles/Vol] 137 mmol/L Normal 133-143 [facility] Comment on above: Performed By: #### U RIN #### [facility] (DEFAULT) [address] [place] [address]1024 Urea nitrogen [Mass/Vol] 20 mg/dL Normal 7-22 [facility] Comment on above: Performed By: #### U RIN #### [facility] (DEFAULT) [address] [place] [address]16 Urea nitrogen/Creatinin e [Mass ratio] 16 mg/mg Normal [facility] Comment on above: Performed By: #### U RIN #### [facility] (DEFAULT) [address] [place] [address] MAGNESIUMon 01-09-2021 Magnesium [Mass/Vol] 1.7 mg/dL Normal 1.6-2.6 [facility] Comment on above: Performed By: #### M FEDERICA FAJARDO, CHM7 ####[facility] (DEFAULT)[address] [place] [address] PHOSPHATE, INORGANICon 01-09 Phosphorous 2.8 mg/dL Normal 2.2-4.6 [facility] Comment on above: Performed By: #### M FEDERICA FAJARDO, CHM7 ####[facility] (DEFAULT)[address] [place] [address] PLATELET COUNTon 01-09-2021 Platelet mean volume (Bld) [Entitic vol] 9.7 fL Normal 8.7-12.3 [facility] Comment on above: Performed By: #### X M #### [facility] (DEFAULT) [address] [place] [address] Platelets (Bld) [#/Vol] 882 10*3/uL High 146-337 [facility] Comment on above: Performed By: #### X M #### [facility] (DEFAULT) [address] [address] PTTon 01-09-2021 aPTT Coag (Bld) [Time] 63.7 s High 24.0-34.3 [facility] Comment on above: Order Comment: After initiation [...] Performed By: #### H EMO #### [facility] (DEFAULT) [address] [address] aPTT Coag (Bld) [Time] 43.6 s High 24.0-34.3 [facility] Comment on above: Order Comment: After initiation [...] #### C HM7, IPB, MGO #### [facility] (DEFAULT) [address] [address] aPTT Coag (Bld) [Time] 33.7 s Normal 24.0-34.3 [facility] Comment on above: Order Comment: After initiation [...] instructions. Performed By: #### P TT ####[facility] (DEFAULT)[address] [place] [address] BACTERIAL CULTURE AND DIRECT SMEAR, LESION, TISSUE, DEVICEon 01-08-2021 Bacteria identified Cx Nom (Unsp spec) NO GROWTH DAY 2 OF 2 Normal [facility] Comment on above: Performed By: #### T YPEC #### [facility] (DEFAULT) [address] [place] [address] Microscopic observation Gram stain Nom (Unsp spec) Normal [facility] Comment on above: Result Comment: Neut rophils, Heavy Red Blood Cells Present No organisms seen Performed By: #### T YPEC #### [facility] (DEFAULT) [address] [place] [address] CBC,PLATELETSon 01-08-2021 Hematocrit (Bld) [Volume fraction] 24.9 % Low 39.6-48.8 [facility] Comment on above: Performed By: #### X M #### [facility] (DEFAULT) [address] [place] [address] Hemoglobin (Bld) [Mass/Vol] 7.2 g/dL Low 13.4-16.8 [facility] Comment on above: Performed By: #### X M #### [facility] (DEFAULT) [address] [place] [address] MCV (RBC) [Entitic vol] 71.8 fL Low 79.0-94.5 [facility] Comment on above: Performed By: #### X M #### [facility] (DEFAULT) [address] [place] [address] Mean Cell Hgb 20.7 pg Low 26.1-33.3 [facility] Comment on above: Performed By: #### X M #### [facility] (DEFAULT) [address] [address] Mean Cell Hgb Conc 28.9 g/dL Low 31.9-36.5 [facility] Comment on above: Performed By: #### X M #### [facility] (DEFAULT) [address] [address] Platelet mean volume (Bld) [Entitic vol] 10.9 fL Normal 8.7-12.3 [facility] Comment on above: Performed By: #### X M #### [facility] (DEFAULT) [address] [address] Platelets (Bld) [#/Vol] 861 10*3/uL High 146-337 [facility] Comment on above: Performed By: #### X M #### [facility] (DEFAULT) [address] [address] RBC (Bld) [#/Vol] 3.47 10*6/uL Low 4.38-5.83 [facility] Comment on above: Performed By: #### X M #### [facility] (DEFAULT) [address] [address] RBC Distribution 22.7 % High 10.9-14.3 [facility] Comment on above: Performed By: #### X M #### [facility] (DEFAULT) [address] [address] WBC (Bld) [#/Vol] 13.51 10*3/uL High 3.73-10.10 [facility] Comment on above: Performed By: #### X M #### [facility] (DEFAULT) [address] [address] CHEM 7 (LYTES,BUN,CREA,GLUC) on 01-08-2021 Anion gap [Moles/Vol] 12 mmol/L Normal 7-17 [facility] Comment on above: Performed By: #### I PB, CHM7, MGO ####[facility] (DEFAULT)[address] [place] [address] Chloride [Moles/Vol] 108 mmol/L Normal 98-108 [facility] Comment on above: Performed By: #### I PB, CHM7, MGO ####[facility] (DEFAULT)[address] [place] [address] CO2 [Moles/Vol] 24 mmol/L Normal 22-30 [facility] Comment on above: Performed By: #### I PB, CHM7, MGO ####[facility] (DEFAULT)[address] [place] [address] Creatinine [Mass/Vol] 1.41 mg/dL High 0.70-1.30 [facility] Comment on above: Performed By: #### I PB, CHM7, MGO ####[facility] (DEFAULT)[address] [place] [address] EST GFR, 59 mL/min/1.73sqM Low >=60 [facility] Comment on above: Performed By: #### I PB, CHM7, MGO ####[facility] (DEFAULT)[address] [place] [address] EST GFR,Non 49 mL/min/1.73sqM Low >=60 [facility] Comment on above: Performed By: #### I PB, CHM7, MGO ####[facility] (DEFAULT)[address] [place] [address] Glucose [Mass/Vol] 118 mg/dL High 70-99 [facility] Comment on above: Performed By: #### I PB, CHM7, MGO ####[facility] (DEFAULT)[address] [place] [address] Osmolality [Osmolality] 295 mosm/kg Normal 278-305 [facility] Comment on above: Performed By: #### I PB, CHM7, MGO ####[facility] (DEFAULT)[address] [place] [address], [place] [address] Potassium [Moles/Vol] 4.6 mmol/L Normal 3.5-5.0 [facility] Comment on above: Performed By: #### I PB, CHM7, MGO ####[facility] (DEFAULT)[address] [place] [address], [place] [address] Sodium [Moles/Vol] 139 mmol/L Normal 133-143 [facility] Comment on above: Performed By: #### I PB, CHM7, MGO ####[facility] (DEFAULT)[address] [place] [address] Urea nitrogen [Mass/Vol] 19 mg/dL Normal 7-22 [facility] Comment on above: Performed By: #### I PB, CHM7, MGO ####[facility] (DEFAULT)[address] [place] [address] Urea nitrogen/Creatinin e [Mass ratio] 13 mg/mg Normal [facility] Comment on above: Performed By: #### I PB, CHM7, MGO ####[facility] (DEFAULT)[address] [place] [address] MAGNESIUMon 01-08-2021 Magnesium [Mass/Vol] 1.8 mg/dL Normal 1.6-2.6 [facility] Comment on above: Performed By: #### P TT #### [facility] (DEFAULT) [address] [place] [address] PHOSPHATE, INORGANICon 01-08 Phosphorous 3.0 mg/dL Normal 2.2-4.6 [facility] Comment on above: Performed By: #### P TT #### [facility] (DEFAULT) [address] [place] [address] PROTIME-INRon 01-08-2021 INR Coag (PPP) [Relative time] 1.2 {INR} High 0.9-1.1 [facility] Comment on above: Performed By: #### [facility] [place] #### [facility] (DEFAULT) [address] [address] PT Coag (PPP) [Time] 15.4 s High 11.9-14.2 [facility] Comment on above: Performed By: #### [place] [facility] [place] #### [facility] (DEFAULT) [address] [place] [address] PTTon 01-08-2021 aPTT Coag (Bld) [Time] 37.6 s High 24.0-34.3 [facility] Comment on above: Order Comment: After initiation [...] medication administration instructions. Performed By: #### [facility] [place] #### [facility] (DEFAULT) [address] [address] B-TYPE NATRIURETIC PEPTIDE ( BRAIN)on 01-07-2021 Natriuretic peptide B (Bld) [Mass/Vol] 120 pg/mL High 0-100 [facility] Comment on above: Performed By: #### X M #### [facility] (DEFAULT) [address] [place] [address] BKR GRAM POSITIVE VERIGENESo n 01-07-2021 Gram Positive Verigenes Detected Abnormal Invalid [facility] Comment on above: Order Comment: 2 Bot [...] findings. Performed By: #### T YPEC #### [facility] (DEFAULT) [address] [place] [address] mecA Detected Abnormal Not Detected [facility] Comment on above: Order Comment: 2 Bot [...] findings. Performed By: #### T YPEC #### [facility] (DEFAULT) [address] [address] BLOOD CULTUREon 01-07-2021 Bacteria identified Cx Nom (Unsp spec) Normal [facility] Comment on above: Order Comment: 2 Bot [...] please contact the blood culture area at [phone] within 2 days. Performed By: #### T YPEC #### [facility] (DEFAULT) [address] [address] CALCIUMon 01-07-2021 Calcium [Mass/Vol] 7.7 mg/dL Low 8.6-10.5 [facility] Comment on above: Performed By: #### B FLD #### [facility] (DEFAULT) [address] [address] CBC AND ELECTRONIC DIFFon Abs Baso Auto Normal [facility] Comment on above: Performed By: #### X M #### [facility] (DEFAULT) [address] [address] Abs Eos Auto Normal [facility] Comment on above: Performed By: #### X M #### [facility] (DEFAULT) [address] [address] Abs Lymph Auto Normal [facility] Comment on above: Performed By: #### X M #### [facility] (DEFAULT) [address] [address] Abs [place] Auto Normal [facility] Comment on above: Performed By: #### X M #### [facility] (DEFAULT) [address] [place] [address] Basophil % Auto Normal [facility] Comment on above: Performed By: #### X M #### [facility] (DEFAULT) [address] [place] [address] Eosinophil % Auto Normal [facility] Comment on above: Performed By: #### X M #### [facility] (DEFAULT) [address] [place] [address] Hematocrit (Bld) [Volume fraction] 26.8 % Low 39.6-48.8 [facility] Comment on above: Performed By: #### X M #### [facility] (DEFAULT) [address] [place] [address] Hemoglobin (Bld) [Mass/Vol] 7.8 g/dL Low 13.4-16.8 [facility] Comment on above: Performed By: #### X M #### [facility] (DEFAULT) [address] [place] [address] Immature Grans % Normal [facility] Comment on above: Performed By: #### X M #### [facility] (DEFAULT) [address] [place] [address] Immature Grans Absolute Normal [facility] Comment on above: Performed By: #### X M #### [facility] (DEFAULT) [address] [place] [address] Lymphocyte % Auto Normal [facility] Comment on above: Performed By: #### X M #### [facility] (DEFAULT) [address] [place] [address] MCV (RBC) [Entitic vol] 71.7 fL Low 79.0-94.5 [facility] Comment on above: Performed By: #### X M #### [facility] (DEFAULT) [address] [place] [address] Mean Cell Hgb 20.9 pg Low 26.1-33.3 [facility] Comment on above: Performed By: #### X M #### [facility] (DEFAULT) [address] [place] [address] Mean Cell Hgb Conc 29.1 g/dL Low 31.9-36.5 [facility] Comment on above: Performed By: #### X M #### [facility] (DEFAULT) [address] [place] [address] Monocyte % Auto Normal [facility] Comment on above: Performed By: #### X M #### [facility] (DEFAULT) [address] [place] [address] Platelet mean volume (Bld) [Entitic vol] 10.0 fL Normal 8.7-12.3 [facility] Comment on above: Performed By: #### X M #### [facility] (DEFAULT) [address] [place] [address] Platelets (Bld) [#/Vol] 807 10*3/uL High 146-337 [facility] Comment on above: Performed By: #### X M #### [facility] (DEFAULT) [address] [place] [address] RBC (Bld) [#/Vol] 3.74 10*6/uL Low 4.38-5.83 [facility] Comment on above: Performed By: #### X M #### [facility] (DEFAULT) [address] [place] [address] RBC Distribution 22.5 % High 10.9-14.3 [facility] Comment on above: Performed By: #### X M #### [facility] (DEFAULT) [address] [place] [address] Segs + Bands Auto Normal [facility] Comment on above: Performed By: #### X M #### [facility] (DEFAULT) [address] [place] [address] Segs + Bands,Absolute Auto Normal [facility] Comment on above: Performed By: #### X M #### [facility] (DEFAULT) [address] [place] [address] WBC (Bld) [#/Vol] 16.74 10*3/uL High 3.73-10.10 [facility] Comment on above: Performed By: #### X M #### [facility] (DEFAULT) [address] [place] [address] CHM 7 - EDon 01-07-2021 Anion gap [Moles/Vol] 11 mmol/L Normal 7-17 [facility] Comment on above: Performed By: #### X M #### [facility] (DEFAULT) [address] [place] [address] Chloride [Moles/Vol] 107 mmol/L Normal 98-108 [facility] Comment on above: Performed By: #### X M #### [facility] (DEFAULT) [address] [place] [address] CO2 [Moles/Vol] 23 mmol/L Normal 22-30 [facility] Comment on above: Performed By: #### X M #### [facility] (DEFAULT) [address] [place] [address] Creatinine [Mass/Vol] 1.43 mg/dL High 0.70-1.30 [facility] Comment on above: Performed By: #### X M #### [facility] (DEFAULT) [address] [place] [address] EST GFR, 58 mL/min/1.73sqM Low >=60 [facility] Comment on above: Performed By: #### X M #### [facility] (DEFAULT) [address] [place] [address] EST GFR,Non 48 mL/min/1.73sqM Low >=60 [facility] Comment on above: Performed By: #### X M #### [facility] (DEFAULT) [address] [place] [address] Glucose [Mass/Vol] 96 mg/dL Normal 70-99 [facility] Comment on above: Performed By: #### X M #### [facility] (DEFAULT) [address] [place] [address] Osmolality [Osmolality] 290 mosm/kg Normal 278-305 [facility] Comment on above: Performed By: #### X M #### [facility] (DEFAULT) [address] [place] [address] Potassium [Moles/Vol] 4.3 mmol/L Normal 3.5-5.0 [facility] Comment on above: Performed By: #### X M #### [facility] (DEFAULT) [address] [place] [address] Sodium [Moles/Vol] 137 mmol/L Normal 133-143 [facility] Comment on above: Performed By: #### X M #### [facility] (DEFAULT) [address] [place] [address] Urea nitrogen [Mass/Vol] 19 mg/dL Normal 7-22 [facility] Comment on above: Performed By: #### X M #### [facility] (DEFAULT) [address] [place] [address] Urea nitrogen/Creatinin e [Mass ratio] 13 mg/mg Normal [facility] Comment on above: Performed By: #### X M #### [facility] (DEFAULT) [address] [place] [address] ECHOCARDIOGRAMon 01-07-2021 Echocardiography ? Overall image qual ity is fair. ? The left ventricle is normal in size and systolic function; EF 60%. Diastolic function could not be determined. ? The right ventricle is normal in size and systolic function. ? Mild aortic stenosis. ? No prior echo image are available for comparison. Facility [facility] Patient Information Patient Name Giovanna Padron Legal [...] Role Read Date Grace Vuong MD Echo Ailey 01/07/2021 Left Heart Measurements LV - Systole [...] patient's inability to turn. Imaging system used: [email or web address]. Exam Details Performed Procedure Technologist Supporting Staff Performing Physician LA ECHOCARDIOGRAM W/O 3D Hugo Swenson RDCS Appointment Date/Status Modality Department 01/07/2021 Arrived ECHO TESTING, [facility] ECHOCARDIOGRAPHY ROSS Begin Exam End Exam 01/07/2021 7:43 AM 01/07/2021 9:04 AM Vitals Height Weight BSA (Calculated - sq m) BP Pulse 1.753 m (5' 9) 70.8 kg (156 lb 1.4 oz) 1.86 m2 144/76 91 Signed at 0925 EDT External Results Report There is an external r (more content not included)... Normal [facility] HEPATIC FUNCTION PANELon Albumin [Mass/Vol] 2.6 g/dL Low 3.5-5.0 [facility] Comment on above: Performed By: #### B FLD #### [facility] (DEFAULT) [address] [place] [address] ALP [Catalytic activity/Vol] 74 U/L Normal 32-126 [facility] Comment on above: Performed By: #### B FLD #### [facility] (DEFAULT) [address] [place] [address] 9[address] ALT [Catalytic activity/Vol] 22 U/L Normal 10-52 [facility] Comment on above: Performed By: #### B FLD #### [facility] (DEFAULT) [address] [place] [address]77 AST [Catalytic activity/Vol] 23 U/L Normal 14-40 [facility] Comment on above: Performed By: #### B FLD #### [facility] (DEFAULT) [address] [place] [address] Bilirubin [Mass/Vol] 0.4 mg/dL Normal <1.5 [facility] Comment on above: Performed By: #### B FLD #### [facility] (DEFAULT) [address] [place] [address] Bilirubin.indirect [Mass/Vol] 0.1 mg/dL Normal <0.3 [facility] Comment on above: Performed By: #### B FLD #### [facility] (DEFAULT) [address] [place] [address] Protein [Mass/Vol] 6.6 g/dL Normal 6.4-8.3 [facility] Comment on above: Performed By: #### B FLD #### [facility] (DEFAULT) [address] [place] [address] HIGH SENSITIVITY TROPONIN I - SINGLE ORDERon 01-07-2021 hs-Troponin I 15 ng/L Normal <53 [facility] Comment on above: Order Comment: For b edside thoracentesis Performed By: #### B FLD #### [facility] (DEFAULT) [address] [place] [address] LIPASEon 01-07-2021 Lipase [Catalytic activity/Vol] 107 U/L High 11-82 [facility] Comment on above: Performed By: #### B FLD #### [facility] (DEFAULT) [address] [place] [address] MAGNESIUMon 01-07-2021 Magnesium [Mass/Vol] 1.8 mg/dL Normal 1.6-2.6 [facility] Comment on above: Performed By: #### B FLD #### [facility] (DEFAULT) [address] [place] [address] NOVEL CORONAVIRUS PCRon 12-11 SARS-CoV-2 (COVID-19) RNA MONAE+probe Ql (Unsp spec) Not detected Normal NOT DETECTED [facility] Comment on above: Order Comment: Viral [...] detection of SARS-CoV-2 nucleic acid. Result Comment: [facility] Negative results do not preclude [...] deteriorating. Performed By: #### T YPEC #### [facility] (DEFAULT) [address] [address] PHOSPHATE, INORGANICon 01-07 Phosphorous 3.5 mg/dL Normal 2.2-4.6 [facility] Comment on above: Performed By: #### B FLD #### [facility] (DEFAULT) [address] [address] PLATELET COUNTon 01-07-2021 Platelet mean volume (Bld) [Entitic vol] 9.8 fL Normal 8.7-12.3 [facility] Comment on above: Performed By: #### H EMOGC #### [facility] (DEFAULT) [address] [address] Platelets (Bld) [#/Vol] 868 10*3/uL High 146-337 [facility] Comment on above: Performed By: #### H EMOGC #### [facility] (DEFAULT) [address] [address] PTTon 01-07-2021 aPTT Coag (Bld) [Time] 44.4 s High 24.0-34.3 [facility] Comment on above: Result Comment: Spec imen integrity checked. Results inconsistent with previous results Performed By: #### X M #### [facility] (DEFAULT) [address] [address] aPTT Coag (Bld) [Time] 28.8 s Normal 24.0-34.3 [facility] Comment on above: Order Comment: Draw prior to initiation of intravenous Heparin. Performed By: #### P TT #### [facility] (DEFAULT) [address] [address] URINALYSIS REFLEX TO CULTURE PERFORMABLEon 01-07-2021 Appearance (U) Clear Normal Clear [facility] Comment on above: Order Comment: For i ndwelling catheters, specimen collection is acceptable on catheter day 1 and 2 only. ? Performed By: #### T YPEC #### [facility] (DEFAULT) [address] [place] [address] Bacteria TRACE Abnormal ABSENT [facility] Comment on above: Order Comment: For i ndwelling catheters, specimen collection is acceptable on catheter day 1 and 2 only. ? Performed By: #### T YPEC #### [facility] (DEFAULT) [address] [place] [address] Blood Urine Trace Abnormal Negative [facility] Comment on above: Order Comment: For i ndwelling catheters, specimen collection is acceptable on catheter day 1 and 2 only. ? Performed By: #### T YPEC #### [facility] (DEFAULT) [address] [place] [address] Color (U) Yellow Normal Yellow [facility] Comment on above: Order Comment: For i ndwelling catheters, specimen collection is acceptable on catheter day 1 and 2 only. ? Performed By: #### T YPEC #### [facility] (DEFAULT) [address] [place] [address] Glucose Ql (U) Negative Normal Negative [facility] Comment on above: Order Comment: For i ndwelling catheters, specimen collection is acceptable on catheter day 1 and 2 only. ? Performed By: #### T YPEC #### [facility] (DEFAULT) [address] [place] [address] Ketones Ql (U) Negative Normal Negative [facility] Comment on above: Order Comment: For i ndwelling catheters, specimen collection is acceptable on catheter day 1 and 2 only. ? Performed By: #### T YPEC #### [facility] (DEFAULT) [address] [place] [address] Leukocyte esterase Test strip Ql (U) Negative Normal Negative [facility] Comment on above: Order Comment: For i ndwelling catheters, specimen collection is acceptable on catheter day 1 and 2 only. ? Performed By: #### T YPEC #### [facility] (DEFAULT) [address] [address] Nitrites Urine Negative Normal Negative [facility] Comment on above: Order Comment: For i ndwelling catheters, specimen collection is acceptable on catheter day 1 and 2 only. ? Performed By: #### T YPEC #### [facility] (DEFAULT) [address] [address] pH (U) 6.0 [pH] Normal 5.0-7.0 [facility] Comment on above: Order Comment: For i ndwelling catheters, specimen collection is acceptable on catheter day 1 and 2 only. ? Performed By: #### T YPEC #### [facility] (DEFAULT) [address] [address] Protein Urine 30 mg/dL Abnormal Negative [facility] Comment on above: Order Comment: For i ndwelling catheters, specimen collection is acceptable on catheter day 1 and 2 only. ? Performed By: #### T YPEC #### [facility] (DEFAULT) [address] [address] RBC Urine 0-2 Normal 0-2 [facility] Comment on above: Order Comment: For i ndwelling catheters, specimen collection is acceptable on catheter day 1 and 2 only. ? Performed By: #### T YPEC #### [facility] (DEFAULT) [address] [address] Specific [place] Urine 1.015 Normal >1.001-<1.03 5 [facility] Comment on above: Order Comment: For i ndwelling catheters, specimen collection is acceptable on catheter day 1 and 2 only. ? Performed By: #### T YPEC #### [facility] (DEFAULT) [address] [address] Squamous/Epithelia l Cells 0/hpf = 0+ Normal 1/hpf = 1+, 2-5/hpf = 2+, 0/hpf = 0+, ABSENT [facility] Comment on above: Order Comment: For i ndwelling catheters, specimen collection is acceptable on catheter day 1 and 2 only. ? Performed By: #### T YPEC #### [facility] (DEFAULT) [address] [place] [address] Urobilinogen Urine 0.2 E.U./dL Normal 0.2-1.0 [facility] Comment on above: Order Comment: For i ndwelling catheters, specimen collection is acceptable on catheter day 1 and 2 only. ? Performed By: #### T YPEC #### [facility] (DEFAULT) [address] [place] [address] WBC Urine 0-5 Normal 0-5 [facility] Comment on above: Order Comment: For i ndwelling catheters, specimen collection is acceptable on catheter day 1 and 2 only. ? Performed By: #### T YPEC #### [facility] (DEFAULT) [address] [place] [address] XR CHEST AP PORTABLE EDon XR CHEST [...] have reviewed and approved this report. Normal [facility] 12 Lead EKGon 01-06-2021 12 Lead EKG [facility] Cardiovascular Services [address] [place] [address] 12 Lead EKG 01/06/21 1244 MR#: [id number] Acct: [id number] Name: GIOVANNA PADRON Jr. Rep #: [id number] : 1945 75 From: Simon De La [...] by SIMON DE LA CRUZ MD ([id number]), graphic editor TRACY MALAGON ([id number]) on 01/11/2021 7:34:52 AM Referred By: RUSSELL Confirmed By:SIMON DE LA CRUZ MD 01/11/21 0734 Date Simon De La Cruz MD CC: Dr. Dar Chew DO; Dr. Barbara Wells DO; [facility] Signed Normal [facility] Abdomen/Pelvis WITH Contrast on 01-06-2021 Abdomen/Pelvis WITH Contrast [facility] Imaging Services [address] [place] [address] Abdomen/Pelvis WITH Contrast MR#: [id number] Acct: [id number] Name: GIOVANNA PADRON Jr. Rep #: [id number] : 1945 M 75 From: Radames Talamantes MD PCP: [place] Status: REG ER Study: Abdomen/Pelvis WITH Contrast Date of Exam: Exam# [id number] Ordering Dr: Barbara Wells DO EXAM: CT [...] reconstruction technique. This report was created using Reframe It report IDEA SPHERE technology. CONTRAST: 100 mL Isovue-370 COMPARISON: 12/26/2020 [...] support , CC: Dr. Barbara Wells, DO; [facility] Field Merchandiser: Signed Normal [facility] BNP,B-Type NATRIURETIC PEPTI Yusef 01-06-2021 Natriuretic peptide B (Bld) [Mass/Vol] 118.9 pg/mL High 0-100 [facility] Comment on above: Performed By: #### M 200.1000 #### [facility] [address] [place], [address] COVID 19 AG RAPID (RN [...] BinaxNow COVID19 Ag Card, lateral flow Normal [facility] Comment on above: Performed By: #### L 501.4020 #### [facility] [address] [facility] [place], [address] CTA Chest W/WO Contraston CTA Chest W/WO Contrast [facility] Imaging Services [address] [place] [address] CTA Chest W/WO Contrast MR#: [id number] Acct: [id number] Name: GIOVANNA PADRON Jr. Rep #: [id number] : 1945 M 75 From: Radames Talamantes MD PCP: [place] Status: REG Study: CTA Chest W/WO Contrast Date of Exam: 01/06/21 Exam# [id number] Ordering Dr: Barbara Wells DO EXAM: CT [...] reconstruction technique. This report was created using Reframe It report generation technology. MIP reconstructed images were [...] support , CC: Dr. Barbara Wells DO; [facility] Field Merchandiser: Signed Normal [facility] D-Dimer Quantitative (DVT/PE )on 01-06-2021 D-DIMER QUANT >= 20.00 Invalid Interpretation Code 0.27-0.49 [facility] Comment on above: Order Comment: CRITI FELI VALUE VERIFIED. CALLED TO NIGHAT URBINA01/06/21 1328 Emma Flores.RESULTS READ BACK BY SAME . Result Comment: D-Di vicky ELEVATED (>0.49): Additional studies and clinical assessments are indicated to conclude diagnosis of: Deep Vein Thrombosis (DVT) or Pulmonary Embolism (PE) Performed By: #### M 200.1000 #### [facility] [address] [facility] [place], [address] Emergency Department Summary on 01-06-2021 Emergency Department Summary [facility] Medical Records Department [address] [place] [address] Emergency Department Summary 01/06/21 MR#: [id number] Acct: [id number] Name: GIOVANNA PADRON JrClementina Rep #: [id number] : 1945 75 From: Barbara Wells DO PCP: [place] Status:REG ER Location: ED ADDENDUM by Dr. Dar Chew DO on 01/06/21 at 1949 Care of the patient was turned over to ct pending transfer. [facility] did call back and will accept the patient to be transferred there. Patient has currently waiting transfer to [facility]. 01/06/211948 Cosigner Signature (if applicable): cc: [facility] * Signed HPI History of Present Illness Chief Complaint: Abn Labs Detail of Chief Complaint: Abnormal labs Informant: patient Narrative Narrative: Patient presents to the emergency department from [facility]. Patient had a sigmoidectomy on December 27 at [facility] for a abdominal mass that [...] (L/min) 4 (more content not included)... Normal [facility] L501.4020on 01-06-2021 TROPONIN-I HS 21 pg/mL Normal 3.0-78.0 [facility] Comment on above: Result Comment: Plefaby rubin Note: New Test Units and Gender Specific Reference Ranges. For more information see Policy Stat Procedure [place] High Sensitivity Troponin (TNIH) and attachments. Performed By: #### L 501.4020 #### [facility] [address] [place], [address] Lactic Acidon 01-06-2021 Lactate [Moles/Vol] 1.8 mmol/L Normal 0.4-1.9 [facility] Comment on above: Order Comment: Y Performed By: #### M 200.1000 #### [facility] [address] [place], [address] Urinalysis, Completeon 01-06 EPI,SQUAMOUS 0-5 SEEN Normal 0-5 [facility] Comment on above: Order Comment: CLEAN CATCH Performed By: #### L 501.4020 #### [facility] [address] [place], [address] BACTERIA 0 SEEN Normal None Seen [facility] Comment on above: Order Comment: CLEAN CATCH Performed By: #### L 501.4020 #### [facility] [address] [place], [address] Mucus Ql (Urine sed) 0 SEEN Normal [facility] Comment on above: Order Comment: CLEAN CATCH Performed By: #### L 501.4020 #### [facility] [address] [place], [address] RBC 0 SEEN Normal 0-5 [facility] Comment on above: Order Comment: CLEAN CATCH Performed By: #### L 501.4020 #### [facility] [address] [place], [address] WBC 0 SEEN Normal 0-5 [facility] Comment on above: Order Comment: CLEAN CATCH Performed By: #### L 501.4020 #### [facility] [address] [place], [address] CBC,PLATELETSon 01-01-2021 Hematocrit (Bld) [Volume fraction] 27.2 % Low 39.6-48.8 [facility] Comment on above: Performed By: #### U RIN #### [facility] (DEFAULT) [address] [address] Hemoglobin (Bld) [Mass/Vol] 8.0 g/dL Low 13.4-16.8 [facility] Comment on above: Performed By: #### U RIN #### [facility] (DEFAULT) [address] [address] MCV (RBC) [Entitic vol] 69.9 fL Low 79.0-94.5 [facility] Comment on above: Performed By: #### U RIN #### [facility] (DEFAULT) [address] [place] [address] Mean Cell Hgb 20.6 pg Low 26.1-33.3 [facility] Comment on above: Performed By: #### U RIN #### [facility] (DEFAULT) [address] [place] [address] Mean Cell Hgb Conc 29.4 g/dL Low 31.9-36.5 [facility] Comment on above: Performed By: #### U RIN #### [facility] (DEFAULT) [address] [place] [address] Platelet mean volume (Bld) [Entitic vol] 10.4 fL Normal 8.7-12.3 [facility] Comment on above: Performed By: #### U RIN #### [facility] (DEFAULT) [address] [place] [address] Platelets (Bld) [#/Vol] 289 10*3/uL Normal 146-337 [facility] Comment on above: Performed By: #### U RIN #### [facility] (DEFAULT) [address] [place] [address] RBC (Bld) [#/Vol] 3.89 10*6/uL Low 4.38-5.83 [facility] Comment on above: Performed By: #### U RIN #### [facility] (DEFAULT) [address] [place] [address] RBC Distribution 20.9 % High 10.9-14.3 [facility] Comment on above: Performed By: #### U RIN #### [facility] (DEFAULT) [address] [place] [address] WBC (Bld) [#/Vol] 7.47 10*3/uL Normal 3.73-10.10 [facility] Comment on above: Performed By: #### U RIN #### [facility] (DEFAULT) [address] [place] [address] CHEM 7 (LYTES,BUN,CREA,GLUC) on 01-01-2021 Anion gap [Moles/Vol] 14 mmol/L Normal 7-17 [facility] Comment on above: Performed By: #### C HM7, IPB, MGO #### [facility] (DEFAULT) [address] [place] [address] Chloride [Moles/Vol] 110 mmol/L High 98-108 [facility] Comment on above: Performed By: #### C HM7, IPB, MGO #### [facility] (DEFAULT) [address] [place] [address] CO2 [Moles/Vol] 22 mmol/L Normal 22-30 [facility] Comment on above: Performed By: #### C HM7, IPB, MGO #### [facility] (DEFAULT) [address] [place] [address] Creatinine [Mass/Vol] 3.22 mg/dL High 0.70-1.30 [facility] Comment on above: Performed By: #### C HM7, IPB, MGO #### [facility] (DEFAULT) [address] [place] [address] EST GFR, 23 mL/min/1.73sqM Low >=60 [facility] Comment on above: Performed By: #### C HM7, IPB, MGO #### [facility] (DEFAULT) [address] [place] [address] EST GFR,Non 19 mL/min/1.73sqM Low >=60 [facility] Comment on above: Performed By: #### C HM7, IPB, MGO #### [facility] (DEFAULT) [address] [place] [address] Glucose [Mass/Vol] 165 mg/dL High 70-99 [facility] Comment on above: Performed By: #### C HM7, IPB, MGO #### [facility] (DEFAULT) [address] [place] [address] Osmolality [Osmolality] 315 mosm/kg High 278-305 [facility] Comment on above: Performed By: #### FEDERICA GARCIA, MGO #### [facility] (DEFAULT) [address] [place] [address] Potassium [Moles/Vol] 4.0 mmol/L Normal 3.5-5.0 [facility] Comment on above: Performed By: #### FEDERICA GARCIA, MGO #### [facility] (DEFAULT) [address] [place] [address] Sodium [Moles/Vol] 142 mmol/L Normal 133-143 [facility] Comment on above: Performed By: #### FEDERICA GARCIA, MGO #### [facility] (DEFAULT) [address] [place] [address] Urea nitrogen [Mass/Vol] 52 mg/dL High 7-22 [facility] Comment on above: Performed By: #### FEDERICA GARCIA, MGO #### [facility] (DEFAULT) [address] [place] [address] Urea nitrogen/Creatinin e [Mass ratio] 16 mg/mg Normal [facility] Comment on above: Performed By: #### FEDERICA GARCIA, MGO #### [facility] (DEFAULT) [address] [place] [address] MAGNESIUMon 01-01-2021 Magnesium [Mass/Vol] 2.5 mg/dL Normal 1.6-2.6 [facility] Comment on above: Performed By: #### FEDERICA GARCIA, MGO #### [facility] (DEFAULT) [address] [place] [address] NOVEL CORONAVIRUS PCRon 12-10 SARS-CoV-2 (COVID-19) RNA MONAE+probe Ql (Unsp spec) Not detected Normal NOT DETECTED [facility] Comment on above: Order Comment: Viral [...] for use by authorized laboratories. Result Comment: [facility] Negative results do not preclude [...] deteriorating. Performed By: #### T YPEC #### [facility] (DEFAULT) [address] [address] PHOSPHATE, INORGANICon 01-01 Phosphorous 3.1 mg/dL Normal 2.2-4.6 [facility] Comment on above: Performed By: #### T YPEC #### [facility] (DEFAULT) [address] [address] CBC,PLATELETSon 12-31-2020 Hematocrit (Bld) [Volume fraction] 23.4 % Low 39.6-48.8 [facility] Comment on above: Performed By: #### X M #### [facility] (DEFAULT) [address] [address] Hemoglobin (Bld) [Mass/Vol] 6.9 g/dL Critically low 13.4-16.8 [facility] Comment on above: Result Comment: This result has been called to ALFRED MAST RN by Kam Bejarano on 12 31 2020 at 0635, and has been read back. Performed By: #### X M #### [facility] (DEFAULT) [address] [address] MCV (RBC) [Entitic vol] 68.0 fL Low 79.0-94.5 [facility] Comment on above: Performed By: #### X M #### [facility] (DEFAULT) [address] [address] Mean Cell Hgb 20.1 pg Low 26.1-33.3 [facility] Comment on above: Performed By: #### X M #### [facility] (DEFAULT) [address] [address] Mean Cell Hgb Conc 29.5 g/dL Low 31.9-36.5 [facility] Comment on above: Performed By: #### X M #### [facility] (DEFAULT) [address] [address] RBC (Bld) [#/Vol] 3.44 10*6/uL Low 4.38-5.83 [facility] Comment on above: Performed By: #### X M #### [facility] (DEFAULT) [address] [address] RBC Distribution 19.2 % High 10.9-14.3 [facility] Comment on above: Performed By: #### X M #### [facility] (DEFAULT) [address] [address] WBC (Bld) [#/Vol] 7.52 10*3/uL Normal 3.73-10.10 [facility] Comment on above: Performed By: #### X M #### [facility] (DEFAULT) [address] [address] CHEM 7 (LYTES,BUN,CREA,GLUC) on 12-31-2020 Anion gap [Moles/Vol] 13 mmol/L Normal 7-17 [facility] Comment on above: Performed By: #### C HM7, IPB, MGO #### [facility] (DEFAULT) [address] [address] Chloride [Moles/Vol] 110 mmol/L High 98-108 [facility] Comment on above: Performed By: #### C HM7, IPB, MGO #### [facility] (DEFAULT) [address] [place] [address] CO2 [Moles/Vol] 24 mmol/L Normal 22-30 [facility] Comment on above: Performed By: #### C HM7, IPB, MGO #### [facility] (DEFAULT) [address] [place] [address] Creatinine [Mass/Vol] 4.13 mg/dL High 0.70-1.30 [facility] Comment on above: Performed By: #### C HM7, IPB, MGO #### [facility] (DEFAULT) [address] [place] [address] EST GFR, 17 mL/min/1.73sqM Low >=60 [facility] Comment on above: Performed By: #### C HM7, IPB, MGO #### [facility] (DEFAULT) [address] [place] [address] EST GFR,Non 14 mL/min/1.73sqM Low >=60 [facility] Comment on above: Performed By: #### C HM7, IPB, MGO #### [facility] (DEFAULT) [address] [place] [address] Glucose [Mass/Vol] 168 mg/dL High 70-99 [facility] Comment on above: Performed By: #### C HM7, IPB, MGO #### [facility] (DEFAULT) [address] [place] [address] Osmolality [Osmolality] 321 mosm/kg High 278-305 [facility] Comment on above: Performed By: #### C HM7, IPB, MGO #### [facility] (DEFAULT) [address] [place] [address] Potassium [Moles/Vol] 4.2 mmol/L Normal 3.5-5.0 [facility] Comment on above: Performed By: #### C HM7, IPB, MGO #### [facility] (DEFAULT) [address] [place] [address] Sodium [Moles/Vol] 143 mmol/L Normal 133-143 [facility] Comment on above: Performed By: #### C HM7, IPB, MGO #### [facility] (DEFAULT) [address] [place] [address] Urea nitrogen [Mass/Vol] 63 mg/dL High 7-22 [facility] Comment on above: Performed By: #### C HM7, IPB, MGO #### [facility] (DEFAULT) [address] [place] [address] Urea nitrogen/Creatinin e [Mass ratio] 15 mg/mg Normal [facility] Comment on above: Performed By: #### C HM7, IPB, MGO #### [facility] (DEFAULT) [address] [place] [address] HEMOGLOBIN & HEMATOCRITon Hematocrit (Bld) [Volume fraction] 30.6 % Low 39.6-48.8 [facility] Comment on above: Order Comment: Pleas e obtain one hour post transfusion Performed By: #### T YPEC #### [facility] (DEFAULT) [address] [place] [address] Hemoglobin (Bld) [Mass/Vol] 8.9 g/dL Low 13.4-16.8 [facility] Comment on above: Order Comment: Pleas e obtain one hour post transfusion Performed By: #### T YPEC #### [facility] (DEFAULT) [address] [place] [address] MAGNESIUMon 12-31-2020 Magnesium [Mass/Vol] 2.7 mg/dL High 1.6-2.6 [facility] Comment on above: Performed By: #### C HM7, IPB, MGO #### [facility] (DEFAULT) [address] [place] [address]36 PHOSPHATE, INORGANICon 12-31 Phosphorous 3.9 mg/dL Normal 2.2-4.6 [facility] Comment on above: Performed By: #### C HM7, IPB, MGO #### [facility] (DEFAULT) [address] [place] [address] PLATELET COUNTon 12-31-2020 Platelet mean volume (Bld) [Entitic vol] 10.2 fL Normal 8.7-12.3 [facility] Comment on above: Performed By: #### X M #### [facility] (DEFAULT) [address] [place] [address] Platelets (Bld) [#/Vol] 244 10*3/uL Normal 146-337 [facility] Comment on above: Performed By: #### X M #### [facility] (DEFAULT) [address] [place] [address] TYPE AND SCREENon 12-31-2020 ABO/RH(D) TYPE Negative Normal [facility] Comment on above: Performed By: #### X M #### [facility] (DEFAULT) [address] [place] [address] CALCIUMon 12-30-2020 Calcium [Mass/Vol] 7.7 mg/dL Low 8.6-10.5 [facility] Comment on above: Performed By: #### P TT #### [facility] (DEFAULT) [address] [place] [address] CBC,PLATELETSon 12-30-2020 Hematocrit (Bld) [Volume fraction] 25.1 % Low 39.6-48.8 [facility] Comment on above: Performed By: #### [facility] [place] #### [facility] (DEFAULT) [address] [place] [address]387 Hemoglobin (Bld) [Mass/Vol] 7.2 g/dL Low 13.4-16.8 [facility] Comment on above: Performed By: #### H EMO #### [facility] (DEFAULT) [address] [address] MCV (RBC) [Entitic vol] 67.1 fL Low 79.0-94.5 [facility] Comment on above: Performed By: #### H EMOGC #### [facility] (DEFAULT) [address] [place] [address] 54511 Mean Cell Hgb 19.3 pg Low 26.1-33.3 [facility] Comment on above: Performed By: #### H EMOGC #### [facility] (DEFAULT) [address] [place] [address] 98584 Mean Cell Hgb Conc 28.7 g/dL Low 31.9-36.5 [facility] Comment on above: Performed By: #### H EMOGC #### [facility] (DEFAULT) [address] [address] Platelet mean volume (Bld) [Entitic vol] 10.1 fL Normal 8.7-12.3 [facility] Comment on above: Performed By: #### H EMOGC #### [facility] (DEFAULT) [address] [address] Platelets (Bld) [#/Vol] 228 10*3/uL Normal 146-337 [facility] Comment on above: Performed By: #### H EMOGC #### [facility] (DEFAULT) [address] [place] [address] 51071 RBC (Bld) [#/Vol] 3.74 10*6/uL Low 4.38-5.83 [facility] Comment on above: Performed By: #### H EMOGC #### [facility] (DEFAULT) [address] [address] RBC Distribution 18.8 % High 10.9-14.3 [facility] Comment on above: Performed By: #### H EMOGC #### [facility] (DEFAULT) [address] [place] [address] 18469 WBC (Bld) [#/Vol] 10.43 10*3/uL High 3.73-10.10 [facility] Comment on above: Performed By: #### H EMO #### [facility] (DEFAULT) [address] [place] [address] 75534 CHEM 7 (LYTES,BUN,CREA,GLUC) on 12-30-2020 Anion gap [Moles/Vol] 17 mmol/L Normal 7-17 [facility] Comment on above: Performed By: #### P TT #### U [facility] (DEFAULT) [address] [place] [address] 89619 Chloride [Moles/Vol] 107 mmol/L Normal 98-108 [facility] Comment on above: Performed By: #### P TT #### [facility] (DEFAULT) [address] [place] [address] 90102 CO2 [Moles/Vol] 22 mmol/L Normal 22-30 [facility] Comment on above: Performed By: #### P TT #### U [facility] (DEFAULT) [address] [place] [address] 64134 Creatinine [Mass/Vol] 5.74 mg/dL High 0.70-1.30 [facility] Comment on above: Performed By: #### P TT #### U [facility] (DEFAULT) [address] [place] [address] 04779 EST GFR, 12 mL/min/1.73sqM Low >=60 [facility] Comment on above: Performed By: #### P TT #### [facility] (DEFAULT) [address] [place] [address] 35063 EST GFR,Non 10 mL/min/1.73sqM Low >=60 [facility] Comment on above: Performed By: #### P TT #### [facility] (DEFAULT) [address] [place] [address] 02225 Glucose [Mass/Vol] 81 mg/dL Normal 70-99 [facility] Comment on above: Performed By: #### P TT #### [facility] (DEFAULT) [address] [place] [address] 97572 Osmolality [Osmolality] 318 mosm/kg High 278-305 [facility] Comment on above: Performed By: #### P TT #### U [facility] (DEFAULT) [address] [place] [address] Potassium [Moles/Vol] 4.9 mmol/L Normal 3.5-5.0 [facility] Comment on above: Performed By: #### P TT #### [facility] (DEFAULT) [address] [place] [address] 82553 Sodium [Moles/Vol] 141 mmol/L Normal 133-143 [facility] Comment on above: Performed By: #### P TT #### [facility] (DEFAULT) [address] [place] [address] 31392 Urea nitrogen [Mass/Vol] 78 mg/dL High 7-22 [facility] Comment on above: Performed By: #### P TT #### [facility] (DEFAULT) [address] [place] [address] 52483 Urea nitrogen/Creatinin e [Mass ratio] 14 mg/mg Normal [facility] Comment on above: Performed By: #### P TT #### [facility] (DEFAULT) [address] [place] [address] 14628 MAGNESIUMon 12-30-2020 Magnesium [Mass/Vol] 3.2 mg/dL High 1.6-2.6 [facility] Comment on above: Performed By: #### P TT #### [facility] (DEFAULT) [address] [place] [address] 89480 PHOSPHATE, INORGANICon 12-30 Phosphorous 6.4 mg/dL High 2.2-4.6 [facility] Comment on above: Performed By: #### P TT #### [facility] (DEFAULT) [address] [place] [address] 21763 CALCIUMon 12-29-2020 Calcium [Mass/Vol] 7.9 mg/dL Low 8.6-10.5 [facility] Comment on above: Performed By: #### X M #### [facility] (DEFAULT) [address] [place] [address] 91404 CBC,PLATELETSon 12-29-2020 Hematocrit (Bld) [Volume fraction] 25.0 % Low 39.6-48.8 [facility] Comment on above: Performed By: #### Dm HM7, IPB, MGO #### [facility] (DEFAULT) [address] [place] [address] 30661 Hemoglobin (Bld) [Mass/Vol] 7.3 g/dL Low 13.4-16.8 [facility] Comment on above: Performed By: #### Dm HM7, IPB, MGO #### [facility] (DEFAULT) [address] [place] [address] 95239 MCV (RBC) [Entitic vol] 67.9 fL Low 79.0-94.5 [facility] Comment on above: Performed By: #### Dm HM7, IPB, MGO #### [facility] (DEFAULT) [address] [place] [address] 53801 Mean Cell Hgb 19.8 pg Low 26.1-33.3 [facility] Comment on above: Performed By: #### Dm HM7, IPB, MGO #### [facility] (DEFAULT) [address] [place] [address] 50126 Mean Cell Hgb Conc 29.2 g/dL Low 31.9-36.5 [facility] Comment on above: Performed By: #### Dm HM7, IPB, MGO #### [facility] (DEFAULT) [address] [place] [address] 55021 Platelet mean volume (Bld) [Entitic vol] 10.5 fL Normal 8.7-12.3 [facility] Comment on above: Performed By: #### Dm HM7, IPB, MGO #### [facility] (DEFAULT) [address] [place] [address] 86271 Platelets (Bld) [#/Vol] 228 10*3/uL Normal 146-337 [facility] Comment on above: Performed By: #### C HM7, IPB, MGO #### [facility] (DEFAULT) [address] [place] [address] 24306 RBC (Bld) [#/Vol] 3.68 10*6/uL Low 4.38-5.83 [facility] Comment on above: Performed By: #### C HM7, IPB, MGO #### [facility] (DEFAULT) [address] [place] [address] 64242 RBC Distribution 18.7 % High 10.9-14.3 [facility] Comment on above: Performed By: #### Dm HM7, IPB, MGO #### [facility] (DEFAULT) [address] [place] [address] 87625 WBC (Bld) [#/Vol] 11.35 10*3/uL High 3.73-10.10 [facility] Comment on above: Performed By: #### C HM7, IPB, MGO #### [facility] (DEFAULT) [address] [place] [address] 86528 CHEM 7 (LYTES,BUN,CREA,GLUC) on 12-29-2020 Anion gap [Moles/Vol] 17 mmol/L Normal 7-17 [facility] Comment on above: Performed By: #### X M #### [facility] (DEFAULT) [address] [place] [address] 33608 Chloride [Moles/Vol] 103 mmol/L Normal 98-108 [facility] Comment on above: Performed By: #### X M #### [facility] (DEFAULT) [address] [place] [address] 40801 CO2 [Moles/Vol] 23 mmol/L Normal 22-30 [facility] Comment on above: Performed By: #### X M #### [facility] (DEFAULT) [address] [place] [address] 36165 Creatinine [Mass/Vol] 6.14 mg/dL High 0.70-1.30 [facility] Comment on above: Performed By: #### X M #### U [facility] (DEFAULT) [address] [place] [address] 77884 EST GFR, 11 mL/min/1.73sqM Low >=60 [facility] Comment on above: Performed By: #### X M #### [facility] (DEFAULT) [address] [place] [address] 34647 EST GFR,Non 9 mL/min/1.73sqM Low >=60 [facility] Comment on above: Performed By: #### X M #### [facility] (DEFAULT) [address] [place] [address] 52997 Glucose [Mass/Vol] 78 mg/dL Normal 70-99 [facility] Comment on above: Performed By: #### X M #### [facility] (DEFAULT) [address] [place] [address] 40528 Osmolality [Osmolality] 311 mosm/kg High 278-305 [facility] Comment on above: Performed By: #### X M #### [facility] (DEFAULT) [address] [place] [address] 38669 Potassium [Moles/Vol] 5.5 mmol/L High 3.5-5.0 [facility] Comment on above: Performed By: #### X M #### [facility] (DEFAULT) [address] [place] [address] 89567 Sodium [Moles/Vol] 137 mmol/L Normal 133-143 [facility] Comment on above: Performed By: #### X M #### [facility] (DEFAULT) [address] [place] [address] 02817 Urea nitrogen [Mass/Vol] 75 mg/dL High 7-22 [facility] Comment on above: Performed By: #### X M #### [facility] (DEFAULT) [address] [place] [address] 66990 Urea nitrogen/Creatinin e [Mass ratio] 12 mg/mg Normal [facility] Comment on above: Performed By: #### X M #### [facility] (DEFAULT) [address] [place] [address] 53811 MAGNESIUMon 12-29-2020 Magnesium [Mass/Vol] 3.0 mg/dL High 1.6-2.6 [facility] Comment on above: Performed By: #### X M #### [facility] (DEFAULT) [address] [place] [address] 08734 PHOSPHATE, INORGANICon 12-29 Phosphorous 6.1 mg/dL High 2.2-4.6 [facility] Comment on above: Performed By: #### X M #### [facility] (DEFAULT) [address] [place] [address] 38544 CALCIUMon 12-28-2020 Calcium [Mass/Vol] 7.9 mg/dL Low 8.6-10.5 [facility] Comment on above: Performed By: #### T YPEC #### [facility] (DEFAULT) [address] [place] [address] 24863 CBC,PLATELETSon 12-28-2020 Hematocrit (Bld) [Volume fraction] 24.2 % Low 39.6-48.8 [facility] Comment on above: Performed By: #### U RIN #### [facility] (DEFAULT) [address] [place] [address] 72472 Hemoglobin (Bld) [Mass/Vol] 7.1 g/dL Low 13.4-16.8 [facility] Comment on above: Performed By: #### U RIN #### [facility] (DEFAULT) [address] [place] [address] 87123 MCV (RBC) [Entitic vol] 68.0 fL Low 79.0-94.5 [facility] Comment on above: Performed By: #### U RIN #### U [facility] (DEFAULT) [address] [place] [address] 92343 Mean Cell Hgb 19.9 pg Low 26.1-33.3 [facility] Comment on above: Performed By: #### U RIN #### U [facility] (DEFAULT) [address] [place] [address] 08909 Mean Cell Hgb Conc 29.3 g/dL Low 31.9-36.5 [facility] Comment on above: Performed By: #### U RIN #### U [facility] (DEFAULT) [address] [place] [address] 99125 Platelet mean volume (Bld) [Entitic vol] 10.7 fL Normal 8.7-12.3 [facility] Comment on above: Performed By: #### U RIN #### [facility] (DEFAULT) [address] [place] [address] 35338 Platelets (Bld) [#/Vol] 228 10*3/uL Normal 146-337 [facility] Comment on above: Performed By: #### U RIN #### [facility] (DEFAULT) [address] [place] [address] 38209 RBC (Bld) [#/Vol] 3.56 10*6/uL Low 4.38-5.83 [facility] Comment on above: Performed By: #### U RIN #### [facility] (DEFAULT) [address] [address] RBC Distribution 18.9 % High 10.9-14.3 [facility] Comment on above: Performed By: #### U RIN #### [facility] (DEFAULT) [address] [address] WBC (Bld) [#/Vol] 11.27 10*3/uL High 3.73-10.10 [facility] Comment on above: Performed By: #### U RIN #### [facility] (DEFAULT) [address] [place] [address] 38831 CHEM 7 (LYTES,BUN,CREA,GLUC) on 12-28-2020 Anion gap [Moles/Vol] 13 mmol/L Normal 7-17 [facility] Comment on above: Performed By: #### H EMOGC #### U [facility] (DEFAULT) [address] [place] [address] 39564 Chloride [Moles/Vol] 104 mmol/L Normal 98-108 [facility] Comment on above: Performed By: #### H EMOGC #### [facility] (DEFAULT) [address] [place] [address] 67048 CO2 [Moles/Vol] 25 mmol/L Normal 22-30 [facility] Comment on above: Performed By: #### H EMOGC #### [facility] (DEFAULT) [address] [place] [address] 44222 Creatinine [Mass/Vol] 5.81 mg/dL High 0.70-1.30 [facility] Comment on above: Performed By: #### H EMOGC #### [facility] (DEFAULT) [address] [place] [address] 17937 EST GFR, 12 mL/min/1.73sqM Low >=60 [facility] Comment on above: Performed By: #### H EMOGC #### [facility] (DEFAULT) [address] [place] [address] 72528 EST GFR,Non 10 mL/min/1.73sqM Low >=60 [facility] Comment on above: Performed By: #### H EMOGC #### [facility] (DEFAULT) [address] [place] [address] 96982 Glucose [Mass/Vol] 80 mg/dL Normal 70-99 [facility] Comment on above: Performed By: #### H EMOGC #### [facility] (DEFAULT) [address] [place] [address] 94190 Osmolality [Osmolality] 308 mosm/kg High 278-305 [facility] Comment on above: Performed By: #### H EMOGC #### [facility] (DEFAULT) [address] [place] [address] Potassium [Moles/Vol] 5.6 mmol/L High 3.5-5.0 [facility] Comment on above: Performed By: #### H EMOGC #### [facility] (DEFAULT) [address] [place] [address] Sodium [Moles/Vol] 136 mmol/L Normal 133-143 [facility] Comment on above: Performed By: #### H EMOGC #### [facility] (DEFAULT) [address] [place] [address] 12990 Urea nitrogen [Mass/Vol] 71 mg/dL High 7-22 [facility] Comment on above: Performed By: #### H EMOGC #### [facility] (DEFAULT) [address] [place] [address] 18046 Urea nitrogen/Creatinin e [Mass ratio] 12 mg/mg Normal [facility] Comment on above: Performed By: #### H EMOGC #### [facility] (DEFAULT) [address] [place] [address] 12521 Anion gap [Moles/Vol] 15 mmol/L Normal 7-17 [facility] Comment on above: Performed By: #### T YPEC #### [facility] (DEFAULT) [address] [place] [address] 32137 Chloride [Moles/Vol] 103 mmol/L Normal 98-108 [facility] Comment on above: Performed By: #### T YPEC #### [facility] (DEFAULT) [address] [place] [address] 31461 CO2 [Moles/Vol] 24 mmol/L Normal 22-30 [facility] Comment on above: Performed By: #### T YPEC #### [facility] (DEFAULT) [address] [place] [address] 03807 Creatinine [Mass/Vol] 5.57 mg/dL High 0.70-1.30 [facility] Comment on above: Performed By: #### T YPEC #### [facility] (DEFAULT) [address] [place] [address] 37353 EST GFR, 12 mL/min/1.73sqM Low >=60 [facility] Comment on above: Performed By: #### T YPEC #### [facility] (DEFAULT) [address] [place] [address] 90128 EST GFR,Non 10 mL/min/1.73sqM Low >=60 [facility] Comment on above: Performed By: #### T YPEC #### [facility] (DEFAULT) [address] [address] Glucose [Mass/Vol] 98 mg/dL Normal 70-99 [facility] Comment on above: Performed By: #### T YPEC #### [facility] (DEFAULT) [address] [address] Osmolality [Osmolality] 308 mosm/kg High 278-305 [facility] Comment on above: Performed By: #### T YPEC #### [facility] (DEFAULT) [address] [address] Potassium [Moles/Vol] 5.8 mmol/L High 3.5-5.0 [facility] Comment on above: Performed By: #### T YPEC #### [facility] (DEFAULT) [address] [address] Sodium [Moles/Vol] 136 mmol/L Normal 133-143 [facility] Comment on above: Performed By: #### T YPEC #### [facility] (DEFAULT) [address] [address] Urea nitrogen [Mass/Vol] 66 mg/dL High 7-22 [facility] Comment on above: Performed By: #### T YPEC #### [facility] (DEFAULT) [address] [place] [address] 25343 Urea nitrogen/Creatinin e [Mass ratio] 12 mg/mg Normal [facility] Comment on above: Performed By: #### T YPEC #### U [facility] (DEFAULT) [address] [address] CREATININE,RANDOM URINEon Creatinine (U) [Mass/Vol] 80.35 mg/dL Normal [facility] Comment on above: Order Comment: The r eference range has not been established for random urine specimens. The test result should be integrated into the clinical context for interpretation. Performed By: #### T YPEC #### [facility] (DEFAULT) [address] [address] LYTES (NA, K, CL) - URINE - RANDOMon 12-28-2020 Sodium (U) [Moles/Vol] 19 mmol/L Normal [facility] Comment on above: Order Comment: The r eference range has not been established for random urine specimens. The test result should be integrated into the clinical context for interpretation. Performed By: #### T YPEC #### [facility] (DEFAULT) [address] [place] [address] 80216 Urine Chloride 24 mmol/L Normal [facility] Comment on above: Order Comment: The r eference range has not been established for random urine specimens. The test result should be integrated into the clinical context for interpretation. Performed By: #### T YPEC #### [facility] (DEFAULT) [address] [address] Urine Potassium 58.8 mmol/L Normal [facility] Comment on above: Order Comment: The r eference range has not been established for random urine specimens. The test result should be integrated into the clinical context for interpretation. Performed By: #### T YPEC #### [facility] (DEFAULT) [address] [place] [address] 99921 MAGNESIUMon 12-28-2020 Magnesium [Mass/Vol] 2.7 mg/dL High 1.6-2.6 [facility] Comment on above: Performed By: #### T YPEC #### [facility] (DEFAULT[facility] [address] [place] [address] 05506 PHOSPHATE, INORGANICon 12-28 Phosphorous 5.8 mg/dL High 2.2-4.6 [facility] Comment on above: Performed By: #### T YPEC #### [facility] (DEFAULT) [address] [place] [address] 76060 ABORH TYPE RECONFIRMATIONon 12-27-2020 ABO/RH(D) TYPE Negative Normal [facility] Comment on above: Performed By: #### T YPEC #### [facility] (DEFAULT) [address] [address] ANAEROBE CULTUREon Bacteria identified Cx Nom (Unsp spec) Normal [facility] Comment on above: Order Comment: Colle [...] by [facility]. They have not been cleared or approved by the FDA. The laboratory is regulated under CLIA as qualified to perform high-complexity testing. This test is used for clinical purposes. It should not be regarded as investigational or for research. [id number] THETAIOTAOMICRON GROUPBACTEROIDES THETAIOTAOMICRON GROUP Moderate Growth Bacteroides thetaiotaomicron group Penicillinase positive Performed By: #### T YPEC #### [facility] (DEFAULT) [address] [address] BACTERIAL CULTURE AND DIRECT SMEAR, LESION, TISSUE, DEVICEon 12-27-2020 Ampicillin [Susceptibility] <=2 Invalid Interpretation Code [facility] Comment on above: Performed By: #### T YPEC #### [facility] (DEFAULT) [address] [place] [address] 65725 Penicillin [Susceptibility] 4 ug/mL Invalid Interpretation Code [facility] Comment on above: Performed By: #### T YPEC #### [facility] (DEFAULT) [address] [place] [address] 43802 Vancomycin [Susceptibility] 2 ug/mL Invalid Interpretation Code [facility] Comment on above: Performed By: #### T YPEC #### [facility] (DEFAULT) [address] [place] [address] 13457 CALCIUMon 12-27-2020 Calcium [Mass/Vol] 8.7 mg/dL Normal 8.6-10.5 [facility] Comment on above: Performed By: #### P TT #### [facility] (DEFAULT) [address] [place] [address] 65867 CBC AND ELECTRONIC DIFFon Abs Baso Auto Normal [facility] Comment on above: Performed By: #### X M #### [facility] (DEFAULT) [address] [place] [address] 49246 Abs Eos Auto Normal [facility] Comment on above: Performed By: #### X M #### [facility] (DEFAULT) [address] [place] [address] 08332 Abs Lymph Auto Normal [facility] Comment on above: Performed By: #### X M #### [facility] (DEFAULT) [address] [place] [address] 31509 Abs [place] Auto Normal [facility] Comment on above: Performed By: #### X M #### [facility] (DEFAULT) [address] [place] [address] 56243 Basophil % Auto Normal [facility] Comment on above: Performed By: #### X M #### [facility] (DEFAULT) [address] [place] [address] 87104 Eosinophil % Auto Normal [facility] Comment on above: Performed By: #### X M #### [facility] (DEFAULT) [address] [place] [address] 61573 Hematocrit (Bld) [Volume fraction] 29.2 % Low 39.6-48.8 [facility] Comment on above: Performed By: #### X M #### [facility] (DEFAULT) [address] [place] [address] 75407 Hemoglobin (Bld) [Mass/Vol] 8.4 g/dL Low 13.4-16.8 [facility] Comment on above: Performed By: #### X M #### [facility] (DEFAULT) [address] [place] [address] 54681 Immature Grans % Normal [facility] Comment on above: Performed By: #### X M #### [facility] (DEFAULT) [address] [place] [address] 75365 Immature Grans Absolute Normal [facility] Comment on above: Performed By: #### X M #### [facility] (DEFAULT) [address] [place] [address] 72061 Lymphocyte % Auto Normal [facility] Comment on above: Performed By: #### X M #### [facility] (DEFAULT) [address] [place] [address] 94722 MCV (RBC) [Entitic vol] 68.4 fL Low 79.0-94.5 [facility] Comment on above: Performed By: #### X M #### [facility] (DEFAULT) [address] 8[address]64 Mean Cell Hgb 19.7 pg Low 26.1-33.3 [facility] Comment on above: Performed By: #### X M #### [facility] (DEFAULT) [address] [place] [address] 75106 Mean Cell Hgb Conc 28.8 g/dL Low 31.9-36.5 [facility] Comment on above: Performed By: #### X M #### [facility] (DEFAULT) [address] [address] Monocyte % Auto Normal [facility] Comment on above: Performed By: #### X M #### [facility] [facility] (DEFAULT) [address] [address] Platelet mean volume (Bld) [Entitic vol] 10.6 fL Normal 8.7-12.3 [facility] Comment on above: Result Comment: This is an appended report. These results have been appended to a previously preliminary verified report. Performed By: #### X M #### [facility] (DEFAULT) [address] [address] Platelets (Bld) [#/Vol] 235 10*3/uL Normal 146-337 [facility] Comment on above: Result Comment: This is an appended report. These results have been appended to a previously preliminary verified report. Performed By: #### X M #### [facility] (DEFAULT) [address] [address] RBC (Bld) [#/Vol] 4.27 10*6/uL Low 4.38-5.83 [facility] Comment on above: Performed By: #### X M #### [facility] (DEFAULT) [address] [address] RBC Distribution 18.9 % High 10.9-14.3 [facility] Comment on above: Performed By: #### X M #### [facility] (DEFAULT) [address] [address] Segs + Bands Auto Normal [facility] Comment on above: Performed By: #### X M #### [facility] (DEFAULT) [address] [address] Segs + Bands,Absolute Auto Normal [facility] Comment on above: Performed By: #### X M #### [facility] (DEFAULT) [address] [place] [address] WBC (Bld) [#/Vol] 12.02 10*3/uL High 3.73-10.10 [facility] Comment on above: Result Comment: This is an appended report. These results have been appended to a previously preliminary verified report. Performed By: #### X M #### [facility] (DEFAULT) [address] [place] [address] CHM 7 - EDon 12-27-2020 Anion gap [Moles/Vol] 13 mmol/L Normal 7-17 [facility] Comment on above: Performed By: #### P TT #### [facility] (DEFAULT) [address] [place] [address] Chloride [Moles/Vol] 103 mmol/L Normal 98-108 [facility] Comment on above: Performed By: #### P TT #### [facility] (DEFAULT) [address] [place] [address] CO2 [Moles/Vol] 25 mmol/L Normal 22-30 [facility] Comment on above: Performed By: #### P TT #### [facility] (DEFAULT) [address] [place] [address] Creatinine [Mass/Vol] 2.40 mg/dL High 0.70-1.30 [facility] Comment on above: Performed By: #### P TT #### [facility] (DEFAULT) [address] [place] [address] EST GFR, 32 mL/min/1.73sqM Low >=60 [facility] Comment on above: Performed By: #### P TT #### [facility] (DEFAULT) [address] [place] [address] 20946 EST GFR,Non 27 mL/min/1.73sqM Low >=60 [facility] Comment on above: Performed By: #### P TT #### [facility] (DEFAULT) [address] [place] [address]221 Glucose [Mass/Vol] 144 mg/dL High 70-99 [facility] Comment on above: Performed By: #### P TT #### [facility] (DEFAULT) [address] [place] [address] Osmolality [Osmolality] 299 mosm/kg Normal 278-305 [facility] Comment on above: Performed By: #### P TT #### [facility] (DEFAULT) [address] [place] [address] Potassium [Moles/Vol] 4.7 mmol/L Normal 3.5-5.0 [facility] Comment on above: Performed By: #### P TT #### [facility] (DEFAULT) [address] [place] [address] Sodium [Moles/Vol] 136 mmol/L Normal 133-143 [facility] Comment on above: Performed By: #### P TT #### [facility] (DEFAULT) [address] [place] [address] Urea nitrogen [Mass/Vol] 39 mg/dL High 7-22 [facility] Comment on above: Performed By: #### P TT #### [facility] (DEFAULT) [address] [place] [address]998 Urea nitrogen/Creatinin e [Mass ratio] 16 mg/mg Normal [facility] Comment on above: Performed By: #### P TT #### [facility] (DEFAULT) [address] [place] [address] HEPATIC FUNCTION PANELon Albumin [Mass/Vol] 3.3 g/dL Low 3.5-5.0 [facility] Comment on above: Performed By: #### X M #### [facility] (DEFAULT) [address] [place] [address] ALP [Catalytic activity/Vol] 54 U/L Normal 32-126 [facility] Comment on above: Performed By: #### X M #### [facility] (DEFAULT) [address] [place] [address] ALT [Catalytic activity/Vol] 10 U/L Normal 10-52 [facility] Comment on above: Performed By: #### X M #### [facility] (DEFAULT) [address] [place] [address] AST [Catalytic activity/Vol] 16 U/L Normal 14-40 [facility] Comment on above: Performed By: #### X M #### [facility] (DEFAULT) [address] [place] [address] Bilirubin [Mass/Vol] 0.5 mg/dL Normal <1.5 [facility] Comment on above: Performed By: #### X M #### [facility] (DEFAULT) [address] [place] [address] Bilirubin.indirect [Mass/Vol] 0.1 mg/dL Normal <0.3 [facility] Comment on above: Performed By: #### X M #### [facility] (DEFAULT) [address] [place] [address] Protein [Mass/Vol] 6.6 g/dL Normal 6.4-8.3 [facility] Comment on above: Performed By: #### X M #### [facility] (DEFAULT) [address] [place] [address] LACTATE, BLOODon 12-27-2020 Lactate, Blood 1.9 mmol/L High 0.5-1.6 [facility] Comment on above: Performed By: #### X M #### [facility] (DEFAULT) [address] [place] [address] LIPASEon 12-27-2020 Lipase [Catalytic activity/Vol] U/L Low 11-82 [facility] Comment on above: Performed By: #### X M #### [facility] (DEFAULT) [address] [place] [address] MAGNESIUMon 12-27-2020 Magnesium [Mass/Vol] 2.5 mg/dL Normal 1.6-2.6 [facility] Comment on above: Performed By: #### X M #### [facility] (DEFAULT) [address] [address] NOVEL CORONAVIRUS PCRon 12-09 SARS-CoV-2 (COVID-19) RNA MONAE+probe Ql (Unsp spec) Not detected Normal NOT DETECTED [facility] Comment on above: Order Comment: Viral [...] for use by authorized laboratories. Result Comment: [facility] Negative results do not preclude [...] deteriorating. Performed By: #### T YPEC #### [facility] (DEFAULT) [address] [address] PHOSPHATE, INORGANICon 12-27 Phosphorous 3.7 mg/dL Normal 2.2-4.6 [facility] Comment on above: Performed By: #### X M #### [facility] (DEFAULT) [address] [address] PROTIME-INRon 12-27-2020 INR Coag (PPP) [Relative time] 1.2 {INR} High 0.9-1.1 [facility] Comment on above: Performed By: #### T YPEC #### [facility] (DEFAULT) [address] [place] [address] PT Coag (PPP) [Time] 15.0 s High 11.9-14.2 [facility] Comment on above: Performed By: #### T YPEC #### [facility] (DEFAULT) [address] [place] [address] TYPE AND SCREENon 12-27-2020 ABO/RH(D) TYPE Negative Normal [facility] Comment on above: Performed By: #### X M #### [facility] (DEFAULT) [address] [place] [address] URINALYSISon 12-27-2020 Appearance (U) Clear Normal Clear [facility] Comment on above: Performed By: #### U RIN #### [facility] (DEFAULT) [address] [place] [address] Bacteria PRESENT Abnormal ABSENT [facility] Comment on above: Performed By: #### U RIN #### [facility] (DEFAULT) [address] [place] [address] Blood Urine Trace Abnormal Negative [facility] Comment on above: Performed By: #### U RIN #### [facility] (DEFAULT) [address] [place] [address] Color (U) Yellow Normal Yellow [facility] Comment on above: Performed By: #### U RIN #### [facility] (DEFAULT) [address] [place] [address] Glucose Ql (U) Negative Normal Negative [facility] Comment on above: Performed By: #### U RIN #### [facility] (DEFAULT) [address] [place] [address] Ketones Ql (U) Negative Normal Negative [facility] Comment on above: Performed By: #### U RIN #### [facility] (DEFAULT) [address] [place] [address] Leukocyte esterase Test strip Ql (U) Negative Normal Negative [facility] Comment on above: Performed By: #### U RIN #### [facility] (DEFAULT) [address] [place] [address] Nitrites Urine Negative Normal Negative [facility] Comment on above: Performed By: #### U RIN #### [facility] (DEFAULT) [address] [place] [address] pH (U) 5.5 [pH] Normal 5.0-7.0 [facility] Comment on above: Performed By: #### U RIN #### [facility] (DEFAULT) [address] [place] [address] Protein Urine 30 mg/dL Abnormal Negative [facility] Comment on above: Performed By: #### U RIN #### [facility] (DEFAULT) [address] [place] [address] RBC Urine 0-2 Normal 0-2 [facility] Comment on above: Performed By: #### U RIN #### [facility] (DEFAULT) [address] [place] [address] Specific [place] Urine 1.010 Normal >1.001-<1.03 5 [facility] Comment on above: Performed By: #### U RIN #### [facility] (DEFAULT) [address] [place] [address] Squamous/Epithelia l Cells 1/hpf = 1+ Normal 1/hpf = 1+, 2-5/hpf = 2+, 0/hpf = 0+, ABSENT [facility] Comment on above: Performed By: #### U RIN #### [facility] (DEFAULT) [address] [place] [address] Urobilinogen Urine 0.2 E.U./dL Normal 0.2-1.0 [facility] Comment on above: Performed By: #### U RIN #### [facility] (DEFAULT) [address] [place] [address] WBC Urine 0-5 Normal 0-5 [facility] Comment on above: Performed By: #### U RIN #### [facility] (DEFAULT) [address] [place] [address] Encounters Encounter Date Encounter Type Care Provider Facility Start: 07-12-2021 End: 07-12-2021 ambulatory [facility] Facility[facility] Start: 07-07-2021 End: 07-08-2021 ambulatory [facility] Facility:[facility] Start: 07-07-2021 End: 07-07-2021 Patient encounter procedure [facility] Start: 02-11-2021 End: 02-11-2021 ambulatory [facility] Facility:[facility] Start: 01-28-2021 ambulatory [facility] Facility: [facility] Start: 01-27-2021 ambulatory [facility] Facility: [facility] Start: 01-21-2021 End: 01-21-2021 ambulatory [facility] Facility:[facility] Start: 01-20-2021 ambulatory [facility] Facility:[facility] Start: 01-07-2021 End: 01-15-2021 Evaluation and management of inpatient SUSHMA NIX Facility:[facility] Start: 01-06-2021 End: 01-06-2021 Emergency department patient visit Darluis a Chew Facility:[facility] Start: 01-06-2021 End: 01-06-2021 ambulatory Mernakailyn Aguilargalina Facility:[facility] Start: 12-28-2020 End: 12-28-2020 ambulatory [facility] Facility:[facility] Start: 12-27-2020 End: 01-01-2021 Evaluation and management of inpatient HUNTER PERAZA Facility:[facility] Procedures Date Procedure Procedure Detail Performing Clinician Start: 07-07-2021 Computed tomography of abdomen and pelvis with contrast Start: 01-10-2021 Antibody screen SUSHMA NIX Comment on above: Performed By: #### X M #### [facility] (DEFAULT) [address] [place] [address] Start: 12-31-2020 Antibody screen SUSHMA NIX Comment on above: Performed By: #### X M #### [facility] (DEFAULT) [address] [address] Start: 12-27-2020 Antibody screen SUSHMA NIX Comment on above: Performed By: #### X M #### [facility] ([facility] [address] [place] [address] Payers Date Payer Category Payer Self-pay [id number] 2010 Medicare [id number] 2009 Unknown [id number] 1945 Unknown [id number] .[id number] 1945 Unknown [id number] 2..[id number] .594 1945 Unknown [id number] [id number] .594 Medicare [place] AUTH REQUIR ED SEE NOTE [id number] Private Health Insurance [place] AU TH REQUIRED SEE NOTE [id number] Unknown [id number] [id number] .462 Unknown [id number] [id number] .462 Unknown [id number] [id number] .462 Unknown [id number] [id number] .462 Unknown [id number] [id number] .462 Unknown [id number] [id number] .462 Unknown [id number] [id number] .462 Unknown [id number] [id number] .462 Unknown [id number] [id number] .462 Unknown [id number] 2..[id number] .462 Unknown [id number] 2..[id number] .462 Social History Date Type Detail Facility Start: 01-21-2021 Tobacco smoking stat [facility] Unknown if ever smoked [facility] Work Phone: Start: 1945 Sex Assigned At Male [facility] Work Phone: Evaluation note Note Date & Type Note Facility Evaluation note No assessment information availa ble [facility] Work Phone: Summary Purpose Family History No Family History Records FoundNo Family History Records FoundNo Family History Records Found Advance Directives No Advanced Directives Records Found Advance Directive Response Recorded Date/ Time Living Will Yes January 06, 2021 12:11pm Power of Addiction Therapist Yes December 12:11pm Chief Complaint and Reason for Visit Chief Complaint COLON CANCER Additional Source Comments (unrecognized sect ion and content) No Status Records FoundNo Status Records FoundNo Status Records Found INFORMATION SOURCE (unrecogn ized section and content) DATE CREATED AUTHOR 01/02/2021 [employer] [facility] DATE CREATED AUTHOR AUTHOR'S ORGANIZ ATION 01/28/2021 [facility] DATE CREATED AUTHOR AUTHOR'S ORGANIZ ATION 01/05/2022 [facility] Goals (unrecognized section and content) [...] BE BASED ON THE PRIMARY CLINICAL RECORDS. [facility]. provides no warranty or guarantee of the accuracy or completeness of information in this document.
[2024-12-31] MEDS: Pantoprazole Sodium 40 MG in 0.9% Normal Saline (100mL MB+) 100 ML 330 MG IV (23:20)
[2024-12-31] MEDS: 0.9% Normal Saline (1000mL) 1,000 ML 150 ML IV (23:20)
[2024-12-31] MEDS: 0.9% Saline Lock 10 ML Syringe IV (23:24)
[2025-01-01] VITALS (12 sets, daily range): BP systolic 109–128; BP diastolic 58–91; PULSE 77–98; RESP 14–20; TEMP 36.6–38.3; O2SAT 93–99; BMI 21.8
[2025-01-01 00:26] LABS: Ferritin 397 ng/mL (37-417)
[2025-01-01 00:38] LABS: Mucous, Urine 0 SEEN /hpf (<or=2+); Red Blood Cells-Urine 0 SEEN /hpf (0-5); Squamous Epithelial Cells - UA 0 SEEN /hpf (0-5)
[2025-01-01 00:42] LABS: Iron 81 ug/dL (65-175); Iron Binding Capacity,Total 269 ug/dL (250-450); Iron Binding Capacity,Unsat 188 ug/dL (228-428); Magnesium 2.1 mg/dL (1.5-2.2)
[2025-01-01 00:42] LABS: Color, Urine Yellow (Yellow); Glucose, Dipstick Normal (Normal); Ketone-Dipstick Negative (Negative); Leukocyte Esterase-Dipstick Negative /ul (Negative); Nitrite-Dipstick Negative (Negative); Occult Blood-Urine Negative /ul (Negative); Protein-Dipstick 30 mg/dl (Negative); Specific Gravity, Urine 1.015 (1.002-1.030); Urine Bilirubin Dipstick Negative (Negative)
[2025-01-01] MEDS: 0.9% Normal Saline (1000mL) 1,000 ML 150 ML IV ×2 (05:35→12:46)
[2025-01-01 06:53] LABS: Hematocrit 33.1 % (40-54); Hemoglobin 10.6 g/dL (13.0-16.5); Immature Granulocytes Count 0.070 X10^3/uL (0.0-0.0); Mean Corp Hgb Conc 32.0 g/dL (32-36); Mean Corpuscular Volume 89.7 fL (80-94); Mean Platelet Vol. 10.3 fl (6.2-12.0); NRBC Flagged by Analyzer 0 % (0-5); POSITIVE DIFFERENTIAL YES; Platelet Count 203 K/mm3 (150-450); RBC Distribution Width CV 15.3 % (11.6-14.6); RBC Distribution Width SD 50.1 fl (35.1-43.9); Red Blood Count 3.69 M/mm3 (4.6-6.2); White Blood Count 14.2 K/mm3 (4.4-11.0)
--- NOTE | 2025-01-01 06:56 | PN.HOSP_ITS ---
Reason for Visit Chief Complaint: Nausea, Vomiting, Abdominal Pain and Syncope. Subjective Subjective Patient states he has been having abdominal pain postprandial intermittently for some time. States his finally insisted he came in because he had a syncopal episode related to his pain with emesis following on the day of presentation. States at this time he is not having any significant pain at rest or with palpation of his abdomen. We did discuss his need for ERCP and eventual cholecystectomy patient voices understanding. Patient states he has never been on anticoagulation. Objective Data Objective Data Vital Signs: Vital Signs Temp Pulse Resp BP Pulse Ox O2 Del Method O2 Flow Rate 97.9 F 98 16 116/75 99 Nasal Cannula 2 01/01/25 05:04 01/01/25 05:04 01/01/25 05:04 01/01/25 05:04 01/01/25 05:04 01/01/25 05:04 01/01/25 05:04 Oxygen Flow Rate (L/min) 2 Oxygen Delivery Method Nasal Cannula Weight: 69.2 kg Body Mass Index (BMI) 21.9 Intake & Output: Intake and Output for Last 24 Hours 12/30/24 12/31/24 01/01/25 23:59 23:59 23:59 Intake Total 1200 / 1200 937.5 / 937.5 Output Total 500 / 500 Balance 1200 / 1000 437.5 / 437.5 Lab / Micro Data 01/01/25 06:31 01/01/25 06:31 Labs: Laboratory Results - last 24 hr 12/31/24 18:23: WBC 6.3, RBC 4.51 L, Hgb 12.9 L, Hct 40.6, MCV 90.0, MCH 28.6, M CHC 31.8 L, RDW Std Deviation 49.5 H, RDW Coeff of Eduardo 15.0 H, Plt Count 261, MPV 10.5, Immature Gran % (Auto) 0.500, Neut % (Auto) 53.2, Lymph % (Auto) 35.0, [place] % (Auto) 7.5, Eos % (Auto) 3.5, Baso % (Auto) 0.3, Absolute Neuts (auto) 3.3, Absolute Lymphs (auto) 2.20, Nucleated RBC % 0, Sodium 136, Potassium 4.1, Chloride 99, Carbon Dioxide 24.3, Anion Gap 13, BUN 27 H, Creatinine 1.71 H, E stim Creat Clear Calc 35.03 L, Est GFR (MDRD) Non-Af 40 L, BUN/Creatinine Ratio 15.5, Glucose 178 H, Hemoglobin A1c 6.0 H, Calcium 9.5, Magnesium 2.1, Iron 81, TIBC 269, Iron Saturation 30.1, Unsaturated IBC 188 L, Ferritin 397, Total Bilirubin 0.54, AST 264 H, ALT 227 H, Alkaline Phosphatase 362 H, Total Protein 7.8, Albumin 4.1, Globulin 3.7, Albumin/Globulin Ratio 1.1, Lipase > 3000 H, TSH 3.340 01/01/25 00:30: Urine Color Yellow, Urine Clarity Clear, Urine pH 6.0, Ur Specific [place] 1.015, Urine Protein 30 H, Urine Glucose (UA) Normal, Urine Ketones Negative, Urine Occult Blood Negative, Urine Nitrite Negative, Urine Bilirubin Negative, Urine Urobilinogen Normal, Ur Leukocyte Esterase Negative, Urine RBC 0 SEEN, Urine WBC 0 SEEN, Ur Squamous Epith Cells 0 SEEN, Urine Bacteria 0 SEEN, Urine Mucus 0 SEEN Radiography Diagnostic Testing: Radiology Impression Chest/Abdomen/Pelvis CT 12/31/24 18:57 IMPRESSION: Abnormally distended gallbladder with extrahepatic biliary prominence and mild intrahepatic biliary prominence. Correlate with laboratory findings. New compared to prior study. Consider further evaluation with MRCP. Evidence of pancreatitis with fluid near the pancreatic tail. Correlate clinically Reading Location: [facility] Gallbladder Ultrasound 12/31/24 20:20 IMPRESSION: Nonspecific CBD dilation, intrahepatic biliary dilation, and pancreatic dilation. If there is concern for choledocholithiasis, consider MRCP for further evaluation. No acute cholecystitis. Trace pericholecystic fluid, nonspecific. Gallbladder polyp is noted. No gallstones. Hepatic steatosis. Reading Location: [facility] Physical Exam Const alert, oriented x3, no apparent distress, average body habitus and well nourished Constitutional Narrative: Very pleasant older, white male, sitting up in bed, at bedside, patient appears comfortable currently, does not appear toxic HEENT head/scalp atraumatic and moist oral mucous membranes HEENT Narrative: Mallampati 2, no thrush Head and Scalp: normocephalic Resp normal respiratory effort, no retractions, no use of accessory muscles and clear to auscultation bilaterally Auscultation: Negative for rales, rhonchi or wheezes Cardio regular rate, regular rhythm, S1 normal heart sound, S2 normal heart sound, no murmurs, no rub, no gallops and no clicks GI normal to inspection, nondistended, normoactive bowel sounds, soft to palpation and non-tender GI Narrative: Absolutely no pain with palpation of the epigastrium or left upper quadrant at this time Extremity no clubbing, cyanosis or edema Extremity Narrative: 2+ pedal and radial pulses Neuro moves all extremities and no focal motor deficits Speech: speech normal Psych affect normal Psych Narrative: Very pleasant, interacts appropriately Assessment & Plan Assessment/Plan (1) Acute biliary pancreatitis: QUALIFIERS: Acute pancreatitis complication: unspecified Q ualified Code(s): K85.10 - Biliary acute pancreatitis without necrosis or infection (2) Choledocholithiasis: (3) Cholelithiasis: (4) Syncope: QUALIFIERS: Syncope type: vasovagal syncope Qualified Code(s): R 55 - Syncope and collapse (5) Transaminitis: PLAN: Plan Acute gallstone pancreatitis secondary to choledocholithiasis - N.p.o. - As needed pain medication - As needed antiemetics - Continue IV fluids as ordered - Plan for ERCP later today - With leukocytosis will need antibiotics and general surgery has started Zosyn so we will continue--> will likely need oral antibiotics at discharge - Discontinue MRCP - GI consulted-case discussed with Dr. Granados and plan is for ERCP later today. Cholelithiasis - After acute pancreatitis is resolved and ERCP is completed - Outpatient follow-up for cholecystectomy in the future - General Surgery is following-appreciate input Transaminitis - Slightly more elevated today than yesterday - Should resolve slowly after stone removal - Repeat in a.m. - Bilirubin is not elevated Syncope - Sounds vasovagal and related to pain - No further episodes - Patient states he is feeling much better and has never experienced this before - Discontinue echocardiogram Intractable nausea and vomiting - Resolved CKD stage IIIa - Most recent baseline serum creatinine is unknown but previously in 2020 2021 had been between 1.3 and 1.5 - 1.71 on presentation - IV fluids for pancreatitis as above - Suspect currently at baseline - Avoid nephrotoxins History of iron deficiency anemia - Hemoglobin is 12.9 on admission 10.6 with IV fluids -After med reconciliation has been updated patient is not on any iron currently Essential hypertension - Continue to hold amlodipine and lisinopril for now and restart after monitoring blood pressure after procedure - Continue as needed hydralazine History of invasive adenocarcinoma of the colon - Status post sigmoid colectomy due to perforation - Colostomy reversal - CEA ordered on admission - Had follow-up with [facility]ology here and was started GERD - Continue PPI DVT prophylaxis - SCDs for now - If patient is hospitalized more than another 24 hours will start subcu heparin 3 times daily CODE STATUS - Full code Charges/Coding Visit Charges Inpatient E&M: 18742 Subs Hosp L2
[2025-01-01 07:04] LABS: Differential Indicated SCAN CRITERIA MET
--- NOTE | 2025-01-01 07:10 | CON.PCM.SX_ITS ---
Assessment & Plan Assessment/Plan (1) Cholelithiasis: (2) Transaminitis: (3) Acute pancreatitis: QUALIFIERS: Acute pancreatitis complication: no infection or necrosis Pancreatitis type: biliary Qualified Code(s): K85.10 - Biliary acute pancreatitis without necrosis or infection (4) Common bile duct dilatation: PLAN: Plan Patient reports counts 14 from 8 did placed patient on IV Zosyn. Did review CT abdomen pelvis does appear to have a stone in the distal common bile duct. GI is consulted. Discussed with patient and his that he does have some small gallstones in his gallbladder no obvious inflammation seen on ultrasound of the gallbladder likely this is more due to biliary obstruction. Patient would benefit from a laparoscopic cholecystectomy in the future. This may be able to be done as an outpatient, will follow. Previous ex lap due to perforated sigmoid cancer as well as reversal of colostomy. Jaz Garcia M.D. Pager: [phone] [facility] [address] [place] [address], [facility], [address] [place] [address] Office: [phone] HPI Consult Data Date of Consult: 01/01/25 HPI Narrative HPI Narrative: GIOVANNA PADRON, is a 79 M who presents to the ER due to abdominal pain nausea and vomiting. Patient was found to have gallstone pancreatitis. CT abdomen pelvis showed a dilated common bile duct with choledocholithiasis, ultrasound the gallbladder showed cholelithiasis no gallbladder wall thickening or Pericholecystic fluid. Patient states he has been having issues with indigestion and taking Tums ibuprofen and Tylenol over the last month. On admission patient's white blood count was 8 up to 14 this morning?Zosyn started this morning. Patient's AST and ALT and alk phos were in the 2-300s on admit, normal total bilirubin. Patient does have a history of perforated sigmoid cancer 2020 with colostomy and reversal at [facility]. [facility] Medical History GERD (gastroesophageal reflux disease) Hypertension Colon cancer Colostomy in place Non-smoker Home Medications ?Medication ?Instructions ?Recorded ?Last Taken ?Type acetaminophen 325 mg capsule 325 mg PO Q6H PRN pain Unknown History amlodipine 10 mg tablet 10 mg PO QHS blood pressure 01/14/21 Unknown History lisinopril 30 mg tablet 30 mg PO DAILY blood pressur e 01/01/25 Unknown History omeprazole 20 mg capsule,delayed 20 mg PO DAILY gerd 0 01/01/25 Unknown History release Allergy/AdvReac Type Severity Reaction Status Date / Time No Known Allergies Allergy Verified 12/31/24 18:19 Family History no significant family his Surgical History (Reviewed 01/01/25 @ 09: by ISMAEL Carson) Hx of resection of large bowel Social History (Reviewed 01/01/25 @ : by ISMAEL Carson) adopted: No housing: long-term current occupational status: retired Smoking Status: Never smoker alcohol intake: never substance use type: does not use ROS Constitutional Constitutional: Reports anorexia ENT HEENT: Reports hearing loss Cardiovascular Cardiovascular: Denies chest pain Respiratory/Chest Respiratory/Chest: Denies cough Gastrointestinal Gastrointestinal: Reports abdominal pain, nausea and vomiting Genitourinary Genitourinary: Denies hematuria Musculoskeletal Musculoskeletal: Denies joint swelling Integumentary Integumentary: Denies jaundice Neurologic Neurologic: Denies focal weakness Psychiatric Psychiatric: Denies anxiety Hematologic/Lymphatic Hematologic/Lymphatic: Denies easy bleeding Physical Exam Const alert, oriented x3 and no apparent distress HEENT normocephalic and head/scalp atraumatic Resp normal respiratory effort Cardio regular rate GI soft to palpation and non-tender; Negative for non-distended GI Narrative: Well-healed midline incision and previous left abdominal colostomy site well- healed Palpation: Negative for guarding Extremity no clubbing, cyanosis or edema Skin no rashes or lesions noted Neuro CN's II-XII intact bilaterally Psych mental status grossly normal Lab / Micro Data 01/01/25 06:31 01/01/25 06:31 Labs: Laboratory Results - last 24 hr 12/31/24 18:23: WBC 6.3, RBC 4.51 L, Hgb 12.9 L, Hct 40.6, MCV 90.0, MCH 28.6, M CHC 31.8 L, RDW Std Deviation 49.5 H, RDW Coeff of Eduardo 15.0 H, Plt Count 261, MPV 10.5, Immature Gran % (Auto) 0.500, Neut % (Auto) 53.2, Lymph % (Auto) 35.0, [place] % (Auto) 7.5, Eos % (Auto) 3.5, Baso % (Auto) 0.3, Absolute Neuts (auto) 3.3, Absolute Lymphs (auto) 2.20, Nucleated RBC % 0, Sodium 136, Potassium 4.1, Chloride 99, Carbon Dioxide 24.3, Anion Gap 13, BUN 27 H, Creatinine 1.71 H, E stim Creat Clear Calc 35.03 L, Est GFR (MDRD) Non-Af 40 L, BUN/Creatinine Ratio 15.5, Glucose 178 H, Hemoglobin A1c 6.0 H, Calcium 9.5, Magnesium 2.1, Iron 81, TIBC 269, Iron Saturation 30.1, Unsaturated IBC 188 L, Ferritin 397, Total Bilirubin 0.54, AST 264 H, ALT 227 H, Alkaline Phosphatase 362 H, Total Protein 7.8, Albumin 4.1, Globulin 3.7, Albumin/Globulin Ratio 1.1, Lipase > 3000 H, TSH 3.340 01/01/25 00:30: Urine Color Yellow, Urine Clarity Clear, Urine pH 6.0, Ur Specific [place] 1.015, Urine Protein 30 H, Urine Glucose (UA) Normal, Urine Ketones Negative, Urine Occult Blood Negative, Urine Nitrite Negative, Urine Bilirubin Negative, Urine Urobilinogen Normal, Ur Leukocyte Esterase Negative, Urine RBC 0 SEEN, Urine WBC 0 SEEN, Ur Squamous Epith Cells 0 SEEN, Urine Bacteria 0 SEEN, Urine Mucus 0 SEEN 01/01/25 06:31: WBC 14.2 H, RBC 3.69 L, Hgb 10.6 L, Hct 33.1 L, MCV 89.7, MCH 28.7, MCHC 32.0, RDW Std Deviation 50.1 H, RDW Coeff of Eduardo 15.3 H, Plt Count 203, MPV 10.3, Immature Gran % (Auto) 0.500, Neut % (Auto) 79.2 H, Lymph % (Auto) 6.1 L, Mitchell % (Auto) 13.9 H, Eos % (Auto) 0.2, Baso % (Auto) 0.1, A bsolute Neuts (auto) 11.2 H, Absolute Lymphs (auto) 0.87, Nucleated RBC % 0 Imaging Radiology Impression Chest/Abdomen/Pelvis CT 12/31/24 18:57 IMPRESSION: Abnormally distended gallbladder with extrahepatic biliary prominence and mild intrahepatic biliary prominence. Correlate with laboratory findings. New compared to prior study. Consider further evaluation with MRCP. Evidence of pancreatitis with fluid near the pancreatic tail. Correlate clinically Reading Location: [facility] Gallbladder Ultrasound 12/31/24 20:20 IMPRESSION: Nonspecific CBD dilation, intrahepatic biliary dilation, and pancreatic dilation. If there is concern for choledocholithiasis, consider MRCP for further evaluation. No acute cholecystitis. Trace pericholecystic fluid, nonspecific. Gallbladder polyp is noted. No gallstones. Hepatic steatosis. Reading Location: [facility] Charges/Coding Multi Select Codes Visit Charges Visit Charges: 77358 Init Hosp L3
[2025-01-01 07:51] LABS: AST(SGOT) 168 U/L (<=37); Alanine Aminotransfer ALT/SGPT 208 U/L (<=46); Albumin, Serum 3.4 g/dL (3.4-4.8); Alkaline Phosphatase 283 U/L (40-129); Anion Gap 8 (5-15); BUN 28 mg/dL (4-19); BUN/Creat Ratio 16.0 RATIO (10-20); Calcium,Total 8.0 mg/dL (7.6-11.0); Carbon Dioxide 22.4 mmol/L (21.0-32.0); Chloride 108 mmol/L (98-108); Estimated Creatinine Clearance 33.12 ml/min (50-250); Globulin 2.5 g/dL (2.2-4.2); Glucose 105 mg/dL (70-99); Potassium 5.2 mmol/L (3.3-5.1)
[2025-01-01 07:58] LABS: Lipase 1238 U/L (13-75)
[2025-01-01 08:12] LABS: Prothrombin Time (Protime)PT. 15.5 SECONDS (11.7-14.9)
[2025-01-01 08:13] LABS: Partial Thromboplast Time 28.5 Seconds (24.1-36.2)
[2025-01-01] MEDS: Piperacil/Tazobactam 3.375 GM in 0.9% Normal Saline (50mL MB+) 50 ML IV ×3 (08:35→22:33)
--- NOTE | 2025-01-01 08:37 | EX.PCM.CON.G ---
HPI Consult Data Date of Consult: 01/01/25 HPI Narrative Reason for Consultation: CBD stone HPI Narrative: 79y/o male presented to ED on 12/31/2024 via EMS with N/V and epigastric pain. reports she found him slumped over, vomiting, and unresponsive for a couple of minutes. ED labs revealing for WBC 6.3, HGB 12.9, PLT 261, Creat 1.71, glucose 178, AST 264, ALT 227, ALP 362, T. Bili WNL, lipase >3000. ABD US revealing for dilated CBD 9mm with intrahepatic and pancreatic dilation. CT reveals a stone in the distal CBD. He reports symptoms of post prandial right sided abdominal pain 4-5/10 began approximately one month ago, pain improved with antacids/NSAIDs. No jaundice, fever, HB, weight loss, or change in bowel habits. He had one episode of emesis 2 weeks ago and again yesterday. He denies any radiation of pain. He denies any alcohol or smoking. Pepto/Tums IBU 200mg BID x2 weeks at bedside [facility] Follow-up labs today reveal mild leukocytosis (14.2) placed on IV Zosyn, HGB 10.6 (possibly dilutional), AST 168, ALT 208, ALP 283, lipase 1238, IN 1.2. MRCP is scheduled for this morning. [facility] Medical History GERD (gastroesophageal reflux disease) Hypertension Colon cancer Colostomy in place Non-smoker Home Medications ?Medication ?Instructions ?Recorded ?Last Taken ?Type acetaminophen 325 mg capsule 325 mg PO Q6H PRN pain 01/14/21 Unknown History amlodipine 10 mg tablet 10 mg PO QHS blood pressure 01/14/21 Unknown History lisinopril 30 mg tablet 30 mg PO DAILY blood pressure 01/01/25 Unknown History omeprazole 20 mg capsule,delayed 20 mg PO DAILY gerd 01/01/25 Unknown History release Allergy/AdvReac Type Severity Reaction Status Date / Time No Known Allergies Allergy Verified 12/31/24 18:19 Family History no significant family his no significant family history Surgical History Hx of resection of large bowel Social History adopted: No housing: correction current occupational status: retired Smoking Status: Never smoker alcohol intake: never substance use type: does not use ROS Constitutional Constitutional: Reports as per HPI ENT HEENT: Denies bleeding gums, dizziness, dry mouth, dysphagia or halitosis Respiratory/Chest Respiratory/Chest: Denies dyspnea on exertion, mouth breathing, productive cough, shortness of breath at rest or shortness of breath with exertion Gastrointestinal Gastrointestinal: Reports abdominal pain, belching, nausea and vomiting Musculoskeletal Musculoskeletal: Denies abnormal gait, joint pain, joint stiffness, joint swelling or muscle weakness Integumentary Integumentary: Denies change in pigmentation, jaundice or unusual bruising Hematologic/Lymphatic Hematologic/Lymphatic: Denies easy bleeding, easy bruising or lymphadenopathy Allergic/Immunologic Allergic/Immunologic: Denies GI upset w/certain foods, urticaria or asthma Physical Exam Const no apparent distress General Appearance: well developed Orientation / Consciousness: oriented to person, oriented to place and oriented to time Eyes conjunctivae normal Resp Effort and Inspection: able to speak in complete sentences and symmetric chest movement Auscultation: clear to auscultation bilaterally Cardio regular rate and regular rhythm GI normal to inspection, nondistended, normoactive bowel sounds, soft to palpation, non-tender and no masses Extremity Peripheral Pulses: Yes pulses 2+ throughout Medical Records Data Attestation: I reviewed the patient's medical records Lab / Micro Data Attestation: I reviewed the patient's lab results. 01/01/25 06:31 01/01/25 06:31 Labs: Laboratory Results - last 24 hr 12/31/24 18:23: WBC 6.3, RBC 4.51 L, Hgb 12.9 L, Hct 40.6, MCV 90.0, MCH 28.6, MCHC 31.8 L, RDW Std Deviation 49.5 H, RDW Coeff of Eduardo 15.0 H, Plt Count 261, MPV 10.5, Immature Gran % (Auto) 0.500, Neut % (Auto) 53.2, Lymph % (Auto) 35.0, [place] % (Auto) 7.5, Eos % (Auto) 3.5, Baso % (Auto) 0.3, Absolute Neuts (auto) 3.3, Absolute Lymphs (auto) 2.20, Nucleated RBC % 0, Sodium 136, Potassium 4.1, Chloride 99, Carbon Dioxide 24.3, Anion Gap 13, BUN 27 H, Creatinine 1.71 H, Estim Creat Clear Calc 35.03 L, Est GFR (MDRD) Non-Af 40 L, BUN/Creatinine Ratio 15.5, Glucose 178 H, Hemoglobin A1c 6.0 H, Calcium 9.5, Magnesium 2.1, Iron 81, TIBC 269, Iron Saturation 30.1, Unsaturated IBC 188 L, Ferritin 397, Total Bilirubin 0.54, AST 264 H, ALT 227 H, Alkaline Phosphatase 362 H, Total Protein 7.8, Albumin 4.1, Globulin 3.7, Albumin/Globulin Ratio 1.1, Lipase > 3000 H, TSH 3.340 01/01/25 00:30: Urine Color Yellow, Urine Clarity Clear, Urine pH 6.0, Ur Specific [place] 1.015, Urine Protein 30 H, Urine Glucose (UA) Normal, Urine Ketones Negative, Urine Occult Blood Negative, Urine Nitrite Negative, Urine Bilirubin Negative, Urine Urobilinogen Normal, Ur Leukocyte Esterase Negative, Urine RBC 0 SEEN, Urine WBC 0 SEEN, Ur Squamous Epith Cells 0 SEEN, Urine Bacteria 0 SEEN, Urine Mucus 0 SEEN 01/01/25 06:31: WBC 14.2 H, RBC 3.69 L, Hgb 10.6 L, Hct 33.1 L, MCV 89.7, MCH 28.7, MCHC 32.0, RDW Std Deviation 50.1 H, RDW Coeff of Eduardo 15.3 H, Plt Count 203, MPV 10.3, Immature Gran % (Auto) 0.500, Neut % (Auto) 79.2 H, Lymph % (Auto) 6.1 L, [place] % (Auto) 13.9 H, Eos % (Auto) 0.2, Baso % (Auto) 0.1, Absolute Neuts (auto) 11.2 H, Absolute Lymphs (auto) 0.87, Nucleated RBC % 0, Sodium 139, Potassium 5.2 H, Chloride 108, Carbon Dioxide 22.4, Anion Gap 8, BUN 28 H, Creatinine 1.77 H, Estim Creat Clear Calc 33.12 L, Est GFR (MDRD) Non-Af 39 L, BUN/Creatinine Ratio 16.0, Glucose 105 H, Calcium 8.0, Phosphorus 3.6, Total Bilirubin 0.39, AST 168 H, ALT 208 H, Alkaline Phosphatase 283 H, Total Protein 5.9, Albumin 3.4, Globulin 2.5, Albumin/Globulin Ratio 1.3, Lipase 1238 H 01/01/25 07:21: PT 15.5 H, INR 1.2, APTT 28.5 Imaging Radiology Impression Chest/Abdomen/Pelvis CT 12/31/24 18:57 IMPRESSION: Abnormally distended gallbladder with extrahepatic biliary prominence and mild intrahepatic biliary prominence. Correlate with laboratory findings. New compared to prior study. Consider further evaluation with MRCP. Evidence of pancreatitis with fluid near the pancreatic tail. Correlate clinically Reading Location: [facility] Gallbladder Ultrasound 12/31/24 20:20 IMPRESSION: Nonspecific CBD dilation, intrahepatic biliary dilation, and pancreatic dilation. If there is concern for choledocholithiasis, consider MRCP for further evaluation. No acute cholecystitis. Trace pericholecystic fluid, nonspecific. Gallbladder polyp is noted. No gallstones. Hepatic steatosis. Reading Location: [facility] Assessment & Plan Assessment/Plan (1) Acute biliary pancreatitis: QUALIFIERS: Acute pancreatitis complication: unspecified Qualified Code(s): K85.10 - Biliary acute pancreatitis without necrosis or infection (2) Choledocholithiasis: (3) Transaminitis: PLAN: Plan 79y/o male with acute gallstone pancreatitis with choledocholithiasis. PMH is significant for HTN, GERD, and colon CA with colostomy and reversal. He reports symptoms of post prandial right sided abdominal pain 4-5/10, began approximately one month ago, pain improved with antacids/NSAIDs. No jaundice, fever, HB, weight loss, or change in bowel habits. He had one episode of emesis 2 weeks ago and again yesterday. He denies any radiation of pain. He denies any alcohol or smoking. Labs concerning for evolving leukocytosis, raises concern for possible cholangitis (6.3 -> 14.2), IV Zosyn initiated. Abdominal US shows dilated CBD (9mm), intrahepatic and pancreatic ductal dilation. Imaging confirms distal CBD stone. MRCP pending. Plan for ERCP today.
--- NOTE | 2025-01-01 11:05 | CASEMGMT ---
YOLI PATEL Assessment: Face to Face with pt for initial transition planning/care coordination assessment. RN JORGE introduced self and role at [facility], pt voices understanding and consents to assessment. Pt is A&O x4 and answers all questions appropriately at this time. Pt lying in bed with , dtr and dil at bedside. Pt agreeable to assessment with family present. Care providers, pharmacy, and demographics verified/updated. Admitting Dx: acute pancreatitis with transaminitis Strata Score: 2 PCP:Dr. Rahman at [facility] Specialists:Denies Preferred Pharmacy:[facility] Insurance: [place] benefit Prescription Benefit: yes, pt gets meds through the [place] LNOK: Lily Ferrari, Living Arrangements: Pt lives with in a two story home with 2 steps to enter. Pt reports he is I in ADL/IADLs and denies concerns at home. Transportation: Pt drives self and denies concerns with transportation. DME:Denies HHC/SNF: [facility]. Pt states no concerns with going home at time of dc. Pt states no further concerns/needs. Pt scheduled for ERCP this date. CM to follow. Advised pt to ask CM if any further questions/concerns/needs arise, voices understanding. Pt Goal: Home Plan: Home Radha KENT CM
[2025-01-01] MEDS: Pantoprazole Sodium 40 MG in 0.9% Normal Saline (100mL MB+) 100 ML 330 MG IV (12:50)
--- NOTE | 2025-01-01 15:04 | NURSING ---
PT LEAVING UNIT VIA BED FOR ERCP
--- NOTE | 2025-01-01 15:21 | PCM.PRE.AN2 ---
ASA Classification* ASA Classification ASA Classification: 3 and E Assessment & Plan Anesthesia* Anesthesia Assessment Anesthesia Assessment: Discussed sedation and/or anesthesia options, risks, benefits, and alternatives with patient/parents/legal guardian/POA. Questions invited. The patient/parents/legal guardian/POA seems to understand and agrees to proceed with anesthesia plan. Reviewed the physical assessment, medical history, allergy history and patient home medications list prior to surgery/procedure/anesthetic and documented any changes. Performed airway and anesthesia risk assessments. Anesthesia Type Anesthesia Type: General History Source History Obtained from:: Chart and Significant Other (Spouse at bedside) Anesthesia Focused Assessment* Temperature: 98.3 F Pulse Rate: 93 Blood Pressure: 128/73 Respiratory Rate: 14 Pulse Ox: 98 Oxygen Flow Rate (L/min): 2 Airway Assessment Mouth opens: >3 cm Mallampati Score: II Teeth Condition: Missing Neck Range of motion (ROM): Limited ROM Labs Anesthesia Preop lab: CBC WBC, (4.4-11.0) 14.2 K/mm3 H Today, 06:31 RBC, (4.6-6.2) 3.69 M/mm3 L Today, 06:31 Hgb, (13.0-16.5) 10.6 g/dL L Today, 06:31 Hct, (40-54) 33.1 % L Today, 06:31 Plt Count, (150-450) 203 K/mm3 Today, 06:31 CHEMISTRY Potassium, (3.3-5.1) 5.2 mmol/L H Today, 06:31 Sodium, (133-145) 139 mmol/L Today, 06:31 Magnesium, (1.5-2.2) 2.1 mg/dL 12/31/24, 18:23 Phosphorus, (2.7-4.5) 3.6 mg/dL Today, 06:31 BUN, (4-19) 28 mg/dL H Today, 06:31 Creatinine, (0.70-1.20) 1.77 mg/dL H Today, 06:31 Glucose, (70-99) 105 mg/dL H Today, 06:31 TSH, (0.300-4.200) 3.340 uIU/mL 12/31/24, 18:23 COAG PT, (11.7-14.9) 15.5 SECONDS H Today, 07:21 Pre-Assessment Diagnosis/Proposed Procedure Planned Operative Procedure(s): ERCP Anesthesia History Anesthesia History - wireless sales representative: Anesthesia History - wireless sales representative Hx Hospitalization Any Problems With Anesthesia No 01/01/25 11:43 Cholinesterase deficiency No 01/01/25 11:43 You/Your Family Experience No 01/01/25 11:43 fever (hyperthermia) with Relationship Recent Exposure to Contagious No 01/01/25 11:43 Disease Does patient have nerve No 01/01/25 11:43 stimulator Patient instructed to have No 01/01/25 11:43 device shut off --Does patient have Pacemaker No 01/01/25 11:43 or ICD? When Was Last Pacemaker Check QUESTION #4 FULL TEXT: You/Your Family Experience fever (hyperthermia) with Anesthesia Last Oral Intake Last Oral intake: Last Oral Intake NPO since 00:01 01/01/25 11:43 Meds taken in AM with sips of No 01/01/25 11:43 water? Meds patient instructed to take am of surgery PONV PONV - wireless sales representative: PONV - wireless sales representative Female HX of Motion Sickness HX of N/V After Surgery Non-Smoker Duration of Surgery greater than 60 minutes Number of Risk Factors PONV Score Height & Weight Height & Weight: Anesthesia: Height & Weight Height 5 ft 10 in 01/01/25 11:43 Weight: 68.946 kg 01/01/25 11:43 Body Mass Index (BMI) 21.8 01/01/25 11:43 Respiratory Assessment Respiratory Assessment - wireless sales representative: Respiratory Tract Infection Hx - wireless sales representative Hx Respiratory Tract Infection No 01/01/25 11:43 STOP Sleep Apnea STOP Sleep Apnea - wireless sales representative: STOP Sleep Apnea - wireless sales representative Hx Hypertension Yes 01/01/25 14:33 Hx Sleep Apnea No 12/31/24 23:00 CPAP BIPAP Do you snore loudly (louder No 12/31/24 23:00 than talking or can be heard Do you often feel tired/ No 12/31/24 23:00 fatigued/ sleepy during daytime? Has anyone observed you stop No 12/31/24 23:00 breathing during sleep? STOP Results Negative 12/31/24 23:00 QUESTION #5 FULL TEXT : Do you snore loudly (louder than talking or can be heard through closed doors)? Tobacco Use History Tobacco Use History - wireless sales representative: Tobacco Use History - wireless sales representative Tobacco Use Smoking Status Never smoker 12/31/24 23:00 Hx Tobacco Use No 12/31/24 23:00 Years Smoking Packs Smoked per Day Smoking Cessation Date was within the last 15 years Hx Smoking Cessation Date Hx Smoking Cessation Counseling Hematologic Medial History Hematologic Hx - wireless sales representative: Hematologic Medical Hx - polisher brass Hx of Blood Transfusion Hx of Transfusion in last 3 Months Date of Last Transfusion (if within last 3 months) Ever experience any problems with transfusion(s)? Specify any problems Hx of Preganancy in last 3 Months Nurse Filling Out Transfusion & Questions: Date: Time: Patient unable to answer at Yes 12/31/24 23:00 this time (ie. confused, unrespo /Reproduction History /Reproductive History - wireless sales representative: /Reproductive Hx- wireless sales representative Hx Now No 01/01/25 11:43 Gestational Age (in weeks): EDC: Hx Hx Para Hx Section SAB No 01/01/25 11:43 Active Medications Active Medications: Current Medications Generic Name Dose Route Start Last Admin Trade Name Freq PRN Reason Stop Dose Admin Hydralazine HCl 5 mg 12/31/24 22:52 Hydralazine 20 Mg/Ml Vial IV Q8H PRN PRN SBP GREATER THAN 160 Protocol Sodium Chloride 1,000 mls @ 150 mls/hr 12/31/24 22:52 01/01/25 12:46 IV 01/01/25 18:51 150 mls/hr .Q6H40M MARTHA Administration Pantoprazole Sodium 40 mg/ 100 mls @ 330 mls/hr 12/31/24 22:52 01/01/25 13:10 Sodium Chloride IV Infused Q24 MARTHA Infusion Sodium Chloride 250 mls @ 15 mls/hr 12/31/24 22:53 IV .[id number] PRN Saline Flush Sodium Chloride 250 mls @ 15 mls/hr 12/31/24 22:53 IV .[id number] PRN Additional IVPB Infusion Piperacillin Sod/Tazobactam 50 mls @ 12.5 mls/hr 01/01/25 07:10 01/01/25 14:47 Sod 3.375 gm/ Sodium Chloride IV 12.5 mls/hr Q8 MARTHA Administration Ketorolac Tromethamine 15 mg 12/31/24 22:52 12/31/24 23:30 Ketorolac 15 Mg/Ml Vial IV 01/05/25 22:53 15 mg Q8H PRN PRN Administration Pain 1-5/10 or Fever Morphine Sulfate 2 mg 12/31/24 22:52 01/01/25 05:36 Morphine 2 Mg/Ml Syringe IV 2 mg Q4H PRN PRN Administration Pain Score 6-10 Ondansetron HCl 4 mg 12/31/24 22:52 Ondansetron 4 Mg/2 Ml Vial IV Q4H PRN PRN NAUSEA/VOMITING Sodium Chloride 10 - 40 ml 12/31/24 22:53 12/31/24 23:24 0.9% Saline Lock 10 Ml Syringe IV 10 ml UD PRN Administration SALINE FLUSH PFSH Medical History On home oxygen therapy GERD (gastroesophageal reflux disease) Hypertension Colon cancer Colostomy in place Non-smoker Home Medications ?Medication ?Instructions ?Recorded ?Last Taken ?Type acetaminophen 325 mg capsule 325 mg PO Q6H PRN pain 01/14/21 Unknown History amlodipine 10 mg tablet 10 mg PO QHS blood pressure 01/14/21 Unknown History lisinopril 30 mg tablet 30 mg PO DAILY blood pressure 01/01/25 Unknown History omeprazole 20 mg capsule,delayed 20 mg PO DAILY gerd 01/01/25 Unknown History release Allergy/AdvReac Type Severity Reaction Status Date / Time No Known Allergies Allergy Verified 12/31/24 18:19 Family History no significant family his Surgical History Hx of resection of large bowel Social History adopted: No housing: detention current occupational status: retired Smoking Status: Never smoker alcohol intake: never substance use type: does not use Review of Systems (Anesthesia) ROS Narrative System reviewed and no additional complaints, except as documented.
[2025-01-01] MEDS: 0.9% Normal Saline (1000mL) 500 ML IV (16:18)
[2025-01-01] MEDS: Lidocaine 1% (5 ml sdv) 5 ML Vial 10 ML IV (16:25)
[2025-01-01] MEDS: fentaNYL 100 MCG/2 ML Ampul IV (16:25)
--- NOTE | 2025-01-01 16:36 | RAD_ITS ---
PROCEDURE: ERCP BILIARY/PANCREAS 01/01/2025 REASON FOR EXAM: PAIN TECHNIQUE: Procedure Code: RADERCP Modality: DX Procedure: ERCP BILIARY/PANCREAS FINDINGS: Intraoperative fluoroscopy was performed for an ERCP. 34.9 seconds of fluoroscopic time. 8.56 mGy. 8 images. See procedure report for full details. RAD/ERCP Biliary/Pancreas IMPRESSION: As above. Reading Location: [id number]
--- NOTE | 2025-01-01 17:01 | OP.ERCP_ITS ---
Patient Name: Nishant Michaels Procedure Date: 01/01/2025 3:56 PM Date of : 1945 Age: 79 Procedure: ERCP Indications: Bile duct stone(s), Elevated liver enzymes, Acute pancreatitis Providers: Severiano Granados DO Medicines: Monitored Anesthesia Care Patient Profile: This is a 79 year old male. Refer to note in patient chart for documentation of history and physical. Patient has symptoms of acute epigastric abdominal pain. This patient has no history of previous ERCP. This patient has no history of surgical alteration of the upper digestive tract anatomy. Complications: No immediate complications. Procedure: Pre-Anesthesia Assessment: - Prior to the procedure, a History and Physical was performed, and patient medications and allergies were reviewed. The patient is competent. The risks and benefits of the procedure and the sedation options and risks were discussed with the patient. All questions were answered and informed consent was obtained. Patient identification and proposed procedure were verified by the physician in the pre-procedure area. Mental Status Examination: alert and oriented. Airway Examination: normal oropharyngeal airway and neck mobility. Respiratory Examination: clear to auscultation. CV Examination: normal. Prophylactic Antibiotics: The patient does not require prophylactic antibiotics. Prior Anticoagulants: The patient has taken no anticoagulant or antiplatelet agents. ASA Grade Assessment: II - A patient with mild systemic disease. After reviewing the risks and benefits, the patient was deemed in satisfactory condition to undergo the procedure. The anesthesia plan was to use monitored anesthesia care (MAC). Immediately prior to administration of medications, the patient was re-assessed for adequacy to receive sedatives. The heart rate, respiratory rate, oxygen saturations, blood pressure, adequacy of pulmonary ventilation, and response to care were monitored throughout the procedure. The physical status of the patient was re-assessed after the procedure. After obtaining informed consent, the scope was passed under direct vision. Throughout the procedure, the patient's blood pressure, pulse, and oxygen saturations were monitored continuously. The Duodenoscope was introduced through the mouth, and advanced to the duodenum and used to inject contrast into the bile duct. The ERCP was accomplished without difficulty. The patient tolerated the procedure well. Scope In: 4:41:30 PM Scope Out: 4:53:04 PM Total Procedure Duration Time 0 hours 11 minutes 34 seconds Findings: The burr mill operator film was normal. The esophagus was successfully intubated under direct vision. The scope was advanced to a normal major papilla in the descending duodenum without detailed examination of the pharynx, larynx and associated structures, and upper GI tract. The upper GI tract was grossly normal. The bile duct was deeply cannulated with the short-nosed traction sphincterotome. Contrast was injected. I personally interpreted the bile duct images. There was appropriate flow of contrast through the ducts. Image quality was adequate. Contrast extended to the entire biliary tree. Opacification of the entire opacified area, main bile duct and entire biliary tree was successful. The maximum diameter of the ducts was 10 mm. The lower third of the main bile duct contained one stone, which was 5 mm in diameter. The main bile duct was diffusely dilated, with a stone causing an obstruction. The largest diameter was 10 mm. A long 0.025 inch Jagwire was passed into the biliary tree. A 5 mm biliary sphincterotomy was made with a traction (standard) sphincterotome using ERBE electrocautery. There was no post-sphincterotomy bleeding. The biliary tree was swept with a 12 mm balloon starting at the upper third of the main bile duct, middle third of the main bile duct, lower third of the main duct, bifurcation, left intrahepatic duct(s), left main hepatic duct, right intrahepatic duct(s) and right main hepatic duct. Sludge was swept from the duct. All stones were removed. One 10 Fr by 7 cm temporary stent was placed 5 cm into the common bile duct. Bile flowed through the stent. The stent was in good position. Impression: - The entire main bile duct was dilated, with a stone causing an obstruction. - Choledocholithiasis was found. Complete removal was accomplished by biliary sphincterotomy and balloon extraction. - A biliary sphincterotomy was performed. - The biliary tree was swept. - One temporary stent was placed into the common bile duct. Procedure Code(s): --- Professional --- 95503, Endoscopic retrograde cholangiopancreatography (ERCP); with placement of endoscopic stent into biliary or pancreatic duct, including pre- and post-dilation and guide wire passage, when performed, including sphincterotomy, when performed, each stent 38241, Endoscopic retrograde cholangiopancreatography (ERCP); with removal of calculi/debris from biliary/pancreatic duct(s) 61539, 26, Endoscopic catheterization of the biliary ductal system, radiological supervision and interpretation CPT copyright 2021 [employer]. All rights reserved. The codes documented in this report are preliminary and upon highway maintenance crew worker review may be revised to meet current compliance requirements. Severiano Granados DO 01/01/2025 5:01:13 PM This report has been signed electronically. Number of Addenda: 0 Note Initiated On: 01/01/2025 3:56 PM
--- NOTE | 2025-01-01 17:01 | OP.PROVAT_ITS ---
01/01/2025 [facility] Re : ERCP procedure for [facility] This procedure was performed on Wednesday, January 01, 2025. My impressions and recommendations are as follows: Impressions : - The entire main bile duct was dilated, with a stone causing an obstruction. - Choledocholithiasis was found. Complete removal was accomplished by biliary sphincterotomy and balloon extraction. - A biliary sphincterotomy was performed. - The biliary tree was swept. - One temporary stent was placed into the common bile duct. Recommendations : My findings are described in the full procedure note, which is enclosed. If I can be of further assistance, please feel free to contact me at . Sincerely, Severiano Granados, 01/01/2025 5:01:13 PM This report has been signed electronically.
--- NOTE | 2025-01-01 17:11 | PCM.POST.ANE ---
Anesthesia: Postop Eval I Current Vital Signs Temperature: 100.0 F Pulse Rate: 96 Blood Pressure: 114/91 Respiratory Rate: 20 Pulse Ox: 97 Oxygen Delivery Method: Room Air Assessment Airway patent: Yes Spontaneous unlabored respirations: Yes Mental status: Awake and Calm nausea: No Vomiting: No Anesthesia Complication: No Fluid Hydration Crystalloid volume administer (ml): 300 Total IV fluid infused: 300 Progress Note Anesthesia document: Postop Eval 1 completed: Yes
--- NOTE | 2025-01-01 17:35 | POSTOPAN2_ITS ---
Anesthesia Postop Eval I Sum Postop Eval Completion status Anesthesia document: Postop Eval 1 completed: Yes Anesthesia Postop Eval I Summary Anesthesia Postop Eval I Summary: Anesthesia Postop Eval I: Assessment Summary Airway patent Yes 01/01/25 17:12 [email or web address] Spontaneous unlabored Yes 01/01/25 17:12 [email or web address] [email or web address] respirations Mental status Awake,Calm 01/01/25 17:12 [email or web address] nausea No 01/01/25 17:12 [email or web address] [email or web address] Vomiting No 01/01/25 17:12 [email or web address] [email or web address] Anesthesia Postop Eval I: Fluid Summary Crystalloid volume administer 300 01/01/25 17:12 [email or web address] (ml) Colloids volume administered ( ml) Blood Product volume administered (ml) Total IV fluid infused 300 01/01/25 17:12 [email or web address] Anesthesia Postop Eval I: Summary Notes Anesthesia Complication No 01/01/25 17:12 [email or web address] Anesthesia Complication Comment: Post-operative progress note Anesthesia: Postop Eval II Evaluation Mental status: Awake and Calm Pain Level: 1 nausea: No Vomiting: No Complications Anesthesia Complication: No
--- NOTE | 2025-01-01 17:35 | PCM.POSTANE2 ---
Anesthesia Postop Eval I Sum Postop Eval Completion status Anesthesia document: Postop Eval 1 completed: Yes Anesthesia Postop Eval I Summary Anesthesia Postop Eval I Summary: Anesthesia Postop Eval I: Assessment Summary Airway patent Yes 01/01/25 17:12 [email or web address] Spontaneous unlabored Yes 01/01/25 17:12 [email or web address] respirations Mental status Awake,Calm 01/01/25 17:12 [email or web address] nausea No 01/01/25 17:12 [email or web address] Vomiting No 01/01/25 17:12 [email or web address] Anesthesia Postop Eval I: Fluid Summary Crystalloid volume administer 300 01/01/25 17:12 [email or web address] (ml) Colloids volume administered ( ml) Blood Product volume administered (ml) Total IV fluid infused 300 01/01/25 17:12 [email or web address] Anesthesia Postop Eval I: Summary Notes Anesthesia Complication No 01/01/25 17:12 [email or web address] Anesthesia Complication Comment: Post-operative progress note Anesthesia: Postop Eval II Evaluation Mental status: Awake and Calm Pain Level: 1 nausea: No Vomiting: No Complications Anesthesia Complication: No
[2025-01-01] MEDS: 0.9% Normal Saline (250mL Bag) 250 ML 15 ML IV (21:20)
[2025-01-01] MEDS: 0.9% Saline Lock 10 ML Syringe IV (22:33)
[2025-01-02 00:34] VITALS: BP 111/64; PULSE 77; RESP 15; TEMP 36.3; O2SAT 100
[2025-01-02 04:11] LABS: Carcinoembryonic Antigen 1.8 ng/mL (0.0-4.7)
[2025-01-02 05:20] VITALS: BP 114/73; PULSE 66; RESP 16; TEMP 36.6; O2SAT 98
[2025-01-02] MEDS: Piperacil/Tazobactam 3.375 GM in 0.9% Normal Saline (50mL MB+) 50 ML IV (05:24)
[2025-01-02 06:00] VITALS: BMI 21.7
[2025-01-02 07:02] VITALS: O2SAT 95
[2025-01-02 07:12] LABS: Hematocrit 33.2 % (40-54); Hemoglobin 10.4 g/dL (13.0-16.5); Immature Granulocytes Count 0.020 X10^3/uL (0.0-0.0); Mean Corp Hgb Conc 31.3 g/dL (32-36); Mean Corpuscular Volume 91.2 fL (80-94); Mean Platelet Vol. 10.4 fl (6.2-12.0); NRBC Flagged by Analyzer 0 % (0-5); Platelet Count 178 K/mm3 (150-450); RBC Distribution Width CV 15.5 % (11.6-14.6); RBC Distribution Width SD 51.6 fl (35.1-43.9); Red Blood Count 3.64 M/mm3 (4.6-6.2); White Blood Count 6.6 K/mm3 (4.4-11.0)
--- NOTE | 2025-01-02 07:57 | PCM.PN.SRG ---
Subjective Subjective Patient is evaluated resting comfortably in bed. He notes feeling greatly improved. He denies any abdominal pain/discomfort, nausea, vomiting. Objective Data Objective Data Vital Signs: Vital Signs Temp Pulse Resp BP Pulse Ox O2 Del Method O2 Flow Rate 97.9 F 66 16 114/73 95 Room Air 2 01/02/25 05:20 01/02/25 05:20 01/02/25 05:20 01/02/25 05:20 01/02/25 07:02 01/02/25 07:02 01/02/25 00:34 Oxygen Flow Rate (L/min) 2 Oxygen Delivery Method Room Air Weight: 152 lb 0.14 oz Body Mass Index (BMI) 21.7 Intake & Output: Intake and Output for Last 24 Hours 12/31/24 01/01/25 01/02/25 23:59 23:59 23:59 Intake Total 1200 / 1200 3537.5 / 3537.5 650 / 650 Output Total 1780 / 1780 350 / 350 Balance 1200 / 1000 1757.5 / 1757.5 300 / 300 Lab / Micro Data 01/02/25 06:35 01/01/25 06:31 Labs: Laboratory Results - last 24 hr 01/01/25 06:31: Phosphorus 3.6, Lipase 1238 H, Carcinoembryonic Ag 1.8 01/01/25 07:21: PT 15.5 H, INR 1.2, APTT 28.5 01/02/25 06:35: WBC 6.6, RBC 3.64 L, Hgb 10.4 L, Hct 33.2 L, MCV 91.2, MCH 28.6, MCHC 31.3 L, RDW Std Deviation 51.6 H, RDW Coeff of Eduardo 15.5 H, Plt Count 178, MPV 10.4, Immature Gran % (Auto) 0.300, Neut % (Auto) 80.6 H, Lymph % (Auto) 9.2 L, [place] % (Auto) 9.2, Eos % (Auto) 0.5, Baso % (Auto) 0.2, Absolute Neuts (auto) 5.4, Absolute Lymphs (auto) 0.61 L, Nucleated RBC % 0 Radiography Diagnostic Testing: Radiology Impression Endo Retro Cholangiopancreatogram 01/01/25 16:36 IMPRESSION: As above. Reading Location: [facility] [address] Physical Exam GI GI Narrative: Abdomen- soft, benign, nontender Assessment & Plan Assessment/Plan (1) Acute biliary pancreatitis: QUALIFIERS: Acute pancreatitis complication: unspecified Qualified Code(s): K85.10 - Biliary acute pancreatitis without necrosis or infection PLAN: I am following this patient in conjunction with Dr. Garcia. She will independently evaluate this patient. CBC reviewed. BMP pending. Patient s/p ERCP with Dr. Granados yesterday. Gallstone was removed from the common bile duct and temporary stent was placed Patient has greatly improved Patient may be discharged today [facility] We will continue to monitor this patient Charges/Coding Visit Charges Inpatient E&M: 55033 Subs Hosp L2
[2025-01-02 08:03] LABS: Anion Gap 10 (5-15); BUN 22 mg/dL (4-19); BUN/Creat Ratio 15.8 RATIO (10-20); Calcium,Total 8.3 mg/dL (7.6-11.0); Carbon Dioxide 20.6 mmol/L (21.0-32.0); Chloride 108 mmol/L (98-108); Estimated Creatinine Clearance 42.03 ml/min (50-250); Glucose 129 mg/dL (70-99); Magnesium 2.3 mg/dL (1.5-2.2); Potassium 4.7 mmol/L (3.3-5.1)
[2025-01-02 09:20] VITALS: BP 125/66; PULSE 89; RESP 16; TEMP 36.9; O2SAT 95
--- NOTE | 2025-01-02 10:15 | PCM.DC.SUM ---
Providers Date of Admission: 12/31/24 Primary Care Physician: [facility] Consultations 01/01/25 06:59 Consult: Gastroenterology Routine Consulting Provider: [facility] Reason for Consult: Acute gallstone pancreatitis EMERGENT Consult: No Notified: Yes Date Notified: 01/01/25 Time Notified: 07:00 Method of Notification: Verbal Reason For Visit: ACUTE PANCREATITIS WITH TRANSAMINITIS, ABDOMINAL Diagnosis Discharge Diagnosis (1) Acute biliary pancreatitis: Status: Acute Code(s): K85.10 - Biliary acute pancreatitis without necrosis or infection Qualifiers: Acute pancreatitis complication: unspecified Qualified Code(s): K85.10 - Biliary acute pancreatitis without necrosis or infection Plan Acute gallstone pancreatitis secondary to choledocholithiasis - N.p.o. - As needed pain medication - As needed antiemetics - Continue IV fluids as ordered - Plan for ERCP later today - With leukocytosis will need antibiotics and general surgery has started Zosyn so we will continue--> will likely need oral antibiotics at discharge - Discontinue MRCP - GI consulted-case discussed with Dr. Granados and plan is for ERCP later today. Cholelithiasis - After acute pancreatitis is resolved and ERCP is completed - Outpatient follow-up for cholecystectomy in the future - General Surgery is following-appreciate input Transaminitis - Slightly more elevated today than yesterday - Should resolve slowly after stone removal - Repeat in a.m. - Bilirubin is not elevated Syncope - Sounds vasovagal and related to pain - No further episodes - Patient states he is feeling much better and has never experienced this before - Discontinue echocardiogram Intractable nausea and vomiting - Resolved CKD stage IIIa - Most recent baseline serum creatinine is unknown but previously in 2020 2021 had been between 1.3 and 1.5 - 1.71 on presentation - IV fluids for pancreatitis as above - Suspect currently at baseline - Avoid nephrotoxins History of iron deficiency anemia - Hemoglobin is 12.9 on admission 10.6 with IV fluids -After med reconciliation has been updated patient is not on any iron currently Essential hypertension - Continue to hold amlodipine and lisinopril for now and restart after monitoring blood pressure after procedure - Continue as needed hydralazine History of invasive adenocarcinoma of the colon - Status post sigmoid colectomy due to perforation - Colostomy reversal - CEA ordered on admission - Had follow-up with [facility] oncology here and was started GERD - Continue PPI DVT prophylaxis - SCDs for now - If patient is hospitalized more than another 24 hours will start subcu heparin 3 times daily CODE STATUS - Full code Medications at Discharge Home Medications acetaminophen 325 mg capsule 325 mg PO Q6H PRN pain 01/14/21 amlodipine 10 mg tablet 10 mg PO QHS blood pressure 01/14/21 lisinopril 30 mg tablet 30 mg PO DAILY blood pressure 01/01/25 omeprazole 20 mg capsule,delayed release 20 mg PO DAILY gerd 01/01/25 amoxicillin 875 mg-potassium clavulanate 125 mg tablet 1 tab PO BID #18 tabs 01/02/25 Weight / BMI Weight Weight: 68.95 kg Body Mass Index (BMI) 21.7 ABG / Lab / Microbiology Data 01/02/25 06:35 01/02/25 06:35 Laboratory: Laboratory Results - last 24 hr 01/01/25 06:31: Carcinoembryonic Ag 1.8 01/02/25 06:35: WBC 6.6, RBC 3.64 L, Hgb 10.4 L, Hct 33.2 L, MCV 91.2, MCH 28.6, MCHC 31.3 L, RDW Std Deviation 51.6 H, RDW Coeff of Eduardo 15.5 H, Plt Count 178, MPV 10.4, Immature Gran % (Auto) 0.300, Neut % (Auto) 80.6 H, Lymph % (Auto) 9.2 L, [place] % (Auto) 9.2, Eos % (Auto) 0.5, Baso % (Auto) 0.2, Absolute Neuts (auto) 5.4, Absolute Lymphs (auto) 0.61 L, Nucleated RBC % 0, Sodium 138, Potassium 4.7, Chloride 108, Carbon Dioxide 20.6 L, Anion Gap 10, BUN 22 H, Creatinine 1.39 H, Estim Creat Clear Calc 42.03 L, Est GFR (MDRD) Non-Af 52 L, BUN/Creatinine Ratio 15.8, Glucose 129 H, Calcium 8.3, Phosphorus 3.7, Magnesium 2.3 H Radiography Diagnostic Testing: Radiology Impression Endo Retro Cholangiopancreatogram 01/01/25 16:36 IMPRESSION: As above. Reading Location: [id number] Instructions Discharge Activity: Return to Normal Activity DC O2, CPAP, BIPAP Needs Home O2 Discharge instructions: No Meaningful Use Info Meaningful Use Meaningful Use Diagnoses (Choose all that apply): None applicable Discharge Plan Admission Admit Date/Time: 12/31/24 22:30 Primary Reason for Your Visit: Abdominal pain/intractable nausea and vomiting Attending Provider: Danielle Lenz Primary Care Provider: [facility],[place] Consulting Providers: Saroj Peters; Dipesh Thapa; Severiano Granados; Amara Quintana; Maddie Tyson; Sandra Scott Instructions Additional Instructions / Restrictions: 1. Please call [place] to schedule appt with Temperature Regulator and General Surgery Discharge Orders/Prescriptions Prescriptions: New amoxicillin-pot clavulanate 875-125 mg tablet 1 tab PO BID Qty: 18 0RF Continued acetaminophen 325 mg capsule 325 mg PO Q6H PRN (Reason: pain) amlodipine 10 mg tablet 10 mg PO QHS lisinopril 30 mg tablet 30 mg PO DAILY omeprazole 20 mg capsule,delayed release(DR/EC) 20 mg PO DAILY Referrals / Follow Up: [place] [Primary Care Provider, None] Referral Note: as noted above Disposition Disposition (needs filled in before D/C Order can be placed): Home, Self Care Charges/Coding Visit Charges Inpatient E&M: 34184 Disch Hosp >30min
--- NOTE | 2025-01-02 10:39 | DS.PCM_ITS ---
Providers Date of Admission: 12/31/24 Date of Discharge: 01/02/25 Primary Care Physician: [facility] Consultations 01/01/25 06:59 Consult: Gastroenterology Routine Consulting Provider: [facility] Reason for Consult: Acute gallstone pancreatitis EMERGENT Consult: No MD Notified: Yes Date Notified: 01/01/25 Time Notified: 07:00 Method of Notification: Verbal Reason For Visit: ACUTE PANCREATITIS WITH TRANSAMINITIS, ABDOMINAL Diagnosis Discharge Diagnosis (1) Acute biliary pancreatitis: Status: Acute Code(s): K85.10 - Biliary acute pancreatitis without necrosis or infection Qualifiers: Acute pancreatitis complication: unspecified Qualified Code(s): K85.10 - Biliary acute pancreatitis without necrosis or infection Medications at Discharge Home Medications acetaminophen 325 mg capsule 325 mg PO Q6H PRN pain 01/14/21 amlodipine 10 mg tablet 10 mg PO QHS blood pressure 01/14/21 lisinopril 30 mg tablet 30 mg PO DAILY blood pressure 01/01/25 omeprazole 20 mg capsule,delayed release 20 mg PO DAILY gerd 01/01/25 amoxicillin 875 mg-potassium clavulanate 125 mg tablet 1 tab PO BID #18 tabs 01/02/25 Hospital Course Operations ERCP Procedures - (CT chest abdomen and pelvis/gallbladder ultrasound) Summary of Care Provided Minutes Spent on Discharge: 38 Hospital Course: Mr. Michaels is a 79-year-old white male who presented to the emergency department [facility] on 12/31/2024 with nausea, abdominal pain, vomiting, and a syncopal episode. Patient had been having intermittent epigastric pain with nausea periodically over several weeks prior to presentation. He never had symptoms as severe as he did immediately prior to presentation. He had gone out to eat and subsequently had abrupt onset of pain following p.o. intake. He states that time of symptoms and previously does not as severe. The pain was fairly severe and he sat up and coughed and became unresponsive for a few minutes after vomiting. Highly suspicious of vasovagal episode and workup was unremarkable. Vital signs on presentation showed temperature of 97.6, heart rate 108, respiratory 18, initial blood pressure was 88/67 with a repeat of 106/58 and pulse ox was 95% on room air. His CBC was overtly unremarkable on the day of presentation however he did end up with a white count on the day after presentation which resolved the initiation of antibiotics given his imaging. Coags were relatively unremarkable. Chemistry panel showed normal electrolytes with a BUN of 27 and serum creatinine of 1.71 (recent baseline unclear) his glucose was 178. Hemoglobin A1c was 6. Bilirubin was normal but AST was 264 with an ALT of 227 and an alk phos of 362. Lipase was greater than 3000. CT of the chest abdomen pelvis showed an abnormally distended gallbladder with extrahepatic biliary prominence and mild intrahepatic biliary prominence and evidence of pancreatitis with fluid near the pancreatic tail. Gallbladder ultrasound was performed and showed nonspecific common bile duct dilation with intrahepatic biliary duct dilation and pancreatic dilation with concern for choledocholithiasis and hepatic steatosis. Both general surgery and GI were consulted. Ultimately general surgery would like to wait likely calms down but he will in the future need his gallbladder removed. ERCP was performed on 01/01/2025 and this demonstrated dilation of the entire main bile duct with choledocholithiasis identified and removed via sphincterotomy and balloon extraction with 1 temporary stent placed and the biliary tree was swept. Patient was returned to the medical floor without any issue and diet was initiated. Patient was tolerating full regular diet on the a.m. of 01/02/2025 and stated he felt very well. Abdominal pain had completely resolved. Patient is [facility] and will need to follow-up at the [facility] [place]. He will need follow-up with general surgery for consideration of cholecystectomy and follow-up with gastroenterology as he does have a temporary biliary stent in place. With his leukocytosis we did discharge him on antibiotics with Augmentin for another 9 days to complete a total of 10-day course. Prescription was e-prescribed to the pharmacy at the time of discharge. Patient was instructed to follow-up with the [facility] as noted above and communication was had via case management and his family preservation caseworker up at the [facility] with regards to appropriate follow-up. Patient was discharged home in stable condition on 01/02/2025. Discharge diagnoses: Acute gallstone pancreatitis Choledocholithiasis status post ERCP Cholelithiasis Transaminitis Vasovagal syncope Intractable nausea and vomiting-resolved CKD stage IIIa versus 3b--> current baseline is unclear History of iron deficiency anemia Essential hypertension History of invasive adenocarcinoma of the colon GERD History of tobacco abuse Physical Exam Const alert, oriented x3, no apparent distress, average body habitus, no limitations, healthy appearing and well nourished Constitutional Narrative: Very pleasant older, white male, sitting up in bed watching television and eating a large breakfast, patient appears comfortable currently, does not appear toxic General Appearance: cooperative, comfortable, well kempt and well developed Exam Limitations: no limitations HEENT normocephalic, head/scalp atraumatic and moist oral mucous membranes; Negative for hearing grossly normal bilaterally HEENT Narrative: Markedly hard of hearing, Mallampati is 2, no thrush Eyes conjunctivae normal Eyes Narrative: No scleral icterus Neck supple Neck Narrative: Trachea midline Resp normal respiratory effort, no retractions, no use of accessory muscles and clear to auscultation bilaterally Auscultation: Negative for rales, rhonchi or wheezes Cardio regular rate, regular rhythm, S1 normal heart sound, S2 normal heart sound, no murmurs, no rub, no gallops and no clicks GI normal to inspection, nondistended, normoactive bowel sounds, soft to palpation and non-tender Extremity no clubbing, cyanosis or edema Extremity Narrative: 2+ pedal and radial pulses Skin no jaundice, no petechiae and no mottling Neuro moves all extremities and no focal motor deficits Speech: speech normal Psych affect normal Psych Narrative: Very pleasant, interacts appropriately Weight / BMI Weight Weight: 68.95 kg Body Mass Index (BMI) 21.7 ABG / Lab / Microbiology Data 01/02/25 06:35 01/02/25 06:35 Laboratory: Laboratory Results - last 24 hr 01/01/25 06:31: Carcinoembryonic Ag 1.8 01/02/25 06:35: WBC 6.6, RBC 3.64 L, Hgb 10.4 L, Hct 33.2 L, MCV 91.2, MCH 28.6, MCHC 31.3 L, RDW Std Deviation 51.6 H, RDW Coeff of Eduardo 15.5 H, Plt Count 178, MPV 10.4, Immature Gran % (Auto) 0.300, Neut % (Auto) 80.6 H, Lymph % (Auto) 9.2 L, [place] % (Auto) 9.2, Eos % (Auto) 0.5, Baso % (Auto) 0.2, Absolute Neuts (auto) 5.4, Absolute Lymphs (auto) 0.61 L, Nucleated RBC % 0, Sodium 138, Potassium 4.7, Chloride 108, Carbon Dioxide 20.6 L, Anion Gap 10, BUN 22 H, Creatinine 1.39 H, Estim Creat Clear Calc 42.03 L, Est GFR (MDRD) Non-Af 52 L, BUN/Creatinine Ratio 15.8, Glucose 129 H, Calcium 8.3, Phosphorus 3.7, Magnesium 2.3 H Radiography Diagnostic Testing: Radiology Impression Endo Retro Cholangiopancreatogram 01/01/25 16:36 IMPRESSION: As above. Reading Location: [id number] D/C Instructions DC O2, CPAP, BIPAP Needs Home O2 Discharge instructions: No Meaningful Use Info Meaningful Use Meaningful Use Diagnoses (Choose all that apply): None applicable Discharge Plan Admission Admit Date/Time: 12/31/24 22:30 Primary Reason for Your Visit: Abdominal pain/intractable nausea and vomiting Attending Provider: Danielle Lenz Primary Care Provider: [facility] Consulting Providers: Saroj Peters; Dipesh Thapa; Severiano Granados; Amara Quintana; Maddie Tyson; Sandra Scott Instructions Additional Instructions / Restrictions: 1. Please call [facility] to schedule appt with [facility] and General Surgery Discharge Orders/Prescriptions Prescriptions: New amoxicillin-pot clavulanate 875-125 mg tablet 1 tab PO BID Qty: 18 0RF Continued acetaminophen 325 mg capsule 325 mg PO Q6H PRN (Reason: pain) amlodipine 10 mg tablet 10 mg PO QHS lisinopril 30 mg tablet 30 mg PO DAILY omeprazole 20 mg capsule,delayed release(DR/EC) 20 mg PO DAILY Referrals / Follow Up: [facility] [Primary Care Provider, None] Referral Note: as noted above Disposition Disposition (needs filled in before D/C Order can be placed): Home, Self Care Charges/Coding Visit Charges Inpatient E&M: 69005 Disch Hosp >30min
--- NOTE | 2025-01-02 13:00 | CASEMGMT ---
Care Management Patient ready for discharge today and will be prescribed 9 days of antibiotics - per provider the patient has stated [facility]. Met with patient in room, later joined by the . Discussed discharge plan. Patient reports [facility] covers all medications, and will ship overnight. Explained ATB should be taken right away - patient reports could go to [facility] pharmacy to pick remover if needed. Called [facility] and spoke with Bing in the pharmacy, who reports able to take Rx by non-[facility] doctor, in this case. Provided Pharmacy name for [facility] or fax of [phone]. Called [facility] and spoke with PCP - Dr. Muhammad - nurse Celestino. Update Celestino who will update PCP in case there are issues with the Rx. Confirmed fax to send patient's clinicals and [facility] will called patient to make needed follow up. . Celestino's direct number if needed, , ext. [phone]. Spoke with patient and again. Both in agreement to go to [place] to get medication. Instructed to call [place] before diving up so as to ensure Rx is ready. Patient reports to pay 15 dollars a month to have all meds covered. Updated Dr. Lenz who will send script. No other services requested or indicated. Faxed discharge instructions, summary and consults to confirmed fax for Celestino KENT at the [facility]. -DEA Valencia
== END 2025-01-02 11:24 | disposition home or self-care (01) | DRG 439 ==
LOC: ED 22:01 → MS3 22:49
PROVIDERS: Internal Medicine Gastroenterology; Admitting Provider Internal Medicine; Emergency Provider Emergency Medicine; Visit Provider Internal Medicine
PROC: 0FC98ZZ Extirpation of Matter from Common Bile Duct, Via Natural or Artificial Opening Endoscopic (ICD-10-PCS; CPT 43260; principal; 2025-01-01 15:40)
DX: K85.10 Biliary acute pancreatitis without necrosis or infection (principal); K80.51 Calculus of bile duct without cholangitis or cholecystitis with obstruction; N18.31 Chronic kidney disease, stage 3a; D50.9 Iron deficiency anemia, unspecified; I12.9 Hypertensive chronic kidney disease with stage 1 through stage 4 chronic kidney disease, or unspecified chronic kidney disease; Z93.3 Colostomy status; K83.8 Other specified diseases of biliary tract; K21.9 Gastro-esophageal reflux disease without esophagitis; M19.90 Unspecified osteoarthritis, unspecified site; K59.00 Constipation, unspecified; R74.01 Elevation of levels of liver transaminase levels; Z87.891 Personal history of nicotine dependence; R55 Syncope and collapse; Z85.038 Personal history of other malignant neoplasm of large intestine
CPT/HCPCS: 36415; 71260; 74177; 74330; 76000; 76705; 80048; 80053; 81001; 82378; 82728; 83036; 83540; 83550; 83690; 83735; 84100; 84443; 85025; 85610; 85730; 93005; 99285; C2625; Q9967; A4216; J2405